=== PATIENT | female | born 1975 | race Caucasian/White ===

== ENCOUNTER → 2022-04-19 10:00 | Outpatient (BNVA) | payer OTHER, SELFPAY | PROVIDERS: PCP Internal Medicine Endocrinology, Diabetes & Metabolism; Visit Provider Counselor Mental Health | DX: F43.20 Adjustment disorder, unspecified (principal); E66.01 Morbid (severe) obesity due to excess calories | CPT/HCPCS: 90791 ==

== ENCOUNTER 2022-05-04 15:11 | Outpatient (REF) | payer OTHER, SELFPAY ==
[2022-05-05 15:43] LABS: H Pylori Breath Test Negative (Negative)
== END 2022-05-04 15:12 | disposition home or self-care (01) ==
LOC: HO.LNP 15:11
PROVIDERS: Visit Provider Physician Assistant
DX: E66.01 Morbid (severe) obesity due to excess calories (principal); E03.9 Hypothyroidism, unspecified; I10 Essential (primary) hypertension
CPT/HCPCS: 83013

== ENCOUNTER → 2022-05-06 10:20 | Outpatient (BNVA) | payer OTHER, SELFPAY | PROVIDERS: PCP Internal Medicine Endocrinology, Diabetes & Metabolism; Visit Provider Dietitian, Registered | DX: Z71.3 Dietary counseling and surveillance (principal); E66.01 Morbid (severe) obesity due to excess calories | CPT/HCPCS: 97802 ==

== ENCOUNTER 2022-05-18 09:04 | Outpatient (REF) | payer OTHER, SELFPAY ==
--- NOTE | 2022-05-18 09:17 | ECG_ITS ---
Test Reason : OBESITY Blood Pressure : / mmHG Vent. Rate : 084 BPM Atrial Rate : 084 BPM P-R Int : 152 ms QRS Dur : 094 ms QT Int : 380 ms P-R-T Axes : 059 042 -02 degrees QTc Int : 449 ms Normal sinus rhythm Nonspecific ST and T wave abnormality Borderline ECG No previous ECGs available Referred By: Shiloh Bower Electronically Signed By:MANDO BERMUDEZ
[2022-05-18 09:38] LABS: MANUAL DIFF FLAG NO
[2022-05-18 10:02] LABS: Basophils Percent Auto 0.4 % (0-2); Eosinophils Absolute Auto 0.4 X10*3/uL (0.0-0.4); Eosinophils Percent Auto 5.2 % (0-4); Hematocrit 38.3 % (37.0-47.0); Imm Gran Abs Auto 0.02 X10*3/uL (0.00-0.03); Imm Gran Pct Auto 0.3 % (0.0-0.4); Lymphocytes Absolute Auto 1.7 X10*3/uL (1.2-4.9); Lymphocytes Percent Auto 25.1 % (20-40); Mean Corpuscular HGB Conc 31.3 g/dl (31.0-35.0); Mean Corpuscular Hemoglobin 26.7 pg (27.0-33.0); Mean Corpuscular Volume 85.3 fL (80.0-98.0); Mean Platelet Volume 10.6 fL (9.4-12.3); Monocytes Absolute Auto 0.6 X10*3/uL (0.1-1.2); Monocytes Percent Auto 8.9 % (2-11); Neutrophils Percent Auto 60.1 % (45-73); Platelet Count 392 X10*3/uL (160-400); Red Blood Count 4.49 X10*6/uL (4.20-5.50); White Blood Count 6.7 X10*3/uL (4.8-10.8)
[2022-05-18 10:09] LABS: Estimated Average Glucose 137 mg/dL; Hemoglobin A1c % 6.4 %
[2022-05-18 10:34] LABS: Alanine Aminotransferase 40 U/L (0-31); Albumin Level 4.1 g/dL (3.5-5.0); Alkaline Phosphatase 70 U/L (39-117); Anion Gap 20 (12-20); Aspartate Amino Transferase 33 U/L (5-31); Bilirubin Total 0.5 mg/dL (0.0-1.0); Blood Urea Nitrogen 14 mg/dL (9-16); C Reactive Protein 1.97 mg/dL (< or = 0.50); Calcium 9.7 mg/dL (8.4-10.2); Carbon Dioxide 24 mmol/L (22-29); Chloride 103 mmol/L (96-108); Cholesterol 189 mg/dL; Estimated Glomerular Filt Rate > 60; Glucose Random 169 mg/dL (60-115); HDL Cholesterol 43 mg/dL; Iron 52 mcg/dL (30-160); LDL Cholesterol Calculated 124 mg/dl; Percent Iron Saturation 11 % (15-50); Potassium 4.5 mmol/L (3.3-5.1); Sodium 142 mmol/L (135-145); Total Iron Binding Capacity 469 mcg/dL (228-428); Total Protein 7.1 g/dL (6.5-8.0); Triglycerides 114 mg/dL; Unsaturated Iron Binding 417 ug/dL
[2022-05-18 10:56] LABS: Ferritin 29 ng/mL (10-250); Insulin 38 uU/mL (2-29); Vitamin D 25-OH Total 45.2 ng/mL (>30)
[2022-05-18 11:11] LABS: Folate 5.5 ng/mL (> or = 4.0); Vitamin B12 223 pg/mL (200-900)
[2022-05-19 10:42] LABS: Calcium (PTHI) 9.9 mg/dL (8.6-10.2); PTHI 47 pg/mL (16-77)
[2022-05-21 18:06] LABS: Zinc 91 mcg/dL (60-130)
[2022-05-22 11:03] LABS: Vitamin B1 6 nmol/L (8-30)
[2022-05-22 20:02] LABS: Vitamin A 38 mcg/dL (38-98)
== END 2022-05-18 09:05 | disposition home or self-care (01) ==
LOC: HO.LAB 09:04
PROVIDERS: PCP Internal Medicine Endocrinology, Diabetes & Metabolism; Visit Provider Physician Assistant
DX: E03.9 Hypothyroidism, unspecified (principal); E66.01 Morbid (severe) obesity due to excess calories; G47.30 Sleep apnea, unspecified; I10 Essential (primary) hypertension; I26.99 Other pulmonary embolism without acute cor pulmonale
CPT/HCPCS: 36415; 80053; 80061; 82306; 82607; 82728; 82746; 83036; 83525; 83540; 83970; 84425; 84443; 84590; 84630; 85025; 86140; 93005

== ENCOUNTER 2022-05-24 08:29 | Outpatient (REF) | payer OTHER, SELFPAY ==
--- NOTE | ~2022-05-24 | FL_ITS ---
EXAMINATION: XR GI SERIES CLINICAL INFORMATION: Obesity COMPARISON: None TECHNIQUE: Upper GI was performed using thick barium and effervescent granules. Exam is limited. Upright views of the esophagus were performed. Upright views of the stomach and duodenum were performed. Additional overhead images of the stomach and duodenum in the AP and bilateral oblique projections were performed. Patient refused additional images. Prone SRINIVASAN drinking esophagram images were not obtained. FINDINGS: Esophageal motility is normal. No hernia is appreciated with the patient upright or on limited supine images. Drinking esophagram was not performed. Gastroesophageal reflux was not observed. Evaluation of the stomach and duodenum is limited but unremarkable. FLUOROSCOPY TIME: 0.3 minutes DOSE AREA PRODUCT: 159 CG Y per centimeter squared 8 fluoroscopic images and 5 overhead images. FL/FL upper GI series IMPRESSION: Limited but unremarkable exam
--- NOTE | ~2022-05-24 | US_ITS ---
EXAMINATION: US COMPLETE ABDOMEN WITH LIVER ELASTOGRAPHY CLINICAL INFORMATION: Obesity COMPARISON: None. TECHNIQUE: Real-time imaging of the abdominal viscera. Noninvasive ultrasound liver fibrosis assessment is performed using Marc ElastPQ point quantification shear wave elastography (2D-SWE) with a C5-2 MHz transducer. Multiple elastography samples are obtained. Exam is limited due to body habitus. FINDINGS: PANCREAS: Not well visualized. ABDOMINAL AORTA: The proximal and middle aortic segments are normal in caliber. The distal abdominal aorta is not well visualized. INFERIOR VENA CAVA: Visualized portions are normal. LIVER: Liver is enlarged. Liver echotexture is increased. No focal liver lesion or biliary duct dilatation. The right lobe measures 22 cm in length. The left lobe measures 14 cm in length. Portal flow is normal/hepatopedal Shear wave liver elastography median stiffness is 1.8 m/s (reference: normal median stiffness is 1.3 m/s or less). IQR/median stiffness to assess sampling precision is 0.28 (reference: good quality data set is IQR/median stiffness of 0.15 or less). GALLBLADDER: Normal. The gallbladder is physiologically distended without evidence of stones, sludge, polyps, wall thickening or pericholecystic fluid. COMMON BILE DUCT: Normal in caliber measuring 0.4 cm in diameter. RIGHT KIDNEY: There is question of a stone in the midpole measuring 5 mm. No hydronephrosis. No focal parenchymal lesions. The kidney measures 10.7 cm in maximum dimension. LEFT KIDNEY: There is a 3 cm cyst in the lower pole. No hydronephrosis. No renal calculi . The kidney measures 12.4 cm in maximum dimension. SPLEEN: Normal. The spleen measures 11.5 cm in maximum dimension. FREE FLUID: None. US/US abdomen comp w elastography IMPRESSION: 1. Impression: Limited exam due to patient body habitus. Enlarged echogenic liver suggestive of fatty infiltration. Question small right renal stone. Small left renal cyst. Limited visualization of the pancreas and aorta. 2. Liver elastography: Limited due to sampling error. REFERENCE: Society of Radiologists in Ultrasound Liver Stiffness Thresholds (2020): LIVER STIFFNESS THRESHOLDS: *Liver Stiffness equal or less than 1.3 m/s: High probability of being normal. *Liver Stiffness less than 1.7 m/s: In the absence of other known clinical signs, rules out compensated advanced chronic liver disease. *Liver Stiffness 1.7-2.1 m/s: Suggestive of compensated advanced chronic liver disease but need further test for confirmation. *Liver Stiffness over 2.1 m/s: Rules in compensated advanced chronic liver disease. *Liver Stiffness over 2.4 m/s: Suggestive of clinically significant portal hypertension. QUALITY OF DATA SET: *IQR/Median value equal or less than 0.15 implies a quality data set. *IQR/Median value over 0.15 implies a poor quality data set. SIGNIFICANT CHANGE FROM PRIOR EXAM: Significant change if liver stiffness measurement is 10% or greater from prior exam. OTHER CONSIDERATIONS: The stage of liver fibrosis may be overestimated in the setting of acute hepatitis, liver inflammation, elevated liver function tests, hepatic vascular congestion, obstructive cholestasis, non-fasting state, and infiltrative diseases such as amyloidosis and lymphoma. In some patients with NAFLD, the liver stiffness thresholds for compensated advanced chronic liver disease may be lower. In causes other than viral hepatitis and NAFLD, liver stiffness thresholds are not well established.
--- NOTE | ~2022-05-24 | XR_ITS ---
EXAMINATION: XR CHEST CLINICAL INFORMATION: Bariatric service evaluation. E66.01. COMPARISON: None TECHNIQUE: 2 views of the chest were obtained. FINDINGS: Lungs are clear. There is no airspace consolidation or groundglass opacity or effusion. The costophrenic sulci are well-defined. The heart is normal in size. The hilar and mediastinal contours and visualized bony structures are unremarkable. XR/XR chest 2V IMPRESSION: Unremarkable examination.
== END 2022-05-24 08:30 | disposition home or self-care (01) ==
LOC: HO.US 08:29
PROVIDERS: Visit Provider Physician Assistant
DX: Z01.818 Encounter for other preprocedural examination (principal); E66.01 Morbid (severe) obesity due to excess calories; I10 Essential (primary) hypertension; G47.30 Sleep apnea, unspecified; I26.99 Other pulmonary embolism without acute cor pulmonale; E03.9 Hypothyroidism, unspecified; E66.9 Obesity, unspecified; K21.9 Gastro-esophageal reflux disease without esophagitis
CPT/HCPCS: 71046; 74240; 76705; 76981

== ENCOUNTER → 2022-06-03 10:41 | Outpatient (BNVA) | payer OTHER, SELFPAY | PROVIDERS: PCP Internal Medicine Endocrinology, Diabetes & Metabolism; Visit Provider Dietitian, Registered | DX: E66.01 Morbid (severe) obesity due to excess calories (principal) | CPT/HCPCS: 97803 ==

== ENCOUNTER → 2022-07-12 10:03 | Outpatient (BNVA) | payer OTHER, SELFPAY | PROVIDERS: PCP Internal Medicine Endocrinology, Diabetes & Metabolism; Visit Provider Dietitian, Registered | DX: E66.01 Morbid (severe) obesity due to excess calories (principal); Z68.45 Body mass index [BMI] 70 or greater, adult | CPT/HCPCS: 97803 ==

== ENCOUNTER → 2022-10-14 09:58 | Outpatient (BNVA) | payer OTHER, SELFPAY | PROVIDERS: Visit Provider Physician Assistant | DX: E66.01 Morbid (severe) obesity due to excess calories (principal) ==

== ENCOUNTER → 2022-10-28 13:43 | Outpatient (BNVA) | payer OTHER, SELFPAY | PROVIDERS: PCP Internal Medicine Endocrinology, Diabetes & Metabolism; Visit Provider Dietitian, Registered | DX: E66.01 Morbid (severe) obesity due to excess calories (principal) | CPT/HCPCS: 97803 ==

== ENCOUNTER → 2022-11-05 09:58 | Outpatient (BNVA) | payer OTHER, SELFPAY | PROVIDERS: PCP Internal Medicine Endocrinology, Diabetes & Metabolism; Visit Provider Physician Assistant | DX: Z98.890 Other specified postprocedural states (principal) ==

== ENCOUNTER → 2022-12-10 09:00 | Outpatient (BNVA) | payer OTHER, SELFPAY | PROVIDERS: PCP Internal Medicine Endocrinology, Diabetes & Metabolism; Visit Provider Physician Assistant | DX: Z13.89 Encounter for screening for other disorder (principal) ==

== ENCOUNTER → 2022-12-16 13:16 | Outpatient (BNVA) | payer OTHER, SELFPAY | PROVIDERS: PCP Internal Medicine Endocrinology, Diabetes & Metabolism; Visit Provider Dietitian, Registered | DX: E66.01 Morbid (severe) obesity due to excess calories (principal); Z68.45 Body mass index [BMI] 70 or greater, adult | CPT/HCPCS: 97803 ==

== ENCOUNTER → 2023-01-26 10:00 | Outpatient (BNVA) | payer OTHER, SELFPAY | PROVIDERS: PCP Internal Medicine Endocrinology, Diabetes & Metabolism; Visit Provider Physician Assistant | DX: Z13.89 Encounter for screening for other disorder (principal) ==

== ENCOUNTER → 2023-02-16 11:30 | Outpatient (BNVA) | payer OTHER, SELFPAY | PROVIDERS: PCP Internal Medicine Endocrinology, Diabetes & Metabolism; Visit Provider Physician Assistant ==

== ENCOUNTER → 2023-02-24 11:19 | Outpatient (BNVA) | payer OTHER, SELFPAY | PROVIDERS: PCP Internal Medicine Endocrinology, Diabetes & Metabolism; Visit Provider Dietitian, Registered | DX: E66.01 Morbid (severe) obesity due to excess calories (principal) | CPT/HCPCS: 97803 ==

== ENCOUNTER 2023-04-18 11:00 | Outpatient (AMB) | payer OTHER, SELFPAY ==
--- NOTE | 2023-04-18 11:17 | MHC.OFFVISWM ---
Intake VS Expanded 04/18/23 11:22 Height 5 ft 4 in Weight 463 lb 2 oz BMI 79.5 Intake Visit Reasons: VIDEO F/U SWL Allergies PENICILLIEN Allergy (Mild, Uncoded 03/25/22 10:10) Rash Medication List - Last Reconciled 04/18/23 by Shiloh Bower PA-C amlodipine 5 mg PO BID benazepril 10 mg PO DAILY cholecalciferol (vitamin D3) 50 mcg PO DAILY clotrimazole 1% 1 appl topical BID cyanocobalamin (vitamin B-12) 250 mcg PO DAILY dulaglutide (Trulicity) 1.5 mg subcut QWEEK inulin (Fiber Gummies) grams PO levothyroxine 100 mcg PO DAILY thiamine HCl (vitamin B1) 50 mg (1/2 x 100 mg) PO DAILY warfarin 7.5 mg PO 2XW warfarin 5 mg PO 4XW HPI HPI Comments History of Present Illness Details 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 Will be on vacation until April 24. Meal plan - 8am - [facility] shake 11 am - bar 1-2 pm- yogurt 4pm- shake or cc or 1 hb egg 6pm - 4 - 6 oz protein and vegetables most days some starchy vegetables Exercise - 30 minute HIT classes 3-4d/ week. (350 - 420) TSH was re cehecked by foreign policy officer- no does change. colonoscopy - March 2023, all normal per patient PFSH Surgical History Hx of section Family History Mother Diabetes Hypertension Graves disease Hypothyroid Father Heart problem Hypertension Brother No problems noted. Daughter No problems noted. Social History Alcohol intake: never Patient Tobacco Use Status: Never used Tobacco Assessment & Plan Assessment & Plan (1) Morbid obesity: Code(s): E66.01 - Morbid (severe) obesity due to excess calories Plan: SWL follow up, pt has lost 55 lbs or 10.6%. She is now struggling more with her meal plan but has been able to increase her exericse - now without personal training sessions. She is asking what her goal is to lose before bariatric surgery. She will text me recent BP's. Meal plan: Starting April 25, we discussed her changing her meal plan to a very low calories high protein option to try to achceive more weight loss for a 2-3 week period. She will come to office for her next appt for full Tanita readings 8am - shake 11am - bar 2pm - shake 5pm - cottage or yogurt 7pm- shake Continue HIT classes 4 d/week, Start TBP sittitng videos 3d/ week - 2,000 calories - burned per week. Options to be discussed: 1. Repeat ULS to check for shrinkage of liver 2. Candidate for phentermine? 3. Discuss with Dr Lawler, since the endogastric balloon is not an option for her (due to finances) what is the pre op goal for her. Next appt with me first week of May. Dr Cole was in attendance during this visit. Patient is still morbidly obese and is not considered stable at this time. I spent 45 minutes in total speaking with the patient via video conference counseling , reviewing records and charting in patients chart. . . (2) HTN (hypertension), benign: Code(s): I10 - Essential (primary) hypertension (3) Hypothyroid: Code(s): E03.9 - Hypothyroidism, unspecified (4) GISSELLE on CPAP: Code(s): G47.33 - Obstructive sleep apnea (adult) (pediatric); Z99.89 - Dependence on other enabling machines and devices (5) Pulmonary embolus: Comment: history, while on bedrest Code(s): I26.99 - Other pulmonary embolism without acute cor pulmonale Telehealth Telehealth Location of provider rendering services: practice address Location of patient: address on file Patient Identification confirmed using: Name, : No Telehealth method: video Patient verbally consented to treatment: Yes Patient verbally consented to billing insurance company: Yes Patient informed of any privacy concerns related to visit: Yes Coding Level of Care Code Tele Est Pt Level 4 (40043) Diagnoses Morbid obesity E66.01 HTN (hypertension), benign I10 Hypothyroid E03.9 GISSELLE on CPAP G47.33; Z99.89 Pulmonary embolus I26.99
[2023-04-18 11:22] VITALS: BMI 79.5
== END 2023-04-18 12:23 | disposition home or self-care (01) ==
LOC: HO.HBS 11:56
PROVIDERS: PCP Internal Medicine Endocrinology, Diabetes & Metabolism; Visit Provider Physician Assistant
DX: E66.01 Morbid (severe) obesity due to excess calories (principal); Z68.45 Body mass index [BMI] 70 or greater, adult; I10 Essential (primary) hypertension; E03.9 Hypothyroidism, unspecified; I26.99 Other pulmonary embolism without acute cor pulmonale; G47.33 Obstructive sleep apnea (adult) (pediatric); Z99.89 Dependence on other enabling machines and devices
CPT/HCPCS: 99214

== ENCOUNTER → 2023-04-18 11:00 | Outpatient (BNVA) | payer OTHER, SELFPAY | PROVIDERS: PCP Internal Medicine Endocrinology, Diabetes & Metabolism; Visit Provider Physician Assistant ==

== ENCOUNTER 2023-04-25 10:30 | Outpatient (AMB) | payer OTHER, SELFPAY ==
--- NOTE | 2023-04-25 10:43 | MHC.AMNUTRGE ---
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 Reviewed her very temporary low calorie high protein nutrition plan which is: 8am - shake 11am - bar 2pm - shake 5pm - cottage or yogurt 7pm- shake went on vacation in [place]. tried to stick to protein and vegetables.? HIT classes 4 d/week, Start TBP sittitng videos 3d/ week. I Recommended a walking trail in [place] which has benches for resting. Was on Trulicity 3.0 but started experiencing vomiting and rash around injection site. Went back down to the 1.5 . She isn't opposed to taking a different medication and she will discuss options with her pcp Dietary counseling reduction Diagnosis Nutrition problem #1 overweight/obesity As related to (etiology) #1 excess energy intake and physical inactivity As evidenced by (sign/symptom) #1 high BMI Monitoring/Goals Nutrition problem monitoring total energy intake, level of knowledge/skill, total PRO intake, total CHO intake and weight Outcome progress progressing Learning/Education Readiness to learn excellent Stages of change action Most Recent Diabetes Results: No Data to Display PFSH Surgical History Hx of section Family History Mother Diabetes Hypertension Graves disease Hypothyroid Father Heart problem Hypertension Brother No problems noted. Daughter No problems noted. Social History Alcohol intake: never Patient Tobacco Use Status: Never used Tobacco Assessment & Plan Assessment & Plan (1) Morbid obesity: Code(s): E66.01 - Morbid (severe) obesity due to excess calories Patient Instructions: pt is cleared, is doing great, or is very consistent and determined. Communicate as needed and continue follow ups with Shiloh [facility] Location of provider rendering services: practice address Location of patient: address on file Patient Identification confirmed using: Name, : Yes Telehealth method: video Patient verbally consented to treatment: Yes Patient verbally consented to billing insurance company: Yes Patient informed of any privacy concerns related to visit: Yes Minutes spent on Phone/Video with Pt.: 25 Coding Level of Care Code Nutr Indiv Subseq (24754) Diagnoses Morbid obesity E66.01 Time Spent (min) 25
== END 2023-04-25 11:44 | disposition home or self-care (01) ==
LOC: HO.HBS 11:42
PROVIDERS: PCP Internal Medicine Endocrinology, Diabetes & Metabolism; Visit Provider Dietitian, Registered
DX: E66.01 Morbid (severe) obesity due to excess calories (principal)

== ENCOUNTER → 2023-04-25 10:30 | Outpatient (BNVA) | payer OTHER, SELFPAY | PROVIDERS: PCP Internal Medicine Endocrinology, Diabetes & Metabolism; Visit Provider Dietitian, Registered | DX: E66.01 Morbid (severe) obesity due to excess calories (principal); Z71.3 Dietary counseling and surveillance | CPT/HCPCS: 97803 ==

== ENCOUNTER 2023-05-13 13:00 | Outpatient (AMB) | payer OTHER, SELFPAY ==
--- NOTE | 2023-05-13 13:05 | A.OFFVIS_ITS ---
Intake VS Expanded 05/13/23 13:18 Height 5 ft 4 in Weight 455 lb 6.4 oz BMI 78.2 BP 141/70 H Blood Pressure Location Rt radial Pulse 78 Pulse Source Pulse Oximeter Temp 98.6 F Temperature Source Temporal Artery Scan Pulse Oximetry 98 Oxygen Delivery Method Room Air Body Fat 266.0 Body Fat Percentage 58.5 Free Fat Mass 189.2 Muscle Mass 179.6 Water Mass 136.0 BMR 2,947 Intake Visit Reasons: (OV) F/U SWL Allergies PENICILLIEN Allergy (Mild, Uncoded 05/13/23 13:15) Rash Medication List - Last Reconciled 05/13/23 by Charlotte Paul LPN amlodipine 5 mg PO BID benazepril 10 mg PO DAILY cholecalciferol (vitamin D3) 50 mcg PO DAILY clotrimazole 1% 1 appl topical BID cyanocobalamin (vitamin B-12) 250 mcg PO DAILY dulaglutide (Trulicity) 1.5 mg subcut QWEEK inulin (Fiber Gummies) grams PO levothyroxine 100 mcg PO DAILY thiamine HCl (vitamin B1) 50 mg (1/2 x 100 mg) PO DAILY warfarin 7.5 mg PO 2XW warfarin 5 mg PO 4XW HPI HPI Comments History of Present Illness Details 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 Dr Lawler had recommended patient have endogastric balloon placed to aid with her weight loss, but for financial reasons patient is unable to do this. She has been on Trulcity for at least one year and cannot use Phentermine per Dr Lawler due to HTN diagnosis. Meal plan - 3 shakes, 1 bar, 2 yogurt or cc - for about 2 weeks and lost 8 lbs. When tried to have a reasonable dinner at a restaurant - gained 3 lbs over night. shredded lettuce, 6 shrimp, taco shell, guacamole, selzter. At home 6 oz lean protein, adn roasted vegetables. Exercise - for the last 2 weeks - 6d/week. 30 minute in person exercise class. Then walks in pool in weights. Pre op work up completed. SWL classes -? 05/17 appts -cleared? ? RD appts? - next appt 12/2, rescheduled to 10/18, cleared H pylori - negative Labs - done CXR and ECG - both normal ULS? fatty liver UGI - normal ? ? [facility] Medical History (Updated 05/13/23 @ 13:49 by Shiloh Bower PA-C) Sleep apnea Surgical History Hx of section Family History Mother Diabetes Hypertension Graves disease Hypothyroid Father Heart problem Hypertension Brother No problems noted. Daughter No problems noted. Social History Alcohol intake: never Patient Tobacco Use Status: Never used Tobacco Assessment & Plan Assessment & Plan (1) Morbid obesity: Code(s): E66.01 - Morbid (severe) obesity due to excess calories Plan: Pt has lost 8 lbs in 2 weeks with new exercise and meal plan - she will continue these. May have a meal of protein and veg a few days per week. I am repeating [employer] labs and ULS due to previous hepatomegaly/steatosis. She would like to meet with Dr Lawler - once she has lost some more weight. Next appt with me in 3 weeks Patient is morbidly obese and is not considered stable at this time. I spent 30 minutes in total with patient reviewing/updating records, examining the patient and counseling the patient on weight management as detailed above. (2) HTN (hypertension), benign: Code(s): I10 - Essential (primary) hypertension (3) GISSELLE on CPAP: Code(s): G47.33 - Obstructive sleep apnea (adult) (pediatric); Z99.89 - Dependence on other enabling machines and devices (4) Pulmonary embolus: Comment: history, while on bedrest Code(s): I26.99 - Other pulmonary embolism without acute cor pulmonale (5) Hypothyroid: Code(s): E03.9 - Hypothyroidism, unspecified Orders: Orders Vitamin B12 and Folate Today E03.9 - Hypothyroidism, unspecified, E66.01 - Morbid (severe) obesity due to excess calories, I10 - Essential (primary) hypertension Comprehensive Met. Panel Today E03.9 - Hypothyroidism, unspecified, E66.01 - Morbid (severe) obesity due to excess calories, I10 - Essential (primary) hypertension C Reactive Protein Today E03.9 - Hypothyroidism, unspecified, E66.01 - Morbid (severe) obesity due to excess calories, I10 - Essential (primary) hypertension Ferritin Today E03.9 - Hypothyroidism, unspecified, E66.01 - Morbid (severe) obesity due to excess calories, I10 - Essential (primary) hypertension Hemoglobin A1c Today E03.9 - Hypothyroidism, unspecified, E66.01 - Morbid (severe) obesity due to excess calories, I10 - Essential (primary) hypertension Insulin Today E03.9 - Hypothyroidism, unspecified, E66.01 - Morbid (severe) obesity due to excess calories, I10 - Essential (primary) hypertension IRON PROFILE Today E03.9 - Hypothyroidism, unspecified, E66.01 - Morbid (severe) obesity due to excess calories, I10 - Essential (primary) hypertension Lipid Panel Today E03.9 - Hypothyroidism, unspecified, E66.01 - Morbid (severe) obesity due to excess calories, I10 - Essential (primary) hypertension PTHI Today E03.9 - Hypothyroidism, unspecified, E66.01 - Morbid (severe) obesity due to excess calories, I10 - Essential (primary) hypertension TSH reflex Free T4 Today E03.9 - Hypothyroidism, unspecified, E66.01 - Morbid (severe) obesity due to excess calories, I10 - Essential (primary) hypertension Vitamin A Today E03.9 - Hypothyroidism, unspecified, E66.01 - Morbid (severe) obesity due to excess calories, I10 - Essential (primary) hypertension Vitamin B1 Today E03.9 - Hypothyroidism, unspecified, E66.01 - Morbid (severe) obesity due to excess calories, I10 - Essential (primary) hypertension Vitamin D 25-OH Total Today E03.9 - Hypothyroidism, unspecified, E66.01 - Morbid (severe) obesity due to excess calories, I10 - Essential (primary) hypertension Zinc Today E03.9 - Hypothyroidism, unspecified, E66.01 - Morbid (severe) obesity due to excess calories, I10 - Essential (primary) hypertension Complete Blood Count Auto Diff Today E03.9 - Hypothyroidism, unspecified, E66.01 - Morbid (severe) obesity due to excess calories, I10 - Essential (primary) hypertension US abdomen comp w elastography Today E66.01 - Morbid (severe) obesity due to excess calories, K76.0 - Fatty (change of) liver, not elsewhere classified Coding Level of Care Code Tele Est Pt Level 4 (43155) Diagnoses Morbid obesity E66.01 HTN (hypertension), benign I10 GISSELLE on CPAP G47.33; Z99.89 Pulmonary embolus I26.99 Hypothyroid E03.9
[2023-05-13 13:18] VITALS: BP 141/70; PULSE 78; TEMP 37; O2SAT 98; BMI 78.2
== END 2023-05-13 13:54 | disposition home or self-care (01) ==
PROVIDERS: PCP Internal Medicine Endocrinology, Diabetes & Metabolism; Visit Provider Physician Assistant
DX: E66.01 Morbid (severe) obesity due to excess calories (principal); Z68.42 Body mass index [BMI] 45.0-49.9, adult; I10 Essential (primary) hypertension; G47.33 Obstructive sleep apnea (adult) (pediatric); Z99.89 Dependence on other enabling machines and devices; I26.99 Other pulmonary embolism without acute cor pulmonale
CPT/HCPCS: 99214

== ENCOUNTER → 2023-05-13 13:00 | Outpatient (BNVA) | payer OTHER, SELFPAY | PROVIDERS: PCP Internal Medicine Endocrinology, Diabetes & Metabolism; Visit Provider Physician Assistant | DX: E66.01 Morbid (severe) obesity due to excess calories (principal); I10 Essential (primary) hypertension; E03.9 Hypothyroidism, unspecified; G47.33 Obstructive sleep apnea (adult) (pediatric); Z99.89 Dependence on other enabling machines and devices; I26.99 Other pulmonary embolism without acute cor pulmonale ==

== ENCOUNTER 2023-06-15 10:03 | Outpatient (REF) | payer OTHER, SELFPAY ==
[2023-06-15 10:14] LABS: MANUAL DIFF FLAG NO
[2023-06-15 10:31] LABS: Basophils Percent Auto 0.5 % (0-2); Eosinophils Absolute Auto 0.3 X10*3/uL (0.0-0.4); Hematocrit 41.9 % (37.0-47.0); Hemoglobin 13.3 g/dl (12.0-16.0); Imm Gran Abs Auto 0.02 X10*3/uL (0.00-0.03); Imm Gran Pct Auto 0.2 % (0.0-0.4); Lymphocytes Percent Auto 23.3 % (20-40); Mean Corpuscular HGB Conc 31.7 g/dl (31.0-35.0); Mean Corpuscular Hemoglobin 28.4 pg (27.0-33.0); Mean Corpuscular Volume 89.3 fL (80.0-98.0); Mean Platelet Volume 10.2 fL (9.4-12.3); Monocytes Absolute Auto 0.6 X10*3/uL (0.1-1.2); Monocytes Percent Auto 6.9 % (2-11); Neutrophils Absolute Auto 5.6 x10*3/uL (2.0-8.3); Neutrophils Percent Auto 66.1 % (45-73); Platelet Count 335 X10*3/uL (160-400); Red Blood Count 4.69 X10*6/uL (4.20-5.50); Red Cell Distribution Width 14.5 % (11.0-16.0); White Blood Count 8.5 X10*3/uL (4.8-10.8)
[2023-06-15 10:46] LABS: Estimated Average Glucose 100 mg/dL; Hemoglobin A1c % 5.1 % (<6.0)
[2023-06-15 11:15] LABS: Alanine Aminotransferase 15 U/L (0-31); Albumin Level 3.9 g/dL (3.5-5.0); Alkaline Phosphatase 73 U/L (39-117); Anion Gap 11 (12-20); Aspartate Amino Transferase 18 U/L (5-31); Bilirubin Total 0.4 mg/dL (0.0-1.0); Blood Urea Nitrogen 12 mg/dL (9-16); C Reactive Protein 1.55 mg/dL (< or = 0.50); Calcium 9.5 mg/dL (8.4-10.2); Carbon Dioxide 27 mmol/L (22-29); Chloride 106 mmol/L (96-108); Cholesterol 153 mg/dL (<200); Estimated Glomerular Filt Rate > 60; Glucose Random 94 mg/dL (60-115); HDL Cholesterol 41 mg/dL (>40); Iron 73 mcg/dL (30-160); LDL Cholesterol Calculated 88 mg/dL (<100); Percent Iron Saturation 24 % (15-50); Potassium 4.4 mmol/L (3.3-5.1); Sodium 140 mmol/L (135-145); Total Iron Binding Capacity 309 mcg/dL (228-428); Total Protein 7.4 g/dL (6.5-8.0); Triglycerides 121 mg/dL (<150); Unsaturated Iron Binding 236 ug/dL
[2023-06-15 11:34] LABS: Ferritin 48 ng/mL (10-250); Insulin 23 uU/mL (2-29); TSH reflex Free T4 2.89 uIU/mL (0.32-4.0); Vitamin D 25-OH Total 71.3 ng/mL (>30)
[2023-06-15 11:47] LABS: Folate 14.5 ng/mL (> or = 4.0); Vitamin B12 1462 pg/mL (200-900)
[2023-06-17 15:54] LABS: Calcium (PTHI) 9.2 mg/dL (8.6-10.2); PTHI 49 pg/mL (16-77)
[2023-06-18 01:44] LABS: Zinc 107 mcg/dL (60-130)
[2023-06-20 02:40] LABS: Vitamin A 53 mcg/dL (38-98)
[2023-06-21 00:28] LABS: Vitamin B1 16 nmol/L (8-30)
== END 2023-06-15 10:04 | disposition home or self-care (01) ==
LOC: HO.LAB 10:03
PROVIDERS: PCP Internal Medicine Endocrinology, Diabetes & Metabolism; Visit Provider Physician Assistant
DX: E03.9 Hypothyroidism, unspecified (principal); E66.01 Morbid (severe) obesity due to excess calories; I10 Essential (primary) hypertension
CPT/HCPCS: 36415; 80053; 80061; 82306; 82607; 82728; 82746; 83036; 83525; 83540; 83970; 84425; 84443; 84590; 84630; 85025; 86140

== ENCOUNTER 2023-06-15 10:17 | Outpatient (REF) | payer OTHER, SELFPAY ==
--- NOTE | ~2023-06-15 | US_ITS ---
EXAMINATION: US COMPLETE ABDOMEN WITH LIVER ELASTOGRAPHY CLINICAL INFORMATION: Fatty change of liver. COMPARISON: Ultrasound abdomen 05/24/2022 TECHNIQUE: Real-time imaging of the abdominal viscera. Noninvasive ultrasound liver fibrosis assessment is performed using Marc ElastPQ point quantification shear wave elastography (2D-SWE) with a C5-2 MHz transducer. Multiple elastography samples are obtained. FINDINGS: PANCREAS: Normal. The visualized pancreatic head and body are normal in appearance. The remainder of the pancreas is obscured from visualization by the overlying bowel gas. ABDOMINAL AORTA: The proximal and middle aortic segments are normal in caliber. The distal segments are not visualized. INFERIOR VENA CAVA: Visualized portions are normal. LIVER: The liver demonstrates normal size, contour and increased echogenicity. No focal lesion or intrahepatic biliary duct dilatation. The right lobe measures 21.2 cm in length. The left lobe measures 15.5 cm in length. Portal flow is hepatopedal. Shear wave liver elastography median stiffness is 1.83 m/s (reference: normal median stiffness is 1.3 m/s or less). Previously measured 1.8 m/s. IQR/median stiffness to assess sampling precision is 0.15 (reference: good quality data set is IQR/median stiffness of 0.15 or less). Previously measured 0.28. GALLBLADDER: The gallbladder is small and contracted with small echogenic areas within what is likely echogenic bile. No wall thickening seen. COMMON BILE DUCT: Normal in caliber measuring 0.4 cm in diameter. RIGHT KIDNEY: Normal. No hydronephrosis. No renal calculi or focal parenchymal lesions. The kidney measures 11.5 cm in maximum dimension. LEFT KIDNEY: Normal. No hydronephrosis. No renal calculi or focal parenchymal lesions. The kidney measures 11.0 cm in maximum dimension. There is an anechoic cyst lower pole measuring 2.5 x 2.8 x 2.6 cm. SPLEEN: Normal. The spleen measures 8.9 cm in maximum dimension. FREE FLUID: None. US/US abdomen comp w elastography IMPRESSION: 1. Mild hepatic steatosis. Stable left renal cyst measuring approximately 2.8 cm. Previously measured 3 cm. 2. Liver elastography: Median liver stiffness measures 1.8 m/s corresponding to cACLD. It appears to be unchanged to previous ultrasound exam 05/24/2022. 3. Contracted gallbladder with likely echogenic bile. REFERENCE: Society of Radiologists in Ultrasound Liver Stiffness Thresholds (2020): LIVER STIFFNESS THRESHOLDS: *Liver Stiffness equal or less than 1.3 m/s: High probability of being normal. *Liver Stiffness less than 1.7 m/s: In the absence of other known clinical signs, rules out compensated advanced chronic liver disease. *Liver Stiffness 1.7-2.1 m/s: Suggestive of compensated advanced chronic liver disease but need further test for confirmation. *Liver Stiffness over 2.1 m/s: Rules in compensated advanced chronic liver disease. *Liver Stiffness over 2.4 m/s: Suggestive of clinically significant portal hypertension. QUALITY OF DATA SET: *IQR/Median value equal or less than 0.15 implies a quality data set. *IQR/Median value over 0.15 implies a poor quality data set. SIGNIFICANT CHANGE FROM PRIOR EXAM: Significant change if liver stiffness measurement is 10% or greater from prior exam. OTHER CONSIDERATIONS: The stage of liver fibrosis may be overestimated in the setting of acute hepatitis, liver inflammation, elevated liver function tests, hepatic vascular congestion, obstructive cholestasis, non-fasting state, and infiltrative diseases such as amyloidosis and lymphoma. In some patients with NAFLD, the liver stiffness thresholds for compensated advanced chronic liver disease may be lower. In causes other than viral hepatitis and NAFLD, liver stiffness thresholds are not well established.
== END 2023-06-15 10:18 | disposition home or self-care (01) ==
LOC: HO.US 10:17
PROVIDERS: PCP Internal Medicine Endocrinology, Diabetes & Metabolism; Visit Provider Physician Assistant
DX: K76.0 Fatty (change of) liver, not elsewhere classified (principal); E66.01 Morbid (severe) obesity due to excess calories
CPT/HCPCS: 76705; 76981

== ENCOUNTER 2023-06-20 09:10 | Outpatient (AMB) | payer OTHER, SELFPAY ==
--- NOTE | 2023-06-20 09:25 | MHC.OFFVISWM ---
Intake VS Expanded 06/20/23 09:30 Height 5 ft 4 in Weight 447 lb 6.4 oz BMI 76.8 BP 152/72 H Blood Pressure Location Rt brachial Blood Pressure Position Sitting Pulse 78 Pulse Source Pulse Oximeter Temp 97.8 F Temperature Source Temporal Artery Scan Pulse Oximetry 97 Oxygen Delivery Method Room Air Body Fat 58.4 Body Fat Percentage 261.2 Free Fat Mass 186.0 Muscle Mass 176.8 Water Mass 133.0 BMR 2,854 Intake Visit Reasons: OV Consult/Transfer [facility] Allergies PENICILLIEN Allergy (Mild, Uncoded 05/13/23 13:15) Rash HPI HPI Comments History of Present Illness Details Overall weight loss: 72.5lbs, or 13.94% TBWL Is doing a Fairlife shake at 8.30am, a Celebrate, Built or a 20gr protein bar at 11.30am, 1 cup of cottage cheese or Maori yogurt at 1.30pm, a Farilfe shake or another bar at 4.30pm, dinner at 6.30pm (4-7oz meat and unmeasured portion of salad), and 1/2 Fairlife or cottage cheese after dinner Exercise: 1-hour class with a resident athletic trainer x6/week [facility] Medical History (Updated 05/13/23 @ 13:49 by Shiloh Bower PA-C) Sleep apnea Surgical History Hx of section Family History Mother Diabetes Hypertension Graves disease Hypothyroid Father Heart problem Hypertension Brother No problems noted. Daughter No problems noted. Social History Alcohol intake: never Patient Tobacco Use Status: Never used Tobacco Physical Exam Vital Signs: Last Vital Signs Temp 97.8 F 06/20/23 09:30 Pulse 78 06/20/23 09:30 BP 152/72 H 06/20/23 09:30 Pulse Ox 97 06/20/23 09:30 Oxygen Delivery Method Room Air 06/20/23 09:30 BMI result Body Mass Index 76.8 GI Inspection: Yes incision (well healed) and Yes obesity Palpation (GI): Firmness to palpation present (GI) Extrem Right lower extremity: normal to inspection (significant amount of adiposity) Left lower extremity: normal to inspection (significant amount of adiposity) Assessment & Plan Assessment & Plan (1) Morbid obesity: Code(s): E66.01 - Morbid (severe) obesity due to excess calories Plan: 1. We discussed extensively issues regarding the timing of the surgery. Although the risk could be feasible with present weight, it is more likely that it may not be possible due to intraoperative technical issues such as hepatomegaly and very large abdominal wall. The risk also for a recurrent pulmonary embolism would be higher, the higher her weight is. Also there is a higher possibility of long-term failure, the higher her preop weight is. We also discussed the choice of the operation and we agreed that despite the fact that gastric bypass has a better weight loss short-term, it carries a significantly higher risk of long-term complications such as anastomotic ulcer and bowel obstructions. She will consider all these and get back to me about the timing of surgery 2) change nutritional plan to one Fairlife shake at 8.30am-10.30am, a Celebrate or Built bar at 11.30pm-1.30pm, another Fairlife shake at 2.30pm-4.30pm, another Celebrate or Built bar at 4.30pm-6.30pm, dinner at 7pm (12 forks of protein and 12 forks of salad or vegetables) and another 20gr protein bar, if needed from 8pm-10pm 3. Each shake would be drunk slowly, like coffee in a period of 2 hours. 4. Cut each bar in 4 pieces and eat each piece in 30min ?to make each bar last 2 hours. 5. I emphasized the importance of measuring accurately the food portion and measure it when serving the food in plate 6. The meal portions include 12 full-size forks of meat and 12 full-size forks of salad. You always eat the meat portion but you can replace up to 6 forks for salad/vegetables with rice, potatoes or pasta, or a fruit ?if you like. The less you do it the better weight loss will be. 7. One full-size fork is what it can be scooped on the fork without falling aside and not what can be bit with the fork. Use regular forks like those you find in a typical restaurant. 8.? Please send me weight measurements as soon as possible and then once a week. Always include your diet and exercise plan. 9. Continue present exercise plan. 10. Walk and swim at your pool as often as possible 11. Alternatively purchase a rowing machine at home that can track calories. Let me know if you do so I can give you an exercise plan. 12. Goal is to lose at least 3-4lbs per week 13. Send me weight measurements weekly on Mondays (2) HTN (hypertension), benign: Code(s): I10 - Essential (primary) hypertension (3) Hypothyroid: Code(s): E03.9 - Hypothyroidism, unspecified (4) GISSELLE on CPAP: Code(s): G47.33 - Obstructive sleep apnea (adult) (pediatric); Z99.89 - Dependence on other enabling machines and devices (5) Pulmonary embolus: Comment: history, while on bedrest Code(s): I26.99 - Other pulmonary embolism without acute cor pulmonale (6) Steatosis, liver: Code(s): K76.0 - Fatty (change of) liver, not elsewhere classified Coding Level of Care Code Est Pt Level 5 (13719) Diagnoses Morbid obesity E66.01 HTN (hypertension), benign I10 Hypothyroid E03.9 GISSELLE on CPAP G47.33; Z99.89 Pulmonary embolus I26.99 Steatosis, liver K76.0 Time Spent (min) 90
[2023-06-20 09:30] VITALS: BP 152/72; PULSE 78; TEMP 36.6; O2SAT 97; BMI 76.8
== END 2023-06-20 11:20 | disposition home or self-care (01) ==
PROVIDERS: PCP Internal Medicine Endocrinology, Diabetes & Metabolism; Visit Provider Surgery
DX: E66.01 Morbid (severe) obesity due to excess calories (principal); Z68.45 Body mass index [BMI] 70 or greater, adult; I10 Essential (primary) hypertension; E03.9 Hypothyroidism, unspecified; G47.33 Obstructive sleep apnea (adult) (pediatric); Z99.89 Dependence on other enabling machines and devices; I26.99 Other pulmonary embolism without acute cor pulmonale; K76.0 Fatty (change of) liver, not elsewhere classified
CPT/HCPCS: 99215; 99417

== ENCOUNTER → 2023-06-20 09:10 | Outpatient (BNVA) | payer OTHER, SELFPAY | PROVIDERS: PCP Internal Medicine Endocrinology, Diabetes & Metabolism; Visit Provider Surgery ==

== ENCOUNTER 2023-07-15 08:07 | Outpatient (AMB) | payer OTHER, SELFPAY ==
--- NOTE | 2023-07-15 10:37 | MHC.OFFVISWM ---
Intake VS Expanded 07/15/23 10:56 Height 5 ft 4 in Weight 439 lb 2 oz BMI 75.4 Intake Visit Reasons: TV Follow Up SWL Allergies PENICILLIEN Allergy (Mild, Uncoded 05/13/23 13:15) Rash HPI TV Follow Up SWL HPI Details Start time: 10.31am, End time: 11.01am ?I spent 25 minutes speaking with the patient on the phone plus an additional 5 minutes reviewing and updating records for a total of 30 minutes HPI Comments History of Present Illness Details Overall weight loss: 80.8lbs, or 15.54% TBWL Is doing 2 Fairlife protein shakes (1hr), 3 Build protein bars and one meal at 6pm (12 forks of meat and 12 forks of vegetables) Exercise: Is doing High intensity and cardio exercise x6/wk for 280 calories Feels hungry in between the meals and at night [facility] Medical History (Updated 05/13/23 @ 13:49 by Shiloh Bower PA-C) Sleep apnea Surgical History Hx of section Family History Mother Diabetes Hypertension Graves disease Hypothyroid Father Heart problem Hypertension Brother No problems noted. Daughter No problems noted. Social History Alcohol intake: never Patient Tobacco Use Status: Never used Tobacco Assessment & Plan Assessment & Plan (1) Morbid obesity: Code(s): E66.01 - Morbid (severe) obesity due to excess calories Plan: 1. Please change the nutritional plan to 1 Fairlife protein shake 9am-10am, 3 Build protein bars 11am-12.15pm, 1.15pm-2.30pm and 3.30pm-4.45pm, one meal at 5.45pm- 6pm (12 forks of meat and 12 forks of vegetables) and two bars after dinner at 7pm-8.15pm and 8.15pm-9.30pm 2. Exercise: continue High intensity and cardio exercise x6/wk but increase to 330 calories per work-out 3. Continue to send me weight measurements weekly on Mondays (2) HTN (hypertension), benign: Code(s): I10 - Essential (primary) hypertension Telehealth Telehealth Location of provider rendering services: practice address Location of patient: address on file Patient Identification confirmed using: Name, : Yes Telehealth method: voice only Patient verbally consented to treatment: Yes Patient verbally consented to billing insurance company: Yes Patient informed of any privacy concerns related to visit: Yes Minutes spent on Phone/Video with Pt.: 30 Coding Level of Care Code Tele Est Pt Level 4 (70444) Diagnoses Morbid obesity E66.01 HTN (hypertension), benign I10 Time Spent (min) 30
[2023-07-15 10:56] VITALS: BMI 75.4
== END 2023-07-15 11:02 | disposition home or self-care (01) ==
LOC: HO.HBS 08:07
PROVIDERS: PCP Internal Medicine Endocrinology, Diabetes & Metabolism; Visit Provider Surgery
DX: E66.01 Morbid (severe) obesity due to excess calories (principal); Z68.45 Body mass index [BMI] 70 or greater, adult; I10 Essential (primary) hypertension
CPT/HCPCS: 99214

== ENCOUNTER → 2023-07-15 08:07 | Outpatient (BNVA) | payer OTHER, SELFPAY | PROVIDERS: PCP Internal Medicine Endocrinology, Diabetes & Metabolism; Visit Provider Surgery ==

== ENCOUNTER 2023-08-19 08:25 | Outpatient (AMB) | payer OTHER, SELFPAY ==
--- NOTE | 2023-08-19 10:37 | A.OFFVIS_ITS ---
Intake VS Expanded 08/19/23 10:39 Height 5 ft 4 in Weight 427 lb 3 oz BMI 73.3 Intake Visit Reasons: TV Follow Up SWL Allergies PENICILLIEN Allergy (Mild, Uncoded 05/13/23 13:15) Rash HPI TV Follow Up SWL HPI Details Start time: 10.34am, End time: 10.54am ?I spent 15 minutes speaking with the patient on the phone plus an additional 5 minutes reviewing and updating records for a total of 20 minutes HPI Comments History of Present Illness Details Overall weight loss: 105lbs, or 18% TBWL Is doing one Celebrate Rebuild protein shake (2 scoops in almond milk), 3-5 Celebrate, or Built or other protein bars and one meal (12 forks of meat and 12 forks of salad or vegetables, or 9 forks of vegetables 3 forks rice) Exercise: HIT 6 days per week for 265-365 calories per session and occasional home you tube work-out [facility] Medical History (Updated 05/13/23 @ 13:49 by Shlioh Bower PA-C) Sleep apnea Surgical History Hx of section Family History Mother Diabetes Hypertension Graves disease Hypothyroid Father Heart problem Hypertension Brother No problems noted. Daughter No problems noted. Social History Alcohol intake: never Patient Tobacco Use Status: Never used Tobacco Assessment & Plan Assessment & Plan (1) Morbid obesity: Code(s): E66.01 - Morbid (severe) obesity due to excess calories Plan: 1. Awesome progress! Continue same nutriitonal plan of one Celebrate Rebuild protein shake (2 scoops in almond milk), 3-5 Celebrate, or Built or other protein bars and one meal (12 forks of meat and 12 forks of salad or vegetables, or 9 forks of vegetables 3 forks rice) 2. Exercise: continue HIT 6 days per week for 265-365 calories per session and occasional home you tube work-out 3. Continue to send me weight measurements weekly on Mondays Telehealth Telehealth Location of provider rendering services: practice address Location of patient: address on file Patient Identification confirmed using: Name, : Yes Telehealth method: voice only Patient verbally consented to treatment: Yes Patient verbally consented to billing insurance company: Yes Patient informed of any privacy concerns related to visit: Yes Minutes spent on Phone/Video with Pt.: 20 Coding Level of Care Code Tele Est Pt Level 3 (61005) Diagnoses Morbid obesity E66.01 Time Spent (min) 20
[2023-08-19 10:39] VITALS: BMI 73.3
== END 2023-08-19 10:55 | disposition home or self-care (01) ==
LOC: HO.HBS 08:25
PROVIDERS: PCP Internal Medicine Endocrinology, Diabetes & Metabolism; Visit Provider Surgery
DX: E66.01 Morbid (severe) obesity due to excess calories (principal)
CPT/HCPCS: 99213

== ENCOUNTER → 2023-08-19 08:25 | Outpatient (BNVA) | payer OTHER, SELFPAY | PROVIDERS: PCP Internal Medicine Endocrinology, Diabetes & Metabolism; Visit Provider Surgery ==

== ENCOUNTER 2023-09-19 08:22 | Outpatient (AMB) | payer OTHER, SELFPAY ==
--- NOTE | 2023-09-19 10:39 | MHC.OFFVISWM ---
Intake VS Expanded 09/19/23 11:01 Height 5 ft 4 in Weight 415 lb 8 oz BMI 71.3 Intake Visit Reasons: TV Follow Up SWL Allergies PENICILLIEN Allergy (Mild, Uncoded 05/13/23 13:15) Rash HPI TV Follow Up SWL HPI Details Start time: 10.35am, End time: 11.05am ?I spent 25 minutes speaking with the patient on the phone plus an additional 5 minutes reviewing and updating records for a total of 30 minutes HPI Comments History of Present Illness Details Overall weight loss: 104.2lbs, or 20.04% TBWL Is doing either one ViewRaylife premade shake or a Celebrate Rebuild protein shake (2 scoops in 8oz almond milk), 4 protein bars (Build, Celebrate or Barebella) and one meal (12 forks of protein and 12 forks of salad or vegetables) Exercise: HIT with a sharepoint trainer burning 300-370 calories x6 days per week [facility] Medical History (Updated 05/13/23 @ 13:49 by Shiloh Bower PA-C) Sleep apnea Surgical History Hx of section Family History Mother Diabetes Hypertension Graves disease Hypothyroid Father Heart problem Hypertension Brother No problems noted. Daughter No problems noted. Social History Alcohol intake: never Patient Tobacco Use Status: Never used Tobacco Assessment & Plan Assessment & Plan (1) Morbid obesity: Code(s): E66.01 - Morbid (severe) obesity due to excess calories Plan: 1. Plan for lap sleeve gastrectomy including upper GI endoscopy. All tests has been completed and reviewed and the patient is cleared for the surgery. ?If diaphragmatic or ventral hernias are present at time of surgery, these will be repaired laparoscopically as well. Risks and complications were discussed in detail including possible conversion to an open procedure, anastomotic leak, bleeding requiring transfusion, small bowel obstruction, , DVT and pulmonary embolism, cardiac, or pulmonary complications, as terminal supervisor complications such as anastomotic ulcer, insufficient weight loss and vitamin deficiencies. I emphasized the importance of close follow-up, adherence to instructions and good communication. So far she has proven to be an excellent communicator and very compliant with all our directions accomplishing a great weight loss. I believe that she is an excellent candidate and she is ready. 2. Continue same diet plan of either one Fairlife premade shake or a Celebrate Rebuild protein shake (2 scoops in 8oz almond milk), 4 protein bars (Build, Celebrate or Barebella) and one meal (12 forks of protein and 12 forks of salad or vegetables) 3. Exercise: continue HIT with a sharepoint trainer burning 300-370 calories x6 days per week. 4. Consider adding an additional 100 calorie burn on the Elliptical the days you go to the gym and 300 calories the day you don't go to the gym 5. Continue to send me weight measurements weekly on Mondays Orders: Orders ECG 12 lead EKG Today E66.01 - Morbid (severe) obesity due to excess calories, I10 - Essential (primary) hypertension, R94.31 - Abnormal electrocardiogram [ECG] [EKG] Telehealth Telehealth Location of provider rendering services: practice address Location of patient: address on file Patient Identification confirmed using: Name, : Yes Telehealth method: voice only Patient verbally consented to treatment: Yes Patient verbally consented to billing insurance company: Yes Patient informed of any privacy concerns related to visit: Yes Minutes spent on Phone/Video with Pt.: 30 Coding Level of Care Code Tele Est Pt Level 4 (85412) Diagnoses Morbid obesity E66.01 Time Spent (min) 30
[2023-09-19 11:01] VITALS: BMI 71.3
== END 2023-09-19 11:06 | disposition home or self-care (01) ==
PROVIDERS: PCP Internal Medicine Endocrinology, Diabetes & Metabolism; Visit Provider Surgery
DX: E66.01 Morbid (severe) obesity due to excess calories (principal)
CPT/HCPCS: 99214

== ENCOUNTER → 2023-09-19 08:22 | Outpatient (BNVA) | payer OTHER, SELFPAY | PROVIDERS: PCP Internal Medicine Endocrinology, Diabetes & Metabolism; Visit Provider Surgery ==

== ENCOUNTER 2023-09-22 09:00 | Outpatient (AMB) | payer OTHER, SELFPAY ==
--- NOTE | 2023-09-22 09:16 | A.OFFWM_ITS ---
Intake Intake Visit Reasons: VIDEO F/U SWL Allergies PENICILLIEN Allergy (Mild, Uncoded 05/13/23 13:15) Rash [facility] Medical History (Updated 05/13/23 @ 13:49 by Shiloh Bower PA-C) Sleep apnea Surgical History Hx of section Family History Mother Diabetes Hypertension Graves disease Hypothyroid Father Heart problem Hypertension Brother No problems noted. Daughter No problems noted. Social History Alcohol intake: never Patient Tobacco Use Status: Never used Tobacco Behavioral Health Assessment Weight Management Therapy Therapy Notes Details Patient presents for a new health assessment as part of [facility], she was seen last year by Pilar Chua [facility] for BH assessment when she started the program in summer 2021. Her starting weight was 530Lbs, currently 415Lbs. Initially, the goal was to focus on weight loss and know due to the substantial weight-loss she's in track for bariatric surgery. Pt highlights that due to the progress she has made, she's able to stand and walk, has been attending gym consistently 6 days at week and has a show dog trainer. Her current goal is to be able to move her body everyday and be healthier. PT denied any history of mental health treatment and or past hospitalization/crisis for behavioral health. Denies any safety concerns around SI and/or self-other harm, also no history of substance use reported. There is also no evidence for stress/emotional-eating, and scores from BES suggest minimal risk for binge eating behavior. PHQ- scores also showed no active symptoms/concerns with depression. Mental status exam is withing normal limits, suggesting person's functioning is not impaired. At this time patient is cleared from the behavioral health standpoint. Presenting Concerns Referral Source WMP provider. Pt Sees Dr. Lawler Reason for referral Weight loss surgery evaluation Precipitating Event Obesity and other medical issues. Living Situation Current Living Situation Own At risk of losing current housing? No Satisfied with current living situation? Yes Comments Pt lives with her and her 17 y/o daughter. Food/Weight/Diet Expectations of change PT has lost 117Lbs since started the program last year in 03/2022. She has lost substantial weight and now is moving forward with bariatric surgery. Her goal is to be active and live a healthy-normal life. History/Relationship with food Pt enjoys food, savory salty food, pizza, Tajik food, fast food, take out (about 3-4x's a week). Bagel and coffee for breakfast or croissant, easy and convenient foods have been her downfall. Also used to [employer] often. She denied any binge eating. In the past year she has made several changes in her diet and meal plan. She has been following the meal plan provided by the program. Recently her meal plan is more strict with 1 shake, 3 bars and 1 meal (dinner). So far she's doing well. History/Relationship with weight Pt reported that she was thinner in highschool about a size 12, very active, and then started to gain weight in her late teens. Lowest weight as an adult was in the 300lbs's. History/Relationship with dieting Pt reported loosing 185lbs through hypnosis 4 years a go but then stalled and gained it all back sometime later. WMP since summer 2021, has lost 117Lbs. Binge Eating Do you frequently eat large amounts of food in short periods of time, not feeling physically hungry? No Do you feel out of control when you eat a large amount of food in a short period of time? No Do you eat large amounts of food rapidly and typically alone? No Night Eating Do you wake up at least once during the night to eat? No If you wake up in the night, do you find that it is necessary to eat something in order to fall back asleep? No Do you have little or no appetite in the morning and feel very hungry in the evening, often overeating between dinner and when you go to bed? No Social History Family history and relationship Pt is 23 years ago. They have a 17 y/o daughter. PT has 1 brother, Parents alive. Pt described good family dynamics. Father and his side of the family have significant problems, with obesity. Viola gibson lost sig. weight from hypnosis and then surgery for his heart. Pt stated that her grandmother and her aunt were sig. obese. Childhood was described as fun, parents when she was 7 years and she has one brother and three step sisters. Parents both re-. 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 Community support Currently in between churches Episcopalian/Spirituality Anabaptist Cultural/Ethnic information . Legal Involvement and History Current or historical involvement with the legal system? None reported. Education Highest grade completed Associate's in business. Preferred learning style Auditory, Verbal, Written, Learn by doing and Visual Currently enrolled in educational program? No Interested in further educational program? 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 ) Wants help to find employment? No Meaningful activities Board games, movies, car rides, spend time with family, swimming (they have their own pool), sew. Financial Situation Describe current financial situation Comfortable Financial assistance? None Service Service? No Mental Health and Addiction Treatment Current/Past substance abuse? No Current/Past addictive behavior concerns? No Psychiatric history Never in treatment. Never in Crisis and/or inpatient for behavioral health. Denies any concern around self-harming and/or other-harm. Medical and Physical Health Summary Additional Medical History not covered in history None. Sexual History concerns None Physical exam in the last year? Yes Pain Screening Current pain? Yes Pain in the last few months? Yes Comments Back and knees. Medications Is the patient compliant with medications? Yes Does the patient have Pan Guardian in place? Not applicable Does the patient use complimentary health approaches? No Trauma/Abuse History History of trauma? No Questionnaires PHQ-9 Over the last 2 weeks, how often have you been bothered by any of the following problems? 1. Little interest or pleasure in doing things: not at all 2. Feeling down, depressed, or hopeless: not at all 3. Trouble falling or staying asleep, or sleeping too much: not at all 4. Feeling tired or having little energy: several days (Only after exercising.) 5. Poor appetite or overeating: not at all 6. Feeling bad about yourself - or that you are a failure or have let yourself or your family down: not at all 7. Trouble concentrating on things, such as reading the newspaper or watching television: not at all 8. Moving or speaking so slowly that other people could have noticed. Or the opposite - being so fidgety or restless that you have been moving around a lot more than usual: not at all 9. Thoughts that you would be better off or of hurting yourself in some way: not at all Total score: 1 Depression Screening Interpretation: Negative Depression Screening Done: Yes 85658 - PHQ-9 Billing: Yes Source: Developed by Drs. Hudson Morales, Marni Gruber, Matt Ann and colleagues, with an educational ann from [employer]. Binge Eating Scale Group 1 A. I don't feel self-conscious about my wt. or body size when I'm with others. B. I feel concerned about how I look to others, but it normally does not make me fell disappointed with myself C. I do get self-conscious about my appearance and wt. which makes me feel disappointed in myself. D. I feel very self-conscious about my wt. and frequently I feel intense shame and disgust for myself. I try to avoid social contacts because of my self- consciousness. Response Group 1: B Group 2 A. I don't have any difficulty eating slowly in the proper manner. B. Although I seem to gobble down foods, I don't end up feeling stuffed because of eating to much. C. At times, I tend to eat quickly and then, I feel uncomfortably full afterwards. D. I have the habit of bolting down my food, without really chewing it. When this happens I usually feel uncomfortably stuffed because I've eaten to much. Response Group 2: A Group 3 A. I feel capable to control my eating urges when I want to. B. I feel like I have failed to control my eating more than the average person. C. I feel utterly helpless when it comes to feeling in control of my eating urges. D. Because I feel so helpless about controlling my eating I have become very desperate about trying to get control. Response Group 3: A Group 4 A. I don't have the habit of eating when I'm bored. B. I sometimes eat when I'm bored, but often I'm able to get busy and get my mind off food. C. I have a regular habit of eating when I'm bored, but occasionally, I can use some other activity to get my mind off eating. D. I have a strong habit of eating when I'm bored. Nothing seems to help me breath the habit. Response Group 4: B Group 5 A. I'm usually physically hungry when I eat something. B. Occasionally, I eat something on impulse even though I really am not hungry. C. I have the regular habit of eating foods, that I might not really enjoy, to satisfy a hungry feeling even though physically, I don't need the food. D. Although I'm not physically hungry, I get a hungry feeling in my mouth that only seems to be satisfied when I eat a food, like sandwich, that fills my mouth. Sometimes, when I eat the food to satisfy my mouth hunger, I then spit the food out so I won't gain weight. Response Group 5: B Group 6 A. I don't feel any guilt or self-hate after I overeat. B. After I overeat, occasionally I feel guilt or self-hate. C. Almost all the time I experience strong guilt or self-hate after I overeat. Response Group 6: A Group 7 A. I don't lose total control of my eating when dieting even after periods when I overeat. B. Sometimes when I eat a forbidden food on a diet, I feel like I blew it and eat even more. C. Frequently, I have the habit of saying to myself, I've blown it now, why not go all the way, when I overeat on a diet. When that happens I eat more. D. I have a regular habit of starting a strict diets for myself but I break the diets by going on an eating binge. My life seems to be either a feast or famine. Response Group 7: A Group 8 A. I rarely eat so much food that I feel uncomfortably stuffed afterwards. B. Usually about once a month, I each such a quantity of food, I end up feeling very stuffed. C. I have regular periods during the month when I eat large amounts of food, either at mealtime or at snacks. D. I eat so much food that I regularly feel quite uncomfortable after eating and sometimes a bit nauseous. Response Group 8: A Group 9 A. My level of calorie intake does not go up very high or go down very low on a regular basis. B. Sometimes after I overeat, I will try to reduce my caloric intake to almost nothing to compensate for the excess calories I've eaten. C. I have a regular habit of overeating during the night. It seems that my routine is not to be hungry in the morning but overeat in the evening. D. In my adult years, I have had week-long periods where I practically starve myself. This follows periods when I overeat. It seems I live a life of either feast or famine. Response Group 9: A Group 10 A. I usually am able to stop eating when I want to. I know when enough is enough. B. Every so often, I experience a compulsion to eat which I can't seem to control. C. Frequently, I experience strong urges to eat which I seem unable to control, but at other times I can control my eating urges. D. I feel incapable of controlling urges to eat. I have a fear of not being able to stop eating voluntarily. Response Group 10: A Group 11 A. I don't have any problem stopping eating when I feel full. B. I usually can stop eating when I feel full but occasionally overeat leaving me feeling uncomfortably stuffed. C. I have a problem stopping eating once I start and usually I feel uncomfortably stuffed after I eat a meal. D. Because I have a problem not being able to stop eating when I want, I sometimes have to induce vomiting to relieve my stuffed feeling. Response Group 11: A Group 12 A. I seem to eat just as much when I'm with others, Family social gatherings as when I'm by myself. B. Sometimes, when I'm with other persons, I don't eat as much as I want to eat because I'm self-conscious about my eating. C. Frequently, I eat only a small amount of food when others are present, because I'm very embarrassed about my eating. D. I feel so ashamed about overeating that I pick times to overeat when I know no one will see me. I feel like a closet eater. Response Group 12: A Group 13 A. I eat three meals a day with only an occasional between meal snack. B. I eat 3 meals a day, but I also normally snack between meals. C. When I am snacking heavily, I get in the habit of skipping regular meals. D. There are regular periods when I seem to be continually eating, with no planned meals. Response Group 13: A Group 14 A. I don't think much about trying to control unwanted eating urges. B. At least some of the time, I feel my thoughts are pre-occupied with trying to control my eating urges. C. I feel that frequently I spend much time thinking about how much I ate or about trying not to eat anymore. D. It seems to me that most of my waking hours are pre-occupied by thoughts about eating or not eating. I feel like I'm constantly struggling not to eat. Response Group 14: A Group 15 A. I don't think about food a great deal. B. I have strong craving for food but they last only for brief periods of time. C. I have days when I can't seem to think about anything else but food. D. Most of my days seem to be pre-occupied with thoughts about food. I feel like I live to eat. Response Group 15: A Group 16 A. I usually know whether or not I'm physically hungry. I take the right portion of food to satisfy me. B. Occasionally, I feel uncertain about knowing whether or not I'm physically hungry. A these times it's hard to know how much food I should take to satisfy me. C. Even though I might know how many calories I should eat, I don't have any idea what is a normal amount of food for me. Response Group 16: A Binge Eating Score: 3 Score less than 17 Minimal Risk Score between 18-26 Moderate Risk Score between 27-46 High Risk Assessment & Plan Assessment & Plan (1) Adjustment disorder: Code(s): F43.20 - Adjustment disorder, unspecified (2) Morbid obesity: Code(s): E66.01 - Morbid (severe) obesity due to excess calories Plan Pt is cleared from standpoint. Advised of available resources post-op and encourage to see any provider if in need. Telehealth Telehealth Location of provider rendering services: practice address Location of patient: address on file Patient Identification confirmed using: Name, : Yes Telehealth method: voice only Patient verbally consented to treatment: Yes Patient verbally consented to billing insurance company: Yes Patient informed of any privacy concerns related to visit: No Minutes spent on Phone/Video with Pt.: 60 Coding Level of Care Code New Pt Tele Psy Diag Eval (40705) Patient Type New Diagnoses Adjustment disorder F43.20 Morbid obesity E66.01 Time Spent (min) 60
== END 2023-09-22 10:00 | disposition home or self-care (01) ==
LOC: HO.HBST 09:17
PROVIDERS: PCP Internal Medicine Endocrinology, Diabetes & Metabolism; Visit Provider Counselor Mental Health
DX: F43.20 Adjustment disorder, unspecified (principal); E66.01 Morbid (severe) obesity due to excess calories
CPT/HCPCS: 90791

== ENCOUNTER → 2023-09-22 09:00 | Outpatient (BNVA) | payer OTHER, SELFPAY | PROVIDERS: PCP Internal Medicine Endocrinology, Diabetes & Metabolism; Visit Provider Counselor Mental Health ==

== ENCOUNTER 2023-10-05 09:47 | Outpatient (AMB) | payer OTHER, SELFPAY ==
--- NOTE | 2023-10-04 22:01 | MHC.OFFVISWM ---
Intake VS Expanded 10/04/23 22:02 Height 5 ft 4 in Weight 413 lb BMI 70.9 Intake Visit Reasons: TV Pre Op LSG 10/20/23 Allergies PENICILLIEN Allergy (Mild, Uncoded 10/04/23 22:03) Rash Medication List - Last Reconciled 10/04/23 by Tai Mitchell MD amlodipine 5 mg PO BID benazepril 10 mg PO DAILY cholecalciferol (vitamin D3) 50 mcg PO DAILY clotrimazole 1% 1 appl topical BID cyanocobalamin (vitamin B-12) 250 mcg PO DAILY dulaglutide (Trulicity) 1.5 mg subcut QWEEK fondaparinux 2.5 mg (0.5 mL) subcut Q24H inulin (Fiber Gummies) grams PO levothyroxine 100 mcg PO DAILY ondansetron 4 mg PO Q6H PRN pantoprazole 40 mg PO DAILY polyethylene glycol 3350 (Miralax) 17 grams PO DAILY sucralfate 10 mL PO BID thiamine HCl (vitamin B1) 50 mg (1/2 x 100 mg) PO DAILY warfarin 7.5 mg PO 2XW warfarin 5 mg PO 4XW HPI TV Pre Op LSG 10/20/23 HPI Details Start time: 12.10pm, End time: 12.30pm ?I spent 15 minutes speaking with the patient on the phone plus an additional 5 minutes reviewing and updating records for a total of 20 minutes HPI Comments History of Present Illness Details Overall weight loss: 107lbs, or 20.58% TBWL Is doing either one Fairlife premade shake or a Celebrate Rebuild protein shake (2 scoops in 8oz almond milk), 4 protein bars (Build, Celebrate or [place]) and one meal (12 forks of protein and 12 forks of salad or vegetables) Exercise: HIT with a adjunct trainer burning 300-370 calories x6 days per week PFSH Medical History (Updated 05/13/23 @ 13:49 by Shiloh Bower PA-C) Sleep apnea Surgical History Hx of section Family History Mother Diabetes Hypertension Graves disease Hypothyroid Father Heart problem Hypertension Brother No problems noted. Daughter No problems noted. Social History Alcohol intake: never Patient Tobacco Use Status: Never used Tobacco Physical Exam Vital Signs: BMI result Body Mass Index 70.9 Assessment & Plan Assessment & Plan (1) Morbid obesity: Code(s): E66.01 - Morbid (severe) obesity due to excess calories Plan: 1. Plan for lap sleeve gastrectomy including upper GI endoscopy. All tests has been completed and reviewed and the patient is cleared for the surgery. ?If diaphragmatic or ventral hernias are present at time of surgery, these will be repaired laparoscopically as well. Risks and complications were discussed in detail including possible conversion to an open procedure, anastomotic leak, bleeding requiring transfusion, small bowel obstruction, , DVT and pulmonary embolism, cardiac, or pulmonary complications, as senior living complications such as anastomotic ulcer, insufficient weight loss and vitamin deficiencies. I emphasized the importance of close follow-up, adherence to instructions and good communication. So far she has proven to be an excellent communicator and very compliant with all our directions accomplishing a great weight loss. I believe that she is an excellent candidate and she is ready. 2. Preop prescriptions were provided and explained the purpose of each one. Need to be purchased preop. Start Pantoprazole now as you get it from the pharmacy, 1 pill per day. Sucralfate and Zofran are for after surgery as needed. 3. Bowel prep: please do 7 packets ?of Miralax mixing each one with a an 8oz glass of water, crystal light, gatorade zero, or propel ?on 10/18/23 and the same amount on 07/19/24. Continue the protein shakes during? the bowel prep. 4. Needs to purchase 1oz medicine cups . 5. Needs to purchase Children's liquid Tylenol for postop pain control. 6. She needs to stop the Trulicity on or before 10/13/23. Avoid aspirin, motrin, Advil, Aleve, Ibuprofen, Naproxyn. Tylenol is OK. 7. She needs to purchase the Celebrate 4:1 protein shakes from the hospital's gift shop. 8. Will do basic preop blood work-up any day between Tuesday10/11/23 and Tuesday10/14/23 fasting for 12 hours and is scheduled to see the Anesthesiologist prior to the day of surgery. 9. Importance of adherence to postop follow-up and recommendations was underscored and she understands that. 10. Stop the Coumadin on 10/13/23. As of 10/14/23 start the Fondaparinux injection (prescription sent to the pharmacy), one per day, daily. Take last injection on 10/18/23. No injections on 10/19/23 or 10/20/23 11. Stop food and bars as of Tuesday10/10/2023 and continue with 2 Fairlife protein shakes at 8am-10am and 11am-1pm, and three more Celebrate Rebuild protein shakes with TWO scoops EACH in 8oz of almond milk at 2pm-4pm, 5pm-7pm and 8pm-10pm 12. No soups, broths or V8 13. The patient's?medical?history has been reviewed and they are considered low risk for post op DVT and therefore DVT prophylaxis is not considered necessary. Travel after surgery was reviewed. The patient has not disclosed any travel plans during the first 30 days after surgery and they have been advised that within the first 30 days after surgery any bus, plane, train or car travel over 2 hours in duration is contraindicated due to the possibility of developing blood clots from immobility. Any travel, needs to include periods of ambulation of 10 minutes in duration every 2 hours.? Patient was instructed to discuss any plans for travel during this period with their bariatric surgeon.? 14. Use your CPAP daily and bring it to the hospital with your mask 15. Please take at the day of surgery the following medications: BENAZEPRIL AND AMLODIPINE. Check your blood pressure daily in the morning. If blood pressure is less than 120/70 do not take benazepril or amlodipine. If blood pressure is 121/71 to 130/80 take only the amlodipine If blood pressure is over 140/90 take both the amlodipine and benazepril 16. Stop any control pills and don't use them for one month after surgery 17. Absolutely no smoking or vaping, or marijuana until the surgery and for at least the first 4 weeks. Only nicotine patches are allowed. 18. Send me weight measurements on 10/13/23 and then on 10/20/23 the day of surgery before you go to the hospital. 19. Avoid any steroids by mouth for any reason. Let me know if someone prescribes them to you Orders: Orders Comprehensive Met. Panel 10/04/23 E03.9 - Hypothyroidism, unspecified, E66.01 - Morbid (severe) obesity due to excess calories, I10 - Essential (primary) hypertension TSH reflex Free T4 10/04/23 E03.9 - Hypothyroidism, unspecified, E66.01 - Morbid (severe) obesity due to excess calories, I10 - Essential (primary) hypertension Type and Screen 10/04/23 E03.9 - Hypothyroidism, unspecified, E66.01 - Morbid (severe) obesity due to excess calories, I10 - Essential (primary) hypertension C Reactive Protein 10/04/23 E0.9 - Hypothyroidism, unspecified, E66.01 - Morbid (severe) obesity due to excess calories, I10 - Essential (primary) hypertension Lipid Panel 10/04/23 E03.9 - Hypothyroidism, unspecified, E66.01 - Morbid (severe) obesity due to excess calories, I10 - Essential (primary) hypertension Prothrombin Time INR 10/04/23 E03.9 - Hypothyroidism, unspecified, E66.01 - Morbid (severe) obesity due to excess calories, I10 - Essential (primary) hypertension Partial Thromboplastin Time 10/04/23 E03.9 - Hypothyroidism, unspecified, E66.01 - Morbid (severe) obesity due to excess calories, I10 - Essential (primary) hypertension Hemoglobin A1c 10/04/23 E03.9 - Hypothyroidism, unspecified, E66.01 - Morbid (severe) obesity due to excess calories, I10 - Essential (primary) hypertension Complete Blood Count Auto Diff 10/04/23 E03.9 - Hypothyroidism, unspecified, E66.01 - Morbid (severe) obesity due to excess calories, I10 - Essential (primary) hypertension Insulin 10/04/23 E03.9 - Hypothyroidism, unspecified, E66.01 - Morbid (severe) obesity due to excess calories, I10 - Essential (primary) hypertension Medications: New pantoprazole 90-day supply 40 mg PO DAILY 90 tabs 0RF K21.9 - Gastro-esophageal reflux disease without esophagitis polyethylene glycol 3350 (Miralax) Mix each packet with 8oz of water, Crystal light, or Gatorade zero, or Propel and do 7 packets on 10/18/23 and another 7 packets on 10/19/23 17 grams PO DAILY 14 ea 0RF Z01.818 - Encounter for other preprocedural examination sucralfate 90-day supply 10 mL PO BID 1,200 mL 0RF K21.9 - Gastro-esophageal reflux disease without esophagitis ondansetron 4 mg PO Q6H PRN 20 tabs 0RF nausea and vomiting R11.0 - Nausea fondaparinux Start on 10/13/23 and take one per day. Last dose before surgery should be on 10/18/23 2.5 mg (0.5 mL) subcut Q24H 5 mL 4RF I26.99 - Other pulmonary embolism without acute cor pulmonale Telehealth Telehealth Location of provider rendering services: practice address Location of patient: address on file Patient Identification confirmed using: Name, : Yes Telehealth method: voice only Patient verbally consented to treatment: Yes Patient verbally consented to billing insurance company: Yes Patient informed of any privacy concerns related to visit: Yes Minutes spent on Phone/Video with Pt.: 20 Coding Level of Care Code Tele Est Pt Level 3 (74157) Diagnoses Morbid obesity E66.01 Time Spent (min) 20
[2023-10-04 22:02] VITALS: BMI 70.9
== END 2023-10-05 12:30 | disposition home or self-care (01) ==
LOC: HO.HBS 09:47
PROVIDERS: PCP Internal Medicine Endocrinology, Diabetes & Metabolism; Visit Provider Surgery
DX: E66.01 Morbid (severe) obesity due to excess calories (principal)
CPT/HCPCS: 99213

== ENCOUNTER → 2023-10-05 09:47 | Outpatient (BNVA) | payer OTHER, SELFPAY | PROVIDERS: PCP Internal Medicine Endocrinology, Diabetes & Metabolism; Visit Provider Surgery | DX: E66.01 Morbid (severe) obesity due to excess calories (principal); I10 Essential (primary) hypertension; E03.9 Hypothyroidism, unspecified; K21.9 Gastro-esophageal reflux disease without esophagitis; R11.0 Nausea; I26.99 Other pulmonary embolism without acute cor pulmonale; Z01.818 Encounter for other preprocedural examination ==

== ENCOUNTER → 2023-10-11 11:07 | Outpatient (BNV) | payer OTHER, SELFPAY | PROVIDERS: PCP Internal Medicine Endocrinology, Diabetes & Metabolism; Visit Provider Internal Medicine Cardiovascular Disease | DX: R00.1 Bradycardia, unspecified (principal) | CPT/HCPCS: 93010 ==

== ENCOUNTER 2023-10-20 06:02 | Day surgery (SDC) | payer OTHER, SELFPAY ==
--- NOTE | 2023-10-11 11:07 | ECG_ITS ---
Test Reason : E66.01 Blood Pressure : / mmHG Vent. Rate : 059 BPM Atrial Rate : 059 BPM P-R Int : 152 ms QRS Dur : 094 ms QT Int : 424 ms P-R-T Axes : 045 048 005 degrees QTc Int : 419 ms Sinus bradycardia Otherwise normal ECG When compared with ECG of 18-MAY-2022 09:16, No significant change was found Referred By: Tai Mitchell Electronically Signed By:Lencho Blanca
[2023-10-11 11:33] LABS: MANUAL DIFF FLAG NO
[2023-10-11 11:46] LABS: Basophils Percent Auto 0.6 % (0-2); Eosinophils Absolute Auto 0.3 X10*3/uL (0.0-0.4); Eosinophils Percent Auto 3.8 % (0-4); Hematocrit 42.7 % (37.0-47.0); Hemoglobin 13.8 g/dl (12.0-16.0); Imm Gran Abs Auto 0.02 X10*3/uL (0.00-0.03); Imm Gran Pct Auto 0.3 % (0.0-0.4); Lymphocytes Absolute Auto 1.7 X10*3/uL (1.2-4.9); Lymphocytes Percent Auto 25.6 % (20-40); Mean Corpuscular HGB Conc 32.3 g/dl (31.0-35.0); Mean Corpuscular Hemoglobin 28.8 pg (27.0-33.0); Mean Corpuscular Volume 89.1 fL (80.0-98.0); Mean Platelet Volume 10.2 fL (9.4-12.3); Monocytes Absolute Auto 0.4 X10*3/uL (0.1-1.2); Monocytes Percent Auto 6.3 % (2-11); Neutrophils Absolute Auto 4.2 x10*3/uL (2.0-8.3); Neutrophils Percent Auto 63.4 % (45-73); Platelet Count 343 X10*3/uL (160-400); Red Blood Count 4.79 X10*6/uL (4.20-5.50); Red Cell Distribution Width 14.5 % (11.0-16.0); White Blood Count 6.6 X10*3/uL (4.8-10.8)
[2023-10-11 11:54] LABS: INTERNATIONAL NORM RATIO 3.2 (0.9-1.1); Prothrombin Time 38.8 SEC (11.1-13.3)
[2023-10-11 11:57] LABS: Partial Thromboplastin Time 52.8 SEC (26.0-36.4)
[2023-10-11 12:13] LABS: Estimated Average Glucose 97 mg/dL
[2023-10-11 12:43] LABS: Alanine Aminotransferase 20 U/L (0-31); Albumin Level 4.1 g/dL (3.5-5.0); Alkaline Phosphatase 69 U/L (39-117); Anion Gap 11 (12-20); Aspartate Amino Transferase 21 U/L (5-31); Bilirubin Total 0.5 mg/dL (0.0-1.0); Blood Urea Nitrogen 11 mg/dL (9-16); C Reactive Protein 1.41 mg/dL (< or = 0.50); Carbon Dioxide 30 mmol/L (22-29); Chloride 106 mmol/L (96-108); Cholesterol 167 mg/dL (<200); Estimated Glomerular Filt Rate > 60; Glucose Random 103 mg/dL (60-115); HDL Cholesterol 39 mg/dL (>40); LDL Cholesterol Calculated 101 mg/dL (<100); Potassium 4.4 mmol/L (3.3-5.1); Sodium 143 mmol/L (135-145); Total Protein 7.8 g/dL (6.5-8.0); Triglycerides 138 mg/dL (<150)
[2023-10-11 13:01] LABS: Insulin 43 uU/mL (2-29); TSH reflex Free T4 1.84 uIU/mL (0.32-4.0)
[2023-10-13 11:15] VITALS: BMI 69.9
[2023-10-13 11:33] VITALS: BMI 69.9
--- NOTE | 2023-10-19 08:27 | P.CONAN_ITS ---
Documented by User: Chantlel Kelly NP 10/19/23 08:29 HPI - Anesthesia Eval Consult details Narrative: 48yo F for Gastrectomy Sleeve-EGD, possible diaphragmatic hernia, possible ventral hernia, possible open Warfarin for hx PE - bridge with arixtra PONV - aponvie ordered by surgeon Anesthesia Pre-Procedure Meds Is the patient on any of the following meds?: Dulaglutide (Trulicity) PMFSH Active Problems Active Problems: All Active Problems (Updated 10/18/23 @ 08:47 by Tai Mitchell MD) Chronic anticoagulation (Acute) Steatosis, liver (Acute) GISSELLE on CPAP (Acute) Adjustment disorder (Acute) Pulmonary embolus (Acute) Hypothyroid (Acute) HTN (hypertension), benign (Acute) Morbid obesity (Acute) Past Medical History Medical History Fatty liver Bilateral knee pain HTN (hypertension) History of asthma GISSELLE on CPAP Hx pulmonary embolism Hypothyroidism Diabetes PONV (postoperative nausea and vomiting) Sleep apnea Family History Family History Mother Diabetes Hypertension Graves disease Hypothyroid Father Heart problem Hypertension Brother No problems noted. Daughter No problems noted. Surgical History Surgical History History of removal of skin mole Hx of colonoscopy Hx of dilation and curettage History of facial surgery Hx of section Social History Social History Household Members: Family Housing: House Are you a primary career resource technician to a significant other at home: No Do you presently have visiting nurse or other home services: No Alcohol intake: never Patient Tobacco Use Status: Never used Tobacco Use of substances other than those prescribed or required for medical reasons: No Have you been hit, kicked, punched, or otherwise hurt by someone within the past year? If so, by whom?: No Are you DNR?: No Advance Directives: No Advance Directives Information Provided: Yes Advance Directives on File: No Recently lost weight without trying: No Nutrition Risks: No Nutritional Risk Patient : No FDLMP: 09/16/2023 : No Poor oral hygiene: No Meds Allergies Allergy/AdvReac Type Severity Reaction Status Date / Time Penicillins Allergy Intermediate rash, all Verified 10/20/23 06:25 over body Home Medications Medication Instructions Recorded Confirmed Last Taken Type benazepril 10 mg tablet 10 mg PO DAILY 03/25/22 10/20/23 10/10/23 History cholecalciferol (vitamin D3) 50 50 mcg PO DAILY 03/25/22 10/20/23 10/19/23 History mcg (2,000 unit) tablet levothyroxine 100 mcg capsule 100 mcg PO DAILY 03/25/22 10/20/23 10/19/23 History inulin 2 gram chewable tablet 2 g PO DAILY 06/29/22 10/20/23 09/19/23 History (Fiber Gummies) amlodipine 5 mg tablet 5 mg PO BID 12/10/22 10/20/23 10/20/23 History warfarin 7.5 mg tablet 7.5 mg PO 4XW 12/10/22 10/20/23 10/13/23 History dulaglutide 0.75 mg/0.5 mL 1.5 mg subcut QWEEK 01/26/23 10/13/23 10/10/23 History subcutaneous pen injector (Trulicity) warfarin 5 mg tablet 5 mg PO 3XW 04/18/23 10/20/23 10/12/23 History albuterol sulfate 90 mcg/actuation 2 puff inhalation QID PRN 10/13/23 10/20/23 Unknown History aerosol inhaler Shortness Of Breath Or Wheezing cyanocobalamin (vitamin B-12) 1,000 mcg PO DAILY 10/13/23 10/20/23 10/19/23 History 1,000 mcg tablet multivitamin-ferrous 1 tab PO DAILY 10/13/23 10/20/23 10/19/23 History fumarate-folic acid 18 mg-400 mcg tablet (Centrum Women) Exam Height,Weight and Vital Signs: Height 5 ft 4 in Weight 184.612 kg Pertinent Lab Results Pertinent Lab Results: Laboratory Tests 10/11/23 10/11/23 11:24 11:32 WBC 6.6 RBC 4.79 Hgb 13.8 Hct 42.7 MCV 89.1 MCH 28.8 MCHC 32.3 RDW 14.5 Plt Count 343 MPV 10.2 Immature Gran % (Auto) 0.3 Neut % (Auto) 63.4 Lymph % (Auto) 25.6 [place] % (Auto) 6.3 Eos % (Auto) 3.8 Baso % (Auto) 0.6 Lymph # (Auto) 1.7 [place] # (Auto) 0.4 Eos # (Auto) 0.3 Baso # (Auto) 0.0 Abs Immat Gran (auto) 0.02 Absolute Neuts (auto) 4.2 Absolute Nucleated RBC 0.000 Nucleated RBC % (auto) 0.0 PT 38.8 H INR 3.2 H APTT 52.8 H Sodium 143 Potassium 4.4 Chloride 106 Carbon Dioxide 30 H Anion Gap 11 L BUN 11 Creatinine 0.73 Estim Creat Clear Calc TNP Estimated GFR > 60 Random Glucose 103 Estimat Average Glucose 97 Hemoglobin A1c % 5.0 Insulin Level 43 H Calcium 10.0 Total Bilirubin 0.5 AST 21 ALT 20 Alkaline Phosphatase 69 C-Reactive Protein 1.41 H Total Protein 7.8 Albumin 4.1 Triglycerides 138 Cholesterol 167 LDL Cholesterol, Calc 101 H HDL Cholesterol 39 L TSH 1.84 Blood Type A Positive Antibody Screen NEGATIVE Narrative Narrative: EKG 10/2023 Vent. Rate : 059 BPM Atrial Rate : 059 BPM P-R Int : 152 ms QRS Dur : 094 ms QT Int : 424 ms P-R-T Axes : 045 048 005 degrees QTc Int : 419 ms Sinus bradycardia Otherwise normal ECG When compared with ECG of 18-MAY-2022 09:16, No significant change was found Assessment and Plan Assessment Anesthesia Assessment: Chart Reviewed Documented by User: Lazaro Jones MD 10/20/23 08:55 HPI - Anesthesia Eval Anesthesia Pre-Procedure Meds If Yes to any meds - educate patient: Pt education - increased risk of aspiration and Pt education - possibility of cancelled proc at provider's discretion PMFSH Past Medical History Medical History Fatty liver Bilateral knee pain HTN (hypertension) History of asthma GISSELLE on CPAP Hx pulmonary embolism Hypothyroidism Diabetes PONV (postoperative nausea and vomiting) Sleep apnea Family History Family History Mother Diabetes Hypertension Graves disease Hypothyroid Father Heart problem Hypertension Brother No problems noted. Daughter No problems noted. Family history of problems with anesthesia: No Surgical History Surgical History History of removal of skin mole Hx of colonoscopy Hx of dilation and curettage History of facial surgery Hx of section History of Problems with Anesthesia: No Social History Social History Household Members: Family Housing: House Are you a primary career resource technician to a significant other at home: No Do you presently have visiting nurse or other home services: No Alcohol intake: never Patient Tobacco Use Status: Never used Tobacco Use of substances other than those prescribed or required for medical reasons: No Have you been hit, kicked, punched, or otherwise hurt by someone within the past year? If so, by whom?: No Are you DNR?: No Advance Directives: No Advance Directives Information Provided: Yes Advance Directives on File: No Recently lost weight without trying: No Nutrition Risks: No Nutritional Risk Patient : No FDLMP: 09/16/2023 : No Poor oral hygiene: No Meds Allergies Allergy/AdvReac Type Severity Reaction Status Date / Time Penicillins Allergy Intermediate rash, all Verified 10/20/23 06:25 over body Home Medications Medication Instructions Recorded Confirmed Last Taken Type benazepril 10 mg tablet 10 mg PO DAILY 03/25/22 10/20/23 10/10/23 History cholecalciferol (vitamin D3) 50 50 mcg PO DAILY 03/25/22 10/20/23 10/19/23 History mcg (2,000 unit) tablet levothyroxine 100 mcg capsule 100 mcg PO DAILY 03/25/22 10/20/23 10/19/23 History inulin 2 gram chewable tablet 2 g PO DAILY 06/29/22 10/20/23 09/19/23 History (Fiber Gummies) amlodipine 5 mg tablet 5 mg PO BID 12/10/22 10/20/23 10/20/23 History warfarin 7.5 mg tablet 7.5 mg PO 4XW 12/10/22 10/20/23 10/13/23 History dulaglutide 0.75 mg/0.5 mL 1.5 mg subcut QWEEK 01/26/23 10/13/23 10/10/23 History subcutaneous pen injector (Trulicity) warfarin 5 mg tablet 5 mg PO 3XW 04/18/23 10/20/23 10/12/23 History albuterol sulfate 90 mcg/actuation 2 puff inhalation QID PRN 10/13/23 10/20/23 Unknown History aerosol inhaler Shortness Of Breath Or Wheezing cyanocobalamin (vitamin B-12) 1,000 mcg PO DAILY 10/13/23 10/20/23 10/19/23 History 1,000 mcg tablet multivitamin-ferrous 1 tab PO DAILY 10/13/23 10/20/23 10/19/23 History fumarate-folic acid 18 mg-400 mcg tablet (Centrum Women) Exam Airway Mallampati Class: III TM Dist: >3cm Neck ROM: Full Loose/Missing/Broken Teeth: No Heart: [id number] Lungs: cta b/l Assessment and Plan Assessment Anesthesia Assessment: Anesthesia Plan Discussed Final Anesthetic Review Family History of Problems with Anesthesia: No History of Problems with Anesthesia: No NPO: Yes ASA Class: III Final Preanesthetic Review: No Changes in Pt Med Stat, Meds/Allgs Chart Reviewed, Consent Obtained/Reviewed and Anes Risks/Benef Reviewed Patient Risk: Intermediate Procedure Risk: Intermediate Assessment/Block/Sedation in SS: Assess/Block/Sedation-SS Anesthetic Plan Anesthetic Plan: GA and Agree w/ Assess. and Plan Disposition: Standard PACU
[2023-10-19 12:21] LABS: INTERNATIONAL NORM RATIO 1.3 (0.9-1.1); Prothrombin Time 16.2 SEC (11.1-13.3)
[2023-10-19 12:24] LABS: Partial Thromboplastin Time 40.4 SEC (26.0-36.4)
[2023-10-20] VITALS (13 sets, daily range): BP systolic 131–166; BP diastolic 59–88; PULSE 66–81; RESP 16–18; TEMP 36–37.2; O2SAT 89–99; BMI 68.7
[2023-10-20 06:30] LABS: UPreg QC Valid YES; Urine Pregnancy NEGATIVE (NEGATIVE)
[2023-10-20 06:39] LABS: Glucose, Whole Blood 100 mg/dL (60-115)
[2023-10-20] MEDS: Lactated Ringers 1,000 ML 100 ML IVCONT ×3 (07:06→22:12)
[2023-10-20] MEDS: Aprepitant 32 MG/4.4 ML VIAL IVPUSH (07:06)
[2023-10-20] MEDS: Lactated Ringers 1,000 ML 999 ML IV (07:06)
--- NOTE | 2023-10-20 07:38 | PC.NURSE ---
Patient in preop. Red, irritated dry skin present on left side abdomen under skin fold. Patient states she has chronic eczema/psoriasis there which she uses creams on. Area not currently open, no drainage. OR nurse Bernadette made aware of site.
--- NOTE | 2023-10-20 09:56 | PM.OP ---
Brief Operative Note Date of Service: 10/20/23 Pre-op diagnosis: Morbid obesity with comorbidities (see below) Post-op diagnosis: same Procedure: INITIAL PATIENT BMI ON PRESENTATION AT OUR OFFICE:89.3 kg/m2 LAST BMI BEFORE SURGERY: 69.8 kg/m2 COMORBIDITIES: sleep apnea on CPAP, hypertension, non-insulin dependent diabetes, liver fibrosis, hepatomegaly ?The patient presented to the Weight Management Program with significant obesity that was negatively impacting the patient's comorbidities as listed above.? The program is a phased program with a special focus on preoperative medical weight management to promote substantial weight loss and prepare the patients for the second phase of the program: bariatric surgery. The patient participated in an intensive weekly lifestyle ?intervention and exercise program during which the patient ?has lost between the initial office visit and the last preoperative visit 112.6lbs, or 21.65% of initial actual body weight. It was deemed appropriate for the patient to now have bariatric surgery. In light of the current Covid-19 pandemic and the well documented strong association of obesity and increased risk of worse outcomes if infected with Covid-19 (REFERENCES:https://pubmed.ncbi.nlm.nih.gov/64104216/,?https://pubmed.ncbi.nlm.nih.gov/54963098/), any delay in undergoing bariatric surgery may lead to the patient's worsening health condition and increased?risk of more severe Covid-19 disease if infected. In addition a recent?study from [facility] published in [facility] on 10/05/2021 ([email or web address]) found that, among patients with obesity, substantial weight loss achieved with surgery was associated with improved outcomes of COVID-19 infection. The findings suggest that obesity can be a modifiable risk factor for the severity of COVID-19 infection. In addition, the patient met the BMI-criteria for bariatric surgery based on the BMI on initial presentation. The patient should not be penalized for achieving such weight loss because ?it is not sustainable long-term without surgical intervention and it was achieved in preparation for bariatric surgery ?under my direction and based on my published research ([email or web address]).[email or web address] and?[email or web address].soard.org/article/[email or web address]-[email or web address]/pdf) ?that a 10% preoperative weight loss improves long-term weight loss after surgery and reduces perioperative complications.? Insurance carriers such as [facility] have endorsed my recommendations ?and have included in their policies criteria to include a 10% preoperative weight loss requirement. PROCEDURE: Esophago-gastroscopy, laparoscopic sleeve gastrectomy and laparoscopic gastropexy INDICATIONS: This is a 48 year-old female who was electively scheduled for laparoscopic, possibly open sleeve gastrectomy. The risks and complications of the procedure were discussed with the patient in advance, particularly the possibility of ; pulmonary embolism; staple line leak; bleeding; GERD; cardiac, pulmonary, or renal complications; as well as long-term problems such as insufficient weight loss, vitamin deficiency, strictures, or ulcers. The patient understood all the risks, and was in agreement to proceed with surgery. DESCRIPTION OF PROCEDURE: After informed consent was obtained from the patient, the patient was given preoperative antibiotics, and was transferred to the operating room. After successful induction of general anesthesia, pneumatic compression devices were placed on both lower extremities. An upper endoscopy was performed next. The oropharynx and esophagus appeared to be within normal limits. There was no diaphragmatic hernia present consistent with the findings of the preoperative upper GI. The stomach was entered. Then after all fluid and air were suctioned and the stomach was fully decompressed, the scope was withdrawn and secured in the mid esophagus. The patient was then prepped and draped in the usual sterile manner, and abdominal access was established at the right upper quadrant with the Stas technique. A 12 mm blunt port was inserted, and the abdomen was insufflated with CO2 to a pressure of 15 mmHg. Under direct visualization, additional ports were placed, specifically two 5 mm Versi-step ports to the left upper quadrant, and a 5 mm Versi-Step port to the right upper quadrant. 1% lidocaine plain was used to infiltrate all port sites as well as all fascia defects. Using the EndoClose suture passer device, I placed a #1 Polysorb tie across the falciform ligament in order to retract it up against the abdominal wall and prevent injury of the ligament with our instruments during the procedure. Following that, the patient was placed in a steep reverse Trendelenburg position. An additional 5 mm port was placed to the right flank for the Mediflex retractor that was used to retract the left lobe of the liver. The gastro-esophageal fat pad was opened with the ultrasonic device (Thunderbeat, Olympus) and the anterior esophagus and hiatus were exposed. The angle of His was opened with the ultrasonic device the fundus of the stomach from any diaphragmatic and splenic attachments. I then opened the gastrocolic ligament between the transverse colon and the greater curvature of the stomach with the ultrasonic device to enter the lesser sac and facilitate the ligation of the short gastric vessels. I started at a mid-point along the greater curvature and using the Thunderbeat, all short gastric vessels were divided all the way to the angle of His until the left ara was completely dissected at its entirety. I then divided the gastro-colic ligament distally to a distance of about 3-4 cm proximal to the pylorus. The stomach was then divided transversely with one Endo VIVEK-45 purple and four VIVEK-60 articulating orange loads using the 24 Quan stapler and loads. Every effort was made that the gastric sleeve had a tubular shape and an even caliber throughout. Once the sleeve resection was completed, the staple line of the gastric sleeve was reinforced with Hemoclips. The resected stomach was retrieved without difficulty from the Stas port. A gastropexy was then performed in order to prevent postoperative GERD and partial gastric volvulus. Several interrupted 2.0 Surgidac sutures were placed between the sleeve's staple line and the previously divided greater omentum and gastro-colic ligament using the Endo-Stitch device. ?An upper endoscopy was performed. There was no narrowing at the GE junction. The scope was easily advanced all the way to the pylorus which was clearly visualized. There was no narrowing anywhere and the sleeve's caliber was even throughout. The sleeve's staple line was inspected and there was no evidence of ischemia, bleeding or dehiscence. At that point the gastroscope was withdrawn from the patient?s mouth while we were decompressing the bowel and the stomach from any remaining air. I looked into the lesser sac to see how the sleeve was situating and it was situating well. There was no bleeding from the staple line, spleen, or short gastric vessels. The Mediflex retractor was removed, and the undersurface of the liver was inspected and there was no bleeding. The patient was placed in supine position. I closed the fascial defect of the 12 mm port site with a figure of eight #1 Polysorb suture. Then 30cc Ropivacaine plain with 10 mg of Dexamethasone were used to infiltrate the fascial closure as well as all skin incisions. At this point, the abdomen was deflated, all ports were removed under direct vision, and no bleeding was noted from any of the port sites. The skin incisions were irrigated with saline and were closed with 4-0 absorbable monofilament sutures. Steri-Strips and OpSites were used to cover all incisions. The patient was extubated and was transferred in stable condition to the recovery room for further care. I was present and performed all landeros parts of the procedure. Ms. Bower was the first assistant manager. There were no residents to assist with this case. Bacilio Mitchell MD, PhD, FACS Surgeon: Tai Mitchell MD Anesthesia: GETA, local and other (TAP block) Was an Remote Inpatient Coder used for this Procedure?: Yes Remote Inpatient Coder: Shiloh Bower Estimated blood loss (mL): 10 IV fluids (mL): 3,500 Urine output (mL): 0 Pathology: other (Stomach) Condition: stable Disposition: PACU
--- NOTE | 2023-10-20 10:01 | P.PNGS_ITS ---
Subjective Subjective Date of Service: 10/21/23 Interval history: Feels well. Mild incisional pain. She is tolerating phase 1 bariatric diet Physical Exam 2 Vital Signs: Vital Signs: Last Vital Signs Temp 99.0 F 10/20/23 06:39 Pulse 81 10/20/23 06:39 Resp 16 10/20/23 06:39 BP 162/77 H 10/20/23 06:39 Pulse Ox 96 10/20/23 06:39 O2 Del Method Room Air 10/20/23 06:39 BMI result Body Mass Index 68.7 GI: Inspection: Yes normal to inspection, Yes incision (clean, dry and intact) and Yes obesity Palpation (GI): Soft to palpation Extrem: Right lower extremity: normal to inspection (no calf tenderness) L eft lower extremity: normal to inspection (no calf tenderness) Objective Data Active Medications Albuterol Sulfate (Albuterol Sulfate (0.083%) 2.5 Mg/3 Ml Vial.Neb) 2.5 mg INHALE ONCE PRN PRN Reason: Wheezing Fentanyl (Fentanyl Citrate/Pf 100 Mcg/2 Ml Vial) 50 mcg IVPUSH Q5M PRN; Protocol PRN Reason: Pain, Severe (Pain Scale 7-10) Hydromorphone HCl (Hydromorphone Hcl 0.5 Mg/0.5 Ml Syringe) 0.5 mg IVPUSH Q5M PRN; Protocol PRN Reason: Pain, Severe (Pain Scale 7-10) Lactated Ringer's (Lr) 1,000 mls @ 100 mls/hr IVCONT .Q10H GIOVANNI Last Admin: 10/20/23 07:06 Dose: 100 mls/hr Documented By: SKY Promethazine HCl 6.25 mg/ (Sodium Chloride) 50.25 mls @ 201 mls/hr IV ONCE PRN PRN Reason: Nausea and Vomiting Ondansetron HCl (Ondansetron Hcl 4 Mg/2 Ml Vial) 4 mg IVPUSH ONCE PRN PRN Reason: Nausea and Vomiting Labs 10/21/23 06:04 10/21/23 06:04 Labs: Laboratory Results - last 24 hr 10/19/23 10/20/23 10/20/23 11:12 06:20 06:36 PT 16.2 H D INR 1.3 H APTT 40.4 H D POC Glucose 100 Urine Test NEGATIVE Procedures Date of Service Date of Service: 10/21/23 Progress Note: A&P Assessment and plan (1) Morbid obesity: Status: Acute Assessment and Plan: s/p laparoscopic sleeve gastrectomy and gastropexy Doing well Will check am labs and if OK the patient will be discharged home (2) HTN (hypertension), benign: Status: Acute (3) Hypothyroid: Status: Acute (4) Pulmonary embolus: Status: Acute (5) GISSELLE on CPAP: Status: Acute (6) Steatosis, liver: Status: Acute (7) Chronic anticoagulation: Status: Acute (8) S/P laparoscopic sleeve gastrectomy: Status: Acute (9) Liver fibrosis: Status: Acute (10) Hepatomegaly: Status: Acute Time Spent With Patient Time: Total time managing care of this patient today ____ minutes. Quality Stroke Does the patient have a stroke diagnosis?: No VTE Prior VTE?: Yes VTE Risk Level:: Surgical - high VTE Device Contraindication: N/A - Device Ordered VTE Drug Contraindication: Treatment Not Indicated
--- NOTE | 2023-10-20 10:04 | PM.DS ---
DS: Providers Provider Date of Service: 10/21/23 Primary care physician: Evy Manrique MD DS: Diagnosis Discharge Diagnosis (1) Morbid obesity: Status: Acute (2) HTN (hypertension), benign: Status: Acute (3) Hypothyroid: Status: Acute (4) Pulmonary embolus: Status: Acute (5) GISSELLE on CPAP: Status: Acute (6) Steatosis, liver: Status: Acute (7) Chronic anticoagulation: Status: Acute (8) S/P laparoscopic sleeve gastrectomy: Status: Acute (9) Liver fibrosis: Status: Acute (10) Hepatomegaly: Status: Acute DS: Summary Hospital Course Hospital Course: ADMITTING DIAGNOSIS: morbid obesity, GISSELLE, HTN, Hypoth, liver steatosis, hx of PE DISCHARGE DIAGNOSIS: same, s/p laparoscopic sleeve gastrectomy PAST SURGICAL HISTORY: none PROCEDURE: upper endoscopy, laparoscopic sleeve gastrectomy DISCHARGE SUMMARY: History of Present Illness: The patient is a 48 year-old woman with a BMI of 88.9 kg/m2 and associated co-morbidities as described above. The patient had extensive work-up, lost 130 lbs preoperatively and was electively scheduled for laparoscopic, possible open sleeve gastrectomy and gastropexy. Risks and complications of the surgery were discussed with the patient in advance, particularly the possibility of , pulmonary embolism, anastomotic leak, bleeding, bowel injury, GERD, cardiac, renal or pulmonary complications. The patient understood all the risks and was in agreement with the surgical plan. Hospital Course: The patient underwent an uneventful laparoscopic sleeve gastrectomy with gastropexy on the day of admission. Postoperatively, the patient was transferred to the surgical floor. The patient received IV Acetaminophen and IV dilaudid for pain control. Patient was started on bariatric phase 1 diet POD #0. On postoperative day one, the patient was feeling well without nausea, vomiting, fevers, or tachycardia. The patient had some mild incisional pain and the abdomen was soft. On the morning of postoperative day one, the patient was continued on 1 ounce of water or ice every half hour. During the day, the patient did fairly well, having some incisional pain, but able to ambulate adequately and to tolerate liquids well. Since the patient is doing well, we decided that the patient was ready to be discharged. The patient was given instructions to follow-up with me next week and to call my office for any fever over 101, persistent abdominal pain, nausea, vomiting, GERD, symptoms of DVT such as calf tenderness, or leg swelling, or pulmonary embolism such as chest pain or shortness of breath. The patient was also instructed to drink 40-60 ounces of liquids per day using the 1-ounce cups. The patient had been given prescriptions for Tylenol for pain, Zofran prn for nausea, and pantoprazole and carafate previously. The patient was encouraged to ambulate and use the incentive spirometer. The patient was allowed to shower, but no baths, and encouraged to stay active at home. All of these instructions were given to the patient personally. All questions were answered and the patient understood all instructions, the instructions were also given to the patient in print. Time Attestation Discharge coordination time: Less than 30 minutes Quality: Safe Use of Opioids Does Pt have an Active Cancer Diagnosis on the Problem List?: No Quality: Stroke Does the patient have a stroke diagnosis?: No Physical Exam Vital Signs: Vital Signs: Last Vital Signs Temp 99.0 F 10/20/23 06:39 Pulse 81 10/20/23 06:39 Resp 16 10/20/23 06:39 BP 162/77 H 10/20/23 06:39 Pulse Ox 96 10/20/23 06:39 O2 Del Method Room Air 10/20/23 06:39 BMI result Body Mass Index 68.7 DS: Data Data Completed and Pending Pending studies at discharge: Pending at discharge 10/20/23 09:26 Surgical [PTH] Routine Labs on day of discharge: Laboratory Results - last 24 hr 10/19/23 10/20/23 10/20/23 11:12 06:20 06:36 PT 16.2 H D INR 1.3 H APTT 40.4 H D POC Glucose 100 Urine Test NEGATIVE Discharge Plan Discharge Patient Disposition: Home, Self-Care Referrals: Evy Manrique MD [Primary Care Provider] - 1 Week Other Ambulatory Orders: Prothrombin Time INR (Routine) Timeframe: 20231018 Location: Determined by Patient Ordered By: Tai Mitchell Partial Thromboplastin Time (Routine) Timeframe: 20231018 Location: Determined by Patient Ordered By: Tai Mitchell Discharge Medications: Continued albuterol sulfate 90 mcg/actuation Hfa Aerosol Inhaler 2 puff INHALATION QID PRN (Reason: Shortness Of Breath Or Wheezing) pantoprazole 40 mg tablet,delayed release (DR/EC) 40 mg PO DAILY Qty: 90 0RF Rx Instructions: 90-day supply ondansetron 4 mg tablet,disintegrating 4 mg PO Q6H PRN (Reason: nausea and vomiting) Qty: 20 0RF sucralfate 100 mg/mL suspension 10 ml PO BID Qty: 600 2RF Rx Instructions: 30-day supply 2 refills Held Fiber Gummies 2 gram tablet,chewable 2 g PO DAILY Hold Instructions: Resume on 10/26/23. warfarin 7.5 mg tablet 7.5 mg PO SUWETHSA@1800 Hold Instructions: Discuss with Dr Mitchell Rx Instructions: on odd numbered days benazepril 10 mg tablet 10 mg PO DAILY Hold Instructions: Resume on 10/22/23. Check your blood pressure every evening and send it to Dr. Mitchell. Do not take the medication before you hear from Dr. Mitchell. Do not take the medication if your blood pressure is below 120/70 mmHg. amlodipine 5 mg tablet 5 mg PO BID Hold Instructions: Resume on 10/22/23. Check your blood pressure every evening and send it to Dr. Mitchell. Do not take the medication before you hear from Dr. Mitchell. Do not take the medication if your blood pressure is below 120/70 mmHg. warfarin 5 mg tablet 5 mg PO MOTUFR@1800 Hold Instructions: Discuss with Dr Mitchell Rx Instructions: on odd numbered days No Action thiamine HCl (vitamin B1) 100 mg tablet 50 mg PO DAILY Qty: 30 5RF clotrimazole 1 % cream 1 appl topical BID Qty: 90 3RF cyanocobalamin (vitamin B-12) 1,000 mcg Tablet 1,000 mcg PO DAILY Centrum Women 18-400 mg-mcg Tablet 1 tab PO DAILY cholecalciferol (vitamin D3) 50 mcg (2,000 unit) tablet 50 mcg PO DAILY levothyroxine 100 mcg capsule 100 mcg PO DAILY@0600 Trulicity 0.75 mg/0.5 mL pen injector 1.5 mg subcut QWEEK Discharge Orders: Discharge Order (Routine); Ordered 10/21/23 Ordered By: Tai Mitchell Activity on Discharge: No heavy lifting Activity Restrictions/Additional Instructions: No tub baths, sex or returning to work until discussed at first post op appointment. No exercise, alcohol, tobacco or illegal drug use. Continue to use incentive spirometer hourly while awake. Walk in home for 5- 10 minutes every 2 hours during the first week. Continue phase 1 diet today and start phase 2 diet tomorrow morning. Follow all instructions in the bariatric handbook and call with any questions. 1. Please call your doctor or come back to the emergency room should any new symptoms arise. 2. You will receive a courtesy call from [facility] 24-48 hours after discharge. 3. Activity: abstain from alcohol, practice limited stair climbing, no bending, no driving, no exercise, no illicit substances, no lifting, no sex, no tub bath, no work. 4. Diet: continue as discussed with bariatric team.. 5. Dressing Change/Wound Care: Do not change or remove surgical dressings unless they are wet or soiled. 6. Call your doctor if: - Your temperature exceeds 101.5 F - You experience excessive pain or swelling - You have an unexpected reaction to medication - You have excessive bleeding - You experience continued vomiting/nausea - Your incision begins to separate - Your incision shows signs of infection such as increased redness, swelling, excessive pain, heat, or drainage (light blood or clear fluid is normal) 7. General instructions: No lifting greater than 5 lbs for 1 week and not more than 20lbs the next 3?weeks. No driving until seen at the office in 5-7 days after surgery. If you do not move your bowels in the next 2 days, please tell?Dr. Mitchell. Please walk around your home every hour or two to prevent blood clots from forming in your legs. You do not need to wake from sleeping to walk. Please sleep in a bed or couch to prevent kinking at the hips and knees. Please take your incentive spirometer (your lung picking machine operator helper) home with you and use it for the next few days to prevent pneumonia. You may shower, no hot tubs, baths or swimming pools.?Please follow the post op diet instructions you are?given by Dr Bucky ott? and text me daily at 5-6pm for an update.?If you have any issues or concerns or questions please communicate this to him via text.? The Celebrate shakes have all of the bariatric vitamins you need if you consume these shakes. If you are drinking other protein shakes, you will need to purchase the Celebrate multivitamins and calcium that are available in the hospital gift shop on the first floor of the main hospital.??Do not take anything without first discussing with Dr Mitchell. Please make sure you are consuming at least 40 ounces of fluids per day starting the?day AFTER your discharge from the hospital. Always drink 1-2 ml per minute using the 5ml?syringe. If you drink faster you may experience?bloating,?gas pain, burping, nausea or heartburn. In that case please slow down your pace and use the syringe to?understand better the?proper?pace and volume of drinking. Do not hesitate to contact the office with any questions at . The patient's medical history has been reviewed and they are considered low risk for post op DVT and therefore DVT prophylaxis is not considered necessary. Travel after surgery was reviewed. The patient has not disclosed any travel plans during the first 30 days after surgery and they have been advised that within the first 30 days after surgery any bus, plane, train or car travel over 2 hours in duration is contraindicated due to the possibility of developing blood clots from immobility. Any travel, needs to include periods of ambulation of 10 minutes in duration every 2 hours. The patient was instructed to discuss any plans for travel during this period with their bariatric surgeon.
[2023-10-20 10:55] LABS: Glucose, Whole Blood 146 mg/dL (60-115)
--- NOTE | 2023-10-20 11:13 | PHA.MEDREC ---
Pharmacy Consult ? Medication Reconciliation Pharmacy has completed the medication reconciliation. Reviewed med rec by nursing (Deanna).
[2023-10-20 12:54] LABS: Hematocrit 41.7 % (37.0-47.0); Hemoglobin 13.6 g/dl (12.0-16.0)
[2023-10-20] MEDS: Famotidine/PF 20 MG/2 ML VIAL IVPUSH ×2 (12:56→20:54)
[2023-10-20] MEDS: Metoclopramide HCl 10 MG/2 ML VIAL IVPUSH (12:56)
[2023-10-20 13:10] LABS: Anion Gap 16 (12-20); Blood Urea Nitrogen 11 mg/dL (9-16); Calcium 9.2 mg/dL (8.4-10.2); Carbon Dioxide 22 mmol/L (22-29); Chloride 104 mmol/L (96-108); Creatinine Clr Calc Pharmacy 159.5; Estimated Glomerular Filt Rate > 60; Glucose Random 169 mg/dL (60-115); Potassium 4.5 mmol/L (3.3-5.1); Sodium 137 mmol/L (135-145)
[2023-10-20] MEDS: Acetaminophen 1,000 MG/100 ML PIGGYBACK 16.7 MG IV ×3 (13:56→22:23)
[2023-10-20] MEDS: amLODIPine Besylate 5 MG TABLET PO (20:55)
[2023-10-20] MEDS: 0.9 % Sodium Chloride Flush 3 ML SYRINGE IVFLUSH (20:55)
[2023-10-21 03:48] VITALS: BP 144/68; PULSE 67; RESP 16; TEMP 36.4; O2SAT 96
[2023-10-21] MEDS: Acetaminophen 1,000 MG/100 ML PIGGYBACK 16.7 MG IV (04:06)
[2023-10-21 06:27] LABS: MANUAL DIFF FLAG NO
[2023-10-21 06:45] LABS: Basophils Percent Auto 0.1 % (0-2); Hematocrit 39.4 % (37.0-47.0); Imm Gran Abs Auto 0.05 X10*3/uL (0.00-0.03); Imm Gran Pct Auto 0.7 % (0.0-0.4); Lymphocytes Absolute Auto 0.8 X10*3/uL (1.2-4.9); Lymphocytes Percent Auto 11.7 % (20-40); Mean Corpuscular Hemoglobin 28.9 pg (27.0-33.0); Mean Corpuscular Volume 87.6 fL (80.0-98.0); Mean Platelet Volume 10.6 fL (9.4-12.3); Monocytes Absolute Auto 0.4 X10*3/uL (0.1-1.2); Monocytes Percent Auto 5.6 % (2-11); Neutrophils Absolute Auto 5.5 x10*3/uL (2.0-8.3); Neutrophils Percent Auto 81.9 % (45-73); Platelet Count 303 X10*3/uL (160-400); Red Cell Distribution Width 13.8 % (11.0-16.0); White Blood Count 6.7 X10*3/uL (4.8-10.8)
[2023-10-21 06:56] LABS: Anion Gap 15 (12-20); Blood Urea Nitrogen 9 mg/dL (9-16); Carbon Dioxide 23 mmol/L (22-29); Chloride 104 mmol/L (96-108); Creatinine Clr Calc Pharmacy 185.6; Estimated Glomerular Filt Rate > 60; Glucose Random 108 mg/dL (60-115); Potassium 4.2 mmol/L (3.3-5.1); Sodium 138 mmol/L (135-145)
[2023-10-21 07:29] VITALS: BP 144/75; PULSE 68; RESP 18; TEMP 36.2; O2SAT 93
[2023-10-21 08:55] VITALS: O2SAT 96
--- NOTE | 2023-10-21 09:01 | MHC.CM.PN ---
Patient is from home with and teenage daughter. Functionally independent. Has CPAP through [facility]. PCP Evy Manrique MD No HCP. CM provided education and offered assistance. Patient declined. DP: Patient is medically cleared for dc home self care. to transport at 10:30am. RN aware.
[2023-10-21 09:59] LABS: INTERNATIONAL NORM RATIO 1.3 (0.9-1.1)
--- NOTE | 2023-10-21 14:43 | HO.POSTANES ---
Post Anesthesia Evaluation Post Anesthesia Evaluation Date of Service: 10/21/23 Vital Signs: Vital Signs Temp Pulse Resp BP Pulse Ox O2 Del Method 10/21/23 08:55 96 Room Air 10/21/23 07:29 97.2 F 68 18 144/75 H 93 Room Air 10/21/23 03:48 97.5 F 67 16 144/68 H 96 Room Air Anesthesia: General Endotracheal-GETA Mental Status: Awake Pain Control: Satisfactory Nausea/Vomiting: None Hydration: Adequate Anesthesia-Related Issues: No Anes. Related Issues
== END 2023-10-21 10:48 | disposition home or self-care (01) ==
LOC: HO.SSS 10:01 → HO.S3 10:53
PROVIDERS: Nurse Practitioner; Physician Assistant; PCP Internal Medicine Endocrinology, Diabetes & Metabolism; Visit Provider Surgery
PROC: (CPT 43845; principal; 2023-10-20 07:30)
DX: E66.01 Morbid (severe) obesity due to excess calories (principal); Z68.44 Body mass index [BMI] 60.0-69.9, adult; E11.9 Type 2 diabetes mellitus without complications; I10 Essential (primary) hypertension; E03.9 Hypothyroidism, unspecified; I26.99 Other pulmonary embolism without acute cor pulmonale; Z79.01 Long term (current) use of anticoagulants; G47.33 Obstructive sleep apnea (adult) (pediatric); Z99.89 Dependence on other enabling machines and devices; K76.0 Fatty (change of) liver, not elsewhere classified; K74.00 Hepatic fibrosis, unspecified; R16.0 Hepatomegaly, not elsewhere classified; Z79.85 Long-term (current) use of injectable non-insulin antidiabetic drugs; Z79.899 Other long term (current) drug therapy; Z88.0 Allergy status to penicillin
CPT/HCPCS: 43775; 43659; 36415; 80048; 80053; 80061; 81025; 82947; 83036; 83525; 84443; 85014; 85018; 85025; 85610; 85730; 86140; 86850; 86900; 86901; 88304; 88307; 88342; 93005; 99024; A4649; C9088; C9145; J0131; J1100; J1170; J1956; J2250; J2405; J2550; J2704; J2765; J2795; J3010; J7120

== ENCOUNTER → 2023-10-20 06:02 | Outpatient (BNV) | payer OTHER, SELFPAY | PROVIDERS: PCP Internal Medicine Endocrinology, Diabetes & Metabolism; Visit Provider Surgery | DX: E66.01 Morbid (severe) obesity due to excess calories (principal); Z68.44 Body mass index [BMI] 60.0-69.9, adult | CPT/HCPCS: 43659; 43775; 99024 ==

== ENCOUNTER 2023-10-26 12:47 | Outpatient (AMB) | payer OTHER, SELFPAY ==
--- NOTE | 2023-10-26 13:20 | MHC.OFFVISWM ---
Intake VS Expanded 10/26/23 13:21 BP 164/78 H Blood Pressure Location Rt brachial Blood Pressure Position Sitting Pulse 72 Pulse Source Pulse Oximeter Temp 97.2 F Temperature Source Temporal Artery Scan Pulse Oximetry 97 Oxygen Delivery Method Room Air Height 5 ft 4 in Weight 391 lb 6.4 oz BMI 67.2 Body Fat % 58.3 Body Fat Mass 228.0 Fat Free Mass 163.4 Visceral Fat Rating 28.0 Body Water % 29.8 Body Water Mass 116.6 Muscle Mass/Score 155.2 Basal Metabolic Rate/Score 2,474 Intake Visit Reasons: (OV) PO LSG 10/20/23 Allergies Penicillins Allergy (Intermediate, Verified 10/20/23 06:25) rash, all over body HPI HPI Comments History of Present Illness Details Patient is a pleasant 48-year-old female who returns to the office today in follow-up. She is 6 days status post sleeve gastrectomy performed on 10/20/2023. She is tolerating 3 celebrate 4 in 1 shakes with 1 screw each in 8 oz of water in approximately 36-40 oz of water per day. She is moved her bowels and denies any significant pain. She has been checking her blood pressure with readings 120s to 130s over 70s and is taking her amlodipine 5 mg twice a day. She has not been taking her benazepril. Additionally, she is taking Arixtra daily, previously taking Coumadin for a history of pulmonary embolism. Her Coumadin and INR monitoring is followed by her section forest fire warden. [facility] Medical History (Updated 10/20/23 @ 10:02 by Tai Mitchell MD) Fatty liver Bilateral knee pain HTN (hypertension) History of asthma GISSELLE on CPAP Hx pulmonary embolism Hypothyroidism Diabetes PONV (postoperative nausea and vomiting) Sleep apnea Surgical History (Updated 10/26/23 @ 13:28 by Sakina Reyes CMA) S/P laparoscopic sleeve gastrectomy History of removal of skin mole Hx of colonoscopy Hx of dilation and curettage History of facial surgery Hx of section Family History Mother Diabetes Hypertension Graves disease Hypothyroid Father Heart problem Hypertension Brother No problems noted. Daughter No problems noted. Social History Household Members: Family Housing: House Are you a primary memory care director to a significant other at home: No Do you presently have visiting nurse or other home services: No 75 years or older and lives alone: No Alcohol intake: never Patient Tobacco Use Status: Never used Tobacco service: No Physical Exam Vital Signs: Last Vital Signs Temp 97.2 F 10/26/23 13:21 Pulse 72 10/26/23 13:21 BP 164/78 H 10/26/23 13:21 Pulse Ox 97 10/26/23 13:21 Oxygen Delivery Method Room Air 10/26/23 13:21 BMI result Body Mass Index 67.2 GI Inspection: Yes incision (Mild incisional bruising otherwise clean, dry, intact.) Assessment & Plan Assessment & Plan (1) S/P laparoscopic sleeve gastrectomy: Comment: 10/20/22 Code(s): Z98.84 - Bariatric surgery status Plan: POD 6 s/p LSG on 10/20/[address] Mitchell Weight loss prior to surgery was 113.4 pounds or 21.8 % TBWL. Original weight on 03/31/2022 was 518.2 pounds and op weight was 404.8 pounds. Be sure to text Dr Mitchell exactly 1 week after surgery your weight from your home scale so he can adjust your meal plan. Continue meal plan until f/u w Shiloh in 2 weeks May shower, no submersion in bath for another week Continue abdominal binder with activity and exercise for the next 2 weeks. Exercise prior to surgery was burn 30 classes, may resume the cardio part and will discuss the weight lifting aspect of the class with Dr Mitchell No abdominal exercises for 6 weeks post operatively Will be emailed link to post op video for review Reminded of the pace of drinking, 2 mL per minute, 1 oz/15 min. She will discuss with her section forest fire warden the necessity for long-term use of Coumadin. She was not clear as to the cause of her history of pulmonary embolism and was told that she needs to be on Coumadin lifelong. She states that she has not had a hyper coagulopathy workup. She will discuss all of this with her section forest fire warden. She is maintaining thorough records of her blood pressure and has been texting these numbers to Dr. Mitchell. She is currently controlled on amlodipine 5 mg b.i.d. and is not taking her benazepril 10 mg daily. Blood pressure readings have been 120s to 130s over 70s. Coding Level of Care Code Global (28830) Diagnoses S/P laparoscopic sleeve gastrectomy Z98.84
[2023-10-26 13:21] VITALS: BP 164/78; PULSE 72; TEMP 36.2; O2SAT 97; BMI 67.2
== END 2023-10-26 14:22 | disposition home or self-care (01) ==
PROVIDERS: PCP Internal Medicine Endocrinology, Diabetes & Metabolism; Visit Provider Physician Assistant Surgical
DX: E66.01 Morbid (severe) obesity due to excess calories (principal); Z98.84 Bariatric surgery status; Z90.3 Acquired absence of stomach [part of]; Z68.44 Body mass index [BMI] 60.0-69.9, adult
CPT/HCPCS: 99024

== ENCOUNTER → 2023-10-26 12:47 | Outpatient (BNVA) | payer OTHER, SELFPAY | PROVIDERS: PCP Internal Medicine Endocrinology, Diabetes & Metabolism; Visit Provider Physician Assistant Surgical ==

== ENCOUNTER 2023-11-11 11:30 | Outpatient (AMB) | payer OTHER, SELFPAY ==
--- NOTE | 2023-11-11 11:29 | A.OFFVIS_ITS ---
Intake VS Expanded 11/11/23 11:45 Height 5 ft 4 in Weight 384 lb BMI 65.9 Intake Visit Reasons: VIDEO PO LSG 10/20/23 Allergies Penicillins Allergy (Intermediate, Verified 10/20/23 06:25) rash, all over body Medication List - Last Reconciled 11/11/23 by Shiloh Bower PA-C albuterol sulfate 90 mcg/actuation 2 puffs inhalation QID PRN amlodipine 5 mg PO BID clotrimazole 1% 1 appl topical BID docusate sodium (Colace) 100 mg PO DAILY fondaparinux (Arixtra) 2.5 mg subcut DAILY inulin (Fiber Gummies) 2 grams PO DAILY levothyroxine 100 mcg PO DAILY@0600 pantoprazole 40 mg PO DAILY sucralfate 10 mL PO BID warfarin 7.5 mg PO SUWETHSA@1800 warfarin 5 mg PO MOTUFR@1800 HPI HPI Comments History of Present Illness Details 48 yo woman is now 3 weeks s/p LSG. 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 No nausea, vomiting, abd pain or reflux. Her fbi profiler is following her coumadin and Arixtra and checking her INR. Will be on Arixtra for 5 more days. Patient tripped while working out 5 days ago. Did not exercise for 2 days. Now has changed her routine to cross fit 6 d/week for 300 calories per day. Has not restarted elliptical yet due to knee injury. Meal plan per Dr Lawler: Wakes at 9am, or 6am. Bed at 10 pm - 12 pm. (3 shakes and 1 bar per day) 8 - 10 am - starts her 4:1 2 scoops and 8oz UAM - over 2 hours waits 1 hour Second 4:1 shake waits 1 hour Rebuild 2 shakes uAM wait 1 hour Protein bar - over 3 ours [facility] Medical History (Updated 11/01/23 @ 18:11 by Tai Mitchell MD) Adjustment disorder Fatty liver Bilateral knee pain HTN (hypertension) History of asthma GISSELLE on CPAP Hx pulmonary embolism Hypothyroidism Diabetes PONV (postoperative nausea and vomiting) Sleep apnea Surgical History (Updated 10/29/23 @ 00:03 by Danielle Kraft) S/P laparoscopic sleeve gastrectomy History of removal of skin mole Hx of colonoscopy Hx of dilation and curettage History of facial surgery Hx of section Family History Mother Diabetes Hypertension Graves disease Hypothyroid Father Heart problem Hypertension Brother No problems noted. Daughter No problems noted. Social History Household Members: Family Housing: House Are you a primary neonatal intensive care unit nurse to a significant other at home: No Do you presently have visiting nurse or other home services: No 75 years or older and lives alone: No Alcohol intake: never Patient Tobacco Use Status: Never used Tobacco service: No Assessment & Plan Assessment & Plan (1) Morbid obesity: Code(s): E66.01 - Morbid (severe) obesity due to excess calories Plan: 3 weeks post op doing very well, except for knee injury. No changes made to meal plan, follow exactly per Dr Lawler instructions. Exercise - may take a 30 minute 1.5 mile walk in evenings along with her Cross Fit training 6d/week. Will talk to PCP eventually about a hematology consultation regarding lifetime anticoagulation. Next appt with me in 3 weeks. Telehealth Telehealth Location of provider rendering services: practice address Location of patient: address on file Patient Identification confirmed using: Name, : Yes Telehealth method: video Patient verbally consented to treatment: Yes Patient verbally consented to billing insurance company: Yes Patient informed of any privacy concerns related to visit: Yes Coding Level of Care Code Global (74851) Diagnoses Morbid obesity E66.01
[2023-11-11 11:45] VITALS: BMI 65.9
== END 2023-11-11 12:07 | disposition home or self-care (01) ==
LOC: HO.HBS 11:58
PROVIDERS: PCP Internal Medicine Endocrinology, Diabetes & Metabolism; Visit Provider Physician Assistant
DX: E66.01 Morbid (severe) obesity due to excess calories (principal)
CPT/HCPCS: 99024

== ENCOUNTER → 2023-11-11 11:30 | Outpatient (BNVA) | payer OTHER, SELFPAY | PROVIDERS: PCP Internal Medicine Endocrinology, Diabetes & Metabolism; Visit Provider Physician Assistant ==

== ENCOUNTER 2023-12-01 15:00 | Outpatient (AMB) | payer OTHER, SELFPAY ==
--- NOTE | 2023-12-01 15:01 | A.OFFVIS_ITS ---
Intake VS Expanded 12/01/23 15:05 Height 5 ft 4 in Weight 373 lb BMI 64.0 Intake Visit Reasons: VIDEO PO LSG 10/20/23 Allergies Penicillins Allergy (Intermediate, Verified 10/20/23 06:25) rash, all over body Medication List - Last Reconciled 12/01/23 by Shiloh Bower PA-C albuterol sulfate 90 mcg/actuation 2 puffs inhalation QID PRN amlodipine 5 mg PO BID clotrimazole 1% 1 appl topical BID docusate sodium (Colace) 100 mg PO DAILY inulin (Fiber Gummies) 2 grams PO DAILY levothyroxine 100 mcg PO DAILY@0600 pantoprazole 40 mg PO DAILY sucralfate 10 mL PO BID warfarin 7.5 mg PO SUWETHSA@1800 warfarin 5 mg PO MOTUFR@1800 HPI HPI Comments History of Present Illness Details Pt is now 5 weeks s/p LSG, 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 Started psyllium powder and gets from very full it. INR has been hard to regulate and last week was 5.4 and is getting recommendations from clinic. Getting blood levels every other day, Her knee is better and she is able to exercise daily. Meal plan: can not eat bar each day due to timing - eats it 3 d/ week only. Wakes up often due to dry mouth from CPAP machine. Wakes at 8:30 am - 5d/week, 2 d week is 6:30 am When get ups has first shake 4:1 shake 2 scoops 8 oz UAm -2 hours Waits 1 hours and has second same shake Waits 1 hours and has Rebuild shake 8 oz Starts bar around 7 pm - but hen doesn't finish it. Exercises at 9:30am or 4:30 pm. 6 d per week at burn 30 and walks at home on Sundays. [facility] Medical History (Updated 11/01/23 @ 18:11 by Tai Mitchell MD) Adjustment disorder Fatty liver Bilateral knee pain HTN (hypertension) History of asthma GISSELLE on CPAP Hx pulmonary embolism Hypothyroidism Diabetes PONV (postoperative nausea and vomiting) Sleep apnea Surgical History (Updated 10/29/23 @ 00:03 by Danielle Kraft) S/P laparoscopic sleeve gastrectomy History of removal of skin mole Hx of colonoscopy Hx of dilation and curettage History of facial surgery Hx of section Family History Mother Diabetes Hypertension Graves disease Hypothyroid Father Heart problem Hypertension Brother No problems noted. Daughter No problems noted. Social History Household Members: Family Housing: House Are you a primary hospice care transitions coordinator to a significant other at home: No Do you presently have visiting nurse or other home services: No 75 years or older and lives alone: No Alcohol intake: never Patient Tobacco Use Status: Never used Tobacco service: No Assessment & Plan Assessment & Plan (1) S/P laparoscopic sleeve gastrectomy: Comment: 10/20/22 Code(s): Z98.84 - Bariatric surgery status Plan: No changes to meal or exercise plans today, still getting plans form Dr Lawler. Will start to try elliptical now, I encouraged her to tell Dr Lawler about her warfarin dosing has appt with PCP in December for hematology referral. Next appt with me in 4 weeks. Telehealth Telehealth Location of provider rendering services: practice address Location of patient: address on file Patient Identification confirmed using: Name, : Yes Telehealth method: video Patient verbally consented to treatment: Yes Patient verbally consented to billing insurance company: Yes Patient informed of any privacy concerns related to visit: Yes Coding Level of Care Code Global (34300) Diagnoses S/P laparoscopic sleeve gastrectomy Z98.84
[2023-12-01 15:05] VITALS: BMI 64.0
== END 2023-12-01 15:33 | disposition home or self-care (01) ==
LOC: HO.HBS 15:32
PROVIDERS: PCP Internal Medicine Endocrinology, Diabetes & Metabolism; Visit Provider Physician Assistant
DX: Z98.84 Bariatric surgery status (principal)
CPT/HCPCS: 99024

== ENCOUNTER → 2023-12-01 15:00 | Outpatient (BNVA) | payer OTHER, SELFPAY | PROVIDERS: PCP Internal Medicine Endocrinology, Diabetes & Metabolism; Visit Provider Physician Assistant ==

== ENCOUNTER 2023-12-28 11:30 | Outpatient (AMB) | payer OTHER, SELFPAY ==
--- NOTE | 2023-12-28 11:31 | MHC.OFFVISWM ---
Intake VS Expanded 12/28/23 11:42 Height 5 ft 4 in Weight 358 lb 8 oz BMI 61.5 Intake Visit Reasons: VIDEO PO LSG 10/20/23 Allergies Penicillins Allergy (Intermediate, Verified 10/20/23 06:25) rash, all over body HPI HPI Comments History of Present Illness Details 48 yo woman now 9 weeks s/p LSG. 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 Textign with DR Lawler weekly for meal and exercise plans. Wants to eat some food for daughters birthday in January. Exercise - burn 30 6 d/week, allen 329 calories most day and then does Elliptical 15 minutes daily -> now up to 20 minutes daily 170 calories. Meal plan: 3 shakes (two 4:1 2 scoops each and then Rebuild shake all with UAM) and 1 bar per day INR still fluctuating wildy - will follow up with PCP next month for hematology appt. [facility] Medical History (Updated 11/01/23 @ 18:11 by Tai Mitchell MD) Adjustment disorder Fatty liver Bilateral knee pain HTN (hypertension) History of asthma GISSELLE on CPAP Hx pulmonary embolism Hypothyroidism Diabetes PONV (postoperative nausea and vomiting) Sleep apnea Surgical History (Updated 10/29/23 @ 00:03 by Danielle Kraft) S/P laparoscopic sleeve gastrectomy History of removal of skin mole Hx of colonoscopy Hx of dilation and curettage History of facial surgery Hx of section Family History Mother Diabetes Hypertension Graves disease Hypothyroid Father Heart problem Hypertension Brother No problems noted. Daughter No problems noted. Social History Household Members: Family Housing: House Are you a primary direct support professional caregiver to a significant other at home: No Do you presently have visiting nurse or other home services: No 75 years or older and lives alone: No Alcohol intake: never Patient Tobacco Use Status: Never used Tobacco service: No Assessment & Plan Assessment & Plan (1) Morbid obesity: Code(s): E66.01 - Morbid (severe) obesity due to excess calories Plan: 9 weeks post op and getting her meal and exercise plans from Dr Lawler. She is concerned that she is not loosing enough weight - average 3 lbs per week. Will make sure to loose at least 10 joshua/minute (increasing duration) on elliptical and change programs (hill, cardio, fat mass loss) each time on machine. She weighs 358 lbs and is receiving 90 grams protien per day - I believe she would benefit from more protein per day. Next appt with PA in 4 weeks, she will continue with weekly texts to Dr Lu (2) S/P laparoscopic sleeve gastrectomy: Comment: 10/20/22 Code(s): Z98.84 - Bariatric surgery status Plan see above Telehealth Telehealth Location of provider rendering services: practice address Location of patient: address on file Patient Identification confirmed using: Name, : Yes Telehealth method: video Patient verbally consented to treatment: Yes Patient verbally consented to billing insurance company: Yes Patient informed of any privacy concerns related to visit: Yes Coding Level of Care Code Global (57955) Diagnoses Morbid obesity E66.01 S/P laparoscopic sleeve gastrectomy Z98.84
[2023-12-28 11:42] VITALS: BMI 61.5
== END 2023-12-28 12:09 | disposition home or self-care (01) ==
LOC: HO.HBS 11:30
PROVIDERS: PCP Internal Medicine Endocrinology, Diabetes & Metabolism; Visit Provider Physician Assistant
DX: E66.01 Morbid (severe) obesity due to excess calories (principal); Z98.84 Bariatric surgery status
CPT/HCPCS: 99024

== ENCOUNTER → 2023-12-28 11:30 | Outpatient (BNVA) | payer OTHER, SELFPAY | PROVIDERS: PCP Internal Medicine Endocrinology, Diabetes & Metabolism; Visit Provider Physician Assistant ==

== ENCOUNTER 2024-01-30 10:27 | Outpatient (AMB) | payer OTHER, SELFPAY ==
--- NOTE | 2024-01-30 10:00 | MHC.OFFVISWM ---
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 Presents for 3 month post op visit. Weight today is 337.4 pounds, with a BMI of 57.9. There has been a 180.8 pound weight loss,(initial weight 518.2 pounds) since starting the program on 03/31/2022 reflecting a 34.8 % total body weight loss and a weight loss of 67.4 pounds since surgery (operative weight 404.8 pounds) reflecting a 16.6 % TBWL since surgery. No complaints of nausea, emesis, abdominal pain or reflux. Reports infrequent but normal bowel movements every 2-3 days and uses stool softeners regularly. Note she states that she had a febrile illness a couple of weeks ago. She was unable to exercise or do very much at that time. She did recover without significant incident however when she started exercising again she noticed that she did not have significant weight loss as she had done before. She has been checking her blood pressure with readings 120s/70s and continues norvasc 5 mg BID Present meal plan includes: 2 Celebrate 4 in 1, 2 scoops in 8 oz almond milk, 9-11, 12-1 Celebrate rebuild 2 scoops in 8 oz almond milk 2-4 Celebrate protein bar or built bar 7-9 pm Drinking 16 oz water ? Exercise routine includes: Mon-Sat burn 30 fitness class, 30 min, Elliptical (none in 2 weeks due to respiratory illness) PFSH Medical History Adjustment disorder Fatty liver Bilateral knee pain HTN (hypertension) History of asthma GISSELLE on CPAP Hx pulmonary embolism Hypothyroidism Diabetes PONV (postoperative nausea and vomiting) Sleep apnea Surgical History S/P laparoscopic sleeve gastrectomy History of removal of skin mole Hx of colonoscopy Hx of dilation and curettage History of facial surgery Hx of section Family History Mother Diabetes Hypertension Graves disease Hypothyroid Father Heart problem Hypertension Brother No problems noted. Daughter No problems noted. Social History Household Members: Family Housing: House Are you a primary acute care occupational therapist to a significant other at home: No Do you presently have visiting nurse or other home services: No 75 years or older and lives alone: No Alcohol intake: never Patient Tobacco Use Status: Never used Tobacco service: No Telehealth Telehealth Telehealth Platform: Telephone Location of provider rendering services: practice address Location of patient: address on file Patient Identification confirmed using: Name, : Yes Telehealth method: voice only Patient verbally consented to treatment: Yes Patient verbally consented to billing insurance company: Yes Patient informed of any privacy concerns related to visit: Yes Minutes spent on Phone/Video with Pt.: 18 Assessment & Plan Assessment & Plan (1) Morbid obesity: Code(s): E66.01 - Morbid (severe) obesity due to excess calories Category: Medical Plan: Patient is recovering from a Pulmonary viral illness. She is trying to exercise as she is able. She tolerated a meal of 4 forks of scallop and 2 forks of cooked vegetables on her daughter's birthday dinner however she continues with the 3 shakes and 1 protein bar and would like to continue that current meal plan until March. She will continue to text me with any questions or concerns. We will arrange for follow-up appointment in approximately 1 month.
[2024-01-30 10:02] VITALS: BMI 57.9
== END 2024-01-30 10:30 | disposition home or self-care (01) ==
LOC: HO.HBS 10:27
PROVIDERS: PCP Internal Medicine Endocrinology, Diabetes & Metabolism; Visit Provider Physician Assistant Surgical
DX: E66.01 Morbid (severe) obesity due to excess calories (principal)
CPT/HCPCS: 99213

== ENCOUNTER → 2024-01-30 10:27 | Outpatient (BNVA) | payer OTHER, SELFPAY | PROVIDERS: PCP Internal Medicine Endocrinology, Diabetes & Metabolism; Visit Provider Physician Assistant Surgical ==

== ENCOUNTER 2024-02-27 11:24 | Outpatient (AMB) | payer OTHER, SELFPAY ==
--- NOTE | 2024-02-27 09:57 | A.OFFVIS_ITS ---
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 Presents for 4 month post op visit. Weight today is 329.2 pounds, with a BMI of 56.5. There has been a 189 pound weight loss,(initial weight 518.2 pounds) since starting the program on 03/31/2022 reflecting a 36.4 % total body weight loss and a weight loss of 75.6 pounds since surgery (operative weight 404.8 pounds) reflecting a 18.6 % TBWL since surgery. No complaints of nausea, emesis, abdominal pain or reflux. Reports infrequent but normal bowel movements every 2-3 days and uses stool softeners regularly. She states she has recovered from her viral illness. She has been having her 3 shakes and a bar although she is thinking of possibly adding in some flexibility by having the option for a meal at night. Wants to continue her current meal plan She has been taking her norvasc 5 mg BID, she is also taking coumadin Present meal plan includes: 2 Celebrate 4 in 1, 2 scoops in 8 oz almond milk, 9-11, 12-1 Celebrate rebuild 2 scoops in 8 oz almond milk 2-4 Celebrate protein bar or built bar 7-9 pm Drinking 32 oz water ? Exercise routine includes: Mon-Tue burn 30 fitness class, 30 min, Elliptical, 2-3 x last week walking outside 190 joshua in 1/2 mile, 3 x last week. [facility] Medical History Adjustment disorder Fatty liver Bilateral knee pain HTN (hypertension) History of asthma GISSELLE on CPAP Hx pulmonary embolism Hypothyroidism Diabetes PONV (postoperative nausea and vomiting) Sleep apnea Surgical History S/P laparoscopic sleeve gastrectomy History of removal of skin mole Hx of colonoscopy Hx of dilation and curettage History of facial surgery Hx of section Family History Mother Diabetes Hypertension Graves disease Hypothyroid Father Heart problem Hypertension Brother No problems noted. Daughter No problems noted. Social History Household Members: Family Housing: House Are you a primary resident care aide to a significant other at home: No Do you presently have visiting nurse or other home services: No 75 years or older and lives alone: No Alcohol intake: never Patient Tobacco Use Status: Never used Tobacco service: No Telehealth Telehealth Telehealth Platform: Telephone Location of provider rendering services: practice address Location of patient: address on file Patient Identification confirmed using: Name, : Yes Telehealth method: voice only Patient verbally consented to treatment: Yes Patient verbally consented to billing insurance company: Yes Patient informed of any privacy concerns related to visit: Yes Minutes spent on Phone/Video with Pt.: 15 Assessment & Plan Assessment & Plan (1) Morbid obesity: Code(s): E66.01 - Morbid (severe) obesity due to excess calories Category: Medical Plan: Making very good progress. She lost approximately 9 lb in the last month. She was recovering from her viral illness and now is able to exercise more vigorously as she was doing before when she was losing more like 12-15 lb per month. She will continue her current meal plan. Increase use of the elliptical machine. She denies any significant complaints although is having difficulty with rash underneath her pannus which responds to application of clotrimazole cream. We will arrange for a follow-up appointment in 1 month and six-month follow-up for her postop appointment in the office in mid April.
[2024-02-27 09:58] VITALS: BMI 56.5
== END 2024-02-27 11:25 | disposition home or self-care (01) ==
LOC: HO.HBS 11:24
PROVIDERS: PCP Internal Medicine Endocrinology, Diabetes & Metabolism; Visit Provider Physician Assistant Surgical
DX: E66.01 Morbid (severe) obesity due to excess calories (principal)
CPT/HCPCS: 99213

== ENCOUNTER → 2024-02-27 11:24 | Outpatient (BNVA) | payer OTHER, SELFPAY | PROVIDERS: PCP Internal Medicine Endocrinology, Diabetes & Metabolism; Visit Provider Physician Assistant Surgical | DX: E66.01 Morbid (severe) obesity due to excess calories (principal) ==

== ENCOUNTER 2024-04-02 14:01 | Outpatient (AMB) | payer OTHER, SELFPAY ==
--- NOTE | 2024-04-02 07:58 | MHC.OFFVISWM ---
VS Expanded 04/02/24 08:00 Height 5 ft 4 in Weight 314 lb 12.8 oz BMI 54.0 Body Fat % 70 Body Fat Mass 220.4 Fat Free Mass 94.4 Visceral Fat Rating 30 Body Water % 20.5 Body Water Mass 64.6 Muscle Mass/Score 88.8 Basal Metabolic Rate/Score 1,295 Intake Visit Reasons: (TV) PO LSG 10/20/23 Allergies Penicillins Allergy (Intermediate, Verified 10/20/23 06:25) rash, all over body Medication List - Last Reconciled 04/02/24 by JENNIFER Balderas albuterol sulfate 90 mcg/actuation 2 puffs inhalation QID PRN amlodipine 5 mg PO BID clotrimazole 1% 1 appl topical BID docusate sodium (Colace) 100 mg PO DAILY inulin (Fiber Gummies) 2 grams PO DAILY levothyroxine 100 mcg PO DAILY@0600 warfarin 7.5 mg PO SUWETHSA@1800 warfarin 5 mg PO MOTUFR@1800 HPI Comments Details: This?a?48?yo female who is s/p LSG without hiatal hernia repair on?10/20/2023. Presents for 5 month post op visit. Weight today is 314.8 pounds, with a BMI of 54. There has been a 203.4 pound weight loss,(initial weight 518.2 pounds) since starting the program on 03/31/2022 reflecting a 39.2 % total body weight loss and a weight loss of 90 pounds since surgery (operative weight 404.8 pounds) reflecting a 22.2 % TBWL since surgery. No complaints of nausea, emesis, abdominal pain or reflux. Reports infrequent but normal bowel movements every 2-3 days and uses stool softeners regularly. She states she has a rash under her pannus and sent a picture, using antifungal with improvement in the rash but worsens after treatment. She has been taking 0-1/2 tab of her norvasc 5 mg qd, she is also taking coumadin Present meal plan includes: 2 Celebrate 4 in 1, 2 scoops in 8 oz almond milk, 9-11, 12-1 Celebrate rebuild 2 scoops in 8 oz almond milk 2-4 Celebrate protein bar or built bar 7-9 pm Drinking 48-64 oz water ? Exercise routine includes: Mon-Sat burn 30 fitness class, 30 min, Elliptical, rowing, intelistride cardio machine, 7 days per week [facility] Medical History Adjustment disorder Fatty liver Bilateral knee pain HTN (hypertension) History of asthma GISSELLE on CPAP Hx pulmonary embolism Hypothyroidism Diabetes PONV (postoperative nausea and vomiting) Sleep apnea Surgical History S/P laparoscopic sleeve gastrectomy History of removal of skin mole Hx of colonoscopy Hx of dilation and curettage History of facial surgery Hx of section Family History Mother Diabetes Hypertension Graves disease Hypothyroid Father Heart problem Hypertension Brother No problems noted. Daughter No problems noted. Social History Household Members: Family Housing: House Are you a primary assistant child care teacher to a significant other at home: No Do you presently have visiting nurse or other home services: No 75 years or older and lives alone: No Alcohol intake: never Patient Tobacco Use Status: Never used Tobacco service: No Physical Exam Skin Other: Telehealth Telehealth Telehealth Platform: Telephone Location of provider rendering services: practice address Location of patient: address on file Patient Identification confirmed using: Name, : Yes Telehealth method: voice only Patient verbally consented to treatment: Yes Patient verbally consented to billing insurance company: Yes Patient informed of any privacy concerns related to visit: Yes Minutes spent on Phone/Video with Pt.: 20 Assessment & Plan Assessment & Plan (1) S/P laparoscopic sleeve gastrectomy: Comment: 10/20/22 Code(s): Z98.84 - Bariatric surgery status Category: Surgical Plan: Patient has been making excellent progress. She is acutely aware of what her meal plan as. She has been increasing her exercise to twice daily. She will continue current meal plan and return to the office for six-month postop in April. She has been encouraged to text weekly and with any questions or concerns. (2) Panniculitis: Code(s): M79.3 - Panniculitis, unspecified Category: Medical Plan: Recurrent panniculitis, improves with clotrimazole. We discussed additional barrier treatments including having her underwear as a barrier between her skin folds. She certainly is going to need a medically necessary skin removal surgery in the future.
[2024-04-02 08:00] VITALS: BMI 54.0
== END 2024-04-02 14:39 | disposition home or self-care (01) ==
LOC: HO.HBS 14:01
PROVIDERS: PCP Internal Medicine Endocrinology, Diabetes & Metabolism; Visit Provider Physician Assistant Surgical
DX: M79.3 Panniculitis, unspecified (principal); E66.01 Morbid (severe) obesity due to excess calories; Z68.43 Body mass index [BMI] 50.0-59.9, adult; Z98.84 Bariatric surgery status
CPT/HCPCS: 99213

== ENCOUNTER → 2024-04-02 14:01 | Outpatient (BNVA) | payer OTHER, SELFPAY | PROVIDERS: PCP Internal Medicine Endocrinology, Diabetes & Metabolism; Visit Provider Physician Assistant Surgical ==

== ENCOUNTER 2024-04-30 08:13 | Outpatient (AMB) | payer OTHER, SELFPAY ==
--- NOTE | 2024-04-30 08:16 | MHC.OFFVISWM ---
VS Expanded 04/30/24 08:26 BP 136/72 Blood Pressure Location Rt brachial Blood Pressure Position Sitting Pulse 53 Pulse Source Pulse Oximeter Temperature Source Temporal Artery Scan Pulse Oximetry 97 Oxygen Delivery Method Room Air Height 5 ft 4 in Weight 299 lb 9.6 oz BMI 51.4 Body Fat % 51.6 Body Fat Mass 154.6 Fat Free Mass 144.8 Visceral Fat Rating 19.0 Body Water % 34.5 Body Water Mass 103.4 Muscle Mass/Score 137.6 Basal Metabolic Rate/Score 2,097 Intake Visit Reasons: (oV) PO LSG 10/20/23 [employer] Required: No Allergies Penicillins Allergy (Intermediate, Verified 04/30/24 08:21) rash, all over body Medication List - Last Reconciled 04/30/24 by JENNIFER Balderas albuterol sulfate 90 mcg/actuation 2 puffs inhalation QID PRN clotrimazole 1% 1 appl topical BID docusate sodium (Colace) 100 mg PO DAILY inulin (Fiber Gummies) 2 grams PO DAILY levothyroxine 100 mcg PO DAILY@0600 warfarin 7.5 mg PO SUWETHSA@1800 warfarin 5 mg PO MOTUFR@1800 HPI Comments Details: This?a?48?yo female who is s/p LSG without hiatal hernia repair on?10/20/2023. Presents for 6 month post op visit. Weight today is 299.6 pounds, with a BMI of 51.4. There has been a 218.6 pound weight loss,(initial weight 518.2 pounds) since starting the program on 03/31/2022 reflecting a 42.1 % total body weight loss and a weight loss of 105.2 pounds since surgery (operative weight 404.8 pounds) reflecting a 25.9 % TBWL since surgery. No complaints of nausea, emesis, abdominal pain or reflux. Reports infrequent but normal bowel movements every 2-3 days and uses stool softeners regularly. She states she has a rash under her pannus and sent a picture, using antifungal with improvement in the rash but worsens after treatment. Wants to have the option of celebrate protein water instead of the rebuild. She is no longer taking her norvasc 5 mg qd, she is also taking coumadin for hx PE. Present meal plan includes: 2 Celebrate 4 in 1, 2 scoops in 8 oz almond milk, 9-11, 12-1 Celebrate rebuild 2 scoops in 8 oz almond milk 2-4 Celebrate protein bar or built bar 7-9 pm Drinking 48-64 oz water ? Exercise routine includes: Mon-Sat burn 30 fitness class, 30 min, Elliptical, rowing, intelistride cardio machine, 7 days per week Any post op complications: none GISSELLE: improved - not using DM: resolved HTN: resolved Hyperlipidemia: never GERD:?0-5 scale ??0 = no symptoms ??1 = symptoms noticeable but not bothersome 2 =symptoms bothersome but not daily ? 3 = symptoms bothersome and daily 4 = symptoms affect daily activities 5 = symptoms are incapacitating, unable to do daily activities ? How bad is the heartburn: 0 ? Heartburn while lying down: 0 ? Heartburn when standing up: 0 ? Heartburn after meals: 0 ? Does heartburn change your diet: 0 ? Does heartburn wake you up from sleep: 0 ? Do you have difficulty swallowin ? Do you have pain with swallowin ? If you take medicine for your reflux, does this affect your daily life: 0 Satisfaction with present condition - satisfied or not satisfied: jm [facility] Medical History Adjustment disorder Fatty liver Bilateral knee pain HTN (hypertension) History of asthma GISSELLE on CPAP Hx pulmonary embolism Hypothyroidism Diabetes PONV (postoperative nausea and vomiting) Sleep apnea Surgical History S/P laparoscopic sleeve gastrectomy History of removal of skin mole Hx of colonoscopy Hx of dilation and curettage History of facial surgery Hx of section Family History Mother Diabetes Hypertension Graves disease Hypothyroid Father Heart problem Hypertension Brother No problems noted. Daughter No problems noted. Social History Household Members: Family Housing: House Are you a primary critical care nurse practitioner to a significant other at home: No Do you presently have visiting nurse or other home services: No 75 years or older and lives alone: No Alcohol intake: never Patient Tobacco Use Status: Never used Tobacco service: No Physical Exam Const General: cooperative and no acute distress Orientation/consciousness: patient oriented x3 Resp Effort & Inspection: normal respiratory effort Auscultation: clear to auscultation bilaterally Cardio Rate: regular rate Rhythm: regular rhythm GI Inspection: Yes normal to inspection and Yes incision (well healed) Palpation (GI): Soft to palpation and no masses Neuro General: patient oriented x3 Assessment & Plan Assessment & Plan (1) S/P laparoscopic sleeve gastrectomy: Comment: 10/20/22 Code(s): Z98.84 - Bariatric surgery status Category: Surgical Plan: She may incorporate 4 forks protein and 4 forks vegetables instead of her protein bar at night if she wishes. She may additionally substitute celebrate protein water for her celebrate rebuild shake. She may additionally substitute or gain 2 scoops in 8 oz of unsweetened almond milk for the celebrate rebuild if she wishes so she may have variety. She will continue exercising as she is been doing. She will continue to send weight measurements and return to the office in 6 weeks. We will check six-month postop labs. She will discuss with her primary care physician possible referral to hematology for hypercoagulable workup in the setting of history of bilateral pulmonary emboli and continued use of anticoagulation. She will additionally inquire about possibly switching to an alternative oral agent. Orders: Orders Insulin Today E03.9 - Hypothyroidism, unspecified, I10 - Essential (primary) hypertension, K74.00 - Hepatic fibrosis, unspecified, K76.0 - Fatty (change of) liver, not elsewhere classified, R16.0 - Hepatomegaly, not elsewhere classified, Z98.84 - Bariatric surgery status Hemoglobin A1c Today E03.9 - Hypothyroidism, unspecified, I10 - Essential (primary) hypertension, K74.00 - Hepatic fibrosis, unspecified, K76.0 - Fatty (change of) liver, not elsewhere classified, R16.0 - Hepatomegaly, not elsewhere classified, Z98.84 - Bariatric surgery status Complete Blood Count Auto Diff Today E03.9 - Hypothyroidism, unspecified, I10 - Essential (primary) hypertension, K74.00 - Hepatic fibrosis, unspecified, K76.0 - Fatty (change of) liver, not elsewhere classified, R16.0 - Hepatomegaly, not elsewhere classified, Z98.84 - Bariatric surgery status IRON PROFILE Today E03.9 - Hypothyroidism, unspecified, I10 - Essential (primary) hypertension, K74.00 - Hepatic fibrosis, unspecified, K76.0 - Fatty (change of) liver, not elsewhere classified, R16.0 - Hepatomegaly, not elsewhere classified, Z98.84 - Bariatric surgery status Vitamin B12 and Folate Today E03.9 - Hypothyroidism, unspecified, I10 - Essential (primary) hypertension, K74.00 - Hepatic fibrosis, unspecified, K76.0 - Fatty (change of) liver, not elsewhere classified, R16.0 - Hepatomegaly, not elsewhere classified, Z98.84 - Bariatric surgery status Zinc Today E03.9 - Hypothyroidism, unspecified, I10 - Essential (primary) hypertension, K74.00 - Hepatic fibrosis, unspecified, K76.0 - Fatty (change of) liver, not elsewhere classified, R16.0 - Hepatomegaly, not elsewhere classified, Z98.84 - Bariatric surgery status C Reactive Protein Today E03.9 - Hypothyroidism, unspecified, I10 - Essential (primary) hypertension, K74.00 - Hepatic fibrosis, unspecified, K76.0 - Fatty (change of) liver, not elsewhere classified, R16.0 - Hepatomegaly, not elsewhere classified, Z98.84 - Bariatric surgery status Ferritin Today E03.9 - Hypothyroidism, unspecified, I10 - Essential (primary) hypertension, K74.00 - Hepatic fibrosis, unspecified, K76.0 - Fatty (change of) liver, not elsewhere classified, R16.0 - Hepatomegaly, not elsewhere classified, Z98.84 - Bariatric surgery status Basic Metabolic Panel Today E03.9 - Hypothyroidism, unspecified, I10 - Essential (primary) hypertension, K74.00 - Hepatic fibrosis, unspecified, K76.0 - Fatty (change of) liver, not elsewhere classified, R16.0 - Hepatomegaly, not elsewhere classified, Z98.84 - Bariatric surgery status Lipid Panel Today E03.9 - Hypothyroidism, unspecified, I10 - Essential (primary) hypertension, K74.00 - Hepatic fibrosis, unspecified, K76.0 - Fatty (change of) liver, not elsewhere classified, R16.0 - Hepatomegaly, not elsewhere classified, Z98.84 - Bariatric surgery status Vitamin B1 Today E03.9 - Hypothyroidism, unspecified, I10 - Essential (primary) hypertension, K74.00 - Hepatic fibrosis, unspecified, K76.0 - Fatty (change of) liver, not elsewhere classified, R16.0 - Hepatomegaly, not elsewhere classified, Z98.84 - Bariatric surgery status Vitamin A Today E03.9 - Hypothyroidism, unspecified, I10 - Essential (primary) hypertension, K74.00 - Hepatic fibrosis, unspecified, K76.0 - Fatty (change of) liver, not elsewhere classified, R16.0 - Hepatomegaly, not elsewhere classified, Z98.84 - Bariatric surgery status TSH reflex Free T4 Today E03.9 - Hypothyroidism, unspecified, I10 - Essential (primary) hypertension, K74.00 - Hepatic fibrosis, unspecified, K76.0 - Fatty (change of) liver, not elsewhere classified, R16.0 - Hepatomegaly, not elsewhere classified, Z98.84 - Bariatric surgery status Vitamin D 25-OH Total Today E03.9 - Hypothyroidism, unspecified, I10 - Essential (primary) hypertension, K74.00 - Hepatic fibrosis, unspecified, K76.0 - Fatty (change of) liver, not elsewhere classified, R16.0 - Hepatomegaly, not elsewhere classified, Z98.84 - Bariatric surgery status
[2024-04-30 08:26] VITALS: BP 136/72; PULSE 53; O2SAT 97; BMI 51.4
== END 2024-04-30 09:08 | disposition home or self-care (01) ==
PROVIDERS: PCP Internal Medicine Endocrinology, Diabetes & Metabolism; Visit Provider Physician Assistant Surgical
DX: E66.01 Morbid (severe) obesity due to excess calories (principal); Z68.43 Body mass index [BMI] 50.0-59.9, adult; Z90.3 Acquired absence of stomach [part of]; Z98.84 Bariatric surgery status
CPT/HCPCS: 99214

== ENCOUNTER → 2024-04-30 08:13 | Outpatient (BNVA) | payer OTHER, SELFPAY | PROVIDERS: PCP Internal Medicine Endocrinology, Diabetes & Metabolism; Visit Provider Physician Assistant Surgical ==

== ENCOUNTER 2024-06-13 13:26 | Outpatient (AMB) | payer OTHER, SELFPAY ==
--- NOTE | 2024-06-13 12:51 | MHC.OFFVISWM ---
VS Expanded 06/13/24 12:52 Height 5 ft 4 in Weight 294 lb 4 oz BMI 50.5 Body Fat % 69.8 Body Fat Mass 205.4 Fat Free Mass 88.8 Visceral Fat Rating 29 Body Water % 20.7 Body Water Mass 61 Muscle Mass/Score 83.6 Basal Metabolic Rate/Score 1,237 Intake Visit Reasons: (tV) PO LSG 10/20/23 Kitchen Work Supervisor Required: No Allergies Penicillins Allergy (Intermediate, Verified 04/30/24 08:21) rash, all over body Medication List - Last Reconciled 06/13/24 by JENNIFER Balderas albuterol sulfate 90 mcg/actuation 2 puffs inhalation QID PRN clotrimazole 1% 1 appl topical BID docusate sodium (Colace) 100 mg PO DAILY inulin (Fiber Gummies) 2 grams PO DAILY levothyroxine 100 mcg PO DAILY@0600 warfarin 7.5 mg PO SUWETHSA@1800 warfarin 5 mg PO MOTUFR@1800 HPI Comments Details: This?a?49?yo female who is s/p LSG without hiatal hernia repair on?10/20/2023. Presents for 8 month post op visit. Weight today is 294.4 pounds, with a BMI of 50.5. There has been a 223.8 pound weight loss,(initial weight 518.2 pounds) since starting the program on 03/31/2022 reflecting a 43.1 % total body weight loss and a weight loss of 110.4 pounds since surgery (operative weight 404.8 pounds) reflecting a 27.2 % TBWL since surgery. No complaints of nausea, emesis, abdominal pain or reflux. Reports infrequent but normal bowel movements every 2-3 days and uses stool softeners regularly. She states she has a rash under her pannus and sent a picture, using antifungal with improvement in the rash but worsens after treatment. Wants to have the option of celebrate protein water instead of the rebuild. She is no longer taking her norvasc 5 mg qd, she is also taking coumadin for hx PE. may incorporate 4 forks protein and 4 forks vegetables instead of her protein bar at night if she wishes. She may additionally substitute celebrate protein water for her celebrate rebuild shake. She may additionally substitute or gain 2 scoops in 8 oz of unsweetened almond milk for the celebrate rebuild if she wishes so she may have variety. Present meal plan includes: 2 Celebrate 4 in 1, 2 scoops in 8 oz almond milk, 8-10, 1-3 Celebrate protein water 4-6 meal 4 forks protein and 4 forks veg or Celebrate protein bar or built bar 7-9 pm Drinking 48-64 oz water ? Exercise routine includes: Ongoing right knee pain, needs TKR but not until bmi 44 Mon-Sat burn 30 fitness class, 30 min, hand bike, 7 days per week [facility] Medical History Adjustment disorder Fatty liver Bilateral knee pain HTN (hypertension) History of asthma GISSELLE on CPAP Hx pulmonary embolism Hypothyroidism Diabetes PONV (postoperative nausea and vomiting) Sleep apnea Surgical History S/P laparoscopic sleeve gastrectomy History of removal of skin mole Hx of colonoscopy Hx of dilation and curettage History of facial surgery Hx of section Family History Mother Diabetes Hypertension Graves disease Hypothyroid Father Heart problem Hypertension Brother No problems noted. Daughter No problems noted. Social History Household Members: Family Housing: House Are you a primary rehab care assistant to a significant other at home: No Do you presently have visiting nurse or other home services: No 75 years or older and lives alone: No Alcohol intake: never Patient Tobacco Use Status: Never used Tobacco service: No Telehealth Telehealth Telehealth Platform: Telephone Location of provider rendering services: practice address Location of patient: address on file Patient Identification confirmed using: Name, : Yes Telehealth method: voice only Patient verbally consented to treatment: Yes Patient verbally consented to billing insurance company: Yes Patient informed of any privacy concerns related to visit: Yes Minutes spent on Phone/Video with Pt.: 20 Assessment & Plan Assessment & Plan (1) S/P laparoscopic sleeve gastrectomy: Comment: 10/20/23 Code(s): Z98.84 - Bariatric surgery status Category: Surgical Plan: Patient is doing fairly well. She is limited by her right knee. She does need a right total knee replacement but was told she needs to have a BMI of 45 or less. She has follow-up with orthopedics in July. I certainly feel as though she is a surgical candidate for total knee replacement despite having BMI over 45, given her greater than 200 lb weight loss thus far in addition to the knee being a limiting factor for continued exercise. She is doing the best that she can. We will recommend continuing her current meal plan. Exercising as she is able and return to the office in approximately 1 month.
[2024-06-13 12:52] VITALS: BMI 50.5
== END 2024-06-13 13:39 | disposition home or self-care (01) ==
LOC: HO.HBS 13:26
PROVIDERS: PCP Internal Medicine Endocrinology, Diabetes & Metabolism; Visit Provider Physician Assistant Surgical
DX: E66.01 Morbid (severe) obesity due to excess calories (principal); Z68.43 Body mass index [BMI] 50.0-59.9, adult; Z90.3 Acquired absence of stomach [part of]; Z98.84 Bariatric surgery status
CPT/HCPCS: 99213

== ENCOUNTER → 2024-06-13 13:26 | Outpatient (BNVA) | payer OTHER, SELFPAY | PROVIDERS: PCP Internal Medicine Endocrinology, Diabetes & Metabolism; Visit Provider Physician Assistant Surgical | DX: Z98.84 Bariatric surgery status (principal); K74.00 Hepatic fibrosis, unspecified; R16.0 Hepatomegaly, not elsewhere classified; K76.0 Fatty (change of) liver, not elsewhere classified; I10 Essential (primary) hypertension; E03.9 Hypothyroidism, unspecified ==

== ENCOUNTER 2024-07-31 10:00 | Outpatient (AMB) | payer OTHER, SELFPAY ==
--- NOTE | 2024-07-31 09:30 | MHC.OFFVISWM ---
VS Expanded 07/31/24 09:31 Height 5 ft 4 in Weight 286 lb 8 oz BMI 49.2 Body Fat % 67.2 Body Fat Mass 192.8 Fat Free Mass 94 Visceral Fat Rating 29 Body Water % 22.5 Body Water Mass 64.6 Muscle Mass/Score 88.4 Basal Metabolic Rate/Score 1,306 Intake Visit Reasons: (tV) PO LSG 10/20/23 Allergies Penicillins Allergy (Intermediate, Verified 04/30/24 08:21) rash, all over body HPI Comments Details: This?a?49?yo female who is s/p LSG without hiatal hernia repair on?10/20/2023. Presents for 9 month post op visit. Weight today is 286.8 pounds, with a BMI of 49.2. There has been a 231.4 pound weight loss,(initial weight 518.2 pounds) since starting the program on 03/31/2022 reflecting a 44.6 % total body weight loss and a weight loss of 118 pounds since surgery (operative weight 404.8 pounds) reflecting a 29.1 % TBWL since surgery. No complaints of nausea, emesis, abdominal pain or reflux. Reports infrequent but normal bowel movements every 2-3 days and uses stool softeners regularly. started celebrate mvi She states she has a rash under her pannus and sent a picture, using antifungal with improvement in the rash but worsens after treatment. Wants to have the option of celebrate protein water instead of the rebuild. She is no longer taking her norvasc 5 mg qd, she is also taking coumadin for hx PE. She has been seen by Ortho and has an appt nov 6th with JENNIFER Greene Present meal plan includes: 1 Celebrate 4 in 1, 2 scoops in 12 oz almond milk, 8-10 Celebrate protein water 11-1 Celebrate protein bar or built bar 2-4 pm meal 6 forks protein and 6 forks veg or celebrate bar 7-10 Drinking 48-64 oz water ? Exercise routine includes: Ongoing right knee pain, needs TKR but not until bmi 44 Mon-Sat burn 30 fitness class, 30 min, 2 x per day avg burn 210-300 joshua hand bike, 7 days per week PFSH Medical History Adjustment disorder Fatty liver Bilateral knee pain HTN (hypertension) History of asthma GISSELLE on CPAP Hx pulmonary embolism Hypothyroidism Diabetes PONV (postoperative nausea and vomiting) Sleep apnea Surgical History S/P laparoscopic sleeve gastrectomy History of removal of skin mole Hx of colonoscopy Hx of dilation and curettage History of facial surgery Hx of section Family History Mother Diabetes Hypertension Graves disease Hypothyroid Father Heart problem Hypertension Brother No problems noted. Daughter No problems noted. Social History Household Members: Family Housing: House Are you a primary childcare center director to a significant other at home: No Do you presently have visiting nurse or other home services: No 75 years or older and lives alone: No Alcohol intake: never Patient Tobacco Use Status: Never used Tobacco service: No Telehealth Telehealth Telehealth Platform: Telephone Location of provider rendering services: practice address Location of patient: address on file Patient Identification confirmed using: Name, : Yes Telehealth method: voice only Patient verbally consented to treatment: Yes Patient verbally consented to billing insurance company: Yes Patient informed of any privacy concerns related to visit: Yes Minutes spent on Phone/Video with Pt.: 20 Assessment & Plan Assessment & Plan (1) S/P laparoscopic sleeve gastrectomy: Comment: 10/20/23 Code(s): Z98.84 - Bariatric surgery status Category: Surgical Plan: Patient is making good progress. She is following the plans as directed. She is somewhat limited in her exercise capacitance due to her right knee pain. She is scheduled to follow up with Orthopedics in early August. I encouraged her to contact her orthopedic physician ophthalmic medical assistant to then call me so I may advocate for her to get her surgery sooner than having her BMI under 45 given her clear commitment to her own health and weight loss.
[2024-07-31 09:31] VITALS: BMI 49.2
== END 2024-07-31 10:26 | disposition home or self-care (01) ==
LOC: HO.HBS 10:22
PROVIDERS: PCP Internal Medicine Endocrinology, Diabetes & Metabolism; Visit Provider Physician Assistant Surgical
DX: E66.813 Obesity, class 3 (principal); Z68.42 Body mass index [BMI] 45.0-49.9, adult; Z90.3 Acquired absence of stomach [part of]; Z98.84 Bariatric surgery status
CPT/HCPCS: 99213

== ENCOUNTER → 2024-07-31 10:00 | Outpatient (BNVA) | payer OTHER, SELFPAY | PROVIDERS: PCP Internal Medicine Endocrinology, Diabetes & Metabolism; Visit Provider Physician Assistant Surgical | DX: Z98.84 Bariatric surgery status (principal); K74.00 Hepatic fibrosis, unspecified; R16.0 Hepatomegaly, not elsewhere classified; K76.0 Fatty (change of) liver, not elsewhere classified; I10 Essential (primary) hypertension; E03.9 Hypothyroidism, unspecified ==

== ENCOUNTER 2024-09-10 11:30 | Outpatient (AMB) | payer OTHER, SELFPAY ==
--- NOTE | 2024-09-10 09:36 | A.OFFVIS_ITS ---
VS Expanded 09/10/24 09:37 Height 5 ft 4 in Weight 276 lb 4 oz BMI 47.4 Body Fat % 64.5 Body Fat Mass 178.4 Fat Free Mass 98.2 Visceral Fat Rating 28 Body Water % 24.3 Body Water Mass 67.2 Muscle Mass/Score 92.4 Basal Metabolic Rate/Score 1,320 Intake Visit Reasons: (tV) PO LSG 10/20/23 Allergies Penicillins Allergy (Intermediate, Verified 04/30/24 08:21) rash, all over body HPI Comments Details: This?a?49?yo female who is s/p LSG without hiatal hernia repair on?10/20/2023. Presents for 11 month post op visit. Weight today is 276.4 pounds, with a BMI of 47.4. There has been a 241.8 pound weight loss,(initial weight 518.2 pounds) since starting the program on 03/31/2022 reflecting a 46.6 % total body weight loss and a weight loss of 128.4 pounds since surgery (operative weight 404.8 pounds) reflecting a 31.7 % TBWL since surgery. No complaints of nausea, emesis, abdominal pain or reflux. Reports infrequent but normal bowel movements every 2-3 days and uses stool softeners regularly. started celebrate mvi She states she has a rash under her pannus and sent a picture, using antifungal with improvement in the rash but worsens after treatment. Wants to have the option of celebrate protein water instead of the rebuild. She is no longer taking her norvasc 5 mg qd, she is also taking coumadin for hx PE. 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 She had another cortisone shot and this make her eligible for right TKR in November. Their goal is a BMI of 45 Present meal plan includes: 1 Celebrate 4 in 1, 2 scoops in 12 oz almond milk, 8-10 Celebrate protein water 11-1 Celebrate protein bar or built bar 2-4 pm meal 6 forks protein and 6 forks veg or cook islander yogurt7-10 Drinking 48-64 oz water ? Exercise routine includes: Ongoing right knee pain, needs TKR but not until bmi 45 Mon-Sat burn 30 fitness class, 30 min, 2 x per day avg burn 210-300 joshua 250-350 calories burned 7 days per week on [employer] [facility] Medical History Adjustment disorder Fatty liver Bilateral knee pain HTN (hypertension) History of asthma GISSELLE on CPAP Hx pulmonary embolism Hypothyroidism Diabetes PONV (postoperative nausea and vomiting) Sleep apnea Surgical History S/P laparoscopic sleeve gastrectomy History of removal of skin mole Hx of colonoscopy Hx of dilation and curettage History of facial surgery Hx of section Family History Mother Diabetes Hypertension Graves disease Hypothyroid Father Heart problem Hypertension Brother No problems noted. Daughter No problems noted. Social History Household Members: Family Housing: House Are you a primary critical care nurse practitioner to a significant other at home: No Do you presently have visiting nurse or other home services: No 75 years or older and lives alone: No Alcohol intake: never Patient Tobacco Use Status: Never used Tobacco service: No Telehealth Telehealth Telehealth Platform: Telephone Location of provider rendering services: practice address Location of patient: address on file Patient Identification confirmed using: Name, : Yes Telehealth method: voice only Patient verbally consented to treatment: Yes Patient verbally consented to billing insurance company: Yes Patient informed of any privacy concerns related to visit: Yes Minutes spent on Phone/Video with Pt.: 20 Assessment & Plan Assessment & Plan (1) S/P laparoscopic sleeve gastrectomy: Comment: 10/20/23 Code(s): Z98.84 - Bariatric surgery status Category: Surgical Plan: Overall doing very well, making steady progress. Exercising despite ongoing knee pain. Tentatively we will be eligible for right knee replacement in November. Encouraged to continue meal plan as she is doing and text with any questions or concerns. She has scheduled follow-up in 1 month
[2024-09-10 09:37] VITALS: BMI 47.4
== END 2024-09-10 11:59 | disposition home or self-care (01) ==
LOC: HO.HBS 11:55
PROVIDERS: PCP Internal Medicine Endocrinology, Diabetes & Metabolism; Visit Provider Physician Assistant Surgical
DX: E66.01 Morbid (severe) obesity due to excess calories (principal); E66.813 Obesity, class 3; Z68.42 Body mass index [BMI] 45.0-49.9, adult; Z98.84 Bariatric surgery status
CPT/HCPCS: 99213

== ENCOUNTER → 2024-09-10 11:30 | Outpatient (BNVA) | payer OTHER, SELFPAY | PROVIDERS: PCP Internal Medicine Endocrinology, Diabetes & Metabolism; Visit Provider Physician Assistant Surgical | DX: Z98.84 Bariatric surgery status (principal); K74.00 Hepatic fibrosis, unspecified; R16.0 Hepatomegaly, not elsewhere classified; K76.0 Fatty (change of) liver, not elsewhere classified; I10 Essential (primary) hypertension; E03.9 Hypothyroidism, unspecified ==

== ENCOUNTER 2024-10-22 09:13 | Outpatient (AMB) | payer OTHER, SELFPAY ==
--- NOTE | 2024-10-22 09:17 | MHC.OFFVISWM ---
VS Expanded 10/22/24 09:23 BP 141/70 H Blood Pressure Location Rt brachial Blood Pressure Position Sitting Pulse 52 Pulse Source Pulse Oximeter Temp 98.2 F Temperature Source Temporal Artery Scan Pulse Oximetry 98 Oxygen Delivery Method Room Air Height 5 ft 4 in Weight 269 lb 3.2 oz BMI 46.2 Body Fat % 49.9 Body Fat Mass 134.2 Fat Free Mass 135.0 Visceral Fat Rating 17.0 Body Water % 35.7 Body Water Mass 96.2 Muscle Mass/Score 128.0 Basal Metabolic Rate/Score 1,932 Intake Visit Reasons: (OV) PO LSG 10/20/23 Allergies Penicillins Allergy (Intermediate, Verified 10/22/24 09:20) rash, all over body HPI Comments Details: This?a?49?yo female who is s/p LSG without hiatal hernia repair on?10/20/2023. Presents for 1 year post op visit. Weight today is 269.2 pounds, with a BMI of 46.2. There has been a 249 pound weight loss,(initial weight 518.2 pounds) since starting the program on 03/31/2022 reflecting a 48 % total body weight loss and a weight loss of 135.6 pounds since surgery (operative weight 404.8 pounds) reflecting a 33.4 % TBWL since surgery. No complaints of nausea, emesis, abdominal pain or reflux. Reports infrequent but normal bowel movements every 2-3 days and uses stool softeners regularly. started celebrate mvi She states she has a rash under her pannus and sent a picture, using antifungal with improvement in the rash but worsens after treatment. She also reports pain in her arms with activity due to the excess skin. Has used steroid cream in the past with efficacy. Additionally, she states that having the celebrate bar and yogurt in the evening, after dinner, has been too much. She is no longer taking her norvasc 5 mg qd, she is also not taking coumadin for hx PE as she has been approved for a NOAC. 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 Present meal plan includes: 1 Celebrate 4 in 1, 2 scoops in 12 oz almond milk, 8-10 Celebrate protein water 11-1 Celebrate protein bar or built bar 2-4 pm meal 6 forks protein and 6 forks veg celebrate bar swiss yogurt 7-10 Drinking 48-64 oz water ? Exercise routine includes: Ongoing right knee pain, needs TKR but not until bmi 45 Mon-Sat burn 30 fitness class, 30 min, 6 x per day avg burn 210-300 joshua 310 calories burned 7 days per week on [employer] Any post op complications: none GISSELLE: improved - not using DM: resolved HTN: resolved Hyperlipidemia: never GERD:?0-5 scale ??0 = no symptoms ??1 = symptoms noticeable but not bothersome 2 =symptoms bothersome but not daily ? 3 = symptoms bothersome and daily 4 = symptoms affect daily activities 5 = symptoms are incapacitating, unable to do daily activities ? How bad is the heartburn: 0 ? Heartburn while lying down: 0 ? Heartburn when standing up: 0 ? Heartburn after meals: 0 ? Does heartburn change your diet: 0 ? Does heartburn wake you up from sleep: 0 ? Do you have difficulty swallowin ? Do you have pain with swallowin ? If you take medicine for your reflux, does this affect your daily life: 0 Satisfaction with present condition - satisfied or not satisfied: jm [facility] Medical History Adjustment disorder Fatty liver Bilateral knee pain HTN (hypertension) History of asthma GISSELLE on CPAP Hx pulmonary embolism Hypothyroidism Diabetes PONV (postoperative nausea and vomiting) Sleep apnea Surgical History S/P laparoscopic sleeve gastrectomy History of removal of skin mole Hx of colonoscopy Hx of dilation and curettage History of facial surgery Hx of section Family History Mother Diabetes Hypertension Graves disease Hypothyroid Father Heart problem Hypertension Brother No problems noted. Daughter No problems noted. Social History Household Members: Family Housing: House Are you a primary lawn care technician to a significant other at home: No Do you presently have visiting nurse or other home services: No 75 years or older and lives alone: No Alcohol intake: never Patient Tobacco Use Status: Never used Tobacco service: No Physical Exam Vital Signs: Last Vital Signs Temp 98.2 F 10/22/24 09:23 Pulse 52 10/22/24 09:23 BP 141/70 H 10/22/24 09:23 Pulse Ox 98 10/22/24 09:23 Oxygen Delivery Method Room Air 10/22/24 09:23 BMI result Body Mass Index 46.2 Const General: cooperative and no acute distress Orientation/consciousness: patient oriented x3 Resp Effort & Inspection: normal respiratory effort Auscultation: clear to auscultation bilaterally Cardio Rate: regular rate Rhythm: regular rhythm GI Inspection: Yes normal to inspection and Yes incision (well healed) Palpation (GI): Soft to palpation and no masses Skin Other: Grade 3 pannus of the abdomen with evidence of resolved rash currently Additionally noted is an additional pannus of skin in the suprapubic region. Neuro General: patient oriented x3 Assessment & Plan Assessment & Plan (1) S/P laparoscopic sleeve gastrectomy: Comment: 10/20/23 Code(s): Z98.84 - Bariatric surgery status Category: Surgical Plan: 1 Celebrate 4 in 1, 2 scoops in 12 oz almond milk, 8-10 Welsh yogurt 11-1 Celebrate protein bar or built bar 2-4 pm meal 6 forks protein and 6 forks veg celebrate bar Continue with her exercise regimen. Check 1 year postop labs Return to clinic in 3 months (2) Panniculitis: Code(s): M79.3 - Panniculitis, unspecified Category: Medical Plan: Add topical steroid cream to topical antifungal to improve efficacy. She has lost significant weight and has significant excess skin of both her arms and abdomen. We will require medically necessary skin removal surgery given the 48% total body weight loss to date. Will have her discuss with Dr Mitchell the plan for skin removal surgery. May require a staged procedure Orders: Orders Insulin Today E03.9 - Hypothyroidism, unspecified, I10 - Essential (primary) hypertension, K74.00 - Hepatic fibrosis, unspecified, K76.0 - Fatty (change of) liver, not elsewhere classified, Z98.84 - Bariatric surgery status Hemoglobin A1c Today E03.9 - Hypothyroidism, unspecified, I10 - Essential (primary) hypertension, K74.00 - Hepatic fibrosis, unspecified, K76.0 - Fatty (change of) liver, not elsewhere classified, Z98.84 - Bariatric surgery status Lipid Panel Today E03.9 - Hypothyroidism, unspecified, I10 - Essential (primary) hypertension, K74.00 - Hepatic fibrosis, unspecified, K76.0 - Fatty (change of) liver, not elsewhere classified, Z98.84 - Bariatric surgery status Vitamin B12 and Folate Today E03.9 - Hypothyroidism, unspecified, I10 - Essential (primary) hypertension, K74.00 - Hepatic fibrosis, unspecified, K76.0 - Fatty (change of) liver, not elsewhere classified, Z98.84 - Bariatric surgery status Ferritin Today E03.9 - Hypothyroidism, unspecified, I10 - Essential (primary) hypertension, K74.00 - Hepatic fibrosis, unspecified, K76.0 - Fatty (change of) liver, not elsewhere classified, Z98.84 - Bariatric surgery status Complete Blood Count Auto Diff Today E03.9 - Hypothyroidism, unspecified, I10 - Essential (primary) hypertension, K74.00 - Hepatic fibrosis, unspecified, K76.0 - Fatty (change of) liver, not elsewhere classified, Z98.84 - Bariatric surgery status IRON PROFILE Today E03.9 - Hypothyroidism, unspecified, I10 - Essential (primary) hypertension, K74.00 - Hepatic fibrosis, unspecified, K76.0 - Fatty (change of) liver, not elsewhere classified, Z98.84 - Bariatric surgery status Comprehensive Met. Panel Today E03.9 - Hypothyroidism, unspecified, I10 - Essential (primary) hypertension, K74.00 - Hepatic fibrosis, unspecified, K76.0 - Fatty (change of) liver, not elsewhere classified, Z98.84 - Bariatric surgery status Zinc Today E03.9 - Hypothyroidism, unspecified, I10 - Essential (primary) hypertension, K74.00 - Hepatic fibrosis, unspecified, K76.0 - Fatty (change of) liver, not elsewhere classified, Z98.84 - Bariatric surgery status C Reactive Protein Today E03.9 - Hypothyroidism, unspecified, I10 - Essential (primary) hypertension, K74.00 - Hepatic fibrosis, unspecified, K76.0 - Fatty (change of) liver, not elsewhere classified, Z98.84 - Bariatric surgery status Vitamin B1 Today E03.9 - Hypothyroidism, unspecified, I10 - Essential (primary) hypertension, K74.00 - Hepatic fibrosis, unspecified, K76.0 - Fatty (change of) liver, not elsewhere classified, Z98.84 - Bariatric surgery status Vitamin A Today E03.9 - Hypothyroidism, unspecified, I10 - Essential (primary) hypertension, K74.00 - Hepatic fibrosis, unspecified, K76.0 - Fatty (change of) liver, not elsewhere classified, Z98.84 - Bariatric surgery status TSH reflex Free T4 Today E03.9 - Hypothyroidism, unspecified, I10 - Essential (primary) hypertension, K74.00 - Hepatic fibrosis, unspecified, K76.0 - Fatty (change of) liver, not elsewhere classified, Z98.84 - Bariatric surgery status Vitamin D 25-OH Total Today E03.9 - Hypothyroidism, unspecified, I10 - Essential (primary) hypertension, K74.00 - Hepatic fibrosis, unspecified, K76.0 - Fatty (change of) liver, not elsewhere classified, Z98.84 - Bariatric surgery status Medications: New triamcinolone acetonide 0.1% 1 appl topical BID 30 grams 3RF
[2024-10-22 09:23] VITALS: BP 141/70; PULSE 52; TEMP 36.8; O2SAT 98; BMI 46.2
--- OUTSIDE RECORDS SUMMARY | 2024-10-22 09:54 | XMS_ITS | Continuity of Care Document ---
Author Organization [facility] [address] [place] [address] Phone [phone] Care Team Providers Care Game Designer/Creative Director Name Role Phone Evy Manrique M.D. Care Team Informati on Tar Distributor Operator [phone] Problems Active Problems Provider Date Morbid obesity Evy Manrique M.D. Ons et: 07/30/2022 Primary hypothyroidism Travis Brown Onset: 07/30/2022 Steatohepatitis Evy Manrique M.D. Ons et: 07/30/2022 Type 2 diabetes mellitus Evy Manrique M.D. Onset: 07/30/2022 Inactive tuberculosis Raquel Brown Onset: 07/30/2022 Asthma Evy Manrique M.D. Ons et: 07/30/2022 Obstructive sleep apnea syndrome Evy Chan M.D. Onset: 07/30/2022 Pulmonary embolism Evy Manrique M.D. Onset: 07/30/2022 Essential hypertension Travis Brown Onset: 07/30/2022 Closed fracture of left tibial plateau Evy Manrique M.D. Onset: 07/30/2022 Polyp of corpus uteri Raquel Brown Onset: 07/30/2022 Vertigo Evy Manrique M.D. Ons et: 07/30/2022 Obesity Evy Manrique M.D. Ons et: 11/25/2022 History of thromboembolism of vein Evy Vyas M.D. 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 09/28/2024 Meclizine [id number] Tablets 1 q 8 hours as needed 45tabs Evy Manrique M.D. 04/05/2024 Freestyle Lite TestStrips Use as directed for testing blood sugar once daily (DX:E11.9) 100units E11.9 Evy Manrique M.D. 10/31/2023 Warfarin [id number] Tablets Take 1 To 2 Tablets By Mouth Daily 180tabs Evy Manrique M.D. 05/03/2022 Levothyroxine [id number] Tablets take 1 tablet by mouth every day 90tabs Evy Manrique M.D. Flovent DHF065oal/Act Aerosol 2 puff daily as needed 1gm Evy Manrique M.D. Proair [id number](90Base) mcg/Act Aerosol 2 puffs every 4 hours as needed 1gm Evy Manrique M.D. Metamucil0.36gm Capsules 4 by mouth every day Evy Manrique M.D. Multivitamin Adult (Minerals)Tablets 1 by mouth every day Unknown Vital Signs Date Vital Result Comment 09/28/2024 8:24am BP Systolic 120 mmHg BP Diastolic 62 mmHg Heart Rate 61 /min Height 64 inches 5'4 Weight 275.12 lb BMI (Body Mass Index) 47.2 kg/m2 Results Test Acquired Date Facility Test Result H/L Range Note Prothrombin Time (PT) 10/05/2024 [facility] Inr 2.1 High 0.9-1.1 Prothrombin Time 21.4 SEC High 9.2-11. 4 Prothrombin Time (PT) 09/28/2024 [facility] Inr 2.0 High 0.9-1.1 Prothrombin Time 19.9 SEC High 9.2-11. 4 Laboratory test finding 09/28/2024 Inhouse Glucose Fingerstick 91 Hemoglobin A1c 4.9% Laboratory test finding 09/28/2024 [facility] TSH Rfx on Abnormal to Free T4 1.770 uIU/mL 0.450-4 .500 Comp. Metabolic Panel (14) 09/28/2024 [facility] Glucose 70 mg/dL 70-99 BUN 14 mg/dL 6-24 Creatinine 0.62 mg/dL 0.57-1. 00 eGFR 108 mL/min/1.73 >59 BUN/Creatinine Ratio 23 9-23 Sodium 140 mmol/L 134-144 Potassium 4.2 mmol/L 3.5-5.2 Chloride 105 mmol/L 96-106 Carbon Dioxide, Total 23 mmol/L 20-29 Calcium 9.2 mg/dL 8.7-10. 2 Protein, Total 6.3 g/dL 6.0-8.5 Albumin 3.6 g/dL Low 3.9-4.9 Globulin, Total 2.7 g/dL 1.5-4.5 Bilirubin, Total 0.5 mg/dL 0.0-1.2 Alkaline Phosphatase 65 IU/L 44-121 Ast (Sgot) 23 IU/L 0-40 Alt (SGPT) 16 IU/L 0-32 CBC With Differential/Fernando telet 09/28/2024 [facility] WBC 6.2 x10E3/uL 3.4-10. 8 RBC 4.67 x10E6/uL 3.77-5. 28 Hemoglobin 14.2 g/dL 11.1-15 .9 Hematocrit 43.5 % 34.0-46 .6 MCV 93 fL 79-97 MCH 30.4 pg 26.6-33 .0 MCHC 32.6 g/dL 31.5-35 .7 RDW 13.0 % 11.7-15 .4 Platelets 285 x10E3/uL 150-450 Neutrophils 61 % Not Estab. Lymphs 28 % Not Estab. Monocytes 8 % Not Estab. Eos 2 % Not Estab. Basos 1 % Not Estab. Immature Cells TNP Neutrophils (Absolute) 3.8 x10E3/uL 1.4-7.0 Lymphs (Absolute) 1.8 x10E3/uL 0.7-3.1 Monocytes(Abso lute) 0.5 x10E3/uL 0.1-0.9 Eos (Absolute) 0.1 x10E3/uL 0.0-0.4 Baso (Absolute) 0.0 x10E3/uL 0.0-0.2 Immature Granulocytes 0 % Not Estab. Immature Grans (Abs) 0.0 x10E3/uL 0.0-0.1 NRBC TNP Hematology Comments: TNP Prothrombin Time (PT) 09/19/2024 [facility] Inr 1.7 High 0.9-1.1 1 Prothrombin Time 17.5 SEC High 9.2-11. 4 Prothrombin Time (PT) 09/12/2024 [facility] Inr 2.0 High 0.9-1.1 Prothrombin Time 20.4 SEC High 9.2-11. 4 Prothrombin Time (PT) 09/03/2024 [facility] Inr 1.7 High 0.9-1.2 2 Prothrombin Time 18.2 sec High 9.1-12. 0 Prothrombin Time (PT) 08/27/2024 [facility] Inr 1.9 High 0.9-1.2 3 Prothrombin Time 19.6 sec High 9.1-12. 0 Prothrombin Time (PT) 08/20/2024 [facility] Inr 1.6 High 0.9-1.1 Prothrombin Time 16.6 SEC High 9.2-11. 4 Prothrombin Time (PT) 08/16/2024 [facility] Inr 4.0 High 0.9-1.1 Prothrombin Time 38.2 SEC High 9.2-11. 4 Prothrombin Time (PT) 08/02/2024 [facility] Inr 2.3 High 0.9-1.2 4 Prothrombin Time 23.6 sec High 9.1-12. 0 Prothrombin Time (PT) 07/26/2024 [facility] Inr 1.6 High 0.9-1.1 Prothrombin Time 16.8 SEC High 9.2-11. 4 Prothrombin Time (PT) 07/13/2024 [facility] Inr 2.7 High 0.9-1.2 5 Prothrombin Time 27.4 sec High 9.1-12. 0 Prothrombin Time (PT) 07/06/2024 [facility] Inr 2.4 High 0.9-1.1 Prothrombin Time 23.7 SEC High 9.2-11. 4 Prothrombin Time (PT) 06/27/2024 [facility] Inr 2.1 High 0.9-1.2 6 Prothrombin Time 21.9 sec High 9.1-12. 0 Prothrombin Time (PT) 06/20/2024 [facility] Inr 2.1 High 0.9-1.1 Prothrombin Time 21.3 SEC High 9.2-11. 4 Prothrombin Time (PT) 06/14/2024 [facility] Inr 1.8 High 0.9-1.1 Prothrombin Time 18.3 SEC High 9.2-11. 4 Prothrombin Time (PT) 06/06/2024 [facility] Inr 1.7 High 0.9-1.2 7 Prothrombin Time 18.1 sec High 9.1-12. 0 Prothrombin Time (PT) 05/16/2024 [facility] Inr 2.0 High 0.9-1.1 Prothrombin Time 20.2 SEC High 9.2-11. 4 Laboratory test finding 05/09/2024 Inhouse Glucose Fingerstick 85 Hemoglobin A1c 4.9% Prothrombin Time (PT) 05/08/2024 [facility] Inr 2.1 High 0.9-1.1 Prothrombin Time 21.0 SEC High 9.2-11. 4 Prothrombin Time (PT) 04/25/2024 [facility] Inr 1.8 High 0.9-1.2 8 Prothrombin Time 18.7 sec High 9.1-12. 0 Prothrombin Time (PT) 04/19/2024 [facility] Inr 2.1 High 0.9-1.1 Prothrombin Time 20.9 SEC High 9.2-11. 4 Prothrombin Time (PT) 04/11/2024 [facility] Inr 1.7 High 0.9-1.2 9 Prothrombin Time 17.2 sec High 9.1-12. 0 Prothrombin Time (PT) 03/30/2024 [facility] Inr 2.1 High 0.9-1.1 Prothrombin Time 20.7 SEC High 9.2-11. 4 Prothrombin Time (PT) 03/12/2024 [facility] Inr 1.8 High 0.9-1.1 Prothrombin Time 18.4 SEC High 9.2-11. 4 Prothrombin Time (PT) 02/09/2024 [facility] Inr 2.0 High 0.9-1.2 10 Prothrombin Time 20.1 sec High 9.1-12. 0 Prothrombin Time (PT) 01/13/2024 [facility] Inr 2.3 High 0.9-1.2 11 Prothrombin Time 23.1 sec High 9.1-12. 0 Comp. Metabolic Panel (14) 01/06/2024 [facility] Glucose 95 mg/dL 70-99 BUN 14 mg/dL 6-24 Creatinine 0.68 mg/dL 0.57-1. 00 eGFR 107 mL/min/1.73 >59 BUN/Creatinine Ratio 21 9-23 Sodium 142 mmol/L 134-144 Potassium 4.3 mmol/L 3.5-5.2 Chloride 101 mmol/L 96-106 Carbon Dioxide, Total 22 mmol/L 20-29 Calcium 10.0 mg/dL 8.7-10. 2 Protein, Total 7.3 g/dL 6.0-8.5 Albumin 4.4 g/dL 3.9-4.9 Globulin, Total 2.9 g/dL 1.5-4.5 A/G Ratio 1.5 1.2-2.2 Bilirubin, Total 0.7 mg/dL 0.0-1.2 Alkaline Phosphatase 108 IU/L 44-121 Ast (Sgot) 55 IU/L High 0-40 Alt (SGPT) 80 IU/L High 0-32 CBC With Differential/Fernando telet 01/06/2024 [facility] WBC 7.2 x10E3/uL 3.4-10. 8 RBC 5.12 x10E6/uL 3.77-5. 28 Hemoglobin 15.2 g/dL 11.1-15 .9 Hematocrit 45.7 % 34.0-46 .6 MCV 89 fL 79-97 MCH 29.7 pg 26.6-33 .0 MCHC 33.3 g/dL 31.5-35 .7 RDW 14.9 % 11.7-15 .4 Platelets 284 x10E3/uL 150-450 Neutrophils 61 % Not Estab. Lymphs 26 % Not Estab. Monocytes 9 % Not Estab. Eos 3 % Not Estab. Basos 1 % Not Estab. Immature Cells TNP Neutrophils (Absolute) 4.4 x10E3/uL 1.4-7.0 Lymphs (Absolute) 1.9 x10E3/uL 0.7-3.1 Monocytes(Abso lute) 0.6 x10E3/uL 0.1-0.9 Eos (Absolute) 0.2 x10E3/uL 0.0-0.4 Baso (Absolute) 0.1 x10E3/uL 0.0-0.2 Immature Granulocytes 0 % Not Estab. Immature Grans (Abs) 0.0 x10E3/uL 0.0-0.1 NRBC TNP Hematology Comments: TNP Laboratory test finding 01/06/2024 [facility] TSH Rfx on Abnormal to Free T4 1.320 uIU/mL 0.450-4 .500 Laboratory test finding 01/06/2024 Inhouse Glucose Fingerstick 88 Hemoglobin A1c 4.7% Prothrombin Time (PT) 01/05/2024 [facility] Inr 2.3 High 0.9-1.1 Prothrombin Time 23.3 SEC High 9.2-11. 4 Prothrombin Time (PT) 12/29/2023 [facility] Inr 2.1 High 0.9-1.2 12 Prothrombin Time 21.2 sec High 9.1-12. 0 Prothrombin Time (PT) 12/22/2023 [facility] Inr 1.9 High 0.9-1.2 13 Prothrombin Time 19.8 sec High 9.1-12. 0 Protime Profile 12/15/2023 [facility] Protime 21.1 SEC High (9.2-11 .4) Internatnl Normalized Ratio 2.1 High (0.9-1. 1) 14 Protime Profile 12/09/2023 [facility] Protime 23.5 SEC High (9.2-11 .4) Internatnl Normalized Ratio 2.4 High (0.9-1. 1) 15 Protime Profile 12/05/2023 [facility] Protime 26.2 SEC High (9.2-11 .4) Internatnl Normalized Ratio 2.7 High (0.9-1. 1) 16 Protime Profile 12/01/2023 [facility] Protime 17.2 SEC High (9.2-11 .4) Internatnl Normalized Ratio 1.7 High (0.9-1. 1) 17 Protime Profile 11/29/2023 [facility] Protime 18.2 SEC High (9.2-11 .4) Internatnl Normalized Ratio 1.8 High (0.9-1. 1) 18 Protime Profile 11/27/2023 [facility] [id number] Duplicate Order Protime 35.0 SEC High (9.2-11 .4) Internatnl Normalized Ratio 3.7 High (0.9-1. 1) 19 Protime Profile 11/25/2023 [facility] Protime 47.1 SEC High (9.2-11 .4) Internatnl Normalized Ratio 5.1 Critical high (0.9-1. 1) 20 Protime Profile 11/15/2023 [facility] Protime 19.8 SEC High (9.2-11 .4) Internatnl Normalized Ratio 2.0 High (0.9-1. 1) 21 Laboratory test finding 11/07/2023 Inhouse Glucose Fingerstick 87 Protime Profile 09/21/2023 [facility] Protime 27.6 SEC High (9.2-11 .4) Internatnl Normalized Ratio 2.8 High (0.9-1. 1) 22 Laboratory test finding 08/24/2023 Inhouse Glucose Fingerstick 96 Hemoglobin A1c 5.2% Protime Profile 08/17/2023 [facility] Protime 29.3 SEC High (9.2-11 .4) Internatnl Normalized Ratio 3.0 High (0.9-1. 1) 23 Protime Profile 07/25/2023 [facility] Protime 27.2 SEC High (9.2-11 .4) Internatnl Normalized Ratio 2.8 High (0.9-1. 1) 24 Protime Profile 06/16/2023 [facility] Protime 24.0 SEC High (9.2-11 .4) Internatnl Normalized Ratio 2.4 High (0.9-1. 1) 25 Protime Profile 05/30/2023 [facility] Protime 25.3 SEC High (9.2-11 .4) Internatnl Normalized Ratio 2.6 High (0.9-1. 1) 26 Protime Profile 05/11/2023 [facility] Protime 25.9 SEC High (9.2-11 .4) Internatnl Normalized Ratio 2.6 High (0.9-1. 1) 27 Protime Profile 04/27/2023 [facility] Protime 21.6 SEC High (9.2-11 .4) Internatnl Normalized Ratio 2.2 High (0.9-1. 1) 28 Protime Profile 04/19/2023 [facility] Protime 19.4 SEC High (9.2-11 .4) Internatnl Normalized Ratio 1.9 High (0.9-1. 1) 29 Protime Profile 04/11/2023 [facility] Protime 20.0 SEC High (9.2-11 .4) Internatnl Normalized Ratio 2.0 High (0.9-1. 1) 30 Protime Profile 04/07/2023 [facility] Protime 17.6 SEC High (9.2-11 .4) Internatnl Normalized Ratio 1.7 High (0.9-1. 1) 31 Protime Profile 04/01/2023 [facility] Protime 14.7 SEC High (9.2-11 .4) Internatnl Normalized Ratio 1.4 High (0.9-1. 1) 32 Laboratory test finding 03/25/2023 Inhouse Glucose Fingerstick 101 Hemoglobin A1c 5.5% Protime Profile 03/03/2023 [facility] Protime 20.6 SEC High (9.2-11 .4) Internatnl Normalized Ratio 2.1 High (0.9-1. 1) 33 Laboratory test finding 02/02/2023 [facility] TSH With Reflex To FT4 2.44 uIU/mL (0.4-4. 2) Protime Profile 02/02/2023 [facility] Protime 21.0 SEC High (9.2-11 .4) Internatnl Normalized Ratio 2.1 High (0.9-1. 1) 34 Complete Abc With Diff 02/02/2023 [facility] WBC 8.0 K/MM3 (4.0-11 .0) RBC 4.83 M/MM3 (4.20-5 .40) HGB 13.3 GM/DL (11.7-1 5.5) HCT 44.3 % (35.7-4 5.8) MCV 91.7 FL (80.0-1 00.0) MCH 27.5 pg (27.0-3 4.0) MCHC 30.0 g/dL Low (33.0-3 7.0) PLT 368 K/MM3 (150-46 0) RDW-SD 51.3 FL High (<47.0) MPV 10.9 FL (9.4-12 .4) Automated NRBC 0.0 #/100WBC'S Abs. NRBC 0.0 K/MM3 Neut # 4.9 K/MM3 (1.3-7. 0) Lymph # 2.2 K/MM3 (0.8-3. 1) [place]# 0.6 K/MM3 (0.4-0. 9) Eo # 0.3 K/MM3 (0.0-0. 4) Baso # 0.0 K/MM3 (0.0-0. 1) Abs. Imm Gran 0.0 K/MM3 Neut 61.3 % (44-76) Lymph 27.5 % (15-43) Monocyte 6.9 % (4.5-10 .5) Eo 3.5 % (0-6) Baso 0.5 % (0-2) Imm Gran 0.3 % Lipid Panel 02/02/2023 [facility] Cholesterol, Total 172 mg/dL (<200) Triglyceride 122 mg/dL (<150) HDL Chol 48 mg/dL (>39) LDL Cholesterol, Calculated 100 mg/dL (0-130) Non HDL Cholesterol (Calc) 124 mg/dL (<160) Comprehensive Metabolic Panl 02/02/2023 [facility] Glucose 115 mg/dL High (70-99) BUN 11 mg/dL (6-20) Creatinine 0.7 mg/dL (0.5-1. 0) Sodium 143 mmol/L (133-14 5) Potassium 4.8 mmol/L (3.6-5. 2) Chloride 104 mmol/L (98-107 ) Bicarbonate 29 mmol/L (22-29) Anion Gap 10 (4-17) Albumin 4.2 GM/DL (3.4-4. 8) Calcium 9.8 mg/dL (8.6-10 .5) Bilirubin,Tota l 0.2 mg/dL (0-1.2) Total Protein 6.8 GM/DL (6.2-8. 2) Ag Ratio 1.6 Ast 17 U/L (0-32) Alk Phos 84 U/L (35-104 ) Alt 16 U/L (0-33) Estimated GFR Creatinine 101 ML/MIN/1.73 M2 35 Protime Profile 01/25/2023 [facility] Protime 19.1 SEC High (9.2-11 .4) Internatnl Normalized Ratio 1.9 High (0.9-1. 1) 36 Protime Profile 12/23/2022 [facility] Protime 25.3 SEC High (9.2-11 .4) Internatnl Normalized Ratio 2.6 High (0.9-1. 1) 37 Protime Profile 12/09/2022 [facility] Protime 21.4 SEC High (9.2-11 .4) Internatnl Normalized Ratio 2.1 High (0.9-1. 1) 38 Laboratory test finding 11/25/2022 Inhouse Glucose Fingerstick 111 Hemoglobin A1c 5.6% Protime Profile 11/18/2022 [facility] Protime 22.9 SEC High (9.2-11 .4) Internatnl Normalized Ratio 2.3 High (0.9-1. 1) 39 Protime Profile 11/11/2022 [facility] Protime 21.8 SEC High (9.2-11 .4) Internatnl Normalized Ratio 2.2 High (0.9-1. 1) 40 Protime Profile 11/05/2022 [facility] Protime 18.0 SEC High (9.2-11 .4) Internatnl Normalized Ratio 1.8 High (0.9-1. 1) 41 Protime Profile 10/22/2022 [facility] Protime 25.1 SEC High (9.2-11 .4) Internatnl Normalized Ratio 2.5 High (0.9-1. 1) 42 Protime Profile 10/14/2022 [facility] Protime 22.1 SEC High (9.2-11 .4) Internatnl Normalized Ratio 2.2 High (0.9-1. 1) 43 Protime Profile 10/07/2022 [facility] Protime 19.2 SEC High (9.2-11 .4) Internatnl Normalized Ratio 1.9 High (0.9-1. 1) 44 Protime Profile 09/30/2022 [facility] Protime 19.7 SEC High (9.2-11 .4) Internatnl Normalized Ratio 2.0 High (0.9-1. 1) 45 Protime Profile 09/23/2022 [facility] Protime 21.5 SEC High (9.2-11 .4) Internatnl Normalized Ratio 2.2 High (0.9-1. 1) 46 Protime Profile 09/18/2022 [facility] Protime 37.1 SEC High (9.2-11 .4) Internatnl Normalized Ratio 3.9 High (0.9-1. 1) 47 Protime Profile 09/09/2022 [facility] Protime 30.8 SEC High (9.2-11 .4) Internatnl Normalized Ratio 3.1 High (0.9-1. 1) 48 Protime Profile 08/31/2022 [facility] Protime 26.1 SEC High (9.2-11 .4) Internatnl Normalized Ratio 2.6 High (0.9-1. 1) 49 Protime Profile 08/26/2022 [facility] Protime 25.9 SEC High (9.2-11 .4) Internatnl Normalized Ratio 2.6 High (0.9-1. 1) 50 Protime Profile 08/18/2022 [facility] Protime 18.1 SEC High (9.2-11 .4) Internatnl Normalized Ratio 1.8 High (0.9-1. 1) 51 Protime Profile 08/12/2022 [facility] Protime 15.0 SEC High (9.2-11 .4) Internatnl Normalized Ratio 1.5 High (0.9-1. 1) 52 Protime Profile 08/06/2022 [facility] Protime 20.0 SEC High (9.2-11 .4) Internatnl Normalized Ratio 2.0 High (0.9-1. 1) 53 Laboratory test finding 07/30/2022 Inhouse Glucose Fingerstick 147 Hemoglobin A1c 6.1 Protime Profile 07/26/2022 [facility] Protime 26.3 SEC High (9.2-11 .4) Internatnl Normalized Ratio 2.7 High (0.9-1. 1) 54 Protime Profile 07/05/2022 [facility] Protime 18.0 SEC High (9.2-11 .4) Internatnl Normalized Ratio 1.8 High (0.9-1. 1) 55 Protime Profile 06/24/2022 [facility] Protime 20.9 SEC High (9.2-11 .4) Internatnl Normalized Ratio 2.1 High (0.9-1. 1) 56 Protime Profile 06/18/2022 [facility] Protime 19.1 SEC High (9.2-11 .4) Internatnl Normalized Ratio 1.9 High (0.9-1. 1) 57 Protime Profile 06/03/2022 [facility] Protime 28.7 SEC High (9.2-11 .4) Internatnl Normalized Ratio 2.9 High (0.9-1. 1) 58 Protime Profile 05/18/2022 [facility] Protime 24.2 SEC High (9.2-11 .4) Internatnl Normalized Ratio 2.5 High (0.9-1. 1) 59 Protime Profile 05/11/2022 [facility] [id number] Duplicate order <SEE NOTE> 60 Protime Profile 05/11/2022 [facility] Protime 19.0 SEC High (9.2-11 .4) Internatnl Normalized Ratio 1.9 High (0.9-1. 1) 61 Protime Profile 05/04/2022 [facility] Protime 19.4 SEC High (9.2-11 .4) Internatnl Normalized Ratio 1.9 High (0.9-1. 1) 62 Protime Profile 04/30/2022 [facility] Protime 15.2 SEC High (9.2-11 .4) Internatnl Normalized Ratio 1.5 High (0.9-1. 1) 63 Protime Profile 04/26/2022 [facility] Protime 12.2 SEC High (9.2-11 .4) Internatnl Normalized Ratio 1.2 High (0.9-1. 1) 64 1 STANDING ORDER WEEKL Y OR DIRECTED 2 Reference interval i s for non-anticoagulated patients. Suggested INR therapeutic range for Vitamin K antagonist therapy: Standard Dose (moderate intensity therapeutic range): 2.0 - 3.0 Higher intensity therapeutic range 2.5 - 3.5 3 Reference interval i s for non-anticoagulated patients. Suggested INR therapeutic range for Vitamin K antagonist therapy: Standard Dose (moderate intensity therapeutic range): 2.0 - 3.0 Higher intensity therapeutic range 2.5 - 3.5 4 Reference interval i s for non-anticoagulated patients. Suggested INR therapeutic range for Vitamin K antagonist therapy: Standard Dose (moderate intensity therapeutic range): 2.0 - 3.0 Higher intensity therapeutic range 2.5 - 3.5 5 Reference interval i s for non-anticoagulated patients. Suggested INR therapeutic range for Vitamin K antagonist therapy: Standard Dose (moderate intensity therapeutic range): 2.0 - 3.0 Higher intensity therapeutic range 2.5 - 3.5 6 Reference interval i s for non-anticoagulated patients. Suggested INR therapeutic range for Vitamin K antagonist therapy: Standard Dose (moderate intensity therapeutic range): 2.0 - 3.0 Higher intensity therapeutic range 2.5 - 3.5 7 Reference interval i s for non-anticoagulated patients. Suggested INR therapeutic range for Vitamin K antagonist therapy: Standard Dose (moderate intensity therapeutic range): 2.0 - 3.0 Higher intensity therapeutic range 2.5 - 3.5 8 Reference interval i s for non-anticoagulated patients. Suggested INR therapeutic range for Vitamin K antagonist therapy: Standard Dose (moderate intensity therapeutic range): 2.0 - 3.0 Higher intensity therapeutic range 2.5 - 3.5 9 Reference interval i s for non-anticoagulated patients. Suggested INR therapeutic range for Vitamin K antagonist therapy: Standard Dose (moderate intensity therapeutic range): 2.0 - 3.0 Higher intensity therapeutic range 2.5 - 3.5 10 Reference interval i s for non-anticoagulated patients. Suggested INR therapeutic range for Vitamin K antagonist therapy: Standard Dose (moderate intensity therapeutic range): 2.0 - 3.0 Higher intensity therapeutic range 2.5 - 3.5 11 Reference interval i s for non-anticoagulated patients. Suggested INR therapeutic range for Vitamin K antagonist therapy: Standard Dose (moderate intensity therapeutic range): 2.0 - 3.0 Higher intensity therapeutic range 2.5 - 3.5 12 Reference interval i s for non-anticoagulated patients. Suggested INR therapeutic range for Vitamin K antagonist therapy: Standard Dose (moderate intensity therapeutic range): 2.0 - 3.0 Higher intensity therapeutic range 2.5 - 3.5 13 Reference interval i s for non-anticoagulated patients. Suggested INR therapeutic range for Vitamin K antagonist therapy: Standard Dose (moderate intensity therapeutic range): 2.0 - 3.0 Higher intensity therapeutic range 2.5 - 3.5 14 SUGGESTED VALUE OF 2 .0-3.0 FOR PROPHYLAXIS OF VENOUS THROMBOSIS IN HIGH RISK OR SURGICAL PATIENTS, TREATMENT OF VENOUS THROMBOSIS, AND PREVENTION OF EMBOLISM. SUGGESTED VALUES OF 2.5-3.5 FOR PREVENTION OF RECURRENT EMBOLISM OR PATIENTS WITH MECHANICAL PROSTHETIC HEART VALVES. 15 SUGGESTED VALUE OF 2 .0-3.0 FOR PROPHYLAXIS OF VENOUS THROMBOSIS IN HIGH RISK OR SURGICAL PATIENTS, TREATMENT OF VENOUS THROMBOSIS, AND PREVENTION OF EMBOLISM. SUGGESTED VALUES OF 2.5-3.5 FOR PREVENTION OF RECURRENT EMBOLISM OR PATIENTS WITH MECHANICAL PROSTHETIC HEART VALVES. 16 SUGGESTED VALUE OF 2 .0-3.0 FOR PROPHYLAXIS OF VENOUS THROMBOSIS IN HIGH RISK OR SURGICAL PATIENTS, TREATMENT OF VENOUS THROMBOSIS, AND PREVENTION OF EMBOLISM. SUGGESTED VALUES OF 2.5-3.5 FOR PREVENTION OF RECURRENT EMBOLISM OR PATIENTS WITH MECHANICAL PROSTHETIC HEART VALVES. 17 SUGGESTED VALUE OF 2 .0-3.0 FOR PROPHYLAXIS OF VENOUS THROMBOSIS IN HIGH RISK OR SURGICAL PATIENTS, TREATMENT OF VENOUS THROMBOSIS, AND PREVENTION OF EMBOLISM. SUGGESTED VALUES OF 2.5-3.5 FOR PREVENTION OF RECURRENT EMBOLISM OR PATIENTS WITH MECHANICAL PROSTHETIC HEART VALVES. 18 SUGGESTED VALUE OF 2 .0-3.0 FOR PROPHYLAXIS OF VENOUS THROMBOSIS IN HIGH RISK OR SURGICAL PATIENTS, TREATMENT OF VENOUS THROMBOSIS, AND PREVENTION OF EMBOLISM. SUGGESTED VALUES OF 2.5-3.5 FOR PREVENTION OF RECURRENT EMBOLISM OR PATIENTS WITH MECHANICAL PROSTHETIC HEART VALVES. 19 SUGGESTED VALUE OF 2 .0-3.0 FOR PROPHYLAXIS OF VENOUS THROMBOSIS IN HIGH RISK OR SURGICAL PATIENTS, TREATMENT OF VENOUS THROMBOSIS, AND PREVENTION OF EMBOLISM. SUGGESTED VALUES OF 2.5-3.5 FOR PREVENTION OF RECURRENT EMBOLISM OR PATIENTS WITH MECHANICAL PROSTHETIC HEART VALVES. 20 SUGGESTED VALUE OF 2 .0-3.0 FOR PROPHYLAXIS OF VENOUS THROMBOSIS IN HIGH RISK OR SURGICAL PATIENTS, TREATMENT OF VENOUS THROMBOSIS, AND PREVENTION OF EMBOLISM. SUGGESTED VALUES OF 2.5-3.5 FOR PREVENTION OF RECURRENT EMBOLISM OR PATIENTS WITH MECHANICAL PROSTHETIC HEART VALVES. RESULTS CHECKED 21 SUGGESTED VALUE OF 2 .0-3.0 FOR PROPHYLAXIS OF VENOUS THROMBOSIS IN HIGH RISK OR SURGICAL PATIENTS, TREATMENT OF VENOUS THROMBOSIS, AND PREVENTION OF EMBOLISM. SUGGESTED VALUES OF 2.5-3.5 FOR PREVENTION OF RECURRENT EMBOLISM OR PATIENTS WITH MECHANICAL PROSTHETIC HEART VALVES. 22 SUGGESTED VALUE OF 2 .0-3.0 FOR PROPHYLAXIS OF VENOUS THROMBOSIS IN HIGH RISK OR SURGICAL PATIENTS, TREATMENT OF VENOUS THROMBOSIS, AND PREVENTION OF EMBOLISM. SUGGESTED VALUES OF 2.5-3.5 FOR PREVENTION OF RECURRENT EMBOLISM OR PATIENTS WITH MECHANICAL PROSTHETIC HEART VALVES. 23 SUGGESTED VALUE OF 2 .0-3.0 FOR PROPHYLAXIS OF VENOUS THROMBOSIS IN HIGH RISK OR SURGICAL PATIENTS, TREATMENT OF VENOUS THROMBOSIS, AND PREVENTION OF EMBOLISM. SUGGESTED VALUES OF 2.5-3.5 FOR PREVENTION OF RECURRENT EMBOLISM OR PATIENTS WITH MECHANICAL PROSTHETIC HEART VALVES. 24 SUGGESTED VALUE OF 2 .0-3.0 FOR PROPHYLAXIS OF VENOUS THROMBOSIS IN HIGH RISK OR SURGICAL PATIENTS, TREATMENT OF VENOUS THROMBOSIS, AND PREVENTION OF EMBOLISM. SUGGESTED VALUES OF 2.5-3.5 FOR PREVENTION OF RECURRENT EMBOLISM OR PATIENTS WITH MECHANICAL PROSTHETIC HEART VALVES. 25 SUGGESTED VALUE OF 2 .0-3.0 FOR PROPHYLAXIS OF VENOUS THROMBOSIS IN HIGH RISK OR SURGICAL PATIENTS, TREATMENT OF VENOUS THROMBOSIS, AND PREVENTION OF EMBOLISM. SUGGESTED VALUES OF 2.5-3.5 FOR PREVENTION OF RECURRENT EMBOLISM OR PATIENTS WITH MECHANICAL PROSTHETIC HEART VALVES. 26 SUGGESTED VALUE OF 2 .0-3.0 FOR PROPHYLAXIS OF VENOUS THROMBOSIS IN HIGH RISK OR SURGICAL PATIENTS, TREATMENT OF VENOUS THROMBOSIS, AND PREVENTION OF EMBOLISM. SUGGESTED VALUES OF 2.5-3.5 FOR PREVENTION OF RECURRENT EMBOLISM OR PATIENTS WITH MECHANICAL PROSTHETIC HEART VALVES. 27 SUGGESTED VALUE OF 2 .0-3.0 FOR PROPHYLAXIS OF VENOUS THROMBOSIS IN HIGH RISK OR SURGICAL PATIENTS, TREATMENT OF VENOUS THROMBOSIS, AND PREVENTION OF EMBOLISM. SUGGESTED VALUES OF 2.5-3.5 FOR PREVENTION OF RECURRENT EMBOLISM OR PATIENTS WITH MECHANICAL PROSTHETIC HEART VALVES. 28 SUGGESTED VALUE OF 2 .0-3.0 FOR PROPHYLAXIS OF VENOUS THROMBOSIS IN HIGH RISK OR SURGICAL PATIENTS, TREATMENT OF VENOUS THROMBOSIS, AND PREVENTION OF EMBOLISM. SUGGESTED VALUES OF 2.5-3.5 FOR PREVENTION OF RECURRENT EMBOLISM OR PATIENTS WITH MECHANICAL PROSTHETIC HEART VALVES. 29 SUGGESTED VALUE OF 2 .0-3.0 FOR PROPHYLAXIS OF VENOUS THROMBOSIS IN HIGH RISK OR SURGICAL PATIENTS, TREATMENT OF VENOUS THROMBOSIS, AND PREVENTION OF EMBOLISM. SUGGESTED VALUES OF 2.5-3.5 FOR PREVENTION OF RECURRENT EMBOLISM OR PATIENTS WITH MECHANICAL PROSTHETIC HEART VALVES. 30 SUGGESTED VALUE OF 2 .0-3.0 FOR PROPHYLAXIS OF VENOUS THROMBOSIS IN HIGH RISK OR SURGICAL PATIENTS, TREATMENT OF VENOUS THROMBOSIS, AND PREVENTION OF EMBOLISM. SUGGESTED VALUES OF 2.5-3.5 FOR PREVENTION OF RECURRENT EMBOLISM OR PATIENTS WITH MECHANICAL PROSTHETIC HEART VALVES. 31 SUGGESTED VALUE OF 2 .0-3.0 FOR PROPHYLAXIS OF VENOUS THROMBOSIS IN HIGH RISK OR SURGICAL PATIENTS, TREATMENT OF VENOUS THROMBOSIS, AND PREVENTION OF EMBOLISM. SUGGESTED VALUES OF 2.5-3.5 FOR PREVENTION OF RECURRENT EMBOLISM OR PATIENTS WITH MECHANICAL PROSTHETIC HEART VALVES. 32 SUGGESTED VALUE OF 2 .0-3.0 FOR PROPHYLAXIS OF VENOUS THROMBOSIS IN HIGH RISK OR SURGICAL PATIENTS, TREATMENT OF VENOUS THROMBOSIS, AND PREVENTION OF EMBOLISM. SUGGESTED VALUES OF 2.5-3.5 FOR PREVENTION OF RECURRENT EMBOLISM OR PATIENTS WITH MECHANICAL PROSTHETIC HEART VALVES. 33 SUGGESTED VALUE OF 2 .0-3.0 FOR PROPHYLAXIS OF VENOUS THROMBOSIS IN HIGH RISK OR SURGICAL PATIENTS, TREATMENT OF VENOUS THROMBOSIS, AND PREVENTION OF EMBOLISM. SUGGESTED VALUES OF 2.5-3.5 FOR PREVENTION OF RECURRENT EMBOLISM OR PATIENTS WITH MECHANICAL PROSTHETIC HEART VALVES. 34 SUGGESTED VALUE OF 2 .0-3.0 FOR PROPHYLAXIS OF VENOUS THROMBOSIS IN HIGH RISK OR SURGICAL PATIENTS, TREATMENT OF VENOUS THROMBOSIS, AND PREVENTION OF EMBOLISM. SUGGESTED VALUES OF 2.5-3.5 FOR PREVENTION OF RECURRENT EMBOLISM OR PATIENTS WITH MECHANICAL PROSTHETIC HEART VALVES. 35 Creatinine based est imated glomerular filtration (eGFR) in adults is calculated using the [employer] recommended 2020 CKD-EPI equation. Estimates GFR from serum creatinine, age and sex. 36 SUGGESTED VALUE OF 2 .0-3.0 FOR PROPHYLAXIS OF VENOUS THROMBOSIS IN HIGH RISK OR SURGICAL PATIENTS, TREATMENT OF VENOUS THROMBOSIS, AND PREVENTION OF EMBOLISM. SUGGESTED VALUES OF 2.5-3.5 FOR PREVENTION OF RECURRENT EMBOLISM OR PATIENTS WITH MECHANICAL PROSTHETIC HEART VALVES. 37 SUGGESTED VALUE OF 2 .0-3.0 FOR PROPHYLAXIS OF VENOUS THROMBOSIS IN HIGH RISK OR SURGICAL PATIENTS, TREATMENT OF VENOUS THROMBOSIS, AND PREVENTION OF EMBOLISM. SUGGESTED VALUES OF 2.5-3.5 FOR PREVENTION OF RECURRENT EMBOLISM OR PATIENTS WITH MECHANICAL PROSTHETIC HEART VALVES. 38 SUGGESTED VALUE OF 2 .0-3.0 FOR PROPHYLAXIS OF VENOUS THROMBOSIS IN HIGH RISK OR SURGICAL PATIENTS, TREATMENT OF VENOUS THROMBOSIS, AND PREVENTION OF EMBOLISM. SUGGESTED VALUES OF 2.5-3.5 FOR PREVENTION OF RECURRENT EMBOLISM OR PATIENTS WITH MECHANICAL PROSTHETIC HEART VALVES. 39 SUGGESTED VALUE OF 2 .0-3.0 FOR PROPHYLAXIS OF VENOUS THROMBOSIS IN HIGH RISK OR SURGICAL PATIENTS, TREATMENT OF VENOUS THROMBOSIS, AND PREVENTION OF EMBOLISM. SUGGESTED VALUES OF 2.5-3.5 FOR PREVENTION OF RECURRENT EMBOLISM OR PATIENTS WITH MECHANICAL PROSTHETIC HEART VALVES. 40 SUGGESTED VALUE OF 2 .0-3.0 FOR PROPHYLAXIS OF VENOUS THROMBOSIS IN HIGH RISK OR SURGICAL PATIENTS, TREATMENT OF VENOUS THROMBOSIS, AND PREVENTION OF EMBOLISM. SUGGESTED VALUES OF 2.5-3.5 FOR PREVENTION OF RECURRENT EMBOLISM OR PATIENTS WITH MECHANICAL PROSTHETIC HEART VALVES. 41 SUGGESTED VALUE OF 2 .0-3.0 FOR PROPHYLAXIS OF VENOUS THROMBOSIS IN HIGH RISK OR SURGICAL PATIENTS, TREATMENT OF VENOUS THROMBOSIS, AND PREVENTION OF EMBOLISM. SUGGESTED VALUES OF 2.5-3.5 FOR PREVENTION OF RECURRENT EMBOLISM OR PATIENTS WITH MECHANICAL PROSTHETIC HEART VALVES. 42 SUGGESTED VALUE OF 2 .0-3.0 FOR PROPHYLAXIS OF VENOUS THROMBOSIS IN HIGH RISK OR SURGICAL PATIENTS, TREATMENT OF VENOUS THROMBOSIS, AND PREVENTION OF EMBOLISM. SUGGESTED VALUES OF 2.5-3.5 FOR PREVENTION OF RECURRENT EMBOLISM OR PATIENTS WITH MECHANICAL PROSTHETIC HEART VALVES. 43 SUGGESTED VALUE OF 2 .0-3.0 FOR PROPHYLAXIS OF VENOUS THROMBOSIS IN HIGH RISK OR SURGICAL PATIENTS, TREATMENT OF VENOUS THROMBOSIS, AND PREVENTION OF EMBOLISM. SUGGESTED VALUES OF 2.5-3.5 FOR PREVENTION OF RECURRENT EMBOLISM OR PATIENTS WITH MECHANICAL PROSTHETIC HEART VALVES. 44 SUGGESTED VALUE OF 2 .0-3.0 FOR PROPHYLAXIS OF VENOUS THROMBOSIS IN HIGH RISK OR SURGICAL PATIENTS, TREATMENT OF VENOUS THROMBOSIS, AND PREVENTION OF EMBOLISM. SUGGESTED VALUES OF 2.5-3.5 FOR PREVENTION OF RECURRENT EMBOLISM OR PATIENTS WITH MECHANICAL PROSTHETIC HEART VALVES. 45 SUGGESTED VALUE OF 2 .0-3.0 FOR PROPHYLAXIS OF VENOUS THROMBOSIS IN HIGH RISK OR SURGICAL PATIENTS, TREATMENT OF VENOUS THROMBOSIS, AND PREVENTION OF EMBOLISM. SUGGESTED VALUES OF 2.5-3.5 FOR PREVENTION OF RECURRENT EMBOLISM OR PATIENTS WITH MECHANICAL PROSTHETIC HEART VALVES. 46 SUGGESTED VALUE OF 2 .0-3.0 FOR PROPHYLAXIS OF VENOUS THROMBOSIS IN HIGH RISK OR SURGICAL PATIENTS, TREATMENT OF VENOUS THROMBOSIS, AND PREVENTION OF EMBOLISM. SUGGESTED VALUES OF 2.5-3.5 FOR PREVENTION OF RECURRENT EMBOLISM OR PATIENTS WITH MECHANICAL PROSTHETIC HEART VALVES. 47 SUGGESTED VALUE OF 2 .0-3.0 FOR PROPHYLAXIS OF VENOUS THROMBOSIS IN HIGH RISK OR SURGICAL PATIENTS, TREATMENT OF VENOUS THROMBOSIS, AND PREVENTION OF EMBOLISM. SUGGESTED VALUES OF 2.5-3.5 FOR PREVENTION OF RECURRENT EMBOLISM OR PATIENTS WITH MECHANICAL PROSTHETIC HEART VALVES. 48 SUGGESTED VALUE OF 2 .0-3.0 FOR PROPHYLAXIS OF VENOUS THROMBOSIS IN HIGH RISK OR SURGICAL PATIENTS, TREATMENT OF VENOUS THROMBOSIS, AND PREVENTION OF EMBOLISM. SUGGESTED VALUES OF 2.5-3.5 FOR PREVENTION OF RECURRENT EMBOLISM OR PATIENTS WITH MECHANICAL PROSTHETIC HEART VALVES. 49 SUGGESTED VALUE OF 2 .0-3.0 FOR PROPHYLAXIS OF VENOUS THROMBOSIS IN HIGH RISK OR SURGICAL PATIENTS, TREATMENT OF VENOUS THROMBOSIS, AND PREVENTION OF EMBOLISM. SUGGESTED VALUES OF 2.5-3.5 FOR PREVENTION OF RECURRENT EMBOLISM OR PATIENTS WITH MECHANICAL PROSTHETIC HEART VALVES. 50 SUGGESTED VALUE OF 2 .0-3.0 FOR PROPHYLAXIS OF VENOUS THROMBOSIS IN HIGH RISK OR SURGICAL PATIENTS, TREATMENT OF VENOUS THROMBOSIS, AND PREVENTION OF EMBOLISM. SUGGESTED VALUES OF 2.5-3.5 FOR PREVENTION OF RECURRENT EMBOLISM OR PATIENTS WITH MECHANICAL PROSTHETIC HEART VALVES. 51 SUGGESTED VALUE OF 2 .0-3.0 FOR PROPHYLAXIS OF VENOUS THROMBOSIS IN HIGH RISK OR SURGICAL PATIENTS, TREATMENT OF VENOUS THROMBOSIS, AND PREVENTION OF EMBOLISM. SUGGESTED VALUES OF 2.5-3.5 FOR PREVENTION OF RECURRENT EMBOLISM OR PATIENTS WITH MECHANICAL PROSTHETIC HEART VALVES. 52 SUGGESTED VALUE OF 2 .0-3.0 FOR PROPHYLAXIS OF VENOUS THROMBOSIS IN HIGH RISK OR SURGICAL PATIENTS, TREATMENT OF VENOUS THROMBOSIS, AND PREVENTION OF EMBOLISM. SUGGESTED VALUES OF 2.5-3.5 FOR PREVENTION OF RECURRENT EMBOLISM OR PATIENTS WITH MECHANICAL PROSTHETIC HEART VALVES. 53 SUGGESTED VALUE OF 2 .0-3.0 FOR PROPHYLAXIS OF VENOUS THROMBOSIS IN HIGH RISK OR SURGICAL PATIENTS, TREATMENT OF VENOUS THROMBOSIS, AND PREVENTION OF EMBOLISM. SUGGESTED VALUES OF 2.5-3.5 FOR PREVENTION OF RECURRENT EMBOLISM OR PATIENTS WITH MECHANICAL PROSTHETIC HEART VALVES. 54 SUGGESTED VALUE OF 2 .0-3.0 FOR PROPHYLAXIS OF VENOUS THROMBOSIS IN HIGH RISK OR SURGICAL PATIENTS, TREATMENT OF VENOUS THROMBOSIS, AND PREVENTION OF EMBOLISM. SUGGESTED VALUES OF 2.5-3.5 FOR PREVENTION OF RECURRENT EMBOLISM OR PATIENTS WITH MECHANICAL PROSTHETIC HEART VALVES. 55 SUGGESTED VALUE OF 2 .0-3.0 FOR PROPHYLAXIS OF VENOUS THROMBOSIS IN HIGH RISK OR SURGICAL PATIENTS, TREATMENT OF VENOUS THROMBOSIS, AND PREVENTION OF EMBOLISM. SUGGESTED VALUES OF 2.5-3.5 FOR PREVENTION OF RECURRENT EMBOLISM OR PATIENTS WITH MECHANICAL PROSTHETIC HEART VALVES. 56 SUGGESTED VALUE OF 2 .0-3.0 FOR PROPHYLAXIS OF VENOUS THROMBOSIS IN HIGH RISK OR SURGICAL PATIENTS, TREATMENT OF VENOUS THROMBOSIS, AND PREVENTION OF EMBOLISM. SUGGESTED VALUES OF 2.5-3.5 FOR PREVENTION OF RECURRENT EMBOLISM OR PATIENTS WITH MECHANICAL PROSTHETIC HEART VALVES. 57 SUGGESTED VALUE OF 2 .0-3.0 FOR PROPHYLAXIS OF VENOUS THROMBOSIS IN HIGH RISK OR SURGICAL PATIENTS, TREATMENT OF VENOUS THROMBOSIS, AND PREVENTION OF EMBOLISM. SUGGESTED VALUES OF 2.5-3.5 FOR PREVENTION OF RECURRENT EMBOLISM OR PATIENTS WITH MECHANICAL PROSTHETIC HEART VALVES. 58 SUGGESTED VALUE OF 2 .0-3.0 FOR PROPHYLAXIS OF VENOUS THROMBOSIS IN HIGH RISK OR SURGICAL PATIENTS, TREATMENT OF VENOUS THROMBOSIS, AND PREVENTION OF EMBOLISM. SUGGESTED VALUES OF 2.5-3.5 FOR PREVENTION OF RECURRENT EMBOLISM OR PATIENTS WITH MECHANICAL PROSTHETIC HEART VALVES. 59 SUGGESTED VALUE OF 2 .0-3.0 FOR PROPHYLAXIS OF VENOUS THROMBOSIS IN HIGH RISK OR SURGICAL PATIENTS, TREATMENT OF VENOUS THROMBOSIS, AND PREVENTION OF EMBOLISM. SUGGESTED VALUES OF 2.5-3.5 FOR PREVENTION OF RECURRENT EMBOLISM OR PATIENTS WITH MECHANICAL PROSTHETIC HEART VALVES. 60 Duplicate order canc elled via interface 61 SUGGESTED VALUE OF 2 .0-3.0 FOR PROPHYLAXIS OF VENOUS THROMBOSIS IN HIGH RISK OR SURGICAL PATIENTS, TREATMENT OF VENOUS THROMBOSIS, AND PREVENTION OF EMBOLISM. SUGGESTED VALUES OF 2.5-3.5 FOR PREVENTION OF RECURRENT EMBOLISM OR PATIENTS WITH MECHANICAL PROSTHETIC HEART VALVES. 62 SUGGESTED VALUE OF 2 .0-3.0 FOR PROPHYLAXIS OF VENOUS THROMBOSIS IN HIGH RISK OR SURGICAL PATIENTS, TREATMENT OF VENOUS THROMBOSIS, AND PREVENTION OF EMBOLISM. SUGGESTED VALUES OF 2.5-3.5 FOR PREVENTION OF RECURRENT EMBOLISM OR PATIENTS WITH MECHANICAL PROSTHETIC HEART VALVES. 63 SUGGESTED VALUE OF 2 .0-3.0 FOR PROPHYLAXIS OF VENOUS THROMBOSIS IN HIGH RISK OR SURGICAL PATIENTS, TREATMENT OF VENOUS THROMBOSIS, AND PREVENTION OF EMBOLISM. SUGGESTED VALUES OF 2.5-3.5 FOR PREVENTION OF RECURRENT EMBOLISM OR PATIENTS WITH MECHANICAL PROSTHETIC HEART VALVES. 64 SUGGESTED VALUE OF 2 .0-3.0 FOR PROPHYLAXIS OF VENOUS THROMBOSIS IN HIGH RISK OR SURGICAL PATIENTS, TREATMENT OF VENOUS THROMBOSIS, AND PREVENTION OF EMBOLISM. SUGGESTED VALUES OF 2.5-3.5 FOR PREVENTION OF RECURRENT EMBOLISM OR PATIENTS WITH MECHANICAL PROSTHETIC HEART VALVES. Procedures Date Code Description Status 01/06/2024 33854 Remove Impacted Cerumen Comp leted 01/06/2024 78612 Collection Of Venous Blood B y Venipuncture Completed Medical Devices Description No Information Available Encounters Type Date Location Provider Dx Diagnosis Office Visit 09/28/2024 8:15a Main Office Evy Manrique M.D. Z86.564 Personal history of other venous thrombosis and embolism E66.01 Morbid (severe) obes ity due to excess calories K75.81 Nonalcoholic steatoh epatitis (Dietz) E03.9 Hypothyroidism, unsp ecified E11.9 Type 2 diabetes igor itus without complications Z68.42 Body mass index [BMI ] 45.0-49.9, adult Assessments Date Code Description Provider 09/28/2024 Z86.718 Personal history of other venous thrombosis and embolism Evy Manrique M.D. 09/28/2024 E66.01 Morbid (severe) obesity due to excess calories Evy Manrique M.D. 09/28/2024 K75.81 Nonalcoholic steatohepatitis (Dietz) Evy Manrique M.D. 09/28/2024 E03.9 Hypothyroidism, unspecified Evy Manrique M.D. 09/28/2024 E11.9 Type 2 diabetes mellitus without complications Evy Manrique M.D. 09/28/2024 Z68.42 Body mass index [BMI] 45.0-49.9, adult Evy Manrique M.D. Plan of Treatment Future Appointment(s):* 01/23/2025 1:30 pm - Evy Manrique M.D. at Main Office 09/28/2024 - Evy Manrique M.D.* Z86.718 Personal history of other venous thrombosis and embolism * E66.01 Morbid (severe) obesity due to excess calories * K75.81 Nonalcoholic steatohepatitis (Dietz) * E03.9 Hypothyroidism, unspecified * E11.9 Type 2 diabetes mellitus without complications * Z68.42 Body mass index [BMI] 45.0-49.9, adult * Functional Status Description No Information Available Mental Status Description No Information Available Referrals Refer to Dr Reason for Referral Status Appt Aniket e [facility] unprovo ked pulmonary emboli 2020, on warfarin b/o morbid obesity question medication management Closed 08/09/2024 [address] [place] [address] [phone] [facility] LEFT SHOULDER PAIN X 2 MONTHS Closed 05/10/2023 [address] [place] [address] [phone] [facility] Life Ass[employer] Representative re: scre ening colonoscopy family history of polyps father before age 60 Closed 02/03/2023 [address] [facility] [address] [place] [address] [phone]
== END 2024-10-22 10:23 | disposition home or self-care (01) ==
PROVIDERS: PCP Internal Medicine Endocrinology, Diabetes & Metabolism; Visit Provider Physician Assistant Surgical
DX: M79.3 Panniculitis, unspecified (principal); Z90.3 Acquired absence of stomach [part of]; Z98.84 Bariatric surgery status
CPT/HCPCS: 99214

== ENCOUNTER 2025-01-11 09:06 | Outpatient (REF) | payer OTHER, SELFPAY ==
[2025-01-11 09:22] LABS: MANUAL DIFF FLAG NO
[2025-01-11 09:37] LABS: Basophils Percent Auto 0.6 % (0-2); Eosinophils Absolute Auto 0.1 X10*3/uL (0.0-0.4); Eosinophils Percent Auto 2.4 % (0-4); Hemoglobin 14.5 g/dl (12.0-16.0); Imm Gran Abs Auto 0.01 X10*3/uL (0.00-0.03); Imm Gran Pct Auto 0.2 % (0.0-0.4); Lymphocytes Absolute Auto 1.8 X10*3/uL (1.2-4.9); Lymphocytes Percent Auto 36.2 % (20-40); Mean Corpuscular Volume 94.2 fL (80.0-98.0); Mean Platelet Volume 10.1 fL (9.4-12.3); Monocytes Absolute Auto 0.4 X10*3/uL (0.1-1.2); Monocytes Percent Auto 8.3 % (2-11); Neutrophils Absolute Auto 2.6 x10*3/uL (2.0-8.3); Neutrophils Percent Auto 52.3 % (45-73); Platelet Count 272 X10*3/uL (160-400); Red Blood Count 4.67 X10*6/uL (4.20-5.50); Red Cell Distribution Width 13.3 % (11.0-16.0); White Blood Count 5.1 X10*3/uL (4.8-10.8)
--- OUTSIDE RECORDS SUMMARY | 2025-01-11 09:47 | XMS_ITS | Clinical Summary ---
Author Organization [facility] Address [address] [place] [address] Phone Care Team Providers Care Apricot Washer Name Role Phone Evy Manrique MD Primary Care Provid er Encounters Date Type Department Care Team Description 12/04/2024 2:00 PM EST - 12/04/2024 11:59 PM EST Hospital Encounter [facility] Ultrasound [address] [place] [phone] STANTON (nonalcoholic steatohepatitis) Discharge Disposition: Home or Self Care 11/27/2024 Telephone Gastroenterology - [address] [phone] Peter Nelson MD from Last 3 Months Social History Tobacco Use Types Packs/Day Years Used Date Smoking Tobacco: Never Assessed Comments Unknown Sex and Gender Information Value Date Recorded Sex Assigned at Not on file Legal Sex Female 3:39 PM EST Gender Identity Not on file Sexual Orientation Not on file Plan of Treatment Health Maintenance Due Date Last Done Comments Breast Cancer Screening 1974 Diabetes: Annual GFR (Glomerular Filtration Rate) 1974 Diabetes: Annual Foot Exam 1984 Diabetes: Annual Retina Eye Exam 1984 DTaP,Tdap,and Td Vaccines (1 - Tdap) 1993 Hepatitis A Vaccines (1 of 2 - Risk 2-dose series) 1993 Hepatitis B Vaccines (1 of 3 - 19+ 3-dose series) 1993 Pneumococcal Vaccine: 50+ Years (1 of 2 - PCV) 1993 Pneumococcal Vaccine: Pediatrics (0 to 5 Years) and At-Risk Patients (6 to 64 Years) (1 of 2 - PCV) 1993 Cervical Cancer Screening: Pap Smear 1995 Cholesterol Screening (Lipid Panel) 11/08/2023 Colorectal Cancer Screening: Colonoscopy 11/08/2023 Depression Screening 11/08/2023 HIV Screening 11/08/2023 Hepatitis C Screening 11/08/2023 Social Influencers of Health Screening 11/08/2023 Zoster Vaccines (1 of 2) 2024 COVID-19 Vaccine ( season) 2024 08/09/2023, 08/29/2021, 01/04/2021, Additional history exists Influenza Vaccine (#1) 2024 , 06/24/2020, 08/21/2018, Additional history exists Diabetes: Annual Urine Albumin-Creatinine Ratio (uACR) 12/04/2024 Diabetes: Blood Sugar Control Test (HGBA1C) 12/04/2024 Hypertension/CHF/CAD Annual BMP Blood Test 12/04/2024 HIB Vaccines Aged Out No longer eligi ble based on patient's age to complete this topic HPV Vaccines Aged Out No longer eligi ble based on patient's age to complete this topic IPV Vaccines Aged Out No longer eligi ble based on patient's age to complete this topic MMR Vaccines Aged Out No longer eligi ble based on patient's age to complete this topic Meningococcal ACWY Vaccine Aged Out N o longer eligible based on patient's age to complete this topic Meningococcal B Vacine Aged Out No lo nger eligible based on patient's age to complete this topic RSV Immunization Patients Under 20 months Aged Out No longer eligible based on patient's age to complete this topic Varicella Vaccines Aged Out No longer eligible based on patient's age to complete this topic Procedures Procedure Name Priority Date/Time Associated Diagnosis Comments US ELASTOGRAPHY LIVER Routine 12/04/2024 2:30 PM EST STANTON (nonalcoholic steatohepatitis) from Last 3 Months Results * US Elastography Liver (12/04/2024 2:30 PM EST) Anatomical Region Laterality Modality Body Ultrasound 12/10/2024 4:01 PM EST Impressions 12/10/2024 4:02 PM EST Impression: Metavir score F1 (normal to mild). Telerad EJNNIFER ([id number]) -------- FINAL REPORT -------- Dictated By: Milagros Wade Dictated Date: 12/10/2024 16:01 ET Assigned Physician: Milagros Wade Reviewed and Electronically Signed By: Milagros Wade Signed Date: 12/10/2024 16:02 ET Workstation ID: [id number] Transcribed By: Self Edit Transcribed Date: 12/10/2024 16:01 ET Narrative 12/10/2024 4:02 PM EST History: STANTON. Findings: Hepatic shear wave elastography (mean value) is 1.36 m/s, corresponding to a Metavir score of F1 (normal - mild) 1.35-1.66. Procedure Note Milagros Wade MD - 12/10/2024 History: STANTON. Findings: Hepatic shear wave elastography (mean value) is 1.36 m/s, corresponding toa Metavir score of F1 (normal - mild) 1.35-1.66. IMPRESSION: Impression: Metavir score F1 (normal to mild). Telerad JENNIFER ([id number]) -------- FINAL REPORT -------- Dictated By: Milagros Wade Dictated Date: 12/10/2024 16:01 ET Assigned Physician: Milagros Wade Reviewed and Electronically Signed By: Milagros Wade Signed Date: 12/10/2024 16:02 ET Workstation ID: [id number] Transcribed By: Self Edit Transcribed Date: 12/10/2024 16:01 ET Peter Nelson MD [facility] PROCEDURES Final Result from Last 3 Months Insurance [address] [place] [phone] Care Teams Apricot Washer Relationship Specialty Start Date End Date Evy Manrique MD [address] [place] [address] [address] [place] [phone] PCP - General Endocrinology 12/04/24
--- OUTSIDE RECORDS SUMMARY | 2025-01-11 09:47 | XMS_ITS | Continuity of Care Document ---
Author Organization [facility] [address] [place] [address] Phone [phone] Care Team Providers Care Chemist Helper Name Role Phone Evy Manrique M.D. Care Team Informati on Supervisor [employer] [phone] Problems Active Problems Provider Date Morbid obesity [...] SIG Qnty Indications Order ing Provider Date Hcthnrq6rm Tablets 1 by mouth twice a day 180tabs Evy Manrique M.D. 09/28/2024 Meclizine [id number] Tablets 1 q 8 hours as needed 45tabs Evy Manrique M.D. 04/05/2024 Freestyle Lite TestStrips Use as directed for testing blood sugar once daily (DX:E11.9) 100units E11.9 Evy Manrique M.D. 10/31/2023 Warfarin Huhgcg5bs Tablets Take 1 To 2 Tablets By Mouth Daily 180tabs Evy Manrique M.D. 05/03/2022 Levothyroxine [id number] Tablets take 1 tablet by mouth every day 90tabs Evy Manrique M.D. Flovent VLA445rcr/Act Aerosol 2 puff daily as needed 1gm Evy Manrique M.D. Proair SMW117(90Base) mcg/Act Aerosol 2 puffs every 4 hours [...] Result H/L Range Note Prothrombin Time (PT) 12/08/2024 [facility] Inr 2.0 High 0.9-1.2 1 Prothrombin Time 21.0 sec High 9.1-12. 0 Prothrombin Time (PT) 10/26/2024 [facility] Inr 1.9 High 0.9-1.2 2 Prothrombin Time 20.0 sec High 9.1-12. 0 Prothrombin Time (PT) 10/05/2024 [facility] Inr 2.1 High 0.9-1.1 Prothrombin Time 21.4 SEC High 9.2-11. 4 Prothrombin Time (PT) 09/28/2024 [facility] Inr 2.0 High 0.9-1.1 Prothrombin Time 19.9 SEC High 9.2-11. 4 Hemoglobin A1c 09/28/2024 Inhouse Hemoglobin A1c 4.9% Glucose Fingerstick 09/28/2024 Inhouse Glucose Fingerstick 91 CBC With Differential/Fernando telet 09/28/2024 [facility] WBC [...] x10E3/uL 0.0-0.1 NRBC TNP Hematology Comments: TNP Comp. Metabolic Panel (14) 09/28/2024 [facility] Glucose [...] IU/L 0-40 Alt (SGPT) 16 IU/L 0-32 TSH Rfx on Abnormal to Free T4 09/28/2024 [facility] TSH Rfx on Abnormal to Free T4 1.770 uIU/mL 0.450-4 .500 Prothrombin Time (PT) 09/19/2024 [facility] Inr 1.7 High 0.9-1.1 3 Prothrombin Time 17.5 SEC High 9.2-11. 4 Prothrombin Time (PT) 09/12/2024 [facility] Inr 2.0 High 0.9-1.1 Prothrombin Time 20.4 SEC High 9.2-11. 4 Prothrombin Time (PT) 09/03/2024 [facility] Inr 1.7 High 0.9-1.2 4 Prothrombin Time 18.2 sec High 9.1-12. 0 Prothrombin Time (PT) 08/27/2024 [facility] Inr 1.9 High 0.9-1.2 5 Prothrombin Time 19.6 sec High 9.1-12. 0 Prothrombin Time (PT) 08/20/2024 [facility] Inr 1.6 High 0.9-1.1 Prothrombin Time 16.6 SEC High 9.2-11. 4 Prothrombin Time (PT) 08/16/2024 [facility] In[facility] 4.0 High 0.9-1.1 Prothrombin Time 38.2 SEC High 9.2-11. 4 Prothrombin Time (PT) 08/02/2024 [facility] Inr 2.3 High 0.9-1.2 6 Prothrombin Time 23.6 sec High 9.1-12. 0 Prothrombin Time (PT) 07/26/2024 [facility] Inr 1.6 High 0.9-1.1 Prothrombin Time 16.8 SEC High 9.2-11. 4 Prothrombin Time (PT) 07/13/2024 [facility] Inr 2.7 High 0.9-1.2 7 Prothrombin Time 27.4 sec High 9.1-12. 0 Prothrombin Time (PT) 07/06/2024 [facility] Inr 2.4 High 0.9-1.1 Prothrombin Time 23.7 SEC High 9.2-11. 4 Prothrombin Time (PT) 06/27/2024 [facility] Inr 2.1 High 0.9-1.2 8 Prothrombin Time 21.9 sec High 9.1-12. 0 Prothrombin Time (PT) 06/20/2024 [facility] Inr 2.1 High 0.9-1.1 Prothrombin Time 21.3 SEC High 9.2-11. 4 Prothrombin Time (PT) 06/14/2024 [facility] Inr 1.8 High 0.9-1.1 Prothrombin Time 18.3 SEC High 9.2-11. 4 Prothrombin Time (PT) 06/06/2024 [facility] Inr 1.7 High 0.9-1.2 9 Prothrombin Time 18.1 sec High 9.1-12. 0 Prothrombin Time (PT) 05/16/2024 [facility] Inr 2.0 High 0.9-1.1 Prothrombin Time 20.2 SEC High 9.2-11. 4 Glucose Fingerstick 05/09/2024 Inhouse Glucose Fingerstick 85 Hemoglobin A1c 05/09/2024 Inhouse Hemoglobin A1c 4.9% Prothrombin Time (PT) 05/08/2024 [facility] Inr 2.1 High 0.9-1.1 Prothrombin Time 21.0 SEC High 9.2-11. 4 Prothrombin Time (PT) 04/25/2024 [facility] Inr 1.8 High 0.9-1.2 10 Prothrombin Time 18.7 sec High 9.1-12. 0 Prothrombin Time (PT) 04/19/2024 [facility] Inr 2.1 High 0.9-1.1 Prothrombin Time 20.9 SEC High 9.2-11. 4 Prothrombin Time (PT) 04/11/2024 [facility] Inr 1.7 High 0.9-1.2 11 Prothrombin Time 17.2 sec High 9.1-12. 0 Prothrombin Time (PT) 03/30/2024 [facility] Inr 2.1 High 0.9-1.1 Prothrombin Time 20.7 SEC High 9.2-11. 4 Prothrombin Time (PT) 03/12/2024 [facility] Inr 1.8 High 0.9-1.1 Prothrombin Time 18.4 SEC High 9.2-11. 4 Prothrombin Time (PT) 02/09/2024 [facility] Inr 2.0 High 0.9-1.2 12 Prothrombin Time 20.1 sec High 9.1-12. 0 Prothrombin Time (PT) 01/13/2024 [facility] Inr 2.3 High 0.9-1.2 13 Prothrombin Time 23.1 sec High 9.1-12. 0 [...] x10E3/uL 0.0-0.1 NRBC TNP Hematology Comments: TNP TSH Rfx on Abnormal to Free T4 01/06/2024 [facility] TSH Rfx on Abnormal to Free T4 1.320 uIU/mL 0.450-4 .500 Glucose Fingerstick 01/06/2024 Inhouse Glucose Fingerstick 88 Hemoglobin A1c 01/06/2024 Inhouse Hemoglobin A1c 4.7% Prothrombin Time (PT) 01/05/2024 [facility] Inr 2.3 High 0.9-1.1 Prothrombin Time 23.3 SEC High 9.2-11. 4 Prothrombin Time (PT) 12/29/2023 [facility] Inr 2.1 High 0.9-1.2 14 Prothrombin Time 21.2 sec High 9.1-12. 0 Prothrombin Time (PT) 12/22/2023 [facility] Inr 1.9 High 0.9-1.2 15 Prothrombin Time 19.8 sec High 9.1-12. 0 Protime Profile 12/15/2023 [facility] Protime 21.1 SEC High (9.2-11 .4) Internatnl Normalized Ratio 2.1 High (0.9-1. 1) 16 Protime Profile 12/09/2023 [facility] Protime 23.5 SEC High (9.2-11 .4) Internatnl Normalized Ratio 2.4 High (0.9-1. 1) 17 Protime Profile 12/05/2023 [facility] Protime 26.2 SEC High (9.2-11 .4) Internatnl Normalized Ratio 2.7 High (0.9-1. 1) 18 Protime Profile 12/01/2023 [facility] Protime 17.2 SEC High (9.2-11 .4) Internatnl Normalized Ratio 1.7 High (0.9-1. 1) 19 Protime Profile 11/29/2023 [facility] Protime 18.2 SEC High (9.2-11 .4) Internatnl Normalized Ratio 1.8 High (0.9-1. 1) 20 Protime Profile 11/27/2023 [facility] [id number] Duplicate Order Protime 35.0 SEC High (9.2-11 .4) Internatnl Normalized Ratio 3.7 High (0.9-1. 1) 21 Protime Profile 11/25/2023 [facility] Protime 47.1 SEC High (9.2-11 .4) Internatnl Normalized Ratio 5.1 Critical high (0.9-1. 1) 22 Protime Profile 11/15/2023 [facility] Protime 19.8 SEC High (9.2-11 .4) Internatnl Normalized Ratio 2.0 High (0.9-1. 1) 23 Glucose Fingerstick 11/07/2023 Inhouse Glucose Fingerstick 87 Protime Profile 09/21/2023 [facility] Protime 27.6 SEC High (9.2-11 .4) Internatnl Normalized Ratio 2.8 High (0.9-1. 1) 24 Hemoglobin A1c 08/24/2023 Inhouse Hemoglobin A1c 5.2% Glucose Fingerstick 08/24/2023 Inhouse Glucose Fingerstick 96 Protime Profile 08/17/2023 [facility] Protime 29.3 SEC High (9.2-11 .4) Internatnl Normalized Ratio 3.0 High (0.9-1. 1) 25 Protime Profile 07/25/2023 [facility] Protime 27.2 SEC High (9.2-11 .4) Internatnl Normalized Ratio 2.8 High (0.9-1. 1) 26 Protime Profile 06/16/2023 [facility] Protime 24.0 SEC High (9.2-11 .4) Internatnl Normalized Ratio 2.4 High (0.9-1. 1) 27 Protime Profile 05/30/2023 [facility] Protime 25.3 SEC High (9.2-11 .4) Internatnl Normalized Ratio 2.6 High (0.9-1. 1) 28 Protime Profile 05/11/2023 [facility] Protime 25.9 SEC High (9.2-11 .4) Internatnl Normalized Ratio 2.6 High (0.9-1. 1) 29 Protime Profile 04/27/2023 [facility] Protime 21.6 SEC High (9.2-11 .4) Internatnl Normalized Ratio 2.2 High (0.9-1. 1) 30 Protime Profile 04/19/2023 [facility] Protime 19.4 SEC High (9.2-11 .4) Internatnl Normalized Ratio 1.9 High (0.9-1. 1) 31 Protime Profile 04/11/2023 [facility] Protime 20.0 SEC High (9.2-11 .4) Internatnl Normalized Ratio 2.0 High (0.9-1. 1) 32 Protime Profile 04/07/2023 [facility] Protime 17.6 SEC High (9.2-11 .4) Internatnl Normalized Ratio 1.7 High (0.9-1. 1) 33 Protime Profile 04/01/2023 [facility] Protime 14.7 SEC High (9.2-11 .4) Internatnl Normalized Ratio 1.4 High (0.9-1. 1) 34 Glucose Fingerstick 03/25/2023 Inhouse Glucose Fingerstick 101 Hemoglobin A1c 03/25/2023 Inhouse Hemoglobin A1c 5.5% Protime Profile 03/03/2023 [facility] Protime 20.6 SEC High (9.2-11 .4) Internatnl Normalized Ratio 2.1 High (0.9-1. 1) 35 Lipid Panel 02/02/2023 [facility] Cholesterol, Total 172 mg/dL (<200) Triglyceride 122 mg/dL (<150) HDL Chol 48 mg/dL (>39) LDL Cholesterol, Calculated 100 mg/dL (0-130) Non HDL Cholesterol (Calc) 124 mg/dL (<160) Protime Profile 02/02/2023 [facility] Protime 21.0 SEC High (9.2-11 .4) Internatnl Normalized Ratio 2.1 High (0.9-1. 1) 36 TSH With Reflex To FT4 02/02/2023 [facility] TSH With Reflex To FT4 2.44 uIU/mL (0.4-4. 2) Complete Abc With Diff 02/02/2023 [facility] WBC 8.0 K/MM3 (4.0-11 [...] 0) Lymph # 2.2 K/MM3 (0.8-3. 1) [place]# 0.6 K/MM3 (0.4-0. 9) Eo # 0.3 K/MM3 (0.0-0. 4) Baso # 0.0 K/MM3 (0.0-0. 1) Abs. Imm Gran 0.0 K/MM3 Neut 61.3 % (44-76) Lymph 27.5 % (15-43) Monocyte 6.9 % (4.5-10 .5) Eo 3.5 % (0-6) Baso 0.5 % (0-2) Imm Gran 0.3 % Comprehensive Metabolic Panl 02/02/2023 [facility] Glucose 115 mg/dL High [...] (0-33) Estimated GFR Creatinine 101 ML/MIN/1.73 M2 37 Protime Profile 01/25/2023 [facility] Protime 19.1 SEC High (9.2-11 .4) Internatnl Normalized Ratio 1.9 High (0.9-1. 1) 38 Protime Profile 12/23/2022 [facility] Protime 25.3 SEC High (9.2-11 .4) Internatnl Normalized Ratio 2.6 High (0.9-1. 1) 39 Protime Profile 12/09/2022 [facility] Protime 21.4 SEC High (9.2-11 .4) Internatnl Normalized Ratio 2.1 High (0.9-1. 1) 40 Glucose Fingerstick 11/25/2022 Inhouse Glucose Fingerstick 111 Hemoglobin A1c 11/25/2022 Inhouse Hemoglobin A1c 5.6% Protime Profile 11/18/2022 [facility] Protime 22.9 SEC High (9.2-11 .4) Internatnl Normalized Ratio 2.3 High (0.9-1. 1) 41 Protime Profile 11/11/2022 [facility] Protime 21.8 SEC High (9.2-11 .4) Internatnl Normalized Ratio 2.2 High (0.9-1. 1) 42 Protime Profile 11/05/2022 [facility] Protime 18.0 SEC High (9.2-11 .4) Internatnl Normalized Ratio 1.8 High (0.9-1. 1) 43 Protime Profile 10/22/2022 [facility] Protime 25.1 SEC High (9.2-11 .4) Internatnl Normalized Ratio 2.5 High (0.9-1. 1) 44 Protime Profile 10/14/2022 [facility] Protime 22.1 SEC High (9.2-11 .4) Internatnl Normalized Ratio 2.2 High (0.9-1. 1) 45 Protime Profile 10/07/2022 [facility] Protime 19.2 SEC High (9.2-11 .4) Internatnl Normalized Ratio 1.9 High (0.9-1. 1) 46 Protime Profile 09/30/2022 [facility] Protime 19.7 SEC High (9.2-11 .4) Internatnl Normalized Ratio 2.0 High (0.9-1. 1) 47 Protime Profile 09/23/2022 [facility] Protime 21.5 SEC High (9.2-11 .4) Internatnl Normalized Ratio 2.2 High (0.9-1. 1) 48 Protime Profile 09/18/2022 [facility] Protime 37.1 SEC High (9.2-11 .4) Internatnl Normalized Ratio 3.9 High (0.9-1. 1) 49 Protime Profile 09/09/2022 [facility] Protime 30.8 SEC High (9.2-11 .4) Internatnl Normalized Ratio 3.1 High (0.9-1. 1) 50 Protime Profile 08/31/2022 [facility] Protime 26.1 SEC High (9.2-11 .4) Internatnl Normalized Ratio 2.6 High (0.9-1. 1) 51 Protime Profile 08/26/2022 [facility] Protime 25.9 SEC High (9.2-11 .4) Internatnl Normalized Ratio 2.6 High (0.9-1. 1) 52 Protime Profile 08/18/2022 [facility] Protime 18.1 SEC High (9.2-11 .4) Internatnl Normalized Ratio 1.8 High (0.9-1. 1) 53 Protime Profile 08/12/2022 [facility] Protime 15.0 SEC High (9.2-11 .4) Internatnl Normalized Ratio 1.5 High (0.9-1. 1) 54 Protime Profile 08/06/2022 [facility] Protime 20.0 SEC High (9.2-11 .4) Internatnl Normalized Ratio 2.0 High (0.9-1. 1) 55 Glucose Fingerstick 07/30/2022 Inhouse Glucose Fingerstick 147 Hemoglobin A1c 07/30/2022 Inhouse Hemoglobin A1c 6.1 Protime Profile 07/26/2022 [facility] Protime 26.3 SEC High (9.2-11 .4) Internatnl Normalized Ratio 2.7 High (0.9-1. 1) 56 Protime Profile 07/05/2022 [facility] Protime 18.0 SEC High (9.2-11 .4) Internatnl Normalized Ratio 1.8 High (0.9-1. 1) 57 Protime Profile 06/24/2022 [facility] Protime 20.9 SEC High (9.2-11 .4) Internatnl Normalized Ratio 2.1 High (0.9-1. 1) 58 Protime Profile 06/18/2022 [facility] Protime 19.1 SEC High (9.2-11 .4) Internatnl Normalized Ratio 1.9 High (0.9-1. 1) 59 Protime Profile 06/03/2022 [facility] Protime 28.7 SEC High (9.2-11 .4) Internatnl Normalized Ratio 2.9 High (0.9-1. 1) 60 Protime Profile 05/18/2022 [facility] Protime 24.2 SEC High (9.2-11 .4) Internatnl Normalized Ratio 2.5 High (0.9-1. 1) 61 Protime Profile 05/11/2022 [facility] [id number] Duplicate order <SEE NOTE> 62 Protime Profile 05/11/2022 [facility] Protime 19.0 SEC High (9.2-11 .4) Internatnl Normalized Ratio 1.9 High (0.9-1. 1) 63 Protime Profile 05/04/2022 [facility] Protime 19.4 SEC High (9.2-11 .4) Internatnl Normalized Ratio 1.9 High (0.9-1. 1) 64 Protime Profile 04/30/2022 [facility] Protime 15.2 SEC High (9.2-11 .4) Internatnl Normalized Ratio 1.5 High (0.9-1. 1) 65 Protime Profile 04/26/2022 [facility] Protime 12.2 SEC High (9.2-11 .4) Internatnl Normalized Ratio 1.2 High (0.9-1. 1) 66 1 Reference interval i s for non-anticoagulated patients. Suggested INR therapeutic range for Vitamin K antagonist therapy: Standard Dose (moderate intensity therapeutic range): 2.0 - 3.0 Higher intensity therapeutic range 2.5 - 3.5 2 Reference interval i s for non-anticoagulated patients. Suggested INR therapeutic range for Vitamin K antagonist therapy: Standard Dose (moderate intensity therapeutic range): 2.0 - 3.0 Higher intensity therapeutic range 2.5 - 3.5 3 STANDING ORDER WEEKL Y OR DIRECTED 4 Reference interval i s for non-anticoagulated [...] intensity therapeutic range 2.5 - 3.5 14 Reference interval i s for non-anticoagulated patients. Suggested INR therapeutic range for Vitamin K antagonist therapy: Standard Dose (moderate intensity therapeutic range): 2.0 - 3.0 Higher intensity therapeutic range 2.5 - 3.5 15 Reference interval i s for non-anticoagulated patients. Suggested INR therapeutic range for Vitamin K antagonist therapy: Standard Dose (moderate intensity therapeutic range): 2.0 - 3.0 Higher intensity therapeutic range 2.5 - 3.5 16 SUGGESTED VALUE OF 2 .0-3.0 FOR [...] OR PATIENTS WITH MECHANICAL PROSTHETIC HEART VALVES. 21 SUGGESTED VALUE OF 2 .0-3.0 FOR [...] WITH MECHANICAL PROSTHETIC HEART VALVES. RESULTS CHECKED 23 SUGGESTED VALUE OF 2 .0-3.0 FOR [...] PATIENTS WITH MECHANICAL PROSTHETIC HEART VALVES. 35 SUGGESTED VALUE OF 2 .0-3.0 FOR PROPHYLAXIS OF VENOUS THROMBOSIS IN HIGH RISK OR SURGICAL PATIENTS, TREATMENT OF VENOUS THROMBOSIS, AND PREVENTION OF EMBOLISM. SUGGESTED VALUES OF 2.5-3.5 FOR PREVENTION OF RECURRENT EMBOLISM OR PATIENTS WITH MECHANICAL PROSTHETIC HEART VALVES. 36 SUGGESTED VALUE OF 2 .0-3.0 FOR PROPHYLAXIS OF VENOUS THROMBOSIS IN HIGH RISK OR SURGICAL PATIENTS, TREATMENT OF VENOUS THROMBOSIS, AND PREVENTION OF EMBOLISM. SUGGESTED VALUES OF 2.5-3.5 FOR PREVENTION OF RECURRENT EMBOLISM OR PATIENTS WITH MECHANICAL PROSTHETIC HEART VALVES. 37 Creatinine based est imated glomerular filtration (eGFR) in adults is calculated using the [employer] recommended 2020 CKD-EPI equation. Estimates GFR from serum creatinine, age and sex. 38 SUGGESTED VALUE OF 2 .0-3.0 FOR [...] PATIENTS WITH MECHANICAL PROSTHETIC HEART VALVES. 60 SUGGESTED VALUE OF 2 .0-3.0 FOR PROPHYLAXIS OF VENOUS THROMBOSIS IN HIGH RISK OR SURGICAL PATIENTS, TREATMENT OF VENOUS THROMBOSIS, AND PREVENTION OF EMBOLISM. SUGGESTED VALUES OF 2.5-3.5 FOR PREVENTION OF RECURRENT EMBOLISM OR PATIENTS WITH MECHANICAL PROSTHETIC HEART VALVES. 61 SUGGESTED VALUE OF 2 .0-3.0 FOR PROPHYLAXIS OF VENOUS THROMBOSIS IN HIGH RISK OR SURGICAL PATIENTS, TREATMENT OF VENOUS THROMBOSIS, AND PREVENTION OF EMBOLISM. SUGGESTED VALUES OF 2.5-3.5 FOR PREVENTION OF RECURRENT EMBOLISM OR PATIENTS WITH MECHANICAL PROSTHETIC HEART VALVES. 62 Duplicate order canc elled via interface 63 SUGGESTED VALUE OF 2 .0-3.0 FOR [...] OR PATIENTS WITH MECHANICAL PROSTHETIC HEART VALVES. 65 SUGGESTED VALUE OF 2 .0-3.0 FOR PROPHYLAXIS OF VENOUS THROMBOSIS IN HIGH RISK OR SURGICAL PATIENTS, TREATMENT OF VENOUS THROMBOSIS, AND PREVENTION OF EMBOLISM. SUGGESTED VALUES OF 2.5-3.5 FOR PREVENTION OF RECURRENT EMBOLISM OR PATIENTS WITH MECHANICAL PROSTHETIC HEART VALVES. 66 SUGGESTED VALUE OF 2 .0-3.0 FOR PROPHYLAXIS OF VENOUS THROMBOSIS IN HIGH RISK OR SURGICAL PATIENTS, TREATMENT OF VENOUS THROMBOSIS, AND PREVENTION OF EMBOLISM. SUGGESTED VALUES OF 2.5-3.5 FOR PREVENTION OF RECURRENT EMBOLISM OR PATIENTS WITH MECHANICAL PROSTHETIC HEART VALVES. Procedures Date Code Description Status 01/06/2024 66002 Remove Impacted Cerumen Comp leted 01/06/2024 45032 Collection Of Venous Blood B y Venipuncture Completed Medical Devices Description No Information Available Encounters Type Date Location Provider Dx Diagnosis Office Visit 09/28/2024 8:15a Main Office Evy Manrique M.D. Z86.718 Personal history of other venous thrombosis [...] Reason for Referral Status Appt [facility] unprovo ked pulmonary emboli 2020, on warfarin b/o morbid obesity question medication management Closed 08/09/2024 [address] [place] [address] [phone] [facility] LEFT SHOULDER PAIN X 2 MONTHS Closed 05/10/2023 [address] [place] [address] [phone] [facility] Plastic Technician re: scre ening colonoscopy family history of polyps father before age 60 Closed 02/03/2023 [address] [facility] [address] [place] [address] [phone]
[2025-01-11 11:08] LABS: Folate 16.6 ng/mL (> or = 4.0); Vitamin B12 811 pg/mL (200-900)
[2025-01-11 11:18] LABS: Alanine Aminotransferase 19 U/L (0-31); Albumin Level 3.9 g/dL (3.5-5.0); Alkaline Phosphatase 63 U/L (39-117); Anion Gap 11 (12-20); Aspartate Amino Transferase 25 U/L (5-31); Bilirubin Total 0.6 mg/dL (0.0-1.0); Blood Urea Nitrogen 16 mg/dL (9-16); C Reactive Protein 0.23 mg/dL (< or = 0.50); Calcium 9.8 mg/dL (8.4-10.2); Carbon Dioxide 27 mmol/L (22-29); Chloride 110 mmol/L (96-108); Cholesterol 168 mg/dL (<200); Estimated Glomerular Filt Rate > 60; Glucose Random 83 mg/dL (60-115); HDL Cholesterol 47 mg/dL (>40); Iron 97 mcg/dL (30-160); LDL Cholesterol Calculated 110 mg/dL (<100); Percent Iron Saturation 32 % (15-50); Potassium 4.3 mmol/L (3.3-5.1); Sodium 144 mmol/L (135-145); Total Iron Binding Capacity 299 mcg/dL (228-428); Total Protein 6.9 g/dL (6.5-8.0); Triglycerides 59 mg/dL (<150); Unsaturated Iron Binding 202 ug/dL
[2025-01-11 11:26] LABS: Estimated Average Glucose 91 mg/dL; Hemoglobin A1C 108.5316 umol/L; Hemoglobin A1c % 4.8 % (<6.0); Total Hemoglobin (HGBA1C) 3708.5835 umol/L
[2025-01-11 11:31] LABS: Ferritin 96 ng/mL (10-250); TSH reflex Free T4 2.51 uIU/mL (0.32-4.0); Vitamin D 25-OH Total 83.7 ng/mL (>30)
[2025-01-11 14:38] LABS: Insulin 8 uU/mL (2-29)
[2025-01-15 01:28] LABS: Zinc 127 mcg/dL (60-130)
[2025-01-16 15:05] LABS: Vitamin A 50 mcg/dL (38-98)
[2025-01-19 10:58] LABS: Vitamin B1 35 nmol/L (8-30)
== END 2025-01-11 09:07 | disposition home or self-care (01) ==
LOC: HO.LAB 09:06
PROVIDERS: PCP Internal Medicine Endocrinology, Diabetes & Metabolism; Visit Provider Physician Assistant Surgical
DX: I10 Essential (primary) hypertension (principal); K74.00 Hepatic fibrosis, unspecified; K76.0 Fatty (change of) liver, not elsewhere classified; E03.9 Hypothyroidism, unspecified; Z98.84 Bariatric surgery status; Z13.1 Encounter for screening for diabetes mellitus
CPT/HCPCS: 36415; 80053; 80061; 82306; 82607; 82728; 82746; 83036; 83525; 83540; 84425; 84443; 84590; 84630; 85025; 86140

== ENCOUNTER 2025-01-14 09:24 | Outpatient (AMB) | payer OTHER, SELFPAY ==
--- NOTE | 2025-01-14 09:27 | A.OFFVIS_ITS ---
VS Expanded 01/14/25 09:31 BP 137/62 Blood Pressure Location Rt brachial Blood Pressure Position Sitting Pulse 54 Pulse Source Pulse Oximeter Temp 98.3 F Temperature Source Temporal Artery Scan Pulse Oximetry 100 Oxygen Delivery Method Room Air Height 5 ft 4 in Weight 249 lb BMI 42.7 Body Fat % 47.0 Body Fat Mass 117.0 Fat Free Mass 131.8 Visceral Fat Rating 15.0 Body Water % 37.7 Body Water Mass 94.0 Muscle Mass/Score 125.2 Basal Metabolic Rate/Score 1,863 Intake Visit Reasons: (OV) PO LSG 10/20/23 Fur Stretcher Required: No Allergies Penicillins Allergy (Intermediate, Verified 01/14/25 09:28) rash, all over body Medication List - Last Reconciled 01/14/25 by JENNIFER Balderas albuterol sulfate 90 mcg/actuation 2 puffs inhalation QID PRN apixaban (Eliquis) 5 mg PO BID clotrimazole 1% 1 appl topical BID inulin (Fiber Gummies) 2 grams PO DAILY levothyroxine 100 mcg PO DAILY@0600 triamcinolone acetonide 0.1% 1 appl topical BID HPI Comments Details: This?a?49?yo female who is s/p LSG without hiatal hernia repair on?10/20/2023. Presents for 1 year 3 month post op visit. Weight today is 249 pounds, with a BMI of 42.8. There has been a 269.2 pound weight loss,(initial weight 518.2 pounds) since starting the program on 03/31/2022 reflecting a 51.9 % total body weight loss and a weight loss of 155.8 pounds since surgery (operative weight 404.8 pounds) reflecting a 38.4 % TBWL since surgery. No complaints of nausea, emesis, abdominal pain or reflux. Reports infrequent but normal bowel movements every 2-3 days and uses stool softeners regularly. started celebrate mvi She states she has a rash under her pannus and sent a picture, using antifungal with improvement in the rash but worsens after treatment. She also reports pain in her arms with activity due to the excess skin. Has used steroid cream in the past with efficacy. She is no longer taking her norvasc 5 mg qd, she is also not taking coumadin for hx PE as she has been approved for a NOAC. She has been seen by [facility] and is now qualified for the R TKR. She has been walking treadmill daily for the last 6 weeks. Present meal plan includes: 1 Celebrate 4 in 1, 2 scoops in 12 oz almond milk, 8-10, or rebuild 2 scoops or Orgain rtd 30 gm Celebrate protein water 11-1 Celebrate protein bar or built bar 2-4 pm meal 6 forks protein and 6 forks veg celebrate bar [place] yogurt 7-10 Drinking 48-64 oz water ? Exercise routine includes: treadmill speed 2-2.5 incline 1-12, 7 days per week 410-500 joshua per session Mon-Sat burn 30 fitness class, 30 min, 6 x per day avg burn 210-300 joshua PFSH Medical History Adjustment disorder Fatty liver Bilateral knee pain HTN (hypertension) History of asthma GISSELLE on CPAP Hx pulmonary embolism Hypothyroidism Diabetes PONV (postoperative nausea and vomiting) Sleep apnea Surgical History S/P laparoscopic sleeve gastrectomy History of removal of skin mole Hx of colonoscopy Hx of dilation and curettage History of facial surgery Hx of section Family History Mother Diabetes Hypertension Graves disease Hypothyroid Father Heart problem Hypertension Brother No problems noted. Daughter No problems noted. Social History Household Members: Family Housing: House Are you a primary home care nurse to a significant other at home: No Do you presently have visiting nurse or other home services: No 75 years or older and lives alone: No Alcohol intake: never Patient Tobacco Use Status: Never used Tobacco service: No Assessment & Plan Assessment & Plan (1) S/P laparoscopic sleeve gastrectomy: Comment: 10/20/23 Code(s): Z98.84 - Bariatric surgery status Category: Surgical Plan: Change meal plans slightly 1 Celebrate 4 in 1, 2 scoops in 12 oz almond milk, 8-10, or rebuild 2 scoops or Orgain rtd 30 gm 1/2 mixed with 4 oz unsweetened almond milk Celebrate protein water 11-1 Celebrate protein bar or built bar 2-4 pm meal 6 forks protein and 6 forks veg celebrate bar or [place] yogurt 7-10 Continue exercises she is doing. She is doing very well losing weight consistently. (2) Excess skin: Code(s): L98.7 - Excessive and redundant skin and subcutaneous tissue Category: Medical Plan: Continue with antifungal and steroid cream. She is going to need skin removal surgery of her arms, abdomen, legs. We will have her follow-up in the office in approximately 2 months
[2025-01-14 09:31] VITALS: BP 137/62; PULSE 54; TEMP 36.8; O2SAT 100; BMI 42.7
--- OUTSIDE RECORDS SUMMARY | 2025-01-14 10:33 | XMS_ITS | Clinical Summary ---
Author Organization [facility] Address [address] [place] [address] Phone Care Team Providers Care Administrative Project Coordinator Name Role Phone Evy Manrique MD Primary Care Provid er Encounters Date Type Department Care Team Description 12/04/2024 2:00 PM EST - 12/04/2024 11:59 PM EST Hospital Encounter [facility] [address] [place] [phone] [place] (nonalcoholic steatohepatitis) Discharge Disposition: Home or Self Care 11/27/2024 Telephone Gastroenterology - [address] [phone] Peter Nelson MD from Last 3 Months [...] score F1 (normal to mild). Telerad JENNIFER ([id number]) -------- FINAL REPORT -------- Dictated By: Milagros Wade Dictated Date: 12/10/2024 16:01 ET Assigned Physician: Milagros Wade Reviewed and Electronically Signed By: Milagros Wade Signed Date: 12/10/2024 16:02 ET Workstation ID: [id number] Transcribed By: Self Edit Transcribed Date: 12/10/2024 [...] score F1 (normal to mild). Telerad JENNIFER ([id number]) -------- FINAL REPORT -------- Dictated By: Milagros Wade Dictated Date: 12/10/2024 16:01 ET Assigned Physician: Milagros Wade Reviewed and Electronically Signed By: Milagros Wade Signed Date: 12/10/2024 16:02 ET Workstation ID: [id number] Transcribed By: Self Edit Transcribed Date: 12/10/2024 16:01 ET Peter Nelson MD [facility] PROCEDURES Final Result from Last 3 Months Insurance [address] [place] [phone] Care Teams Administrative Project Coordinator Relationship Specialty Start Date End Date Evy Manrique MD [address] [place] [address] [address] [place] [phone] PCP - General Endocrinology 12/04/24
--- OUTSIDE RECORDS SUMMARY | 2025-01-14 10:33 | XMS_ITS | Continuity of Care Document ---
Author Organization [facility] [address] [place] [address] Phone [phone] Care Team Providers Care Hotbed Transfer Operator Name Role Phone Evy Manrique M.D. Care Team Informati on Manager Of Data [phone] Problems Active Problems Provider Date Morbid obesity [...] SIG Qnty Indications Order ing Provider Date Vqoyanm5be Tablets 1 by mouth twice a day 180tabs Evy Manrique M.D. 09/28/2024 Meclizine FSP81bt Tablets 1 q 8 hours as needed 45tabs Evy Manrique M.D. 04/05/2024 Freestyle Lite TestStrips Use as directed for testing blood sugar once daily (DX:E11.9) 100units E11.9 Evy Manrique M.D. 10/31/2023 Warfarin Mahwpi8cj Tablets Take 1 To 2 Tablets By Mouth Daily 180tabs Evy Manrique M.D. 05/03/2022 Levothyroxine Iujvap417hrd Tablets take 1 tablet by mouth every day 90tabs Evy Manrique M.D. Flovent DRW149sef/Act Aerosol 2 puff daily as needed 1gm Evy Manrique M.D. Proair KMB817(90Base) mcg/Act Aerosol 2 puffs every 4 hours [...] sec High 9.1-12. 0 Protime Profile 12/15/2023 [facility] Protime 21.1 SEC High (9.2-11 .4) Internatnl Normalized Ratio 2.1 High (0.9-1. 1) 16 Protime Profile 12/09/2023 [facility] Protime 23.5 SEC High (9.2-11 .4) Internatnl Normalized Ratio 2.4 High (0.9-1. 1) 17 Protime Profile 12/05/2023 [facility] Protime 26.2 SEC High (9.2-11 .4) Internatnl Normalized Ratio 2.7 High (0.9-1. 1) 18 Protime Profile 12/01/2023 [facility] Protime 17.2 SEC High (9.2-11 .4) Internatnl Normalized Ratio 1.7 High (0.9-1. 1) 19 Protime Profile 11/29/2023 [facility] Protime 18.2 SEC High (9.2-11 .4) Internatnl Normalized Ratio 1.8 High (0.9-1. 1) 20 Protime Profile 11/27/2023 [facility] [id number] Duplicate Order Protime 35.0 SEC High (9.2-11 .4) Internatnl Normalized Ratio 3.7 High (0.9-1. 1) 21 Protime Profile 11/25/2023 [facility] Protime 47.1 SEC High (9.2-11 .4) Internatnl Normalized Ratio 5.1 Critical high (0.9-1. 1) 22 Protime Profile 11/15/2023 [facility] Protime 19.8 SEC High (9.2-11 .4) Internatnl Normalized Ratio 2.0 High (0.9-1. 1) 23 Glucose Fingerstick 11/07/2023 Inhouse Glucose Fingerstick 87 Protime Profile 09/21/2023 [facility] Protime 27.6 SEC High (9.2-11 .4) Internatnl Normalized Ratio 2.8 High (0.9-1. 1) 24 Hemoglobin A1c 08/24/2023 Inhouse Hemoglobin A1c 5.2% Glucose Fingerstick 08/24/2023 Inhouse Glucose Fingerstick 96 Protime Profile 08/17/2023 [facility] Protime 29.3 SEC High (9.2-11 .4) Internatnl Normalized Ratio 3.0 High (0.9-1. 1) 25 Protime Profile 07/25/2023 [facility] Protime 27.2 SEC High (9.2-11 .4) Internatnl Normalized Ratio 2.8 High (0.9-1. 1) 26 Protime Profile 06/16/2023 [facility] Protime 24.0 SEC High (9.2-11 .4) Internatnl Normalized Ratio 2.4 High (0.9-1. 1) 27 Protime Profile 05/30/2023 [facility] Protime 25.3 SEC High (9.2-11 .4) Internatnl Normalized Ratio 2.6 High (0.9-1. 1) 28 Protime Profile 05/11/2023 [facility] Protime 25.9 SEC High (9.2-11 .4) Internatnl Normalized Ratio 2.6 High (0.9-1. 1) 29 Protime Profile 04/27/2023 [facility] Protime 21.6 SEC High (9.2-11 .4) Internatnl Normalized Ratio 2.2 High (0.9-1. 1) 30 Protime Profile 04/19/2023 [facility] Protime 19.4 SEC High (9.2-11 .4) Internatnl Normalized Ratio 1.9 High (0.9-1. 1) 31 Protime Profile 04/11/2023 [facility] Protime 20.0 SEC High (9.2-11 .4) Internatnl Normalized Ratio 2.0 High (0.9-1. 1) 32 Protime Profile 04/07/2023 [facility] Protime 17.6 SEC High (9.2-11 .4) Internatnl Normalized Ratio 1.7 High (0.9-1. 1) 33 Protime Profile 04/01/2023 [facility] Protime 14.7 SEC High (9.2-11 .4) Internatnl Normalized Ratio 1.4 High (0.9-1. 1) 34 Glucose Fingerstick 03/25/2023 Inhouse Glucose Fingerstick 101 Hemoglobin A1c 03/25/2023 Inhouse Hemoglobin A1c 5.5% Protime Profile 03/03/2023 [facility] Protime 20.6 SEC High (9.2-11 .4) Internatnl Normalized Ratio 2.1 High (0.9-1. 1) 35 Lipid Panel 02/02/2023 [facility] Cholesterol, Total 172 mg/dL (<200) Triglyceride 122 mg/dL (<150) HDL Chol 48 mg/dL (>39) LDL Cholesterol, Calculated 100 mg/dL (0-130) Non HDL Cholesterol (Calc) 124 mg/dL (<160) Protime Profile 02/02/2023 [facility] Protime 21.0 SEC High (9.2-11 .4) Internatnl Normalized Ratio 2.1 High (0.9-1. 1) 36 TSH With Reflex To FT4 02/02/2023 [facility] TSH With Reflex To FT4 2.44 uIU/mL (0.4-4. 2) Complete Abc With Diff 02/02/2023 [facility] WBC 8.0 K/MM3 (4.0-11 .0) [...] 0) Lymph # 2.2 K/MM3 (0.8-3. 1) Terry# 0.6 K/MM3 (0.4-0. 9) Eo # 0.3 K/MM3 (0.0-0. 4) Baso # 0.0 K/MM3 (0.0-0. 1) Abs. Imm Gran 0.0 K/MM3 Neut 61.3 % (44-76) Lymph 27.5 % (15-43) Monocyte 6.9 % (4.5-10 .5) Eo 3.5 % (0-6) Baso 0.5 % (0-2) Imm Gran 0.3 % Comprehensive Metabolic Panl 02/02/2023 [facility] Glucose 115 mg/dL High (70-99) [...] 101 ML/MIN/1.73 M2 37 Protime Profile 01/25/2023 [facility] Protime 19.1 SEC High (9.2-11 .4) Internatnl Normalized Ratio 1.9 High (0.9-1. 1) 38 Protime Profile 12/23/2022 [facility] Protime 25.3 SEC High (9.2-11 .4) Internatnl Normalized Ratio 2.6 High (0.9-1. 1) 39 Protime Profile 12/09/2022 [facility] Protime 21.4 SEC High (9.2-11 .4) Internatnl Normalized Ratio 2.1 High (0.9-1. 1) 40 Glucose Fingerstick 11/25/2022 Inhouse Glucose Fingerstick 111 Hemoglobin A1c 11/25/2022 Inhouse Hemoglobin A1c 5.6% Protime Profile 11/18/2022 [facility] Protime 22.9 SEC High (9.2-11 .4) Internatnl Normalized Ratio 2.3 High (0.9-1. 1) 41 Protime Profile 11/11/2022 [facility] Protime 21.8 SEC High (9.2-11 .4) Internatnl Normalized Ratio 2.2 High (0.9-1. 1) 42 Protime Profile 11/05/2022 [facility] Protime 18.0 SEC High (9.2-11 .4) Internatnl Normalized Ratio 1.8 High (0.9-1. 1) 43 Protime Profile 10/22/2022 [facility] Protime 25.1 SEC High (9.2-11 .4) Internatnl Normalized Ratio 2.5 High (0.9-1. 1) 44 Protime Profile 10/14/2022 [facility] Protime 22.1 SEC High (9.2-11 .4) Internatnl Normalized Ratio 2.2 High (0.9-1. 1) 45 Protime Profile 10/07/2022 [facility] Protime 19.2 SEC High (9.2-11 .4) Internatnl Normalized Ratio 1.9 High (0.9-1. 1) 46 Protime Profile 09/30/2022 [facility] Protime 19.7 SEC High (9.2-11 .4) Internatnl Normalized Ratio 2.0 High (0.9-1. 1) 47 Protime Profile 09/23/2022 [facility] Protime 21.5 SEC High (9.2-11 .4) Internatnl Normalized Ratio 2.2 High (0.9-1. 1) 48 Protime Profile 09/18/2022 [facility] Protime 37.1 SEC High (9.2-11 .4) Internatnl Normalized Ratio 3.9 High (0.9-1. 1) 49 Protime Profile 09/09/2022 [facility] Protime 30.8 SEC High (9.2-11 .4) Internatnl Normalized Ratio 3.1 High (0.9-1. 1) 50 Protime Profile 08/31/2022 [facility] Protime 26.1 SEC High (9.2-11 .4) Internatnl Normalized Ratio 2.6 High (0.9-1. 1) 51 Protime Profile 08/26/2022 [facility] Protime 25.9 SEC High (9.2-11 .4) Internatnl Normalized Ratio 2.6 High (0.9-1. 1) 52 Protime Profile 08/18/2022 [facility] Protime 18.1 SEC High (9.2-11 .4) Internatnl Normalized Ratio 1.8 High (0.9-1. 1) 53 Protime Profile 08/12/2022 [facility] Protime 15.0 SEC High (9.2-11 .4) Internatnl Normalized Ratio 1.5 High (0.9-1. 1) 54 Protime Profile 08/06/2022 [facility] Protime 20.0 SEC High (9.2-11 .4) Internatnl Normalized Ratio 2.0 High (0.9-1. 1) 55 Glucose Fingerstick 07/30/2022 Inhouse Glucose Fingerstick 147 Hemoglobin A1c 07/30/2022 Inhouse Hemoglobin A1c 6.1 Protime Profile 07/26/2022 [facility] Protime 26.3 SEC High (9.2-11 .4) Internatnl Normalized Ratio 2.7 High (0.9-1. 1) 56 Protime Profile 07/05/2022 [facility] Protime 18.0 SEC High (9.2-11 .4) Internatnl Normalized Ratio 1.8 High (0.9-1. 1) 57 Protime Profile 06/24/2022 [facility] Protime 20.9 SEC High (9.2-11 .4) Internatnl Normalized Ratio 2.1 High (0.9-1. 1) 58 Protime Profile 06/18/2022 [facility] Protime 19.1 SEC High (9.2-11 .4) Internatnl Normalized Ratio 1.9 High (0.9-1. 1) 59 Protime Profile 06/03/2022 [facility] Protime 28.7 SEC High (9.2-11 .4) Internatnl Normalized Ratio 2.9 High (0.9-1. 1) 60 Protime Profile 05/18/2022 [facility] Protime 24.2 SEC High (9.2-11 .4) Internatnl Normalized Ratio 2.5 High (0.9-1. 1) 61 Protime Profile 05/11/2022 [facility] [id number] Duplicate order <SEE NOTE> 62 Protime Profile 05/11/2022 [facility] Protime 19.0 SEC High (9.2-11 .4) Internatnl Normalized Ratio 1.9 High (0.9-1. 1) 63 Protime Profile 05/04/2022 [facility] Protime 19.4 SEC High (9.2-11 [...] VALVES. Procedures Date Code Description Status 01/06/2024 64743 Remove Impacted Cerumen Comp leted 01/06/2024 93158 Collection Of Venous Blood B y Venipuncture [...] Reason for Referral Status Appt Aniket e [facility] unprovo ked pulmonary emboli 2020, on warfarin b/o morbid obesity question medication management Closed 08/09/2024 [address] [place] [address] [phone] [facility] LEFT SHOULDER PAIN X 2 MONTHS Closed 05/10/2023 [address] [place] [address] [phone] [facility] Fashion Design Professor re: scre ening colonoscopy family history of polyps father before age 60 Closed 02/03/2023 [address] [facility] [address] [place] [address] [phone]
== END 2025-01-14 10:01 | disposition home or self-care (01) ==
LOC: HO.HBS 09:25
PROVIDERS: PCP Internal Medicine Endocrinology, Diabetes & Metabolism; Visit Provider Physician Assistant Surgical
DX: L98.7 Excessive and redundant skin and subcutaneous tissue (principal); Z98.84 Bariatric surgery status
CPT/HCPCS: 99213

== ENCOUNTER 2025-01-16 10:59 | Outpatient (REF) | payer OTHER, SELFPAY ==
--- NOTE | ~2025-01-16 | US_ITS ---
EXAMINATION: US ABDOMEN COMPLETE WITH LIVER ELASTOGRAPHY HISTORY: R10.11 - Right upper quadrant pain TECHNIQUE: Real-time grayscale ultrasound imaging of the abdomen was performed and images were reviewed. COMPARISON: Comparison is made with the prior examination dated 06/15/2023. FINDINGS: Liver: The right lobe of the liver measures 15.3 cm in size. The left lobe of the liver measures 9.3 cm in size. The liver demonstrates normal homogeneous echotexture. No focal mass or intrahepatic biliary ductal dilatation is identified. There is normal hepatopedal flow in the portal vein. Ultrasound elastography of the liver was performed with 10 separate measurements of the liver parenchyma with the patient in the supine position. Measurements were obtained approximately 2 cm below Roberto Carlos's capsule and perpendicular to the capsule. Images are of satisfactory quality. The median shear wave velocity is 1.30 m/s (previously 1.83 m/s). The interquartile range/median (IQR/median) is 0.15. Gallbladder and biliary tree: Multiple calculi are again noted in the gallbladder. There is no wall thickening or pericholecystic fluid. There is no sonographic Swain sign. The common bile duct is normal in caliber measuring 2 mm. Kidneys: The right kidney measures 10.9 cm in length and demonstrates a 1.1 x 0.7 x 1.0 cm cyst at the upper pole. There are adjacent calcifications. Is uncertain whether these represent calculi or cyst wall calcifications. The left kidney measures 9.8 cm in length and demonstrates a lower pole cyst measuring 3.1 x 2.9 x 4.0 cm. There is no hydronephrosis or calculi. Pancreas: The pancreatic head, neck, and body are unremarkable. The pancreatic tail is obscured by bowel gas. Spleen: The spleen is normal in size and contour, measuring 9.2 cm in length. Abdominal aorta and inferior vena cava: The visualized portions of the abdominal aorta and inferior vena cava are normal in caliber. There is no free fluid in the abdomen. US/US abdomen comp w elastography IMPRESSION: Mild hepatomegaly. Cholelithiasis without evidence of acute cholecystitis. The median shear wave velocity in the liver is 1.30 m/s, corresponding to a median liver stiffness of 5.14 kPa. The IQR/median value is 0.15. This is indicative of a poor quality data set, and the estimated liver stiffness may be unreliable. Findings are indicative of a low elastography value which rules out advanced chronic liver disease in asymptomatic patients. REFERENCE: Society of Radiologists in Ultrasound Liver Stiffness Thresholds (2020): LIVER STIFFNESS THRESHOLDS: *Shear wave velocity less than 1.3 m/s (Liver Stiffness equal or less than 5 kPa): High probability of being normal. *Shear wave velocity less than 1.7 m/s (Liver Stiffness less than 9 kPa): In the absence of other known clinical signs, rules out compensated advanced chronic liver disease. *Shear wave velocity between 1.7-2.1 m/s (Liver Stiffness 9-13 kPa): Suggestive of compensated advanced chronic liver disease but need further test for confirmation. *Shear wave velocity between 2.1-2.4 m/s (Liver Stiffness 13-17 kPa): Rules in compensated advanced chronic liver disease. *Shear wave velocity greater than 2.4 m/s (Liver Stiffness over 17 kPa): Suggestive of clinically significant portal hypertension. QUALITY OF DATA SET: *IQR/Median value equal or less than 0.15 implies a quality data set. *IQR/Median value over 0.15 implies a poor quality data set. SIGNIFICANT CHANGE FROM PRIOR EXAM: Significant change if liver stiffness measurement is 10% or greater from prior exam. OTHER CONSIDERATIONS: The stage of liver fibrosis may be overestimated in the setting of acute hepatitis, liver inflammation, elevated liver function tests, hepatic vascular congestion, obstructive cholestasis, non-fasting state, and infiltrative diseases such as amyloidosis and lymphoma. In some patients with NAFLD, the liver stiffness thresholds for compensated advanced chronic liver disease may be lower. In causes other than viral hepatitis and NAFLD, liver stiffness thresholds are not well established. Electronically signed by: Hudson Rich MD 01/16/2025 01:06 PM EDT
[2025-01-16 11:32] LABS: MANUAL DIFF FLAG NO
[2025-01-16 12:24] LABS: Basophils Percent Auto 0.8 % (0-2); Eosinophils Absolute Auto 0.1 X10*3/uL (0.0-0.4); Eosinophils Percent Auto 2.2 % (0-4); Hematocrit 43.4 % (37.0-47.0); Hemoglobin 14.6 g/dl (12.0-16.0); Lymphocytes Absolute Auto 1.3 X10*3/uL (1.2-4.9); Lymphocytes Percent Auto 36.4 % (20-40); Mean Corpuscular HGB Conc 33.6 g/dl (31.0-35.0); Mean Corpuscular Hemoglobin 31.3 pg (27.0-33.0); Mean Corpuscular Volume 92.9 fL (80.0-98.0); Mean Platelet Volume 10.7 fL (9.4-12.3); Monocytes Absolute Auto 0.4 X10*3/uL (0.1-1.2); Monocytes Percent Auto 10.6 % (2-11); Neutrophils Absolute Auto 1.8 x10*3/uL (2.0-8.3); Platelet Count 282 X10*3/uL (160-400); Red Blood Count 4.67 X10*6/uL (4.20-5.50); Red Cell Distribution Width 13.7 % (11.0-16.0); White Blood Count 3.6 X10*3/uL (4.8-10.8)
[2025-01-16 12:33] LABS: INTERNATIONAL NORM RATIO 1.2 (0.9-1.1); Prothrombin Time 13.5 SEC (10.9-12.4)
[2025-01-16 12:36] LABS: Partial Thromboplastin Time 32.9 SEC (26.0-36.8)
[2025-01-16 12:38] LABS: Estimated Average Glucose 91 mg/dL; Hemoglobin A1C 109.2928 umol/L; Hemoglobin A1c % 4.8 % (<6.0); Total Hemoglobin (HGBA1C) 3767.9167 umol/L
[2025-01-16 12:52] LABS: Alanine Aminotransferase 604 U/L (0-31); Albumin Level 3.8 g/dL (3.5-5.0); Alkaline Phosphatase 121 U/L (39-117); Anion Gap 8 (12-20); Aspartate Amino Transferase 745 U/L (5-31); Bilirubin Total 0.9 mg/dL (0.0-1.0); Blood Urea Nitrogen 14 mg/dL (9-16); C Reactive Protein 0.69 mg/dL (< or = 0.50); Calcium 9.6 mg/dL (8.4-10.2); Carbon Dioxide 27 mmol/L (22-29); Chloride 111 mmol/L (96-108); Cholesterol 148 mg/dL (<200); Estimated Glomerular Filt Rate > 60; Glucose Random 75 mg/dL (60-115); HDL Cholesterol 51 mg/dL (>40); Iron 124 mcg/dL (30-160); LDL Cholesterol Calculated 88 mg/dL (<100); Percent Iron Saturation 44 % (15-50); Potassium 4.4 mmol/L (3.3-5.1); Sodium 142 mmol/L (135-145); Total Iron Binding Capacity 285 mcg/dL (228-428); Total Protein 6.7 g/dL (6.5-8.0); Triglycerides 46 mg/dL (<150); Unsaturated Iron Binding 161 ug/dL
--- OUTSIDE RECORDS SUMMARY | 2025-01-16 12:59 | XMS_ITS | Clinical Summary ---
Author Organization [facility] Address [address] [place] [address] Phone Care Team Providers Care Terrestrial Ecologist Name Role Phone Evy Manrique MD Primary Care Provid er Encounters Date Type Department Care Team Description 12/04/2024 2:00 PM EST - 12/04/2024 11:59 PM EST Hospital Encounter [facility] Ultrasound [address] [place] [phone] STANTON (nonalcoholic steatohepatitis) Discharge Disposition: Home or Self Care 11/27/2024 Telephone Gastroenterology - [address] [phone] Peter Nelson MD from Last 3 Months [...] age to complete this topic Meningococcal B Vaccine Aged Out No l onger eligible based on patient's age to complete this topic RSV Immunization Patients Under 20 months Aged Out No longer eligible based on patient's age to complete this topic Varicella Vaccines Aged Out No longer eligible based on patient's age to complete this topic Procedures Procedure Name Priority Date/Time Associated Diagnosis Comments US ELASTOGRAPHY LIVER Routine 12/04/2024 2:30 PM EST TSANTON (nonalcoholic steatohepatitis) from Last 3 Months Results * US Elastography Liver (12/04/2024 2:30 PM EST) Anatomical Region Laterality Modality Body Ultrasound 12/10/2024 4:01 PM EST Impressions 12/10/2024 4:02 PM EST Impression: Metavir score F1 (normal to mild). Telerad JENNIFER ([id number]) -------- FINAL REPORT -------- Dictated By: Milagros Wade Dictated Date: 12/10/2024 16:01 ET Assigned Physician: Milagros Wade Reviewed and Electronically Signed By: Milagros Wade Signed Date: 12/10/2024 16:02 ET Workstation ID: [id number] Transcribed By: Self Edit Transcribed Date: 12/10/2024 [...] score F1 (normal to mild). Telerad JENNIFER ([id number]) -------- FINAL REPORT -------- Dictated By: Milagros Wade Dictated Date: 12/10/2024 16:01 ET Assigned Physician: Milagros Wade Reviewed and Electronically Signed By: Milagros Wade Signed Date: 12/10/2024 16:02 ET Workstation ID: [id number] Transcribed By: Self Edit Transcribed Date: 12/10/2024 16:01 ET Peter Nelson MD [facility] PROCEDURES Final Result from Last 3 Months Insurance [address] [place] [address] Care Teams Terrestrial Ecologist Relationship Specialty Start Date End Date Evy Manrique MD [address] [place] [address] [address] [place] [address] PCP - General Endocrinology 12/04/24
--- OUTSIDE RECORDS SUMMARY | 2025-01-16 12:59 | XMS_ITS | Continuity of Care Document ---
Author Organization [facility] [address] [place] [address] Phone [phone] Care Team Providers Care Locomotive Switch Operator Name Role Phone Evy Manrique M.D. Care Team Informati on Family And Consumer Science Professor [phone] Problems Active Problems Provider Date Morbid obesity Evy Manrique M.D. Ons et: 07/30/2022 Primary hypothyroidism Travis Brown Onset: 07/30/2022 Steatohepatitis Evy Manrique M.D. Ons et: 07/30/2022 Type 2 diabetes mellitus Evy Manrique M.D. Onset: 07/30/2022 Inactive tuberculosis Raquel Brown Onset: 07/30/2022 Asthma Evy Manrique M.D. Ons et: 07/30/2022 Obstructive sleep apnea syndrome Evy Chna M.D. Onset: 07/30/2022 Pulmonary embolism Evy Manrique [...] SIG Qnty Indications Order ing Provider Date Jotftnz3oe Tablets 1 by mouth twice a day 180tabs Evy Manrique M.D. 09/28/2024 Meclizine XLK57rd Tablets 1 q 8 hours as needed 45tabs Evy Manrique M.D. 04/05/2024 Freestyle Lite TestStrips Use as directed for testing blood sugar once daily (DX:E11.9) 100units E11.9 Evy Manrique M.D. 10/31/2023 Warfarin Xxzidm7ml Tablets Take 1 To 2 Tablets By Mouth Daily 180tabs Evy Manrique M.D. 05/03/2022 Levothyroxine Viezmi079oto Tablets take 1 tablet by mouth every day 90tabs Evy Manrique M.D. Flovent ORF965bhk/Act Aerosol 2 puff daily as needed 1gm Evy Manrique M.D. Proair THN923(90Base) mcg/Act Aerosol 2 puffs every 4 hours [...] sec High 9.1-12. 0 Protime Profile 12/15/2023 [facility] Protime 21.1 SEC High (9.2-11 .4) Internatnl Normalized Ratio 2.1 High (0.9-1. 1) 16 Protime Profile 12/09/2023 [facility] Protime 23.5 SEC High (9.2-11 .4) Internatnl Normalized Ratio 2.4 High (0.9-1. 1) 17 Protime Profile 12/05/2023 [facility] Protime 26.2 SEC High (9.2-11 .4) Internatnl Normalized Ratio 2.7 High (0.9-1. 1) 18 Protime Profile 12/01/2023 [facility] Protime 17.2 SEC High (9.2-11 .4) Internatnl Normalized Ratio 1.7 High (0.9-1. 1) 19 Protime Profile 11/29/2023 [facility] Protime 18.2 SEC High (9.2-11 .4) Internatnl Normalized Ratio 1.8 High (0.9-1. 1) 20 Protime Profile 11/27/2023 [facility] [id number] Duplicate Order Protime 35.0 SEC High (9.2-11 .4) Internatnl Normalized Ratio 3.7 High (0.9-1. 1) 21 Protime Profile 11/25/2023 [facility] Protime 47.1 SEC High (9.2-11 .4) Internatnl Normalized Ratio 5.1 Critical high (0.9-1. 1) 22 Protime Profile 11/15/2023 [facility] Protime 19.8 SEC High (9.2-11 .4) Internatnl Normalized Ratio 2.0 High (0.9-1. 1) 23 Glucose Fingerstick 11/07/2023 Inhouse Glucose Fingerstick 87 Protime Profile 09/21/2023 [facility] Protime 27.6 SEC High (9.2-11 .4) Internatnl Normalized Ratio 2.8 High (0.9-1. 1) 24 Hemoglobin A1c 08/24/2023 Inhouse Hemoglobin A1c 5.2% Glucose Fingerstick 08/24/2023 Inhouse Glucose Fingerstick 96 Protime Profile 08/17/2023 [facility] Protime 29.3 SEC High (9.2-11 .4) Internatnl Normalized Ratio 3.0 High (0.9-1. 1) 25 Protime Profile 07/25/2023 [facility] Protime 27.2 SEC High (9.2-11 .4) Internatnl Normalized Ratio 2.8 High (0.9-1. 1) 26 Protime Profile 06/16/2023 [facility] Protime 24.0 SEC High (9.2-11 .4) Internatnl Normalized Ratio 2.4 High (0.9-1. 1) 27 Protime Profile 05/30/2023 [facility] Protime 25.3 SEC High (9.2-11 .4) Internatnl Normalized Ratio 2.6 High (0.9-1. 1) 28 Protime Profile 05/11/2023 [facility] Protime 25.9 SEC High (9.2-11 .4) Internatnl Normalized Ratio 2.6 High (0.9-1. 1) 29 Protime Profile 04/27/2023 [facility] Protime 21.6 SEC High (9.2-11 .4) Internatnl Normalized Ratio 2.2 High (0.9-1. 1) 30 Protime Profile 04/19/2023 [facility] Protime 19.4 SEC High (9.2-11 .4) Internatnl Normalized Ratio 1.9 High (0.9-1. 1) 31 Protime Profile 04/11/2023 [facility] Protime 20.0 SEC High (9.2-11 .4) Internatnl Normalized Ratio 2.0 High (0.9-1. 1) 32 Protime Profile 04/07/2023 [facility] Protime 17.6 SEC High (9.2-11 .4) Internatnl Normalized Ratio 1.7 High (0.9-1. 1) 33 Protime Profile 04/01/2023 [facility] Protime 14.7 SEC High (9.2-11 .4) Internatnl Normalized Ratio 1.4 High (0.9-1. 1) 34 Glucose Fingerstick 03/25/2023 Inhouse Glucose Fingerstick 101 Hemoglobin A1c 03/25/2023 Inhouse Hemoglobin A1c 5.5% Protime Profile 03/03/2023 [facility] Protime 20.6 SEC High (9.2-11 .4) Internatnl Normalized Ratio 2.1 High (0.9-1. 1) 35 Lipid Panel 02/02/2023 [facility] Cholesterol, Total 172 mg/dL (<200) Triglyceride 122 mg/dL (<150) HDL Chol 48 mg/dL (>39) LDL Cholesterol, Calculated 100 mg/dL (0-130) Non HDL Cholesterol (Calc) 124 mg/dL (<160) Protime Profile 02/02/2023 [facility] Protime 21.0 SEC High (9.2-11 .4) Internatnl Normalized Ratio 2.1 High (0.9-1. 1) 36 TSH With Reflex To FT4 02/02/2023 [facility] TSH With Reflex To FT4 2.44 uIU/mL (0.4-4. 2) Complete Abc With Diff 02/02/2023 [facility] WBC 8.0 K/MM3 (4.0-11 .0) [...] 0) Lymph # 2.2 K/MM3 (0.8-3. 1) Winston# 0.6 K/MM3 (0.4-0. 9) Eo # 0.3 K/MM3 (0.0-0. 4) Baso # 0.0 K/MM3 (0.0-0. 1) Abs. Imm Gran 0.0 K/MM3 Neut 61.3 % (44-76) Lymph 27.5 % (15-43) Monocyte 6.9 % (4.5-10 .5) Eo 3.5 % (0-6) Baso 0.5 % (0-2) Imm Gran 0.3 % Comprehensive Metabolic Panl 02/02/2023 [facility] Glucose 115 mg/dL High (70-99) [...] 101 ML/MIN/1.73 M2 37 Protime Profile 01/25/2023 [facility] Protime 19.1 SEC High (9.2-11 .4) Internatnl Normalized Ratio 1.9 High (0.9-1. 1) 38 Protime Profile 12/23/2022 [facility] Protime 25.3 SEC High (9.2-11 .4) Internatnl Normalized Ratio 2.6 High (0.9-1. 1) 39 Protime Profile 12/09/2022 [facility] Protime 21.4 SEC High (9.2-11 .4) Internatnl Normalized Ratio 2.1 High (0.9-1. 1) 40 Glucose Fingerstick 11/25/2022 Inhouse Glucose Fingerstick 111 Hemoglobin A1c 11/25/2022 Inhouse Hemoglobin A1c 5.6% Protime Profile 11/18/2022 [facility] Protime 22.9 SEC High (9.2-11 .4) Internatnl Normalized Ratio 2.3 High (0.9-1. 1) 41 Protime Profile 11/11/2022 [facility] Protime 21.8 SEC High (9.2-11 .4) Internatnl Normalized Ratio 2.2 High (0.9-1. 1) 42 Protime Profile 11/05/2022 [facility] Protime 18.0 SEC High (9.2-11 .4) Internatnl Normalized Ratio 1.8 High (0.9-1. 1) 43 Protime Profile 10/22/2022 [facility] Protime 25.1 SEC High (9.2-11 .4) Internatnl Normalized Ratio 2.5 High (0.9-1. 1) 44 Protime Profile 10/14/2022 [facility] Protime 22.1 SEC High (9.2-11 .4) Internatnl Normalized Ratio 2.2 High (0.9-1. 1) 45 Protime Profile 10/07/2022 [facility] Protime 19.2 SEC High (9.2-11 .4) Internatnl Normalized Ratio 1.9 High (0.9-1. 1) 46 Protime Profile 09/30/2022 [facility] Protime 19.7 SEC High (9.2-11 .4) Internatnl Normalized Ratio 2.0 High (0.9-1. 1) 47 Protime Profile 09/23/2022 [facility] Protime 21.5 SEC High (9.2-11 .4) Internatnl Normalized Ratio 2.2 High (0.9-1. 1) 48 Protime Profile 09/18/2022 [facility] Protime 37.1 SEC High (9.2-11 .4) Internatnl Normalized Ratio 3.9 High (0.9-1. 1) 49 Protime Profile 09/09/2022 [facility] Protime 30.8 SEC High (9.2-11 .4) Internatnl Normalized Ratio 3.1 High (0.9-1. 1) 50 Protime Profile 08/31/2022 [facility] Protime 26.1 SEC High (9.2-11 .4) Internatnl Normalized Ratio 2.6 High (0.9-1. 1) 51 Protime Profile 08/26/2022 [facility] Protime 25.9 SEC High (9.2-11 .4) Internatnl Normalized Ratio 2.6 High (0.9-1. 1) 52 Protime Profile 08/18/2022 [facility] Protime 18.1 SEC High (9.2-11 .4) Internatnl Normalized Ratio 1.8 High (0.9-1. 1) 53 Protime Profile 08/12/2022 [facility] Protime 15.0 SEC High (9.2-11 .4) Internatnl Normalized Ratio 1.5 High (0.9-1. 1) 54 Protime Profile 08/06/2022 [facility] Protime 20.0 SEC High (9.2-11 .4) Internatnl Normalized Ratio 2.0 High (0.9-1. 1) 55 Glucose Fingerstick 07/30/2022 Inhouse Glucose Fingerstick 147 Hemoglobin A1c 07/30/2022 Inhouse Hemoglobin A1c 6.1 Protime Profile 07/26/2022 [facility] Protime 26.3 SEC High (9.2-11 .4) Internatnl Normalized Ratio 2.7 High (0.9-1. 1) 56 Protime Profile 07/05/2022 [facility] Protime 18.0 SEC High (9.2-11 .4) Internatnl Normalized Ratio 1.8 High (0.9-1. 1) 57 Protime Profile 06/24/2022 [facility] Protime 20.9 SEC High (9.2-11 .4) Internatnl Normalized Ratio 2.1 High (0.9-1. 1) 58 Protime Profile 06/18/2022 [facility] Protime 19.1 SEC High (9.2-11 .4) Internatnl Normalized Ratio 1.9 High (0.9-1. 1) 59 Protime Profile 06/03/2022 [facility] Protime 28.7 SEC High (9.2-11 .4) Internatnl Normalized Ratio 2.9 High (0.9-1. 1) 60 Protime Profile 05/18/2022 [facility] Protime 24.2 SEC High (9.2-11 .4) Internatnl Normalized Ratio 2.5 High (0.9-1. 1) 61 Protime Profile 05/11/2022 [facility] [id number] Duplicate order <SEE NOTE> 62 Protime Profile 05/11/2022 [facility] Protime 19.0 SEC High (9.2-11 .4) Internatnl Normalized Ratio 1.9 High (0.9-1. 1) 63 Protime Profile 05/04/2022 [facility] Protime 19.4 SEC High [...] VALVES. Procedures Date Code Description Status 01/06/2024 33479 Remove Impacted Cerumen Comp leted 01/06/2024 88368 Collection Of Venous Blood B y Venipuncture [...] Reason for Referral Status Appt Aniket e [facility] unprovo ked pulmonary emboli 2020, on warfarin b/o morbid obesity question medication management Closed 08/09/2024 [address] [place] [address] [phone] [facility] LEFT SHOULDER PAIN X 2 MONTHS Closed 05/10/2023 [address] [place] [address] [phone] [facility] Dental Hygienist re: scre ening colonoscopy family history of polyps father before age 60 Closed 02/03/2023 [address] [facility] [address] [place] [address] [phone]
[2025-01-16 13:16] LABS: Vitamin B12 1638 pg/mL (200-900)
[2025-01-16 13:23] LABS: Ferritin 171 ng/mL (10-250); Insulin 8 uU/mL (2-29); TSH reflex Free T4 1.47 uIU/mL (0.32-4.0); Vitamin D 25-OH Total 75.5 ng/mL (>30)
[2025-01-19 02:08] LABS: Zinc 131 mcg/dL (60-130)
[2025-01-19 20:14] LABS: Vitamin A 44 mcg/dL (38-98)
[2025-01-28 01:13] LABS: Vitamin B1 17 nmol/L (8-30)
== END 2025-01-16 11:00 | disposition home or self-care (01) ==
LOC: HO.US 10:59
PROVIDERS: PCP Internal Medicine Endocrinology, Diabetes & Metabolism; Visit Provider Surgery
DX: R10.11 Right upper quadrant pain (principal); Z13.1 Encounter for screening for diabetes mellitus; Z13.6 Encounter for screening for cardiovascular disorders
CPT/HCPCS: 36415; 76700; 76981; 80053; 80061; 82306; 82607; 82728; 83036; 83525; 83540; 84425; 84443; 84590; 84630; 85025; 85610; 85730; 86140; 86850; 86900; 86901

== ENCOUNTER → 2025-01-16 11:27 | Outpatient (BNV) | payer OTHER, SELFPAY | PROVIDERS: PCP Internal Medicine Endocrinology, Diabetes & Metabolism; Visit Provider Radiology Diagnostic Radiology | DX: R10.11 Right upper quadrant pain (principal); R74.01 Elevation of levels of liver transaminase levels | CPT/HCPCS: 76700; 76981 ==

== ENCOUNTER 2025-01-23 08:55 | Outpatient (REF) | payer OTHER, SELFPAY ==
--- NOTE | ~2025-01-23 | MR_ITS ---
EXAMINATION: MRCP HISTORY: K80.20 - Calculus of gallbladder without cholecystitis without obstruction COMPARISON: Correlation is made with an abdominal ultrasound dated 01/16/2025. TECHNIQUE: Axial gradient echo and coronal haste T2 with fat saturation images were obtained through the abdomen. 3D MRCP Reconstructed images and thick slab imaging of the biliary tree were obtained. FINDINGS: There is no significant loss of signal intensity within the liver on opposed phase images to suggest steatosis. The liver has an unremarkable unenhanced appearance. There is cholelithiasis. The common bile duct is not dilated. No intraluminal filling defects are identified to suggest choledocholithiasis. There is a focal narrowing of the proximal common bile duct which appears to be secondary to a crossing vessel. The spleen, pancreas, and adrenal glands are unremarkable. There is a 9 mm cyst at the upper pole of the right kidney. There is a 3.0 cm septated cyst at the upper pole of the left kidney and a 4.0 cm cyst at the lower pole. There is no hydronephrosis. No retroperitoneal lymphadenopathy or ascites is identified in the upper abdomen. There is a small hiatal hernia. There are vertebral hemangiomas at the T7, T9, and T10, and L2 levels. MR/MR MRCP IMPRESSION: 1. Cholelithiasis. No evidence of choledocholithiasis. 2. Focal narrowing of the proximal common bile duct which appears to be secondary to a crossing vessel. 3. Bilateral renal cysts as described. Electronically signed by: Hudson Rich MD 01/23/2025 10:20 AM EDT
--- OUTSIDE RECORDS SUMMARY | 2025-01-23 09:26 | XMS_ITS | Clinical Summary ---
Author Organization [facility] Address [address] [place] [address] Phone Care Team Providers Care Manager Cosmetic Name Role Phone Evy Manrique MD Primary Care Provid er Encounters Date Type Department Care Team Description 12/04/2024 2:00 PM EST - 12/04/2024 11:59 PM EST Hospital Encounter [facility] Ultrasound [address] [place] [phone] STANTON (nonalcoholic steatohepatitis) Discharge Disposition: Home or Self Care 11/27/2024 Telephone Gastroenterology - [address] [phone] Peter Nelson MD from Last 3 Months [...] 2024 08/09/2023, 08/29/2021, 01/04/2021, Additional history exists Diabetes: Annual Urine Albumin-Creatinine Ratio (uACR) 12/04/2024 Diabetes: Blood Sugar Control Test (HGBA1C) 12/04/2024 Hypertension/CHF/CAD Annual BMP Blood Test 12/04/2024 Influenza Vaccine (Season Ended) 2025 08/29/2021, 06/24/2020, 08/21/2018, Additional history exists HIB Vaccines Aged Out No longer eligi [...] score F1 (normal to mild). Telerad JENNIFER ([id number]) -------- FINAL REPORT -------- Dictated By: Milagros Wade Dictated Date: 12/10/2024 16:01 ET Assigned Physician: Milagros Wade Reviewed and Electronically Signed By: Milagros Wade Signed Date: 12/10/2024 16:02 ET Workstation ID: [id number] Transcribed By: Self Edit Transcribed Date: 12/10/2024 [...] score F1 (normal to mild). Telerad JENNIFER ([id number]) -------- FINAL REPORT -------- Dictated By: Milagros Wade Dictated Date: 12/10/2024 16:01 ET Assigned Physician: Milagros Wade Reviewed and Electronically Signed By: Milagros Wade Signed Date: 12/10/2024 16:02 ET Workstation ID: [id number] Transcribed By: Self Edit Transcribed Date: 12/10/2024 16:01 ET Peter Nelson MD [facility] PROCEDURES Final Result from Last 3 Months Insurance [address] [place] [address] Care Teams Manager Cosmetic Relationship Specialty Start Date End Date Evy Manriqeu MD [address] [place] [address] [address] [place] [address] PCP - General Endocrinology 12/04/24
--- OUTSIDE RECORDS SUMMARY | 2025-01-23 09:26 | XMS_ITS | Continuity of Care Document ---
Author Organization [facility] [address] [place] [address] Phone [phone] Care Team Providers Care Compositor Apprentice Name Role Phone Evy Manrique M.D. Care Team Informati on Multiple Cut Off Saw Operator [phone] Problems Active Problems Provider Date Morbid obesity [...] SIG Qnty Indications Order ing Provider Date Syoeaul2ze Tablets 1 by mouth twice a day 180tabs Evy Manrique M.D. 09/28/2024 Meclizine [id number] Tablets 1 q 8 hours as needed 45tabs Evy Manrique M.D. 04/05/2024 Freestyle Lite TestStrips Use as directed for testing blood sugar once daily (DX:E11.9) 100units E11.9 Evy Manrique M.D. 10/31/2023 Warfarin Eflbsu2sh Tablets Take 1 To 2 Tablets By Mouth Daily 180tabs Evy Manrique M.D. 05/03/2022 Levothyroxine [id number] Tablets take 1 tablet by mouth every day 90tabs Evy Manrique M.D. Flovent [id number]/Act Aerosol 2 puff daily as needed 1gm Evy Manrique M.D. Proair WXS157(90Base) mcg/Act Aerosol 2 puffs every 4 hours [...] sec High 9.1-12. 0 Protime Profile 12/15/2023 [facility] Protime 21.1 SEC High (9.2-11 .4) Internatnl Normalized Ratio 2.1 High (0.9-1. 1) 16 Protime Profile 12/09/2023 [facility] Protime 23.5 SEC High (9.2-11 .4) Internatnl Normalized Ratio 2.4 High (0.9-1. 1) 17 Protime Profile 12/05/2023 [facility] Protime 26.2 SEC High (9.2-11 .4) Internatnl Normalized Ratio 2.7 High (0.9-1. 1) 18 Protime Profile 12/01/2023 [facility] Protime 17.2 SEC High (9.2-11 .4) Internatnl Normalized Ratio 1.7 High (0.9-1. 1) 19 Protime Profile 11/29/2023 [facility] Protime 18.2 SEC High (9.2-11 .4) Internatnl Normalized Ratio 1.8 High (0.9-1. 1) 20 Protime Profile 11/27/2023 [facility] [id number] Duplicate Order Protime 35.0 SEC High (9.2-11 .4) Internatnl Normalized Ratio 3.7 High (0.9-1. 1) 21 Protime Profile 11/25/2023 [facility] Protime 47.1 SEC High (9.2-11 .4) Internatnl Normalized Ratio 5.1 Critical high (0.9-1. 1) 22 Protime Profile 11/15/2023 [facility] Protime 19.8 SEC High (9.2-11 .4) Internatnl Normalized Ratio 2.0 High (0.9-1. 1) 23 Glucose Fingerstick 11/07/2023 Inhouse Glucose Fingerstick 87 Protime Profile 09/21/2023 [facility] Protime 27.6 SEC High (9.2-11 .4) Internatnl Normalized Ratio 2.8 High (0.9-1. 1) 24 Hemoglobin A1c 08/24/2023 Inhouse Hemoglobin A1c 5.2% Glucose Fingerstick 08/24/2023 Inhouse Glucose Fingerstick 96 Protime Profile 08/17/2023 [facility] Protime 29.3 SEC High (9.2-11 .4) Internatnl Normalized Ratio 3.0 High (0.9-1. 1) 25 Protime Profile 07/25/2023 [facility] Protime 27.2 SEC High (9.2-11 .4) Internatnl Normalized Ratio 2.8 High (0.9-1. 1) 26 Protime Profile 06/16/2023 [facility] Protime 24.0 SEC High (9.2-11 .4) Internatnl Normalized Ratio 2.4 High (0.9-1. 1) 27 Protime Profile 05/30/2023 [facility] Protime 25.3 SEC High (9.2-11 .4) Internatnl Normalized Ratio 2.6 High (0.9-1. 1) 28 Protime Profile 05/11/2023 [facility] Protime 25.9 SEC High (9.2-11 .4) Internatnl Normalized Ratio 2.6 High (0.9-1. 1) 29 Protime Profile 04/27/2023 [facility] Protime 21.6 SEC High (9.2-11 .4) Internatnl Normalized Ratio 2.2 High (0.9-1. 1) 30 Protime Profile 04/19/2023 [facility] Protime 19.4 SEC High (9.2-11 .4) Internatnl Normalized Ratio 1.9 High (0.9-1. 1) 31 Protime Profile 04/11/2023 [facility] Protime 20.0 SEC High (9.2-11 .4) Internatnl Normalized Ratio 2.0 High (0.9-1. 1) 32 Protime Profile 04/07/2023 [facility] Protime 17.6 SEC High (9.2-11 .4) Internatnl Normalized Ratio 1.7 High (0.9-1. 1) 33 Protime Profile 04/01/2023 [facility] Protime 14.7 SEC High (9.2-11 .4) Internatnl Normalized Ratio 1.4 High (0.9-1. 1) 34 Glucose Fingerstick 03/25/2023 Inhouse Glucose Fingerstick 101 Hemoglobin A1c 03/25/2023 Inhouse Hemoglobin A1c 5.5% Protime Profile 03/03/2023 [facility] Protime 20.6 SEC High (9.2-11 .4) Internatnl Normalized Ratio 2.1 High (0.9-1. 1) 35 Lipid Panel 02/02/2023 [facility] Cholesterol, Total 172 mg/dL (<200) Triglyceride 122 mg/dL (<150) HDL Chol 48 mg/dL (>39) LDL Cholesterol, Calculated 100 mg/dL (0-130) Non HDL Cholesterol (Calc) 124 mg/dL (<160) Protime Profile 02/02/2023 [facility] Protime 21.0 SEC High (9.2-11 .4) Internatnl Normalized Ratio 2.1 High (0.9-1. 1) 36 TSH With Reflex To FT4 02/02/2023 [facility] TSH With Reflex To FT4 2.44 uIU/mL (0.4-4. 2) Complete Abc With Diff 02/02/2023 [facility] WBC 8.0 K/MM3 (4.0-11 [...] 0) Lymph # 2.2 K/MM3 (0.8-3. 1) Charlton# 0.6 K/MM3 (0.4-0. 9) Eo # 0.3 K/MM3 (0.0-0. 4) Baso # 0.0 K/MM3 (0.0-0. 1) Abs. Imm Gran 0.0 K/MM3 Neut 61.3 % (44-76) Lymph 27.5 % (15-43) Monocyte 6.9 % (4.5-10 .5) Eo 3.5 % (0-6) Baso 0.5 % (0-2) Imm Gran 0.3 % Comprehensive Metabolic Panl 02/02/2023 [facility] Glucose 115 mg/dL High [...] 101 ML/MIN/1.73 M2 37 Protime Profile 01/25/2023 [facility] Protime 19.1 SEC High (9.2-11 .4) Internatnl Normalized Ratio 1.9 High (0.9-1. 1) 38 Protime Profile 12/23/2022 [facility] Protime 25.3 SEC High (9.2-11 .4) Internatnl Normalized Ratio 2.6 High (0.9-1. 1) 39 Protime Profile 12/09/2022 [facility] Protime 21.4 SEC High (9.2-11 .4) Internatnl Normalized Ratio 2.1 High (0.9-1. 1) 40 Glucose Fingerstick 11/25/2022 Inhouse Glucose Fingerstick 111 Hemoglobin A1c 11/25/2022 Inhouse Hemoglobin A1c 5.6% Protime Profile 11/18/2022 [facility] Protime 22.9 SEC High (9.2-11 .4) Internatnl Normalized Ratio 2.3 High (0.9-1. 1) 41 Protime Profile 11/11/2022 [facility] Protime 21.8 SEC High (9.2-11 .4) Internatnl Normalized Ratio 2.2 High (0.9-1. 1) 42 Protime Profile 11/05/2022 [facility] Protime 18.0 SEC High (9.2-11 .4) Internatnl Normalized Ratio 1.8 High (0.9-1. 1) 43 Protime Profile 10/22/2022 [facility] Protime 25.1 SEC High (9.2-11 .4) Internatnl Normalized Ratio 2.5 High (0.9-1. 1) 44 Protime Profile 10/14/2022 [facility] Protime 22.1 SEC High (9.2-11 .4) Internatnl Normalized Ratio 2.2 High (0.9-1. 1) 45 Protime Profile 10/07/2022 [facility] Protime 19.2 SEC High (9.2-11 .4) Internatnl Normalized Ratio 1.9 High (0.9-1. 1) 46 Protime Profile 09/30/2022 [facility] Protime 19.7 SEC High (9.2-11 .4) Internatnl Normalized Ratio 2.0 High (0.9-1. 1) 47 Protime Profile 09/23/2022 [facility] Protime 21.5 SEC High (9.2-11 .4) Internatnl Normalized Ratio 2.2 High (0.9-1. 1) 48 Protime Profile 09/18/2022 [facility] Protime 37.1 SEC High (9.2-11 .4) Internatnl Normalized Ratio 3.9 High (0.9-1. 1) 49 Protime Profile 09/09/2022 [facility] Protime 30.8 SEC High (9.2-11 .4) Internatnl Normalized Ratio 3.1 High (0.9-1. 1) 50 Protime Profile 08/31/2022 [facility] Protime 26.1 SEC High (9.2-11 .4) Internatnl Normalized Ratio 2.6 High (0.9-1. 1) 51 Protime Profile 08/26/2022 [facility] Protime 25.9 SEC High (9.2-11 .4) Internatnl Normalized Ratio 2.6 High (0.9-1. 1) 52 Protime Profile 08/18/2022 [facility] Protime 18.1 SEC High (9.2-11 .4) Internatnl Normalized Ratio 1.8 High (0.9-1. 1) 53 Protime Profile 08/12/2022 [facility] Protime 15.0 SEC High (9.2-11 .4) Internatnl Normalized Ratio 1.5 High (0.9-1. 1) 54 Protime Profile 08/06/2022 [facility] Protime 20.0 SEC High (9.2-11 .4) Internatnl Normalized Ratio 2.0 High (0.9-1. 1) 55 Glucose Fingerstick 07/30/2022 Inhouse Glucose Fingerstick 147 Hemoglobin A1c 07/30/2022 Inhouse Hemoglobin A1c 6.1 Protime Profile 07/26/2022 [facility] Protime 26.3 SEC High (9.2-11 .4) Internatnl Normalized Ratio 2.7 High (0.9-1. 1) 56 Protime Profile 07/05/2022 [facility] Lab Protime 18.0 SEC High (9.2-11 .4) Internatnl Normalized Ratio 1.8 High (0.9-1. 1) 57 Protime Profile 06/24/2022 [facility] Protime 20.9 SEC High (9.2-11 .4) Internatnl Normalized Ratio 2.1 High (0.9-1. 1) 58 Protime Profile 06/18/2022 [facility] Protime 19.1 SEC High (9.2-11 .4) Internatnl Normalized Ratio 1.9 High (0.9-1. 1) 59 Protime Profile 06/03/2022 [facility] Protime 28.7 SEC High (9.2-11 .4) Internatnl Normalized Ratio 2.9 High (0.9-1. 1) 60 Protime Profile 05/18/2022 [facility] Protime 24.2 SEC High (9.2-11 .4) Internatnl Normalized Ratio 2.5 High (0.9-1. 1) 61 Protime Profile 05/11/2022 [facility] [id number] Duplicate order <SEE NOTE> 62 Protime Profile 05/11/2022 [facility] Protime 19.0 SEC High (9.2-11 .4) Internatnl Normalized Ratio 1.9 High (0.9-1. 1) 63 Protime Profile 05/04/2022 [facility] Protime 19.4 SEC High (9.2-11 .4) [...] VALVES. Procedures Date Code Description Status 01/06/2024 57552 Remove Impacted Cerumen Comp leted 01/06/2024 65209 Collection Of Venous Blood B y Venipuncture [...] adult Evy Manrique M.D. 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
== END 2025-01-23 08:56 | disposition home or self-care (01) ==
LOC: HO.MRI 08:55
PROVIDERS: Visit Provider Surgery
DX: K80.20 Calculus of gallbladder without cholecystitis without obstruction (principal); R74.8 Abnormal levels of other serum enzymes
CPT/HCPCS: 74181

== ENCOUNTER → 2025-01-23 08:59 | Outpatient (BNV) | payer OTHER, SELFPAY | PROVIDERS: Visit Provider Radiology Diagnostic Radiology | DX: K80.20 Calculus of gallbladder without cholecystitis without obstruction (principal); N28.1 Cyst of kidney, acquired | CPT/HCPCS: 74181 ==

== ENCOUNTER 2025-01-25 08:56 | Outpatient (REF) | payer OTHER, SELFPAY ==
--- OUTSIDE RECORDS SUMMARY | 2025-01-25 10:54 | XMS_ITS | Continuity of Care Document ---
Author Organization [facility] [address] [place] [address] Phone [phone] Care Team Providers Care Iron Worker Foreman Name Role Phone Evy Manrique M.D. Care Team Informati on Engineered Wood Designer [phone] Problems Active Problems Provider Date Morbid obesity [...] SIG Qnty Indications Order ing Provider Date Ytdmvni5tm Tablets 1 by mouth twice a day 180tabs Evy Manrique M.D. 09/28/2024 Meclizine VQW34eo Tablets 1 q 8 hours as needed 45tabs Evy Manrique M.D. 04/05/2024 Freestyle Lite TestStrips Use as directed for testing blood sugar once daily (DX:E11.9) 100units E11.9 Evy Manrique M.D. 10/31/2023 Levothyroxine [id number] Tablets take 1 tablet by mouth every day 90tabs Evy Manrique M.D. Flovent IOK375odm/Act Aerosol 2 puff daily as needed 1gm Evy Manrique M.D. Proair AEP001(90Base) mcg/Act Aerosol 2 puffs every 4 hours [...] sec High 9.1-12. 0 Protime Profile 12/15/2023 [facility] Protime 21.1 SEC High (9.2-11 .4) Internatnl Normalized Ratio 2.1 High (0.9-1. 1) 16 Protime Profile 12/09/2023 [facility] Protime 23.5 SEC High (9.2-11 .4) Internatnl Normalized Ratio 2.4 High (0.9-1. 1) 17 Protime Profile 12/05/2023 [facility] Protime 26.2 SEC High (9.2-11 .4) Internatnl Normalized Ratio 2.7 High (0.9-1. 1) 18 Protime Profile 12/01/2023 [facility] Protime 17.2 SEC High (9.2-11 .4) Internatnl Normalized Ratio 1.7 High (0.9-1. 1) 19 Protime Profile 11/29/2023 [facility] Protime 18.2 SEC High (9.2-11 .4) Internatnl Normalized Ratio 1.8 High (0.9-1. 1) 20 Protime Profile 11/27/2023 [facility] [id number] Duplicate Order Protime 35.0 SEC High (9.2-11 .4) Internatnl Normalized Ratio 3.7 High (0.9-1. 1) 21 Protime Profile 11/25/2023 [facility] Protime 47.1 SEC High [...] Inhouse Glucose Fingerstick 96 Protime Profile 08/17/2023 [facility] Protime 29.3 SEC High (9.2-11 .4) Internatnl Normalized Ratio 3.0 High (0.9-1. 1) 25 Protime Profile 07/25/2023 [facility] Protime 27.2 SEC High (9.2-11 .4) Internatnl Normalized Ratio 2.8 High (0.9-1. 1) 26 Protime Profile 06/16/2023 [facility] Protime 24.0 SEC High (9.2-11 .4) Internatnl Normalized Ratio 2.4 High (0.9-1. 1) 27 Protime Profile 05/30/2023 [facility] Protime 25.3 SEC High (9.2-11 .4) Internatnl Normalized Ratio 2.6 High (0.9-1. 1) 28 Protime Profile 05/11/2023 [facility] Protime 25.9 SEC High (9.2-11 .4) Internatnl Normalized Ratio 2.6 High (0.9-1. 1) 29 Protime Profile 04/27/2023 [facility] Protime 21.6 SEC High (9.2-11 .4) Internatnl Normalized Ratio 2.2 High (0.9-1. 1) 30 Protime Profile 04/19/2023 [facility] Protime 19.4 SEC High (9.2-11 .4) Internatnl Normalized Ratio 1.9 High (0.9-1. 1) 31 Protime Profile 04/11/2023 [facility] Protime 20.0 SEC High (9.2-11 .4) Internatnl Normalized Ratio 2.0 High (0.9-1. 1) 32 Protime Profile 04/07/2023 [facility] Protime 17.6 SEC High (9.2-11 .4) Internatnl Normalized Ratio 1.7 High (0.9-1. 1) 33 Protime Profile 04/01/2023 [facility] Protime 14.7 SEC High (9.2-11 .4) Internatnl Normalized Ratio 1.4 High (0.9-1. 1) 34 Hemoglobin A1c 03/25/2023 Inhouse Hemoglobin A1c 5.5% Glucose Fingerstick 03/25/2023 Inhouse Glucose Fingerstick 101 Protime Profile 03/03/2023 [facility] Protime 20.6 SEC High (9.2-11 .4) Internatnl Normalized Ratio 2.1 High (0.9-1. 1) 35 Comprehensive Metabolic Panl 02/02/2023 [facility] Glucose 115 mg/dL High [...] 101 ML/MIN/1.73 M2 36 Lipid Panel 02/02/2023 [facility] Cholesterol, Total 172 mg/dL (<200) Triglyceride 122 mg/dL (<150) HDL Chol 48 mg/dL (>39) LDL Cholesterol, Calculated 100 mg/dL (0-130) Non HDL Cholesterol (Calc) 124 mg/dL (<160) Complete Abc With Diff 02/02/2023 [facility] WBC 8.0 K/MM3 (4.0-11 [...] 0) Lymph # 2.2 K/MM3 (0.8-3. 1) [place]# 0.6 K/MM3 (0.4-0. 9) Eo # 0.3 K/MM3 (0.0-0. 4) Baso # 0.0 K/MM3 (0.0-0. 1) Abs. Imm Gran 0.0 K/MM3 Neut 61.3 % (44-76) Lymph 27.5 % (15-43) Monocyte 6.9 % (4.5-10 .5) Eo 3.5 % (0-6) Baso 0.5 % (0-2) Imm Gran 0.3 % TSH With Reflex To FT4 02/02/2023 [facility] TSH With Reflex To FT4 2.44 uIU/mL (0.4-4. 2) Protime Profile 02/02/2023 [facility] Protime 21.0 SEC High (9.2-11 .4) Internatnl Normalized Ratio 2.1 High (0.9-1. 1) 37 Protime Profile 01/25/2023 [facility] Protime 19.1 SEC High (9.2-11 .4) Internatnl Normalized Ratio 1.9 High (0.9-1. 1) 38 Protime Profile 12/23/2022 [facility] Protime 25.3 SEC High (9.2-11 .4) Internatnl Normalized Ratio 2.6 High (0.9-1. 1) 39 Protime Profile 12/09/2022 [facility] Protime 21.4 SEC High (9.2-11 .4) Internatnl Normalized Ratio 2.1 High (0.9-1. 1) 40 Glucose Fingerstick 11/25/2022 Inhouse Glucose Fingerstick 111 Hemoglobin A1c 11/25/2022 Inhouse Hemoglobin A1c 5.6% Protime Profile 11/18/2022 [facility] Protime 22.9 SEC High (9.2-11 .4) Internatnl Normalized Ratio 2.3 High (0.9-1. 1) 41 Protime Profile 11/11/2022 [facility] Protime 21.8 SEC High (9.2-11 .4) Internatnl Normalized Ratio 2.2 High (0.9-1. 1) 42 Protime Profile 11/05/2022 [facility] Protime 18.0 SEC High (9.2-11 .4) Internatnl Normalized Ratio 1.8 High (0.9-1. 1) 43 Protime Profile 10/22/2022 [facility] Protime 25.1 SEC High (9.2-11 .4) Internatnl Normalized Ratio 2.5 High (0.9-1. 1) 44 Protime Profile 10/14/2022 [facility] Protime 22.1 SEC High (9.2-11 .4) Internatnl Normalized Ratio 2.2 High (0.9-1. 1) 45 Protime Profile 10/07/2022 [facility] Protime 19.2 SEC High (9.2-11 .4) Internatnl Normalized Ratio 1.9 High (0.9-1. 1) 46 Protime Profile 09/30/2022 [facility] Protime 19.7 SEC High (9.2-11 .4) Internatnl Normalized Ratio 2.0 High (0.9-1. 1) 47 Protime Profile 09/23/2022 [facility] Protime 21.5 SEC High (9.2-11 .4) Internatnl Normalized Ratio 2.2 High (0.9-1. 1) 48 Protime Profile 09/18/2022 [facility] Protime 37.1 SEC High (9.2-11 .4) Internatnl Normalized Ratio 3.9 High (0.9-1. 1) 49 Protime Profile 09/09/2022 [facility] Protime 30.8 SEC High (9.2-11 .4) Internatnl Normalized Ratio 3.1 High (0.9-1. 1) 50 Protime Profile 08/31/2022 [facility] Protime 26.1 SEC High (9.2-11 .4) Internatnl Normalized Ratio 2.6 High (0.9-1. 1) 51 Protime Profile 08/26/2022 [facility] Protime 25.9 SEC High (9.2-11 .4) Internatnl Normalized Ratio 2.6 High (0.9-1. 1) 52 Protime Profile 08/18/2022 [facility] Lab Protime 18.1 SEC High (9.2-11 .4) Internatnl Normalized Ratio 1.8 High (0.9-1. 1) 53 Protime Profile 08/12/2022 [facility] Protime 15.0 SEC High (9.2-11 .4) Internatnl Normalized Ratio 1.5 High (0.9-1. 1) 54 Protime Profile 08/06/2022 [facility] Protime 20.0 SEC High (9.2-11 .4) Internatnl Normalized Ratio 2.0 High (0.9-1. 1) 55 Hemoglobin A1c 07/30/2022 Inhouse Hemoglobin A1c 6.1 Glucose Fingerstick 07/30/2022 Inhouse Glucose Fingerstick 147 Protime Profile 07/26/2022 [facility] Protime 26.3 SEC High (9.2-11 .4) Internatnl Normalized Ratio 2.7 High (0.9-1. 1) 56 Protime Profile 07/05/2022 [facility] Protime 18.0 SEC High (9.2-11 .4) Internatnl Normalized Ratio 1.8 High (0.9-1. 1) 57 Protime Profile 06/24/2022 [facility] Protime 20.9 SEC High [...] High (0.9-1. 1) 61 Protime Profile 05/11/2022 [facility] [id number] Duplicate order <SEE NOTE> 62 Protime Profile 05/11/2022 [facility] Protime 19.0 SEC High (9.2-11 .4) Internatnl Normalized Ratio 1.9 High (0.9-1. 1) 63 Protime Profile 05/04/2022 [facility] Protime 19.4 SEC High (9.2-11 .4) Internatnl Normalized Ratio 1.9 High (0.9-1. 1) 64 Protime Profile 04/30/2022 [facility] Protime 15.2 SEC High (9.2-11 .4) Internatnl Normalized Ratio 1.5 High (0.9-1. 1) 65 Protime Profile 04/26/2022 [facility] Protime 12.2 SEC High (9.2-11 [...] VALVES. Procedures Date Code Description Status 01/23/2025 71956 Collection Of Venous Blood B y Venipuncture Completed 01/06/2024 67823 Remove Impacted Cerumen Comp leted 01/06/2024 41419 Collection Of Venous Blood B y Venipuncture [...] Code Description Provider 01/23/2025 Z00.00 Encounter for [facility] adult medical examination without abnormal findings Evy [...] Reason for Referral Status Appt Aniket e [facility] H[facility]ology [facility] Oncology unprovo ked pulmonary emboli 2020, on warfarin b/o morbid obesity question medication management Closed 08/09/2024 [address] [place] [address] [phone] [facility] LEFT SHOULDER PAIN X 2 MONTHS Closed 05/10/2023 [address] [place] [address] [phone] [facility] 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
--- OUTSIDE RECORDS SUMMARY | 2025-01-25 10:54 | XMS_ITS | Clinical Summary ---
Author Organization [facility] Address [address] [place] [address] Phone Care Team Providers Care Business Records Manager Name Role Phone Evy Manrique MD Primary Care Provid er Encounters Date Type Department Care Team Description 12/04/2024 2:00 PM EST - 12/04/2024 11:59 PM EST Hospital Encounter [facility] Ultrasound [address] [place] [phone] [place]ANTON (nonalcoholic steatohepatitis) Discharge Disposition: Home or Self Care 11/27/2024 Telephone Gastroenterology - [address] [phone] Peter Nelson MD from Last 3 Months [...] score F1 (normal to mild). Telerad JENNIFER ([id number]) -------- FINAL REPORT -------- Dictated By: Milagros Wade Dictated Date: 12/10/2024 16:01 ET Assigned Physician: Milagros Wade Reviewed and Electronically Signed By: Milagros Wade Signed Date: 12/10/2024 16:02 ET Workstation ID: [id number] Transcribed By: Self Edit Transcribed Date: 12/10/2024 [...] score F1 (normal to mild). Telerad JENNIFER ([id number]) -------- FINAL REPORT -------- Dictated By: Milagros Wade Dictated Date: 12/10/2024 16:01 ET Assigned Physician: Milagros Wade Reviewed and Electronically Signed By: Milagros Wade Signed Date: 12/10/2024 16:02 ET Workstation ID: [id number] Transcribed By: Self Edit Transcribed Date: 12/10/2024 16:01 ET Peter Nelson MD [facility] Final Result from Last 3 Months Insurance [address] [place] [phone] Care Teams Business Records Manager Relationship Specialty Start Date End Date Evy Manrique MD [address] [place] [address] [address] [place] [address] PCP - General Endocrinology 12/04/24
== END 2025-01-25 08:57 | disposition home or self-care (01) ==
LOC: HO.LAB 08:56
PROVIDERS: Visit Provider Surgery
DX: Z13.89 Encounter for screening for other disorder (principal); K80.20 Calculus of gallbladder without cholecystitis without obstruction

== ENCOUNTER 2025-01-25 08:56 | Outpatient (AMB) | payer OTHER, SELFPAY ==
--- NOTE | 2025-01-25 09:09 | A.OFFVIS_ITS ---
VS Expanded 01/25/25 09:33 BP 159/87 H Blood Pressure Location Rt brachial Blood Pressure Position Sitting Pulse 60 Pulse Source Pulse Oximeter Temp 98.0 F Temperature Source Temporal Artery Scan Pulse Oximetry 98 Oxygen Delivery Method Room Air Height 5 ft 4 in Weight 245 lb 3.2 oz BMI 42.1 Body Fat % 47.2 Body Fat Mass 115.8 Fat Free Mass 129.4 Visceral Fat Rating 15.0 Body Water % 37.6 Body Water Mass 92.2 Muscle Mass/Score 122.8 Basal Metabolic Rate/Score 1,830 Intake Visit Reasons: OV Pre Op Lap Alla 02/01/25 Allergies Penicillins Allergy (Intermediate, Verified 01/25/25 09:51) rash, all over body Medication List - Last Reconciled 01/25/25 by Tai Mitchell MD albuterol sulfate 90 mcg/actuation 2 puffs inhalation QID PRN apixaban (Eliquis) 5 mg PO BID clotrimazole 1% 1 appl topical BID inulin (Fiber Gummies) 2 grams PO DAILY levothyroxine 100 mcg PO DAILY@0600 jbmvtqoqyjrq-dsm-[id number]-FA-vit K 45 mg iron- 800 mcg-120 mcg (Bariatric Multivitamins) caps PO triamcinolone acetonide 0.1% 1 appl topical BID HPI Comments Details: The patient began recently complaining of RUQ abdominal pain. Ultrasound showed cholelithiasis. The patient had very elevated LFTs and an MRCP was performed that was negative for choledocholithiasis. She presents today for preop appointment for laparoscopic cholecystectomy on 02/01/25. [facility] Medical History Adjustment disorder Fatty liver Bilateral knee pain HTN (hypertension) History of asthma GISSELLE on CPAP Hx pulmonary embolism Hypothyroidism Diabetes PONV (postoperative nausea and vomiting) Sleep apnea Surgical History S/P laparoscopic sleeve gastrectomy History of removal of skin mole Hx of colonoscopy Hx of dilation and curettage History of facial surgery Hx of section Family History Mother Diabetes Hypertension Graves disease Hypothyroid Father Heart problem Hypertension Brother No problems noted. Daughter No problems noted. Social History (Reviewed 01/25/25 @ 09:34 by MARTHA Chacon Household Members: Family Housing: House Are you a primary care technician to a significant other at home: No Do you presently have visiting nurse or other home services: No 75 years or older and lives alone: No Alcohol intake: never Patient Tobacco Use Status: Never used Tobacco service: No Physical Exam Vital Signs: Last Vital Signs Temp 98.0 F 01/25/25 09:33 Pulse 60 01/25/25 09:33 BP 159/87 H 01/25/25 09:33 Pulse Ox 98 01/25/25 09:33 Oxygen Delivery Method Room Air 01/25/25 09:33 BMI result Body Mass Index 42.1 GI Inspection: Yes normal to inspection (Gynecoid body habitus), Yes incision (well healed) and Yes obesity Palpation (GI): Soft to palpation Extrem Right lower extremity: normal to inspection Left lower extremity: normal to inspection Assessment & Plan Assessment & Plan (1) Cholelithiasis: Code(s): K80.20 - Calculus of gallbladder without cholecystitis without obstruction Category: Medical Qualifiers: Cholelithiasis location: gallbladder Cholecystitis presence: without cholecystitis Biliary obstruction: with biliary obstruction Qualified Code(s): K80.21 - Calculus of gallbladder without cholecystitis with obstruction Plan: 1. The patient was not aware of having a cholelithiasis. Now it appears symptomatic as she has right upper quadrant pain and elevated LFTs. We discussed in detail the importance of this finding. We also discussed that bariatric s urgery may accelerate the onset of symptoms of cholelithiasis and that is why elective cholecystectomy in indicated and recommended. We discussed in detail the potential complications and their management including bleeding, bile leak, pancreatitis and major bile duct injury. We also disucssed the need of postoperative use of injectable anticoagulation to prevent VTE. 2. Avoid aspirin, motrin, Advil, Aleve, Meloxicam, Excedrin, Ibuprofen, Naproxyn. Tylenol is OK. 3. A prescription for Zofran for nausea as needed was sent to the pharmacy 4. Stop the Eliquis as of Tuesday01/27/25 (last dose on Tuesday). Orders: Orders Comprehensive Met. Panel Today K80.20 - Calculus of gallbladder without cholecystitis without obstruction Prothrombin Time INR Today K80.20 - Calculus of gallbladder without cholecystitis without obstruction Type and Screen Today K80.20 - Calculus of gallbladder without cholecystitis without obstruction Amylase Today K80.20 - Calculus of gallbladder without cholecystitis without ob struction Complete Blood Count Auto Diff Today K80.20 - Calculus of gallbladder without cholecystitis without obstruction Partial Thromboplastin Time Today K80.20 - Calculus of gallbladder without cholecystitis without obstruction Bilirubin Direct Today K80.20 - Calculus of gallbladder without cholecystitis without obstruction
--- OUTSIDE RECORDS SUMMARY | 2025-01-25 09:20 | XMS_ITS | Continuity of Care Document ---
Author Organization [facility] [address] [place] [address] Phone [phone] Care Team Providers Care Concrete Paving Supervisor Name Role Phone Evy Manrique M.D. Care Team Informati on Ticket Agent [phone] Problems Active Problems Provider Date Morbid obesity [...] SIG Qnty Indications Order ing Provider Date [id number] Tablets 1 by mouth twice a day 180tabs Evy Manrique M.D. 09/28/2024 Meclizine VUW64lz Tablets 1 q 8 hours as needed 45tabs Evy Manrique M.D. 04/05/2024 Freestyle Lite TestStrips Use as directed for testing blood sugar once daily (DX:E11.9) 100units E11.9 Evy Manrique M.D. 10/31/2023 Levothyroxine [id number] Tablets take 1 tablet by mouth every day 90tabs Evy Manrique M.D. Flovent VHX075rwn/Act Aerosol 2 puff daily as needed 1gm Evy Manrique M.D. Proair MSP957(90Base) mcg/Act Aerosol 2 puffs every 4 hours [...] Date Facility Test Result H/L Range Note Hepatic Function Panel (7) 01/23/2025 [facility] Protein, Total 7.0 g/dL 6.0-8.5 Albumin 4.2 g/dL 3.9-4.9 Bilirubin, Total 0.2 mg/dL 0.0-1.2 Bilirubin, Direct 0.14 mg/dL 0.00-0. 40 Alkaline Phosphatase 99 IU/L 44-121 Ast (Sgot) 28 IU/L 0-40 Alt (SGPT) 61 IU/L High 0-32 TSH Rfx on Abnormal to Free T4 01/23/2025 [facility] TSH Rfx on Abnormal to Free T4 0.945 uIU/mL 0.450-4 .500 Hemoglobin A1c 01/23/2025 Inhouse Hemoglobin A1c 4.9% [...] sec High 9.1-12. 0 Protime Profile 12/15/2023 [facility] Protime 21.1 SEC High (9.2-11 .4) Internatnl Normalized Ratio 2.1 High (0.9-1. 1) 16 Protime Profile 12/09/2023 [facility] Protime 23.5 SEC High (9.2-11 .4) Internatnl Normalized Ratio 2.4 High (0.9-1. 1) 17 Protime Profile 12/05/2023 [facility] Protime 26.2 SEC High (9.2-11 .4) Internatnl Normalized Ratio 2.7 High (0.9-1. 1) 18 Protime Profile 12/01/2023 [facility] Protime 17.2 SEC High (9.2-11 .4) Internatnl Normalized Ratio 1.7 High (0.9-1. 1) 19 Protime Profile 11/29/2023 [facility] Protime 18.2 SEC High (9.2-11 .4) Internatnl Normalized Ratio 1.8 High (0.9-1. 1) 20 Protime Profile 11/27/2023 [facility] [id number] Duplicate Order Protime 35.0 SEC High (9.2-11 .4) Internatnl Normalized Ratio 3.7 High (0.9-1. 1) 21 Protime Profile 11/25/2023 [facility] Protime 47.1 SEC High (9.2-11 .4) Internatnl Normalized Ratio 5.1 Critical high (0.9-1. 1) 22 Protime Profile 11/15/2023 [facility] Protime 19.8 SEC High (9.2-11 .4) Internatnl Normalized Ratio 2.0 High (0.9-1. 1) 23 Glucose Fingerstick 11/07/2023 Inhouse Glucose Fingerstick 87 Protime Profile 09/21/2023 [facility] Protime 27.6 SEC High (9.2-11 .4) Internatnl Normalized Ratio 2.8 High (0.9-1. 1) 24 Hemoglobin A1c 08/24/2023 Inhouse Hemoglobin A1c 5.2% Glucose Fingerstick 08/24/2023 Inhouse Glucose Fingerstick 96 Protime Profile 08/17/2023 [facility] Protime 29.3 SEC High (9.2-11 .4) Internatnl Normalized Ratio 3.0 High (0.9-1. 1) 25 Protime Profile 07/25/2023 [facility] Protime 27.2 SEC High (9.2-11 .4) Internatnl Normalized Ratio 2.8 High (0.9-1. 1) 26 Protime Profile 06/16/2023 [facility] Protime 24.0 SEC High (9.2-11 .4) Internatnl Normalized Ratio 2.4 High (0.9-1. 1) 27 Protime Profile 05/30/2023 [facility] Protime 25.3 SEC High (9.2-11 .4) Internatnl Normalized Ratio 2.6 High (0.9-1. 1) 28 Protime Profile 05/11/2023 [facility] Protime 25.9 SEC High (9.2-11 .4) Internatnl Normalized Ratio 2.6 High (0.9-1. 1) 29 Protime Profile 04/27/2023 [facility] Protime 21.6 SEC High (9.2-11 .4) Internatnl Normalized Ratio 2.2 High (0.9-1. 1) 30 Protime Profile 04/19/2023 [facility] Protime 19.4 SEC High (9.2-11 .4) Internatnl Normalized Ratio 1.9 High (0.9-1. 1) 31 Protime Profile 04/11/2023 [facility] Protime 20.0 SEC High (9.2-11 .4) Internatnl Normalized Ratio 2.0 High (0.9-1. 1) 32 Protime Profile 04/07/2023 [facility] Protime 17.6 SEC High (9.2-11 .4) Internatnl Normalized Ratio 1.7 High (0.9-1. 1) 33 Protime Profile 04/01/2023 [facility] Protime 14.7 SEC High (9.2-11 .4) Internatnl Normalized Ratio 1.4 High (0.9-1. 1) 34 Hemoglobin A1c 03/25/2023 Inhouse Hemoglobin A1c 5.5% Glucose Fingerstick 03/25/2023 Inhouse Glucose Fingerstick 101 Protime Profile 03/03/2023 [facility] Protime 20.6 SEC High (9.2-11 .4) Internatnl Normalized Ratio 2.1 High (0.9-1. 1) 35 Comprehensive Metabolic Panl 02/02/2023 [facility] Glucose 115 mg/dL High [...] 101 ML/MIN/1.73 M2 36 Lipid Panel 02/02/2023 [facility] Cholesterol, Total 172 mg/dL (<200) Triglyceride 122 mg/dL (<150) HDL Chol 48 mg/dL (>39) LDL Cholesterol, Calculated 100 mg/dL (0-130) Non HDL Cholesterol (Calc) 124 mg/dL (<160) Complete Abc With Diff 02/02/2023 [facility] WBC 8.0 K/MM3 (4.0-11 [...] 0) Lymph # 2.2 K/MM3 (0.8-3. 1) [place]# 0.6 K/MM3 (0.4-0. 9) Eo # 0.3 K/MM3 (0.0-0. 4) Baso # 0.0 K/MM3 (0.0-0. 1) Abs. Imm Gran 0.0 K/MM3 Neut 61.3 % (44-76) Lymph 27.5 % (15-43) Monocyte 6.9 % (4.5-10 .5) Eo 3.5 % (0-6) Baso 0.5 % (0-2) Imm Gran 0.3 % TSH With Reflex To FT4 02/02/2023 [facility] TSH With Reflex To FT4 2.44 uIU/mL (0.4-4. 2) Protime Profile 02/02/2023 [facility] Protime 21.0 SEC High (9.2-11 .4) Internatnl Normalized Ratio 2.1 High (0.9-1. 1) 37 Protime Profile 01/25/2023 [facility] Protime 19.1 SEC High (9.2-11 .4) Internatnl Normalized Ratio 1.9 High (0.9-1. 1) 38 Protime Profile 12/23/2022 [facility] Protime 25.3 SEC High (9.2-11 .4) Internatnl Normalized Ratio 2.6 High (0.9-1. 1) 39 Protime Profile 12/09/2022 [facility] Protime 21.4 SEC High (9.2-11 .4) Internatnl Normalized Ratio 2.1 High (0.9-1. 1) 40 Glucose Fingerstick 11/25/2022 Inhouse Glucose Fingerstick 111 Hemoglobin A1c 11/25/2022 Inhouse Hemoglobin A1c 5.6% Protime Profile 11/18/2022 [facility] Protime 22.9 SEC High (9.2-11 .4) Internatnl Normalized Ratio 2.3 High (0.9-1. 1) 41 Protime Profile 11/11/2022 [facility] Protime 21.8 SEC High (9.2-11 .4) Internatnl Normalized Ratio 2.2 High (0.9-1. 1) 42 Protime Profile 11/05/2022 [facility] Protime 18.0 SEC High (9.2-11 .4) Internatnl Normalized Ratio 1.8 High (0.9-1. 1) 43 Protime Profile 10/22/2022 [facility] Protime 25.1 SEC High (9.2-11 .4) Internatnl Normalized Ratio 2.5 High (0.9-1. 1) 44 Protime Profile 10/14/2022 [facility] Protime 22.1 SEC High (9.2-11 .4) Internatnl Normalized Ratio 2.2 High (0.9-1. 1) 45 Protime Profile 10/07/2022 [facility] Protime 19.2 SEC High (9.2-11 .4) Internatnl Normalized Ratio 1.9 High (0.9-1. 1) 46 Protime Profile 09/30/2022 [facility] Protime 19.7 SEC High (9.2-11 .4) Internatnl Normalized Ratio 2.0 High (0.9-1. 1) 47 Protime Profile 09/23/2022 [facility] Protime 21.5 SEC High (9.2-11 .4) Internatnl Normalized Ratio 2.2 High (0.9-1. 1) 48 Protime Profile 09/18/2022 [facility] Protime 37.1 SEC High (9.2-11 .4) Internatnl Normalized Ratio 3.9 High (0.9-1. 1) 49 Protime Profile 09/09/2022 [facility] Protime 30.8 SEC High (9.2-11 .4) Internatnl Normalized Ratio 3.1 High (0.9-1. 1) 50 Protime Profile 08/31/2022 [facility] Protime 26.1 SEC High (9.2-11 .4) Internatnl Normalized Ratio 2.6 High (0.9-1. 1) 51 Protime Profile 08/26/2022 [facility] Protime 25.9 SEC High (9.2-11 .4) Internatnl Normalized Ratio 2.6 High (0.9-1. 1) 52 Protime Profile 08/18/2022 [facility] Protime 18.1 SEC High (9.2-11 .4) Internatnl Normalized Ratio 1.8 High (0.9-1. 1) 53 Protime Profile 08/12/2022 [facility] Protime 15.0 SEC High (9.2-11 .4) Internatnl Normalized Ratio 1.5 High (0.9-1. 1) 54 Protime Profile 08/06/2022 [facility] Protime 20.0 SEC High (9.2-11 .4) Internatnl Normalized Ratio 2.0 High (0.9-1. 1) 55 Hemoglobin A1c 07/30/2022 Inhouse Hemoglobin A1c 6.1 Glucose Fingerstick 07/30/2022 Inhouse Glucose Fingerstick 147 Protime Profile 07/26/2022 [facility] Protime 26.3 SEC High (9.2-11 .4) Internatnl Normalized Ratio 2.7 High (0.9-1. 1) 56 Protime Profile 07/05/2022 [facility] Protime 18.0 SEC High (9.2-11 .4) Internatnl Normalized Ratio 1.8 High (0.9-1. 1) 57 Protime Profile 06/24/2022 [facility] Protime 20.9 SEC High (9.2-11 .4) Internatnl Normalized Ratio 2.1 High (0.9-1. 1) 58 Protime Profile 06/18/2022 [facility] Protime 19.1 SEC High (9.2-11 .4) Internatnl Normalized Ratio 1.9 High (0.9-1. 1) 59 Protime Profile 06/03/2022 [facility] Protime 28.7 SEC High (9.2-11 .4) Internatnl Normalized Ratio 2.9 High (0.9-1. 1) 60 Protime Profile 05/18/2022 [facility] Protime 24.2 SEC High (9.2-11 .4) Internatnl Normalized Ratio 2.5 High (0.9-1. 1) 61 Protime Profile 05/11/2022 [facility] [id number] Duplicate order <SEE NOTE> 62 Protime Profile 05/11/2022 [facility] Protime 19.0 SEC High (9.2-11 .4) Internatnl Normalized Ratio 1.9 High (0.9-1. 1) 63 Protime Profile 05/04/2022 [facility] Protime 19.4 SEC High (9.2-11 .4) Internatnl Normalized Ratio 1.9 High (0.9-1. 1) 64 Protime Profile 04/30/2022 [facility] Protime 15.2 SEC High (9.2-11 .4) Internatnl Normalized Ratio 1.5 High (0.9-1. 1) 65 Protime Profile 04/26/2022 [facility] Protime 12.2 SEC High (9.2-11 [...] VALVES. Procedures Date Code Description Status 01/23/2025 58620 Collection Of Venous Blood B y Venipuncture Completed 01/06/2024 29756 Remove Impacted Cerumen Comp leted 01/06/2024 85188 Collection Of Venous Blood B y Venipuncture [...] Code Description Provider 01/23/2025 Z00.00 Encounter for [facility] adult medical examination without abnormal findings Evy [...] Reason for Referral Status Appt Aniket e [facility] On[facility] unprovo ked pulmonary emboli 2020, on warfarin b/o morbid obesity question medication management Closed 08/09/2024 [address] [place] [address] [phone] [facility] LEFT SHOULDER PAIN X 2 MONTHS Closed 05/10/2023 [address] [place] [address] [phone] [facility] 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
--- OUTSIDE RECORDS SUMMARY | 2025-01-25 09:21 | XMS_ITS | Clinical Summary ---
Author Organization [facility] Address [address] [place] [address] Phone Care Team Providers Care Lodging Facilities Attendant Name Role Phone Evy Manrique MD Primary Care Provid er Encounters Date Type Department Care Team Description 12/04/2024 2:00 PM EST - 12/04/2024 11:59 PM EST Hospital Encounter [facility] Ultrasound [address] [place] [phone] STANTON (nonalcoholic steatohepatitis) Discharge Disposition: Home or Self Care 11/27/2024 Telephone Gastroenterology - [address] [phone] Peter Nelson MD from Last 3 Months [...] score F1 (normal to mild). Telerad JENNIFER ([id number]) -------- FINAL REPORT -------- Dictated By: Milagros Wade Dictated Date: 12/10/2024 16:01 ET Assigned Physician: Milagros Wade Reviewed and Electronically Signed By: Milagros Wade Signed Date: 12/10/2024 16:02 ET Workstation ID: [id number] Transcribed By: Self Edit Transcribed Date: 12/10/2024 16:01 ET Narrative 12/10/2024 4:02 PM EST History: STANTON. Findings: Hepatic shear wave elastography (mean value) is 1.36 m/s, corresponding to a Metavir score of F1 (normal - mild) 1.35-1.66. Procedure Note Milagrso Wade MD - 12/10/2024 History: STANTON. Findings: Hepatic shear wave elastography (mean value) is 1.36 m/s, corresponding toa Metavir score of F1 (normal - mild) 1.35-1.66. IMPRESSION: Impression: Metavir score F1 (normal to mild). Telerad JENNIFER ([id number]) -------- FINAL REPORT -------- Dictated By: Milagros Wade Dictated Date: 12/10/2024 16:01 ET Assigned Physician: Milagros Wade Reviewed and Electronically Signed By: Milagros Wade Signed Date: 12/10/2024 16:02 ET Workstation ID: [id number] Transcribed By: Self Edit Transcribed Date: 12/10/2024 16:01 ET Peter Nelson MD [facility] PROCEDURES Final Result from Last 3 Months Insurance [address] [place] [address] Care Teams Lodging Facilities Attendant Relationship Specialty Start Date End Date Evy Manrique MD [address] [place] [address] [address] [place] [address] PCP - General Endocrinology 12/04/24
[2025-01-25 09:33] VITALS: BP 159/87; PULSE 60; TEMP 36.7; O2SAT 98; BMI 42.1
== END 2025-01-25 09:57 | disposition home or self-care (01) ==
LOC: HO.HBS 08:56
PROVIDERS: Visit Provider Surgery
DX: K80.21 Calculus of gallbladder without cholecystitis with obstruction (principal)
CPT/HCPCS: 99214

== ENCOUNTER 2025-02-01 06:45 | Day surgery (SDC) | payer OTHER, SELFPAY ==
--- OUTSIDE RECORDS SUMMARY | 2025-01-24 15:02 | XMS_ITS | Clinical Summary ---
Author Organization [facility] Address [address] [place] [address] Phone Care Team Providers Care Plywood Layup Line Core Layer Name Role Phone Evy Manrique MD Primary Care Provid er Encounters Date Type Department Care Team Description 12/04/2024 2:00 PM EST - 12/04/2024 11:59 PM EST Hospital Encounter [facility] Ultrasound [address] [place] [phone] STANTON (nonalcoholic steatohepatitis) Discharge Disposition: Home or Self Care 11/27/2024 Telephone Gastroenterology - [address] [phone] Peter Nelson MD from Last 3 Months [...] score F1 (normal to mild). Telerad JENNIFER ([id number]) -------- FINAL REPORT -------- Dictated By: Milagros Wade Dictated Date: 12/10/2024 16:01 ET Assigned Physician: Milagros Wade Reviewed and Electronically Signed By: Milagros Wade Signed Date: 12/10/2024 16:02 ET Workstation ID: [id number] Transcribed By: Self Edit Transcribed Date: 12/10/2024 [...] Metavir score F1 (normal to mild). Telerad JNENIFER ([id number]) -------- FINAL REPORT -------- Dictated By: Milagros Wade Dictated Date: 12/10/2024 16:01 ET Assigned Physician: Milagros Wade Reviewed and Electronically Signed By: Milagros Wade Signed Date: 12/10/2024 16:02 ET Workstation ID: [id number] Transcribed By: Self Edit Transcribed Date: 12/10/2024 16:01 ET Peter Nelson MD [facility] PROCEDURES Final Result from Last 3 Months Insurance [address] [place] [address] Care Teams Plywood Layup Line Core Layer Relationship Specialty Start Date End Date Evy Manrique MD [address] [place] [address] [address] [place] [address] PCP - General Endocrinology 12/04/24
--- OUTSIDE RECORDS SUMMARY | 2025-01-24 15:02 | XMS_ITS | Continuity of Care Document ---
Author Organization [facility] [address] [place] [address] Phone [phone] Care Team Providers Care Ripper Operator Name Role Phone Evy Manrique M.D. Care Team Informati on Puppy Sitter [phone] Problems Active Problems Provider Date Morbid obesity [...] SIG Qnty Indications Order ing Provider Date Nuvhbhe9ie Tablets 1 by mouth twice a day 180tabs Evy Manrique M.D. 09/28/2024 Meclizine NWL26tt Tablets 1 q 8 hours as needed 45tabs Evy Manrique M.D. 04/05/2024 Freestyle Lite TestStrips Use as directed for testing blood sugar once daily (DX:E11.9) 100units E11.9 Evy Manrique M.D. 10/31/2023 Levothyroxine [id number] Tablets take 1 tablet by mouth every day 90tabs Evy Manrique M.D. Flovent ZII589ncc/Act Aerosol 2 puff daily as needed 1gm Evy Manrique M.D. Proair WCG721(90Base) mcg/Act Aerosol 2 puffs every 4 hours as needed 1gm Evy Manrique M.D. Metamucil0.36gm Capsules 4 by mouth every day Evy Manrique M.D. Multivitamin Adult (Minerals)Tablets 1 by mouth every day Unknown Vital Signs Date Vital Result Comment 01/23/2025 1:55pm BP Systolic 120 mmHg BP Diastolic 74 mmHg Heart Rate 96 /min Height 64 inches 5'4 Weight 247.50 lb BMI (Body Mass Index) 42.5 kg/m2 Results Test Acquired Date Facility Test Result H/L Range Note TSH RFX On Abnormal To Free T4 01/23/2025 [facility] TSH RFX On Abnormal To Free T4 <pending> Hemoglobin A1c 01/23/2025 Inhouse Hemoglobin A1c 4.9% Glucose Fingerstick 01/23/2025 Inhouse Glucose Fingerstick 112 Hepatitis A Antibody, Igm 01/23/2025 [facility] Hepatitis A Antibody, Igm <pending> Hepatitis B Surface Antigen 01/23/2025 [facility] Hepatitis B Surface Antigen <pending> Hepatitis C Virus (HCV) Antibody 01/23/2025 [facility] Hepatitis C Virus (HCV) Antibody <pending> Hep B Surface AB, Qual 01/23/2025 [facility] Hep B Surface AB, Qual <pending> Prothrombin Time (PT) 12/08/2024 [facility] Inr 2.0 [...] Prothrombin Time 19.9 SEC High 9.2-11. 4 Comp. Metabolic Panel (14) 09/28/2024 [facility] Glucose [...] to Free T4 1.770 uIU/mL 0.450-4 .500 Glucose Fingerstick 09/28/2024 Inhouse Glucose Fingerstick 91 Hemoglobin A1c 09/28/2024 Inhouse Hemoglobin A1c 4.9% Prothrombin Time (PT) 09/19/2024 [facility] Inr 1.7 [...] Prothrombin Time 20.2 SEC High 9.2-11. 4 Hemoglobin A1c 05/09/2024 Inhouse Hemoglobin A1c 4.9% Glucose Fingerstick 05/09/2024 Inhouse Glucose Fingerstick 85 Prothrombin Time (PT) 05/08/2024 [facility] Inr 2.1 [...] Prothrombin Time 23.1 sec High 9.1-12. 0 Glucose Fingerstick 01/06/2024 Inhouse Glucose Fingerstick 88 Hemoglobin A1c 01/06/2024 Inhouse Hemoglobin A1c 4.7% TSH Rfx on Abnormal to Free T4 01/06/2024 [facility] TSH Rfx on Abnormal to Free T4 1.320 uIU/mL 0.450-4 .500 CBC With Differential/Fernando telet 01/06/2024 [facility] WBC [...] Hematology Comments: TNP Comp. Metabolic Panel (14) 01/06/2024 [facility] Glucose [...] 0-40 Alt (SGPT) 80 IU/L High 0-32 Prothrombin Time (PT) 01/05/2024 [facility] Inr 2.3 High 0.9-1.1 Prothrombin Time 23.3 SEC High 9.2-11. 4 Prothrombin Time (PT) 12/29/2023 [facility] Inr 2.1 High 0.9-1.2 14 Prothrombin Time 21.2 sec High 9.1-12. 0 Prothrombin Time (PT) 12/22/2023 [facility] Inr 1.9 High 0.9-1.2 15 Prothrombin Time 19.8 sec High 9.1-12. 0 Protime Profile 12/15/2023 [facility] Protime 21.1 SEC High (9.2-11 .4) Internatnl Normalized Ratio 2.1 High (0.9-1. 1) 16 Protime Profile 12/09/2023 [facility] Protime 23.5 SEC High (9.2-11 .4) Internatnl Normalized Ratio 2.4 High (0.9-1. 1) 17 Protime Profile 12/05/2023 [facility] Protime 26.2 SEC High (9.2-11 .4) Internatnl Normalized Ratio 2.7 High (0.9-1. 1) 18 Protime Profile 12/01/2023 [facility] Protime 17.2 SEC High (9.2-11 .4) Internatnl Normalized Ratio 1.7 High (0.9-1. 1) 19 Protime Profile 11/29/2023 [facility] Protime 18.2 SEC High (9.2-11 .4) Internatnl Normalized Ratio 1.8 High (0.9-1. 1) 20 Protime Profile 11/27/2023 [facility] [id number] Duplicate Order Protime 35.0 SEC High (9.2-11 .4) Internatnl Normalized Ratio 3.7 High (0.9-1. 1) 21 Protime Profile 11/25/2023 [facility] Protime 47.1 SEC High (9.2-11 .4) Internatnl Normalized Ratio 5.1 Critical high (0.9-1. 1) 22 Protime Profile 11/15/2023 [facility] Protime 19.8 SEC High (9.2-11 .4) Internatnl Normalized Ratio 2.0 High (0.9-1. 1) 23 Glucose Fingerstick 11/07/2023 Inhouse Glucose Fingerstick 87 Protime Profile 09/21/2023 [facility] Protime 27.6 SEC High (9.2-11 .4) Internatnl Normalized Ratio 2.8 High (0.9-1. 1) 24 Hemoglobin A1c 08/24/2023 Inhouse Hemoglobin A1c 5.2% Glucose Fingerstick 08/24/2023 Inhouse Glucose Fingerstick 96 Protime Profile 08/17/2023 [facility] Protime 29.3 SEC High (9.2-11 .4) Internatnl Normalized Ratio 3.0 High (0.9-1. 1) 25 Protime Profile 07/25/2023 [facility] Protime 27.2 SEC High (9.2-11 .4) Internatnl Normalized Ratio 2.8 High (0.9-1. 1) 26 Protime Profile 06/16/2023 [facility] Protime 24.0 SEC High (9.2-11 .4) Internatnl Normalized Ratio 2.4 High (0.9-1. 1) 27 Protime Profile 05/30/2023 [facility] Protime 25.3 SEC High (9.2-11 .4) Internatnl Normalized Ratio 2.6 High (0.9-1. 1) 28 Protime Profile 05/11/2023 [facility] Protime 25.9 SEC High (9.2-11 .4) Internatnl Normalized Ratio 2.6 High (0.9-1. 1) 29 Protime Profile 04/27/2023 [facility] Protime 21.6 SEC High (9.2-11 .4) Internatnl Normalized Ratio 2.2 High (0.9-1. 1) 30 Protime Profile 04/19/2023 [facility] Protime 19.4 SEC High (9.2-11 .4) Internatnl Normalized Ratio 1.9 High (0.9-1. 1) 31 Protime Profile 04/11/2023 [facility] Protime 20.0 SEC High (9.2-11 .4) Internatnl Normalized Ratio 2.0 High (0.9-1. 1) 32 Protime Profile 04/07/2023 [facility] Protime 17.6 SEC High (9.2-11 .4) Internatnl Normalized Ratio 1.7 High (0.9-1. 1) 33 Protime Profile 04/01/2023 [facility] Protime 14.7 SEC High (9.2-11 .4) Internatnl Normalized Ratio 1.4 High (0.9-1. 1) 34 Hemoglobin A1c 03/25/2023 Inhouse Hemoglobin A1c 5.5% Glucose Fingerstick 03/25/2023 Inhouse Glucose Fingerstick 101 Protime Profile 03/03/2023 [facility] Protime 20.6 SEC High (9.2-11 .4) Internatnl Normalized Ratio 2.1 High (0.9-1. 1) 35 Comprehensive Metabolic Panl 02/02/2023 [facility] Glucose 115 mg/dL High [...] (0-33) Estimated GFR Creatinine 101 ML/MIN/1.73 M2 36 Lipid Panel 02/02/2023 [facility] Cholesterol, Total 172 mg/dL (<200) Triglyceride 122 mg/dL (<150) HDL Chol 48 mg/dL (>39) LDL Cholesterol, Calculated 100 mg/dL (0-130) Non HDL Cholesterol (Calc) 124 mg/dL (<160) Complete Abc With Diff 02/02/2023 [facility] WBC 8.0 K/MM3 (4.0-11 [...] 0) Lymph # 2.2 K/MM3 (0.8-3. 1) Erath# 0.6 K/MM3 (0.4-0. 9) Eo # 0.3 K/MM3 (0.0-0. 4) Baso # 0.0 K/MM3 (0.0-0. 1) Abs. Imm Gran 0.0 K/MM3 Neut 61.3 % (44-76) Lymph 27.5 % (15-43) Monocyte 6.9 % (4.5-10 .5) Eo 3.5 % (0-6) Baso 0.5 % (0-2) Imm Gran 0.3 % TSH With Reflex To FT4 02/02/2023 [facility] TSH With Reflex To FT4 2.44 uIU/mL (0.4-4. 2) Protime Profile 02/02/2023 [facility] Protime 21.0 SEC High (9.2-11 .4) Internatnl Normalized Ratio 2.1 High (0.9-1. 1) 37 Protime Profile 01/25/2023 [facility] Protime 19.1 SEC High (9.2-11 .4) Internatnl Normalized Ratio 1.9 High (0.9-1. 1) 38 Protime Profile 12/23/2022 [facility] Protime 25.3 SEC High (9.2-11 .4) Internatnl Normalized Ratio 2.6 High (0.9-1. 1) 39 Protime Profile 12/09/2022 [facility] Protime 21.4 SEC High (9.2-11 .4) Internatnl Normalized Ratio 2.1 High (0.9-1. 1) 40 Glucose Fingerstick 11/25/2022 Inhouse Glucose Fingerstick 111 Hemoglobin A1c 11/25/2022 Inhouse Hemoglobin A1c 5.6% Protime Profile 11/18/2022 [facility] Protime 22.9 SEC High (9.2-11 .4) Internatnl Normalized Ratio 2.3 High (0.9-1. 1) 41 Protime Profile 11/11/2022 [facility] Protime 21.8 SEC High (9.2-11 .4) Internatnl Normalized Ratio 2.2 High (0.9-1. 1) 42 Protime Profile 11/05/2022 [facility] Protime 18.0 SEC High (9.2-11 .4) Internatnl Normalized Ratio 1.8 High (0.9-1. 1) 43 Protime Profile 10/22/2022 [facility] Protime 25.1 SEC High (9.2-11 .4) Internatnl Normalized Ratio 2.5 High (0.9-1. 1) 44 Protime Profile 10/14/2022 [facility] Protime 22.1 SEC High (9.2-11 .4) Internatnl Normalized Ratio 2.2 High (0.9-1. 1) 45 Protime Profile 10/07/2022 [facility] Protime 19.2 SEC High (9.2-11 .4) Internatnl Normalized Ratio 1.9 High (0.9-1. 1) 46 Protime Profile 09/30/2022 [facility] Protime 19.7 SEC High (9.2-11 .4) Internatnl Normalized Ratio 2.0 High (0.9-1. 1) 47 Protime Profile 09/23/2022 [facility] Protime 21.5 SEC High (9.2-11 .4) Internatnl Normalized Ratio 2.2 High (0.9-1. 1) 48 Protime Profile 09/18/2022 [facility] Protime 37.1 SEC High (9.2-11 .4) Internatnl Normalized Ratio 3.9 High (0.9-1. 1) 49 Protime Profile 09/09/2022 [facility] Protime 30.8 SEC High (9.2-11 .4) Internatnl Normalized Ratio 3.1 High (0.9-1. 1) 50 Protime Profile 08/31/2022 [facility] Protime 26.1 SEC High (9.2-11 .4) Internatnl Normalized Ratio 2.6 High (0.9-1. 1) 51 Protime Profile 08/26/2022 [facility] Protime 25.9 SEC High (9.2-11 .4) Internatnl Normalized Ratio 2.6 High (0.9-1. 1) 52 Protime Profile 08/18/2022 [facility] Protime 18.1 SEC High (9.2-11 .4) Internatnl Normalized Ratio 1.8 High (0.9-1. 1) 53 Protime Profile 08/12/2022 [facility] Protime 15.0 SEC High (9.2-11 .4) Internatnl Normalized Ratio 1.5 High (0.9-1. 1) 54 Protime Profile 08/06/2022 [facility] Protime 20.0 SEC High (9.2-11 .4) Internatnl Normalized Ratio 2.0 High (0.9-1. 1) 55 Hemoglobin A1c 07/30/2022 Inhouse Hemoglobin A1c 6.1 Glucose Fingerstick 07/30/2022 Inhouse Glucose Fingerstick 147 Protime Profile 07/26/2022 [facility] Protime 26.3 SEC High (9.2-11 .4) Internatnl Normalized Ratio 2.7 High (0.9-1. 1) 56 Protime Profile 07/05/2022 [facility] Protime 18.0 SEC High (9.2-11 .4) Internatnl Normalized Ratio 1.8 High (0.9-1. 1) 57 Protime Profile 06/24/2022 [facility] Protime 20.9 SEC High (9.2-11 .4) Internatnl Normalized Ratio 2.1 High (0.9-1. 1) 58 Protime Profile 06/18/2022 [facility] Protime 19.1 SEC High (9.2-11 .4) Internatnl Normalized Ratio 1.9 High (0.9-1. 1) 59 Protime Profile 06/03/2022 [facility] Protime 28.7 SEC High (9.2-11 .4) Internatnl Normalized Ratio 2.9 High (0.9-1. 1) 60 Protime Profile 05/18/2022 [facility] Protime 24.2 SEC High (9.2-11 .4) Internatnl Normalized Ratio 2.5 High (0.9-1. 1) 61 Protime Profile 05/11/2022 [facility] [id number] Duplicate order <SEE NOTE> 62 Protime Profile 05/11/2022 [facility] Protime 19.0 SEC High (9.2-11 .4) Internatnl Normalized Ratio 1.9 High (0.9-1. 1) 63 Protime Profile 05/04/2022 [facility] Protime 19.4 SEC High (9.2-11 .4) Internatnl Normalized Ratio 1.9 High (0.9-1. 1) 64 Protime Profile 04/30/2022 [facility] Protime 15.2 SEC High (9.2-11 .4) Internatnl Normalized Ratio 1.5 High (0.9-1. 1) 65 Protime Profile 04/26/2022 [facility] Protime 12.2 SEC High (9.2-11 [...] PATIENTS WITH MECHANICAL PROSTHETIC HEART VALVES. 36 Creatinine based est imated glomerular filtration (eGFR) in adults is calculated using the [employer] recommended 2020 CKD-EPI equation. Estimates GFR from serum creatinine, age and sex. 37 SUGGESTED VALUE OF 2 .0-3.0 FOR [...] HEART VALVES. Procedures Date Code Description Status 01/23/2025 14089 Collection Of Venous Blood B y Venipuncture Completed 01/06/2024 93573 Remove Impacted Cerumen Comp leted 01/06/2024 74510 Collection Of Venous Blood B y Venipuncture Completed Medical Devices Description No Information Available Encounters Type Date Location Provider Dx Diagnosis Office Visit 01/23/2025 1:30p Main Office Evy Manrique M.D. Z00.00 Encntr for general adult medical exam w/o abnormal findings E03.9 Hypothyroidism, unsp ecified R74.01 Elevation of levels of liver transaminase levels Z86.718 Personal history of other venous thrombosis and embolism E66.01 Morbid (severe) obes ity due to excess calories K75.81 Nonalcoholic steatoh epatitis (Dietz) D68.69 Other thrombophilia E11.9 Type 2 diabetes igor itus without complications Z68.41 Body mass index [BMI ] 40.0-44.9, adult Assessments Date Code Description Provider 01/23/2025 Z00.00 Encounter for [facility] adult medical examination without abnormal findings Evy Manrique M.D. 01/23/2025 E03.9 Hypothyroidism, unspecified Evy Manrique M.D. 01/23/2025 R74.01 Elevation of lev els of liver transaminase levels Evy Manrique M.D. 01/23/2025 Z86.718 Personal history of other venous thrombosis and embolism Evy Manrique M.D. 01/23/2025 E66.01 Morbid (severe) obesity due to excess calories Evy Manrique M.D. 01/23/2025 K75.81 Nonalcoholic steatohepatitis (Dietz) Evy Manrique M.D. 01/23/[address] ate NOS Evy Manrique M.D. 01/23/2025 E11.9 Type 2 diabetes mellitus without complications Evy Manrique M.D. 01/23/2025 Z68.41 Body mass index [BMI] 40.0-44.9, adult Evy Manrique M.D. Plan of Treatment Future Appointment(s):* 06/12/2025 1:15 pm - Evy Manrique M.D. at Main Office 01/23/2025 - Evy Manrique M.D.* Z00.00 Encounter for general adult medical examination without abnormal findings * E03.9 Hypothyroidism, unspecified * R74.01 Elevation of levels of liver transaminase levels * Z86.718 Personal history of other venous thrombosis and embolism * E66.01 Morbid (severe) obesity due to excess calories * K75.81 Nonalcoholic steatohepatitis (Dietz) * D68.69 Secondary hypercoagulable state NOS * E11.9 Type 2 diabetes mellitus without complications * Z68.41 Body mass index [BMI] 40.0-44.9, adult Functional Status Description No Information Available Mental Status Description No Information Available Referrals Refer to Dr Reason for Referral Status Appt Aniket e [facility] unprovo ked pulmonary emboli 2020, on warfarin b/o morbid obesity question medication management Closed 08/09/2024 [address] [place], [place] [id number] [phone] [facility] LEFT SHOULDER PAIN X 2 MONTHS Closed 05/10/2023 [address] [facility] [place] [address] [phone] [facility] Central [employer] 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
[2025-01-25 10:21] LABS: MANUAL DIFF FLAG NO
[2025-01-25 10:55] LABS: Basophils Percent Auto 0.4 % (0-2); Eosinophils Absolute Auto 0.1 X10*3/uL (0.0-0.4); Eosinophils Percent Auto 2.3 % (0-4); Hematocrit 44.6 % (37.0-47.0); Hemoglobin 14.8 g/dl (12.0-16.0); Imm Gran Abs Auto 0.01 X10*3/uL (0.00-0.03); Imm Gran Pct Auto 0.2 % (0.0-0.4); Lymphocytes Absolute Auto 1.8 X10*3/uL (1.2-4.9); Lymphocytes Percent Auto 34.9 % (20-40); Mean Corpuscular HGB Conc 33.2 g/dl (31.0-35.0); Mean Corpuscular Hemoglobin 31.6 pg (27.0-33.0); Mean Corpuscular Volume 95.1 fL (80.0-98.0); Mean Platelet Volume 10.6 fL (9.4-12.3); Monocytes Absolute Auto 0.5 X10*3/uL (0.1-1.2); Monocytes Percent Auto 9.2 % (2-11); Neutrophils Absolute Auto 2.8 x10*3/uL (2.0-8.3); Platelet Count 319 X10*3/uL (160-400); Red Blood Count 4.69 X10*6/uL (4.20-5.50); Red Cell Distribution Width 13.2 % (11.0-16.0); White Blood Count 5.2 X10*3/uL (4.8-10.8)
[2025-01-25 10:59] LABS: INTERNATIONAL NORM RATIO 1.3 (0.9-1.1); Prothrombin Time 15.3 SEC (10.9-12.4)
[2025-01-25 11:02] LABS: Partial Thromboplastin Time 39.4 SEC (26.0-36.8)
[2025-01-25 11:33] LABS: Alanine Aminotransferase 58 U/L (0-31); Albumin Level 3.9 g/dL (3.5-5.0); Anion Gap 11 (12-20); Aspartate Amino Transferase 28 U/L (5-31); Bilirubin Direct 0.2 mg/dL (0.0-0.5); Bilirubin Total 0.5 mg/dL (0.0-1.0); Blood Urea Nitrogen 16 mg/dL (9-16); Calcium 10.6 mg/dL (8.4-10.2); Carbon Dioxide 28 mmol/L (22-29); Chloride 107 mmol/L (96-108); Estimated Glomerular Filt Rate > 60; Glucose Random 89 mg/dL (60-115); Potassium 4.4 mmol/L (3.3-5.1); Sodium 142 mmol/L (135-145); Total Protein 7.1 g/dL (6.5-8.0)
[2025-01-25 19:43] LABS: Alkaline Phosphatase 82 U/L (39-117); Amylase 49 U/L (28-100)
--- NOTE | 2025-01-31 08:44 | HO.ANESPROP2 ---
Documented by User: Chantell Kelly NP 01/31/25 08:45 HPI - Anesthesia Eval Consult details Narrative: 49yo F for Cholecystectomy Laparoscopic BMI 42 Eliquis for hx PE PMFSH Active Problems Active Problems: All Active Problems Elevated liver enzymes (Acute) Cholelithiasis (Acute) Right upper quadrant abdominal pain (Acute) Excess skin (Acute) Panniculitis (Acute) Constipation (Acute) S/P laparoscopic sleeve gastrectomy (Acute) Hepatomegaly (Acute) Liver fibrosis (Acute) Chronic anticoagulation (Acute) Steatosis, liver (Acute) GISSELLE on CPAP (Acute) Pulmonary embolus (Acute) Hypothyroid (Acute) HTN (hypertension), benign (Acute) Morbid obesity (Acute) Past Medical History Medical History Adjustment disorder Fatty liver Bilateral knee pain HTN (hypertension) History of asthma GISSELLE on CPAP Hx pulmonary embolism Hypothyroidism Diabetes PONV (postoperative nausea and vomiting) Sleep apnea Family History Family History Mother Diabetes Hypertension Graves disease Hypothyroid Father Heart problem Hypertension Brother No problems noted. Daughter No problems noted. Family history of problems with anesthesia: No Surgical History Surgical History S/P laparoscopic sleeve gastrectomy History of removal of skin mole Hx of colonoscopy Hx of dilation and curettage History of facial surgery Hx of section History of Problems with Anesthesia: No Social History Social History Household Members: Family Housing: House Are you a primary managed care specialist to a significant other at home: No Do you presently have visiting nurse or other home services: No Alcohol intake: never Patient Tobacco Use Status: Never used Tobacco Advance Directives: No Advance Directives Information Provided: Yes service: No Meds Allergies Allergy/AdvReac Type Severity Reaction Status Date / Time Penicillins Allergy Intermediate rash, all Verified 01/25/25 09:51 over body Home Medications ?Medication ?Instructions ?Recorded ?Confirmed ?Last Taken ?Type levothyroxine 100 mcg capsule 100 mcg PO DAILY@0600 03/25/22 01/25/25 02/01/25 History 0615 albuterol sulfate 90 mcg/actuation 2 puff inhalation QID PRN 10/13/23 01/25/25 Unknown History aerosol inhaler Shortness Of Breath Or Wheezing apixaban 5 mg tablet (Eliquis) 5 mg PO BID 01/14/25 01/25/25 01/27/25 History hqvbewql-ewjfmlkg-ponx 45 mg-folic cap PO 01/25/25 01/25/25 01/31/25 History acid 800 mcg-vit K 120 mcg capsule (Bariatric Multivitamins) Exam Pertinent Lab Results Pertinent Lab Results: Laboratory Tests 01/25/25 01/25/25 10:16 10:19 WBC 5.2 RBC 4.69 Hgb 14.8 Hct 44.6 MCV 95.1 MCH 31.6 MCHC 33.2 RDW 13.2 Plt Count 319 MPV 10.6 Immature Gran % (Auto) 0.2 Neut % (Auto) 53.0 Lymph % (Auto) 34.9 [place] % (Auto) 9.2 Eos % (Auto) 2.3 Baso % (Auto) 0.4 Lymph # (Auto) 1.8 [place] # (Auto) 0.5 Eos # (Auto) 0.1 Baso # (Auto) 0.0 Abs Immat Gran (auto) 0.01 Absolute Neuts (auto) 2.8 Absolute Nucleated RBC 0.000 Nucleated RBC % (auto) 0.0 PT 15.3 H INR 1.3 H APTT 39.4 H Sodium 142 Potassium 4.4 Chloride 107 Carbon Dioxide 28 Anion Gap 11 L BUN 16 Creatinine 0.61 Estim Creat Clear Calc TNP Estimated GFR > 60 Random Glucose 89 Calcium 10.6 H D Total Bilirubin 0.5 Direct Bilirubin 0.2 AST 28 ALT 58 H Alkaline Phosphatase 82 Total Protein 7.1 Albumin 3.9 Amylase 49 Blood Type A Positive Antibody Screen NEGATIVE Narrative Narrative: EKG 2023 Vent. Rate : 059 BPM Atrial Rate : 059 BPM P-R Int : 152 ms QRS Dur : 094 ms QT Int : 424 ms P-R-T Axes : 045 048 005 degrees QTc Int : 419 ms Sinus bradycardia Otherwise normal ECG When compared with ECG of 18-MAY-2022 09:16, No significant change was found Assessment and Plan Assessment Anesthesia Assessment: Chart Reviewed Final Anesthetic Review Family History of Problems with Anesthesia: No History of Problems with Anesthesia: No Documented by User: Zina Farrell MD 02/01/25 08:41 PMFSH Past Medical History Medical History Adjustment disorder Fatty liver Bilateral knee pain HTN (hypertension) History of asthma GISSELLE on CPAP Hx pulmonary embolism Hypothyroidism Diabetes PONV (postoperative nausea and vomiting) Sleep apnea Family History Family History Mother Diabetes Hypertension Graves disease Hypothyroid Father Heart problem Hypertension Brother No problems noted. Daughter No problems noted. Surgical History Surgical History S/P laparoscopic sleeve gastrectomy History of removal of skin mole Hx of colonoscopy Hx of dilation and curettage History of facial surgery Hx of section Social History Social History Household Members: Family Housing: House Are you a primary managed care specialist to a significant other at home: No Do you presently have visiting nurse or other home services: No Alcohol intake: never Patient Tobacco Use Status: Never used Tobacco Advance Directives: No Advance Directives Information Provided: Yes service: No Meds Allergies Allergy/AdvReac Type Severity Reaction Status Date / Time Penicillins Allergy Intermediate rash, all Verified 01/25/25 09:51 over body Home Medications ?Medication ?Instructions ?Recorded ?Confirmed ?Last Taken ?Type levothyroxine 100 mcg capsule 100 mcg PO DAILY@0600 03/25/22 01/25/25 02/01/25 History 0615 albuterol sulfate 90 mcg/actuation 2 puff inhalation QID PRN 10/13/23 01/25/25 Unknown History aerosol inhaler Shortness Of Breath Or Wheezing apixaban 5 mg tablet (Eliquis) 5 mg PO BID 01/14/25 01/25/25 01/27/25 History qsqhyavg-ljjifiae-fiac 45 mg-folic cap PO 01/25/25 01/25/25 01/31/25 History acid 800 mcg-vit K 120 mcg capsule (Bariatric Multivitamins) Exam Airway Mallampati Class: II TM Dist: >3cm Neck ROM: Full Heart: rrr Lungs: cta Assessment and Plan Assessment Anesthesia Assessment: Anesthesia Plan Discussed Final Anesthetic Review NPO: Yes ASA Class: III Final Preanesthetic Review: No Changes in Pt Med Stat, Meds/Allgs Chart Reviewed, Consent Obtained/Reviewed and Anes Risks/Benef Reviewed Patient Risk: Intermediate Procedure Risk: Intermediate Anesthetic Plan Anesthetic Plan: GA and Agree w/ Assess. and Plan Disposition: Standard PACU
[2025-02-01] VITALS (15 sets, daily range): BP systolic 105–140; BP diastolic 44–78; PULSE 44–86; RESP 12–18; TEMP 36.3–36.8; O2SAT 97–100; BMI 42.6
[2025-02-01 07:11] LABS: UPreg QC Valid YES; Urine Pregnancy NEGATIVE (NEGATIVE)
[2025-02-01 07:24] LABS: Glucose, Whole Blood 78 mg/dL (60-115)
[2025-02-01] MEDS: Lactated Ringers 1,000 ML 100 ML IVCONT (07:42)
--- NOTE | 2025-02-01 08:21 | MHC.SHP ---
Pre-Procedural Eval Section A - 24 Hr Update-Section A only Date of Service: 02/01/25 The patient is an INPATIENT: No The patient has been examined within 24 hours of the surgical procedure. The History & Physical has been completed within 30 days and I have reviewed it.: Yes Section B - Complete if H&P > 30 days Chief Complaint: Calculus of gallbladder without cholecystitis Relevant Family History (Specify if Yes): No Relevant Social History: None Present Medications: None Medical History: No relevant PMH History of Previous Operations: No relevant previous surgery Allergies: Allergies Allergy/AdvReac Type Severity Reaction Status Date / Time Penicillins Allergy Intermediate rash, all Verified 01/25/25 09:51 over body Review of Systems Sugical H&P ROS: Negative: Constitution, Cardiovascular, Respiratory, Neurological, Psychiatric, Hem-Onc, Allergic/Immunologic, Gastrointestinal, Genitourinary, Musculoskeletal, Integumentary, Endocrine and Eyes/Ears/Nose/Throat Exam Surgical H&P Exam: Normal: HEENT, Normal: Heart, Normal: Lungs, Normal: Extremities, Normal: Abdomen, Normal: Skin and Normal: Neurological Plan Diagnosis/Plan: Unchanged I have reviewed the history and physical and performed a pertinent physical examination on my patient. No changes have occurred unless specified. Time Spent With Patient Time: Total time managing care of this patient today ____ minutes.
--- NOTE | 2025-02-01 08:24 | PM.OP ---
Brief Operative Note Date of Service: 02/01/25 Pre-op diagnosis: Symptomatic cholelithiasis Post-op diagnosis: same Procedure: PROCEDURE DATE: 02/01/25 PREOPERATIVE DIAGNOSIS: Symptomatic cholelithiasis, mid epigastric and right upper quadrant abdominal pain POSTOPERATIVE DIAGNOSIS: Same as above. PROCEDURE: Laparoscopic cholecystectomy Surgeon: Bacilio Mitchell M.D.. Ph.D. Modular Home Crew Member: Noé Kulkarni PA-C Anesthesia: General endotracheal anesthesia Estimated blood loss: Minimal FINDINGS AND PROCEDURE: OPERATIVE INDICATIONS: The patient is a 49 year old female known to me who underwent a laparoscopic sleeve gastrectomy. The patient had remarkable weight loss so far of 272lbs, or 52.4% TBWL and had a completely uneventful recovery. The patient was doing very well but has recently been complaining of persistent mid epigastric and right upper quadrant abdominal pain which is mostly postprandial. Ultrasound of the abdomen and pelvis was consistent with cholelithiasis. Based on this information we recommended laparoscopic cholecystectomy, upper endoscopy to evaluate the patient's symptoms. In addition to that the plan was also to examine the gastric bypass at the same time. Risks and complications of the surgery were discussed with the patient in advance particularly the possibility of conversion to an open surgery, bleeding, infection, obstruction, deep vein thrombosis or pulmonary embolism, bile leak or major bile duct injury that may require surgical intervention. The patient understood the risks and was in agreement with the plan. PROCEDURE: After informed consent was obtained by the patient, the patient was transferred to the Operating Room and was placed in the supine position. The patient was given preoperative antibiotics and after successful induction of general anesthesia a Pacheco catheter and pneumatic compression devices were placed. The patient was then prepped and draped in the usual sterile manner and abdominal access was established with the Stas port. The abdomen was insufflated with C02 to a pressure of 15 mmHg. A 5 mm Versi-step port was placed, slightly to the right and superior from the umbilicus. The 5 mm camera was introduced. We inspected the area where the port had been placed and there was no injury. The patient was then placed initially in a steep reverse Trendelenburg position and three additional ports were placed, specifically a 12 mm Versi-step port just to the right of the midline below the xiphoid process and two 5 mm Versi-step ports at the right upper quadrant and right flank. At that point the patient was placed in a steep reverse Trendelenburg position tilted to the left side. The gallbladder was retracted cephalad and laterally. The peritoneal attachments of the gallbladder at the triangle of Calot posteriorly and anteriorly were taken down. The cystic duct and artery were both seen. They were completely dissected free, skeletonized all the way to the infundibulum of the gallbladder . In a similar fashion we also cleaned the liver bed just behind the cystic artery to make sure there was no additional structures in this area. Once we confirmed that both structures were entering into the gallbladder and there were no other structures in the area, they were both clipped with two clips proximally, one distally and were cut in-between. We then using the electrocautery we slowly took down the gallbladder from the liver bed. Small areas of bleeding from the liver parenchyma were controlled with the cautery. After the gallbladder was completely detached from the liver bed, it was placed in an EndoCatch bag and was removed without difficulty from the xiphoid port. We then inspected the clips at the cystic duct and artery and were both in place. There was no active bleeding from the liver bed. At that point the patient was placed in supine position, we deflated the abdomen and we removed all ports under direct vision and no bleeding was noted from any of the port sites. The fascia of the 12 mm port was closed using a #1 Polysorb suture. 30cc Ropivacaine plain were used to infiltrate the fascial closure as well as all skin incisions. The wounds were irrigated with saline mixed with antibiotic solution and then the skin was closed with 4-0 Monocryl subcuticular sutures antibiotic-coated. Steri-strips and OpSites were used to cover all incisions. The patient extubated and was transferred in stable condition to the Recovery Room for further care. I was present and performed all steps of the procedure. Mr. Morocho was the medical library assistant. There were no residents to assist with this case. Bacilio Mitchell M.D., Ph.D., F.A.C.S. Surgeon: Tai Mitchell MD Anesthesia: GETA, local and other (TAP block) Was an Modular Home Crew Member used for this Procedure?: No Modular Home Crew Member: Noé Kulkarni Estimated blood loss (mL): 10 IV fluids (mL): 1,000 Urine output (mL): 0 (No Pacheco to record output) Pathology: other (Gallbladder) Condition: stable Disposition: PACU
[2025-02-01] MEDS: Haloperidol Lactate 5 MG/ML VIAL 1 MG IVPUSH (10:39)
== END 2025-02-01 14:12 | disposition home or self-care (01) ==
PROVIDERS: Nurse Practitioner; Visit Provider Surgery
PROC: 0FT44ZZ Resection of Gallbladder, Percutaneous Endoscopic Approach (ICD-10-PCS; CPT 47562; principal; 2025-02-01 08:30)
DX: K80.10 Calculus of gallbladder with chronic cholecystitis without obstruction (principal); R59.0 Localized enlarged lymph nodes; K76.0 Fatty (change of) liver, not elsewhere classified; I10 Essential (primary) hypertension; E11.9 Type 2 diabetes mellitus without complications; E03.9 Hypothyroidism, unspecified; G47.33 Obstructive sleep apnea (adult) (pediatric); Z86.711 Personal history of pulmonary embolism; Z79.01 Long term (current) use of anticoagulants; Z79.899 Other long term (current) drug therapy; Z99.89 Dependence on other enabling machines and devices; Z88.0 Allergy status to penicillin; Z98.84 Bariatric surgery status; Z98.890 Other specified postprocedural states
CPT/HCPCS: 47562; 36415; 80053; 81025; 82150; 82248; 82947; 85025; 85610; 85730; 86850; 86900; 86901; 88304; J0131; J1100; J1630; J1956; J2003; J2250; J2405; J2550; J2704; J2795; J3010

== ENCOUNTER → 2025-02-01 06:45 | Outpatient (BNV) | payer OTHER, SELFPAY | PROVIDERS: Visit Provider Surgery | DX: K80.20 Calculus of gallbladder without cholecystitis without obstruction (principal) | CPT/HCPCS: 47562 ==

== ENCOUNTER 2025-02-08 10:24 | Outpatient (AMB) | payer OTHER, SELFPAY ==
--- NOTE | 2025-02-08 10:31 | A.OFFVIS_ITS ---
VS Expanded 02/08/25 10:49 BP 134/61 Blood Pressure Location Rt brachial Blood Pressure Position Sitting Pulse 72 Pulse Source Pulse Oximeter Temp 97.0 F Temperature Source Temporal Artery Scan Pulse Oximetry 100 Oxygen Delivery Method Room Air Height 5 ft 4 in Weight 242 lb 6.4 oz BMI 41.6 Body Fat % 48.3 Body Fat Mass 117.0 Fat Free Mass 125.2 Visceral Fat Rating 15.0 Body Water % 36.9 Body Water Mass 89.2 Muscle Mass/Score 118.8 Basal Metabolic Rate/Score 1,779 Intake Visit Reasons: OV Lap Alla 02/01/25 Allergies Penicillins Allergy (Intermediate, Verified 02/08/25 10:35) rash, all over body HPI Comments Details: Patient is a pleasant 49-year-old female who returns to the office today in follow-up. She underwent laparoscopic cholecystectomy on 02/01/2025. Pathology was reviewed and reviewed with the patient. She reports overall doing well except for positional vertigo that she has had since surgery. She has taken meclizine with improvement. She has been referred to vestibular rehab. She has returned to her meal plan as directed by Dr. Mitchell. [facility] Medical History (Updated 02/08/25 @ 11:01 by JENNIFER Balderas) Adjustment disorder Fatty liver Bilateral knee pain HTN (hypertension) History of asthma GISSELLE on CPAP Hx pulmonary embolism Hypothyroidism Diabetes PONV (postoperative nausea and vomiting) Sleep apnea Surgical History (Updated 02/08/25 @ 11:00 by JENNIFER Balderas) Hx laparoscopic cholecystectomy S/P laparoscopic sleeve gastrectomy History of removal of skin mole Hx of colonoscopy Hx of dilation and curettage History of facial surgery Hx of section Family History Mother Diabetes Hypertension Graves disease Hypothyroid Father Heart problem Hypertension Brother No problems noted. Daughter No problems noted. Social History Household Members: Family Housing: House Are you a primary resident care supervisor to a significant other at home: No Do you presently have visiting nurse or other home services: No 75 years or older and lives alone: No Alcohol intake: never Patient Tobacco Use Status: Never used Tobacco service: No Physical Exam Vital Signs: Last Vital Signs Temp 97.0 F 02/08/25 10:49 Pulse 72 02/08/25 10:49 BP 134/61 02/08/25 10:49 Pulse Ox 100 02/08/25 10:49 Oxygen Delivery Method Room Air 02/08/25 10:49 BMI result Body Mass Index 41.6 GI Inspection: Yes incision (Clean, dry, intact.) Assessment & Plan Assessment & Plan (1) Hx laparoscopic cholecystectomy: Code(s): Z90.49 - Acquired absence of other specified parts of digestive tract Category: Surgical Plan: Status post laparoscopic cholecystectomy on 02/01/2025. Pathology of the gallbladder was reviewed with the patient. Gallbladder physiology was reviewed with the patient. She will resume her meal plan as directed by Dr. Mitchell. She may resume walking on the treadmill. We will have her return to the office in approximately 1 month. (2) Vertigo: Code(s): R42 - Dizziness and giddiness Category: Medical Plan: Patient has had vertigo since surgery, this appears to be right-sided positional. She has p.r.n. meclizine. She has been referred to vestibular rehab from her primary care physician.
[2025-02-08 10:49] VITALS: BP 134/61; PULSE 72; TEMP 36.1; O2SAT 100; BMI 41.6
--- OUTSIDE RECORDS SUMMARY | 2025-02-08 11:28 | XMS_ITS | Continuity of Care Document ---
Author Organization [facility] [address] [place] [address] Phone [phone] Care Team Providers Care Landscape Nurseryman Name Role Phone Evy Manrique M.D. Care Team Informati on Government Auditor [phone] Problems Active Problems Provider Date Morbid obesity [...] SIG Qnty Indications Order ing Provider Date Nvzyill9qx Tablets 1 by mouth twice a day 180tabs Evy Manrique M.D. 09/28/2024 Meclizine WOW65ly Tablets 1 q 8 hours as needed 45tabs Evy Manrique M.D. 04/05/2024 Freestyle Lite TestStrips Use as directed for testing blood sugar once daily (DX:E11.9) 100units E11.9 Evy Manrique M.D. 10/31/2023 Levothyroxine [id number] Tablets take 1 tablet by mouth every day 90tabs Evy Manrique M.D. Flovent [id number]/Act Aerosol 2 puff daily as needed 1gm Evy Manrique M.D. Proair INV026(90Base) mcg/Act Aerosol 2 puffs every 4 hours [...] 0.2 mg/dL 0.0-1.2 Bilirubin, Direct 0.14 mg/dL 0.00-0.40 Alkaline Phosphatase 99 IU/L 44-121 Ast (Sgot) 28 IU/L 0-40 Alt (SGPT) 61 IU/L High 0-32 TSH Rfx on Abnormal to Free T4 01/23/2025 [facility] TSH Rfx on Abnormal to Free T4 0.945 uIU/mL 0.450-4.5 00 Hemoglobin A1c 01/23/2025 Inhouse Hemoglobin A1c 4.9% Glucose Fingerstick 01/23/2025 Inhouse Glucose Fingerstick 112 Hep A Ab, IgM 01/23/2025 [facility] Hep A Ab, IgM Negative Negative 1 HBsAg Screen 01/23/2025 [facility] HBsAg Screen Negative Negative HCV Antibody 01/23/2025 [facility] HCV Antibody Non Reactive Non Reactive 2 Hep B Surface Ab, Qual 01/23/2025 [facility] Hep B Surface Ab, Qual Non Reactive 3 Prothrombin Time (PT) 12/08/2024 [facility] Inr 2.0 High 0.9-1.2 4 Prothrombin Time 21.0 sec High 9.1-12.0 Prothrombin Time (PT) 10/26/2024 [facility] Inr 1.9 High 0.9-1.2 5 Prothrombin Time 20.0 sec High 9.1-12.0 Prothrombin Time (PT) 10/05/2024 [facility] Inr 2.1 High 0.9-1.1 Prothrombin Time 21.4 SEC High 9.2-11.4 Prothrombin Time (PT) 09/28/2024 [facility] Inr 2.0 High 0.9-1.1 Prothrombin Time 19.9 SEC High 9.2-11.4 Comp. Metabolic Panel (14) 09/28/2024 [facility] Glucose 70 mg/dL 70-99 BUN 14 mg/dL 6-24 Creatinine 0.62 mg/dL 0.57-1.00 eGFR 108 mL/min/1.73 >59 BUN/Creatinine Ratio 23 9-23 Sodium 140 mmol/L 134-144 Potassium 4.2 mmol/L 3.5-5.2 Chloride 105 mmol/L 96-106 Carbon Dioxide, Total 23 mmol/L 20-29 Calcium 9.2 mg/dL 8.7-10.2 Protein, Total 6.3 g/dL 6.0-8.5 Albumin 3.6 g/dL Low 3.9-4.9 Globulin, Total 2.7 g/dL 1.5-4.5 Bilirubin, Total 0.5 mg/dL 0.0-1.2 Alkaline Phosphatase 65 IU/L 44-121 Ast (Sgot) 23 IU/L 0-40 Alt (SGPT) 16 IU/L 0-32 CBC With Differential/Pl atelet 09/28/2024 [facility] WBC 6.2 x10E3/uL 3.4-10.8 RBC 4.67 x10E6/uL 3.77-5.28 Hemoglobin 14.2 g/dL 11.1-15.9 Hematocrit 43.5 % 34.0-46.6 MCV 93 fL 79-97 MCH 30.4 pg 26.6-33.0 MCHC 32.6 g/dL 31.5-35.7 RDW 13.0 % 11.7-15.4 Platelets 285 x10E3/uL 150-450 Neutrophils 61 % [...] on Abnormal to Free T4 1.770 uIU/mL 0.450-4.5 00 Glucose Fingerstick 09/28/2024 Inhouse Glucose Fingerstick 91 Hemoglobin A1c 09/28/2024 Inhouse Hemoglobin A1c 4.9% Prothrombin Time (PT) 09/19/2024 [facility] Inr 1.7 High 0.9-1.1 6 Prothrombin Time 17.5 SEC High 9.2-11.4 Prothrombin Time (PT) 09/12/2024 [facility] Inr 2.0 High 0.9-1.1 Prothrombin Time 20.4 SEC High 9.2-11.4 Prothrombin Time (PT) 09/03/2024 [facility] Inr 1.7 High 0.9-1.2 7 Prothrombin Time 18.2 sec High 9.1-12.0 Prothrombin Time (PT) 08/27/2024 [facility] Inr 1.9 High 0.9-1.2 8 Prothrombin Time 19.6 sec High 9.1-12.0 Prothrombin Time (PT) 08/20/2024 [facility] Inr 1.6 High 0.9-1.1 Prothrombin Time 16.6 SEC High 9.2-11.4 Prothrombin Time (PT) 08/16/2024 [facility] Inr 4.0 High 0.9-1.1 Prothrombin Time 38.2 SEC High 9.2-11.4 Prothrombin Time (PT) 08/02/2024 [facility] Inr 2.3 High 0.9-1.2 9 Prothrombin Time 23.6 sec High 9.1-12.0 Prothrombin Time (PT) 07/26/2024 [facility] Inr 1.6 High 0.9-1.1 Prothrombin Time 16.8 SEC High 9.2-11.4 Prothrombin Time (PT) 07/13/2024 [facility] Inr 2.7 High 0.9-1.2 10 Prothrombin Time 27.4 sec High 9.1-12.0 Prothrombin Time (PT) 07/06/2024 [facility] Inr 2.4 High 0.9-1.1 Prothrombin Time 23.7 SEC High 9.2-11.4 Prothrombin Time (PT) 06/27/2024 [facility] Inr 2.1 High 0.9-1.2 11 Prothrombin Time 21.9 sec High 9.1-12.0 Prothrombin Time (PT) 06/20/2024 [facility] Inr 2.1 High 0.9-1.1 Prothrombin Time 21.3 SEC High 9.2-11.4 Prothrombin Time (PT) 06/14/2024 [facility] Inr 1.8 High 0.9-1.1 Prothrombin Time 18.3 SEC High 9.2-11.4 Prothrombin Time (PT) 06/06/2024 [facility] Inr 1.7 High 0.9-1.2 12 Prothrombin Time 18.1 sec High 9.1-12.0 Prothrombin Time (PT) 05/16/2024 [facility] Inr 2.0 High 0.9-1.1 Prothrombin Time 20.2 SEC High 9.2-11.4 Hemoglobin A1c 05/09/2024 Inhouse Hemoglobin A1c 4.9% Glucose Fingerstick 05/09/2024 Inhouse Glucose Fingerstick 85 Prothrombin Time (PT) 05/08/2024 [facility] Inr 2.1 High 0.9-1.1 Prothrombin Time 21.0 SEC High 9.2-11.4 Prothrombin Time (PT) 04/25/2024 [facility] Inr 1.8 High 0.9-1.2 13 Prothrombin Time 18.7 sec High 9.1-12.0 Prothrombin Time (PT) 04/19/2024 [facility] Inr 2.1 High 0.9-1.1 Prothrombin Time 20.9 SEC High 9.2-11.4 Prothrombin Time (PT) 04/11/2024 [facility] Inr 1.7 High 0.9-1.2 14 Prothrombin Time 17.2 sec High 9.1-12.0 Prothrombin Time (PT) 03/30/2024 [facility] Inr 2.1 High 0.9-1.1 Prothrombin Time 20.7 SEC High 9.2-11.4 Prothrombin Time (PT) 03/12/2024 [facility] Inr 1.8 High 0.9-1.1 Prothrombin Time 18.4 SEC High 9.2-11.4 Prothrombin Time (PT) 02/09/2024 [facility] Inr 2.0 High 0.9-1.2 15 Prothrombin Time 20.1 sec High 9.1-12.0 Prothrombin Time (PT) 01/13/2024 [facility] Inr 2.3 High 0.9-1.2 16 Prothrombin Time 23.1 sec High 9.1-12.0 Glucose Fingerstick 01/06/2024 Inhouse Glucose Fingerstick 88 Hemoglobin A1c 01/06/2024 Inhouse Hemoglobin A1c 4.7% TSH Rfx on Abnormal to Free T4 01/06/2024 [facility] TSH Rfx on Abnormal to Free T4 1.320 uIU/mL 0.450-4.5 00 CBC With Differential/Pl atelet 01/06/2024 [facility] WBC 7.2 x10E3/uL 3.4-10.8 RBC 5.12 x10E6/uL 3.77-5.28 Hemoglobin 15.2 g/dL 11.1-15.9 Hematocrit 45.7 % 34.0-46.6 MCV 89 fL 79-97 MCH 29.7 pg 26.6-33.0 MCHC 33.3 g/dL 31.5-35.7 RDW 14.9 % 11.7-15.4 Platelets 284 x10E3/uL 150-450 Neutrophils 61 % [...] BUN 14 mg/dL 6-24 Creatinine 0.68 mg/dL 0.57-1.00 eGFR 107 mL/min/1.73 >59 BUN/Creatinine Ratio 21 9-23 Sodium 142 mmol/L 134-144 Potassium 4.3 mmol/L 3.5-5.2 Chloride 101 mmol/L 96-106 Carbon Dioxide, Total 22 mmol/L 20-29 Calcium 10.0 mg/dL 8.7-10.2 Protein, Total 7.3 g/dL 6.0-8.5 Albumin 4.4 g/dL 3.9-4.9 Globulin, Total 2.9 g/dL 1.5-4.5 A/G Ratio 1.5 1.2-2.2 Bilirubin, Total 0.7 mg/dL 0.0-1.2 Alkaline Phosphatase 108 IU/L 44-121 Ast (Sgot) 55 IU/L High 0-40 Alt (SGPT) 80 IU/L High 0-32 Prothrombin Time (PT) 01/05/2024 [facility] Inr 2.3 High 0.9-1.1 Prothrombin Time 23.3 SEC High 9.2-11.4 Prothrombin Time (PT) 12/29/2023 [facility] Inr 2.1 High 0.9-1.2 17 Prothrombin Time 21.2 sec High 9.1-12.0 Prothrombin Time (PT) 12/22/2023 [facility] Inr 1.9 High 0.9-1.2 18 Prothrombin Time 19.8 sec High 9.1-12.0 Protime Profile 12/15/2023 [facility] Protime 21.1 SEC High (9.2-11.4 ) Internatnl Normalized Ratio 2.1 High (0.9-1.1) 19 Protime Profile 12/09/2023 [facility] Protime 23.5 SEC High (9.2-11.4 ) Internatnl Normalized Ratio 2.4 High (0.9-1.1) 20 Protime Profile 12/05/2023 [facility] Protime 26.2 SEC High (9.2-11.4 ) Internatnl Normalized Ratio 2.7 High (0.9-1.1) 21 Protime Profile 12/01/2023 [facility] Protime 17.2 SEC High (9.2-11.4 ) Internatnl Normalized Ratio 1.7 High (0.9-1.1) 22 Protime Profile 11/29/2023 [facility] Protime 18.2 SEC High (9.2-11.4 ) Internatnl Normalized Ratio 1.8 High (0.9-1.1) 23 Protime Profile 11/27/2023 [facility] [id number] Duplicate Order Protime 35.0 SEC High (9.2-11.4 ) Internatnl Normalized Ratio 3.7 High (0.9-1.1) 24 Protime Profile 11/25/2023 [facility] Protime 47.1 SEC High (9.2-11.4 ) Internatnl Normalized Ratio 5.1 Critical high (0.9-1.1) 25 Protime Profile 11/15/2023 [facility] Protime 19.8 SEC High (9.2-11.4 ) Internatnl Normalized Ratio 2.0 High (0.9-1.1) 26 Glucose Fingerstick 11/07/2023 Inhouse Glucose Fingerstick 87 Protime Profile 09/21/2023 [facility] Protime 27.6 SEC High (9.2-11.4 ) Internatnl Normalized Ratio 2.8 High (0.9-1.1) 27 Hemoglobin A1c 08/24/2023 Inhouse Hemoglobin A1c 5.2% Glucose Fingerstick 08/24/2023 Inhouse Glucose Fingerstick 96 Protime Profile 08/17/2023 [facility] Protime 29.3 SEC High (9.2-11.4 ) Internatnl Normalized Ratio 3.0 High (0.9-1.1) 28 Protime Profile 07/25/2023 [facility] Protime 27.2 SEC High (9.2-11.4 ) Internatnl Normalized Ratio 2.8 High (0.9-1.1) 29 Protime Profile 06/16/2023 [facility] Protime 24.0 SEC High (9.2-11.4 ) Internatnl Normalized Ratio 2.4 High (0.9-1.1) 30 Protime Profile 05/30/2023 [facility] Protime 25.3 SEC High (9.2-11.4 ) Internatnl Normalized Ratio 2.6 High (0.9-1.1) 31 Protime Profile 05/11/2023 [facility] Protime 25.9 SEC High (9.2-11.4 ) Internatnl Normalized Ratio 2.6 High (0.9-1.1) 32 Protime Profile 04/27/2023 [facility] Protime 21.6 SEC High (9.2-11.4 ) Internatnl Normalized Ratio 2.2 High (0.9-1.1) 33 Protime Profile 04/19/2023 [facility] Protime 19.4 SEC High (9.2-11.4 ) Internatnl Normalized Ratio 1.9 High (0.9-1.1) 34 Protime Profile 04/11/2023 [facility] Protime 20.0 SEC High (9.2-11.4 ) Internatnl Normalized Ratio 2.0 High (0.9-1.1) 35 Protime Profile 04/07/2023 [facility] Protime 17.6 SEC High (9.2-11.4 ) Internatnl Normalized Ratio 1.7 High (0.9-1.1) 36 Protime Profile 04/01/2023 [facility] Protime 14.7 SEC High (9.2-11.4 ) Internatnl Normalized Ratio 1.4 High (0.9-1.1) 37 Hemoglobin A1c 03/25/2023 Inhouse Hemoglobin A1c 5.5% Glucose Fingerstick 03/25/2023 Inhouse Glucose Fingerstick 101 Protime Profile 03/03/2023 [facility] Protime 20.6 SEC High (9.2-11.4 ) Internatnl Normalized Ratio 2.1 High (0.9-1.1) 38 Comprehensive Metabolic Panl 02/02/2023 [facility] Glucose 115 mg/dL High (70-99) BUN 11 mg/dL (6-20) Creatinine 0.7 mg/dL (0.5-1.0) Sodium 143 mmol/L (133-145) Potassium 4.8 mmol/L (3.6-5.2) Chloride 104 mmol/L (98-107) Bicarbonate 29 mmol/L (22-29) Anion Gap 10 (4-17) Albumin 4.2 GM/DL (3.4-4.8) Calcium 9.8 mg/dL (8.6-10.5 ) Bilirubin,Tota l 0.2 mg/dL (0-1.2) Total Protein 6.8 GM/DL (6.2-8.2 ) Ag Ratio 1.6 Ast 17 U/L (0-32) Alk Phos 84 U/L (35-104) Alt 16 U/L (0-33) Estimated GFR Creatinine 101 ML/MIN/1.73 M2 39 Lipid Panel 02/02/2023 [facility] Cholesterol, Total 172 mg/dL (<200) Triglyceride 122 mg/dL (<150) HDL Chol 48 mg/dL (>39) LDL Cholesterol, Calculated 100 mg/dL (0-130) Non HDL Cholesterol (Calc) 124 mg/dL (<160) Complete Abc With Diff 02/02/2023 [facility] WBC 8.0 K/MM3 (4.0-11.0 ) RBC 4.83 M/MM3 (4.20-5.4 0) HGB 13.3 GM/DL (11.7-15. 5) HCT 44.3 % (35.7-45. 8) MCV 91.7 FL (80.0-100 .0) MCH 27.5 pg (27.0-34. 0) MCHC 30.0 g/dL Low (33.0-37. 0) PLT 368 K/MM3 (150-460) RDW-SD 51.3 FL High (<47.0) MPV 10.9 FL (9.4-12.4 ) Automated NRBC 0.0 #/100WBC'S Abs. NRBC 0.0 K/MM3 Neut # 4.9 K/MM3 (1.3-7.0) Lymph # 2.2 K/MM3 (0.8-3.1) Mineral# 0.6 K/MM3 (0.4-0.9) Eo # 0.3 K/MM3 (0.0-0.4) Baso # 0.0 K/MM3 (0.0-0.1) Abs. Imm Gran 0.0 K/MM3 Neut 61.3 % (44-76) Lymph 27.5 % (15-43) Monocyte 6.9 % (4.5-10.5 ) Eo 3.5 % (0-6) Baso 0.5 % (0-2) Imm Gran 0.3 % TSH With Reflex To FT4 02/02/2023 [facility] TSH With Reflex To FT4 2.44 uIU/mL (0.4-4.2) Protime Profile 02/02/2023 [facility] Protime 21.0 SEC High (9.2-11.4 ) Internatnl Normalized Ratio 2.1 High (0.9-1.1) 40 Protime Profile 01/25/2023 [facility] Protime 19.1 SEC High (9.2-11.4 ) Internatnl Normalized Ratio 1.9 High (0.9-1.1) 41 Protime Profile 12/23/2022 [facility] Protime 25.3 SEC High (9.2-11.4 ) Internatnl Normalized Ratio 2.6 High (0.9-1.1) 42 Protime Profile 12/09/2022 [facility] Protime 21.4 SEC High (9.2-11.4 ) Internatnl Normalized Ratio 2.1 High (0.9-1.1) 43 Glucose Fingerstick 11/25/2022 Inhouse Glucose Fingerstick 111 Hemoglobin A1c 11/25/2022 Inhouse Hemoglobin A1c 5.6% Protime Profile 11/18/2022 [facility] Protime 22.9 SEC High (9.2-11.4 ) Internatnl Normalized Ratio 2.3 High (0.9-1.1) 44 Protime Profile 11/11/2022 [facility] Protime 21.8 SEC High (9.2-11.4 ) Internatnl Normalized Ratio 2.2 High (0.9-1.1) 45 Protime Profile 11/05/2022 [facility] Protime 18.0 SEC High (9.2-11.4 ) Internatnl Normalized Ratio 1.8 High (0.9-1.1) 46 Protime Profile 10/22/2022 [facility] Protime 25.1 SEC High (9.2-11.4 ) Internatnl Normalized Ratio 2.5 High (0.9-1.1) 47 Protime Profile 10/14/2022 [facility] Protime 22.1 SEC High (9.2-11.4 ) Internatnl Normalized Ratio 2.2 High (0.9-1.1) 48 Protime Profile 10/07/2022 [facility] Protime 19.2 SEC High (9.2-11.4 ) Internatnl Normalized Ratio 1.9 High (0.9-1.1) 49 Protime Profile 09/30/2022 [facility] Protime 19.7 SEC High (9.2-11.4 ) Internatnl Normalized Ratio 2.0 High (0.9-1.1) 50 Protime Profile 09/23/2022 [facility] Protime 21.5 SEC High (9.2-11.4 ) Internatnl Normalized Ratio 2.2 High (0.9-1.1) 51 Protime Profile 09/18/2022 [facility] Protime 37.1 SEC High (9.2-11.4 ) Internatnl Normalized Ratio 3.9 High (0.9-1.1) 52 Protime Profile 09/09/2022 [facility] Protime 30.8 SEC High (9.2-11.4 ) Internatnl Normalized Ratio 3.1 High (0.9-1.1) 53 Protime Profile 08/31/2022 [facility] Protime 26.1 SEC High (9.2-11.4 ) Internatnl Normalized Ratio 2.6 High (0.9-1.1) 54 Protime Profile 08/26/2022 [facility] Protime 25.9 SEC High (9.2-11.4 ) Internatnl Normalized Ratio 2.6 High (0.9-1.1) 55 Protime Profile 08/18/2022 [facility] Protime 18.1 SEC High (9.2-11.4 ) Internatnl Normalized Ratio 1.8 High (0.9-1.1) 56 Protime Profile 08/12/2022 [facility] Protime 15.0 SEC High (9.2-11.4 ) Internatnl Normalized Ratio 1.5 High (0.9-1.1) 57 Protime Profile 08/06/2022 [facility] Protime 20.0 SEC High (9.2-11.4 ) Internatnl Normalized Ratio 2.0 High (0.9-1.1) 58 Hemoglobin A1c 07/30/2022 Inhouse Hemoglobin A1c 6.1 Glucose Fingerstick 07/30/2022 Inhouse Glucose Fingerstick 147 Protime Profile 07/26/2022 [facility] Protime 26.3 SEC High (9.2-11.4 ) Internatnl Normalized Ratio 2.7 High (0.9-1.1) 59 Protime Profile 07/05/2022 [facility] Protime 18.0 SEC High (9.2-11.4 ) Internatnl Normalized Ratio 1.8 High (0.9-1.1) 60 Protime Profile 06/24/2022 [facility] Protime 20.9 SEC High (9.2-11.4 ) Internatnl Normalized Ratio 2.1 High (0.9-1.1) 61 Protime Profile 06/18/2022 [facility] Protime 19.1 SEC High (9.2-11.4 ) Internatnl Normalized Ratio 1.9 High (0.9-1.1) 62 Protime Profile 06/03/2022 [facility] Protime 28.7 SEC High (9.2-11.4 ) Internatnl Normalized Ratio 2.9 High (0.9-1.1) 63 Protime Profile 05/18/2022 [facility] Protime 24.2 SEC High (9.2-11.4 ) Internatnl Normalized Ratio 2.5 High (0.9-1.1) 64 Protime Profile 05/11/2022 [facility] [id number] Duplicate order <SEE NOTE> 65 Protime Profile 05/11/2022 [facility] Protime 19.0 SEC High (9.2-11.4 ) Internatnl Normalized Ratio 1.9 High (0.9-1.1) 66 Protime Profile 05/04/2022 [facility] Protime 19.4 SEC High (9.2-11.4 ) Internatnl Normalized Ratio 1.9 High (0.9-1.1) 67 Protime Profile 04/30/2022 [facility] Protime 15.2 SEC High (9.2-11.4 ) Internatnl Normalized Ratio 1.5 High (0.9-1.1) 68 Protime Profile 04/26/2022 [facility] Protime 12.2 SEC High (9.2-11.4 ) Internatnl Normalized Ratio 1.2 High (0.9-1.1) 69 1 A negative anti-HAV IgM result suggests no recent or current HAV infection. 2 HCV antibody alone d oes not differentiate between previously resolved infection and active infection. Equivocal and Reactive HCV antibody results should be followed up with an HCV RNA test to support the diagnosis of active HCV infection. 3 Non Reactive: Not im mune to HBV infection. Equivocal: Unable to determine if anti-HBs is present at levels consistent with immunity. Reactive: Anti-HBs concentration detected at greater than 10 mIU/mL. Individual is considered to be immune to infection with HBV. 4 Reference interval i s for non-anticoagulated [...] intensity therapeutic range 2.5 - 3.5 6 STANDING ORDER WEEKL Y OR DIRECTED 7 Reference interval i s for non-anticoagulated [...] intensity therapeutic range 2.5 - 3.5 16 Reference interval i s for non-anticoagulated patients. Suggested INR therapeutic range for Vitamin K antagonist therapy: Standard Dose (moderate intensity therapeutic range): 2.0 - 3.0 Higher intensity therapeutic range 2.5 - 3.5 17 Reference interval i s for non-anticoagulated patients. Suggested INR therapeutic range for Vitamin K antagonist therapy: Standard Dose (moderate intensity therapeutic range): 2.0 - 3.0 Higher intensity therapeutic range 2.5 - 3.5 18 Reference interval i s for non-anticoagulated patients. Suggested INR therapeutic range for Vitamin K antagonist therapy: Standard Dose (moderate intensity therapeutic range): 2.0 - 3.0 Higher intensity therapeutic range 2.5 - 3.5 19 SUGGESTED VALUE OF 2 .0-3.0 FOR [...] WITH MECHANICAL PROSTHETIC HEART VALVES. RESULTS CHECKED 26 SUGGESTED VALUE OF 2 .0-3.0 FOR [...] PATIENTS WITH MECHANICAL PROSTHETIC HEART VALVES. 39 Creatinine based est imated glomerular filtration (eGFR) in adults is calculated using the [employer] recommended 2020 CKD-EPI equation. Estimates GFR from serum creatinine, age and sex. 40 SUGGESTED VALUE OF 2 .0-3.0 FOR [...] PATIENTS WITH MECHANICAL PROSTHETIC HEART VALVES. 65 Duplicate order canc elled via interface 66 SUGGESTED VALUE OF 2 .0-3.0 FOR PROPHYLAXIS OF VENOUS THROMBOSIS IN HIGH RISK OR SURGICAL PATIENTS, TREATMENT OF VENOUS THROMBOSIS, AND PREVENTION OF EMBOLISM. SUGGESTED VALUES OF 2.5-3.5 FOR PREVENTION OF RECURRENT EMBOLISM OR PATIENTS WITH MECHANICAL PROSTHETIC HEART VALVES. 67 SUGGESTED VALUE OF 2 .0-3.0 FOR PROPHYLAXIS OF VENOUS THROMBOSIS IN HIGH RISK OR SURGICAL PATIENTS, TREATMENT OF VENOUS THROMBOSIS, AND PREVENTION OF EMBOLISM. SUGGESTED VALUES OF 2.5-3.5 FOR PREVENTION OF RECURRENT EMBOLISM OR PATIENTS WITH MECHANICAL PROSTHETIC HEART VALVES. 68 SUGGESTED VALUE OF 2 .0-3.0 FOR PROPHYLAXIS OF VENOUS THROMBOSIS IN HIGH RISK OR SURGICAL PATIENTS, TREATMENT OF VENOUS THROMBOSIS, AND PREVENTION OF EMBOLISM. SUGGESTED VALUES OF 2.5-3.5 FOR PREVENTION OF RECURRENT EMBOLISM OR PATIENTS WITH MECHANICAL PROSTHETIC HEART VALVES. 69 SUGGESTED VALUE OF 2 .0-3.0 FOR PROPHYLAXIS OF VENOUS THROMBOSIS IN HIGH RISK OR SURGICAL PATIENTS, TREATMENT OF VENOUS THROMBOSIS, AND PREVENTION OF EMBOLISM. SUGGESTED VALUES OF 2.5-3.5 FOR PREVENTION OF RECURRENT EMBOLISM OR PATIENTS WITH MECHANICAL PROSTHETIC HEART VALVES. Procedures Date Code Description Status 01/23/2025 02041 Collection Of Venous Blood B y Venipuncture Completed 01/06/2024 06976 Remove Impacted Cerumen Comp leted 01/06/2024 60024 Collection Of Venous Blood B y Venipuncture [...] Code Description Provider 01/23/2025 Z00.00 Encounter for ge neral adult medical examination without abnormal findings Evy [...] Z68.41 Body mass index [BMI] 40.0-44.9, adult Eyv Manrique M.D. Plan of Treatment Future Appointment(s):* [...] Reason for Referral Status Appt [facility] unprovo ked pulmonary emboli 2020, on warfarin b/o morbid obesity question medication management Closed 08/09/2024 [address] [place] [address] [phone] [facility] LEFT SHOULDER PAIN X 2 MONTHS Closed 05/10/2023 [address] [place] [address] [phone] [facility] re: celeste reening colonoscopy family history of polyps father before age 60 Closed 02/03/2023 [address] [facility] [address] [place] [address] [phone]
--- OUTSIDE RECORDS SUMMARY | 2025-02-08 11:28 | XMS_ITS | Clinical Summary ---
Author Organization [facility] Address [address] [place] [address] Phone Care Team Providers Care Gas Dispenser Name Role Phone Evy Manrique MD Primary Care Provid er Encounters Date Type Department Care Team Description 12/04/2024 2:00 PM EST - 12/04/2024 11:59 PM EST Hospital Encounter [facility] Ultrasound [address] [place] [phone] [place] (nonalcoholic steatohepatitis) Discharge Disposition: Home or Self Care 11/27/2024 Telephone Gastroenterology - [address] [phone] Peter Nelson MD from Last 3 Months [...] score F1 (normal to mild). Telerad JENNIFER ([id number]) -------- FINAL REPORT -------- Dictated By: Milagros Wade Dictated Date: 12/10/2024 16:01 ET Assigned Physician: Milagros Wade Reviewed and Electronically Signed By: Milagros Wade Signed Date: 12/10/2024 16:02 ET Workstation ID: [id number] Transcribed By: Self Edit Transcribed Date: 12/10/2024 [...] score F1 (normal to mild). Telerad JENNIFER ([id number]) -------- FINAL REPORT -------- Dictated By: Milagros Wade Dictated Date: 12/10/2024 16:01 ET Assigned Physician: Milagros Wade Reviewed and Electronically Signed By: Milagros Wade Signed Date: 12/10/2024 16:02 ET Workstation ID: [id number] Transcribed By: Self Edit Transcribed Date: 12/10/2024 16:01 ET Peter Nelson MD [facility] PROCEDURES Final Result from Last 3 Months Insurance [address] [place] [address] Care Teams Gas Dispenser Relationship Specialty Start Date End Date Evy Manrique MD [address] [place] [address] [address] [place] [address] PCP - General Endocrinology 12/04/24
== END 2025-02-08 11:01 | disposition home or self-care (01) ==
LOC: HO.HBS 10:25
PROVIDERS: Visit Provider Physician Assistant Surgical
DX: Z90.49 Acquired absence of other specified parts of digestive tract (principal); R42 Dizziness and giddiness
CPT/HCPCS: 99024

== ENCOUNTER → 2025-02-08 10:24 | Outpatient (BNVA) | payer OTHER, SELFPAY | PROVIDERS: Visit Provider Physician Assistant Surgical ==

== ENCOUNTER 2025-03-21 08:56 | Outpatient (AMB) | payer OTHER, SELFPAY ==
--- NOTE | 2025-03-21 08:58 | MHC.OFFVISWM ---
VS Expanded 03/21/25 09:11 BP 165/89 H Blood Pressure Location Rt brachial Blood Pressure Position Sitting Pulse 49 L Pulse Source Pulse Oximeter Temp 98 F Temperature Source Temporal Artery Scan Pulse Oximetry 97 Oxygen Delivery Method Room Air Height 5 ft 4 in Weight 241 lb 6.4 oz BMI 41.4 Body Fat % 47.1 Body Fat Mass 113.6 Fat Free Mass 127.6 Visceral Fat Rating 14.0 Body Water % 37.8 Body Water Mass 91.0 Muscle Mass/Score 121.2 Basal Metabolic Rate/Score 1,804 Intake Visit Reasons: OV Lap Alla 02/01/25 Allergies Penicillins Allergy (Intermediate, Verified 03/21/25 09:10) rash, all over body HPI Comments Details: This?a?49?yo female who is s/p LSG without hiatal hernia repair on?10/20/2023. Presents for 1 year 5 month post op visit. Weight today is 241.4 pounds, with a BMI of 41.4. There has been a 276.8 pound weight loss,(initial weight 518.2 pounds) since starting the program on 03/31/2022 reflecting a 53.4 % total body weight loss and a weight loss of 163.4 pounds since surgery (operative weight 404.8 pounds) reflecting a 401.3 % TBWL since surgery. No complaints of nausea, emesis, abdominal pain or reflux. Reports infrequent but normal bowel movements every 2-3 days and uses stool softeners regularly. started celebrate mvi She additionally was found to have biliary colic and underwent laparoscopic cholecystectomy on 02/01/2025. She states she has a rash under her pannus and sent a picture, using antifungal with improvement in the rash but worsens after treatment. She also reports pain in her arms with activity due to the excess skin. Has used steroid cream in the past with efficacy. She is no longer taking her norvasc 5 mg qd, she is also not taking coumadin for hx PE as she has been approved for a NOAC. She has been seen by Ortho BROADCAST SUPERVISOR and is now qualified for the R TKR. She had a cortisone shot last week and will see ortho in 3 months. She has resumed her walking routine. Present meal plan includes: 1 Celebrate 4 in 1, 2 scoops in 12 oz almond milk, 8-10, or rebuild 2 scoops or Orgain rtd 30 gm Celebrate protein water 11-1 Celebrate protein bar or built bar 2-4 pm meal 6 forks protein and 6 forks veg celebrate bar occitan yogurt 7-10 Drinking 48-64 oz water ? Exercise routine includes: walking outside 1.5-2.25 mi daily with calorie burn of 350-450 joshua daily Mon-Sat burn 30 fitness class, 30 min, 6 x per day avg burn 210-300 joshua PFS Medical History Adjustment disorder Fatty liver Bilateral knee pain HTN (hypertension) History of asthma GISSELLE on CPAP Hx pulmonary embolism Hypothyroidism Diabetes PONV (postoperative nausea and vomiting) Sleep apnea Surgical History Hx laparoscopic cholecystectomy S/P laparoscopic sleeve gastrectomy History of removal of skin mole Hx of colonoscopy Hx of dilation and curettage History of facial surgery Hx of section Family History Mother Diabetes Hypertension Graves disease Hypothyroid Father Heart problem Hypertension Brother No problems noted. Daughter No problems noted. Social History Household Members: Family Housing: House Are you a primary direct care specialist to a significant other at home: No Do you presently have visiting nurse or other home services: No 75 years or older and lives alone: No Alcohol intake: never Patient Tobacco Use Status: Never used Tobacco service: No Physical Exam Const General: healthy appearing and no acute distress Resp Effort & Inspection: normal respiratory effort Auscultation: clear to auscultation bilaterally Cardio Rate: regular rate Rhythm: regular rhythm GI Auscultation: normal bowel sounds Extrem General: Yes normal to inspection Assessment & Plan Assessment & Plan (1) S/P laparoscopic sleeve gastrectomy: Comment: 10/20/23 Code(s): Z98.84 - Bariatric surgery status Category: Surgical Plan: Patient is doing well and has recovered from her laparoscopic cholecystectomy. She has resumed her walking routine. Discussed increasing her speed on the treadmill up to 2.8 or 2.9. She will continue to strive to increase her distance as well. She will continue her current meal plan. She did have weight gain after her laparoscopic cholecystectomy which she has since lost. Return to the office in 1 month.
[2025-03-21 09:11] VITALS: BP 165/89; PULSE 49; TEMP 36.6; O2SAT 97; BMI 41.4
--- OUTSIDE RECORDS SUMMARY | 2025-03-21 09:32 | XMS_ITS | Continuity of Care Document ---
Author Organization [facility] [address] [place] [address] Phone [phone] Care Team Providers Care Watch Parts Grinder Name Role Phone Evy Manrique M.D. 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 09/28/2024 Meclizine [id number] Tablets 1 q 8 hours as needed 45tabs Evy Manrique M.D. 04/05/2024 Freestyle Lite TestStrips Use as directed for testing blood sugar once daily (DX:E11.9) 100units E11.9 Evy Manrique M.D. 10/31/2023 Levothyroxine [id number] Tablets Take 1 Tablet By Mouth Every Day 90tabs Evy Manrique M.D. Flovent [id number]/Act Aerosol 2 puff daily as needed 1gm Evy Manrique M.D. Proair [id number](90Base) mcg/Act Aerosol 2 puffs every 4 hours as needed 1gm Eyv Manrique M.D. Metamucil0.36gm Capsules 4 by mouth [...] 19.8 sec High 9.1-12.0 Protime Profile 12/15/2023 [facility] Protime 21.1 SEC High (9.2-11.4 ) Internatnl Normalized Ratio 2.1 High (0.9-1.1) 19 Protime Profile 12/09/2023 [facility] Protime 23.5 SEC High (9.2-11.4 ) Internatnl Normalized Ratio 2.4 High (0.9-1.1) 20 Protime Profile 12/05/2023 [facility] Protime 26.2 SEC High (9.2-11.4 ) Internatnl Normalized Ratio 2.7 High (0.9-1.1) 21 Protime Profile 12/01/2023 [facility] Protime 17.2 SEC High (9.2-11.4 ) Internatnl Normalized Ratio 1.7 High (0.9-1.1) 22 Protime Profile 11/29/2023 [facility] Protime 18.2 SEC High (9.2-11.4 ) Internatnl Normalized Ratio 1.8 High (0.9-1.1) 23 Protime Profile 11/27/2023 [facility] [id number] Duplicate Order Protime 35.0 SEC High (9.2-11.4 ) Internatnl Normalized Ratio 3.7 High (0.9-1.1) 24 Protime Profile 11/25/2023 [facility] Protime 47.1 SEC High (9.2-11.4 [...] Inhouse Glucose Fingerstick 96 Protime Profile 08/17/2023 [facility] Protime 29.3 SEC High (9.2-11.4 ) Internatnl Normalized Ratio 3.0 High (0.9-1.1) 28 Protime Profile 07/25/2023 [facility] Protime 27.2 SEC High (9.2-11.4 ) Internatnl Normalized Ratio 2.8 High (0.9-1.1) 29 Protime Profile 06/16/2023 [facility] Protime 24.0 SEC High (9.2-11.4 ) Internatnl Normalized Ratio 2.4 High (0.9-1.1) 30 Protime Profile 05/30/2023 [facility] Protime 25.3 SEC High (9.2-11.4 ) Internatnl Normalized Ratio 2.6 High (0.9-1.1) 31 Protime Profile 05/11/2023 [facility] Protime 25.9 SEC High (9.2-11.4 ) Internatnl Normalized Ratio 2.6 High (0.9-1.1) 32 Protime Profile 04/27/2023 [facility] Protime 21.6 SEC High (9.2-11.4 ) Internatnl Normalized Ratio 2.2 High (0.9-1.1) 33 Protime Profile 04/19/2023 [facility] Protime 19.4 SEC High (9.2-11.4 ) Internatnl Normalized Ratio 1.9 High (0.9-1.1) 34 Protime Profile 04/11/2023 [facility] Protime 20.0 SEC High (9.2-11.4 ) Internatnl Normalized Ratio 2.0 High (0.9-1.1) 35 Protime Profile 04/07/2023 [facility] Protime 17.6 SEC High (9.2-11.4 ) Internatnl Normalized Ratio 1.7 High (0.9-1.1) 36 Protime Profile 04/01/2023 [facility] Protime 14.7 SEC High (9.2-11.4 ) Internatnl Normalized Ratio 1.4 High (0.9-1.1) 37 Hemoglobin A1c 03/25/2023 Inhouse Hemoglobin A1c 5.5% Glucose Fingerstick 03/25/2023 Inhouse Glucose Fingerstick 101 Protime Profile 03/03/2023 [facility] Protime 20.6 SEC High (9.2-11.4 ) Internatnl Normalized Ratio 2.1 High (0.9-1.1) 38 Comprehensive Metabolic Panl 02/02/2023 [facility] Glucose 115 mg/dL High [...] 101 ML/MIN/1.73 M2 39 Lipid Panel 02/02/2023 [facility] Cholesterol, Total 172 mg/dL (<200) Triglyceride 122 mg/dL (<150) HDL Chol 48 mg/dL (>39) LDL Cholesterol, Calculated 100 mg/dL (0-130) Non HDL Cholesterol (Calc) 124 mg/dL (<160) Complete Abc With Diff 02/02/2023 [facility] WBC 8.0 K/MM3 (4.0-11.0 ) [...] K/MM3 (1.3-7.0) Lymph # 2.2 K/MM3 (0.8-3.1) [place]# 0.6 K/MM3 (0.4-0.9) Eo # 0.3 K/MM3 (0.0-0.4) Baso # 0.0 K/MM3 (0.0-0.1) Abs. Imm Gran 0.0 K/MM3 Neut 61.3 % (44-76) Lymph 27.5 % (15-43) Monocyte 6.9 % (4.5-10.5 ) Eo 3.5 % (0-6) Baso 0.5 % (0-2) Imm Gran 0.3 % TSH With Reflex To FT4 02/02/2023 [facility] TSH With Reflex To FT4 2.44 uIU/mL (0.4-4.2) Protime Profile 02/02/2023 [facility] Protime 21.0 SEC High (9.2-11.4 ) Internatnl Normalized Ratio 2.1 High (0.9-1.1) 40 Protime Profile 01/25/2023 [facility] Protime 19.1 SEC High (9.2-11.4 ) Internatnl Normalized Ratio 1.9 High (0.9-1.1) 41 Protime Profile 12/23/2022 [facility] Protime 25.3 SEC High (9.2-11.4 ) Internatnl Normalized Ratio 2.6 High (0.9-1.1) 42 Protime Profile 12/09/2022 [facility] Protime 21.4 SEC High (9.2-11.4 ) Internatnl Normalized Ratio 2.1 High (0.9-1.1) 43 Glucose Fingerstick 11/25/2022 Inhouse Glucose Fingerstick 111 Hemoglobin A1c 11/25/2022 Inhouse Hemoglobin A1c 5.6% Protime Profile 11/18/2022 [facility] Protime 22.9 SEC High (9.2-11.4 ) Internatnl Normalized Ratio 2.3 High (0.9-1.1) 44 Protime Profile 11/11/2022 [facility] Protime 21.8 SEC High (9.2-11.4 ) Internatnl Normalized Ratio 2.2 High (0.9-1.1) 45 Protime Profile 11/05/2022 [facility] Protime 18.0 SEC High (9.2-11.4 ) Internatnl Normalized Ratio 1.8 High (0.9-1.1) 46 Protime Profile 10/22/2022 [facility] Protime 25.1 SEC High (9.2-11.4 ) Internatnl Normalized Ratio 2.5 High (0.9-1.1) 47 Protime Profile 10/14/2022 [facility] Protime 22.1 SEC High (9.2-11.4 ) Internatnl Normalized Ratio 2.2 High (0.9-1.1) 48 Protime Profile 10/07/2022 [facility] Protime 19.2 SEC High (9.2-11.4 ) Internatnl Normalized Ratio 1.9 High (0.9-1.1) 49 Protime Profile 09/30/2022 [facility] Protime 19.7 SEC High (9.2-11.4 ) Internatnl Normalized Ratio 2.0 High (0.9-1.1) 50 Protime Profile 09/23/2022 [facility] Protime 21.5 SEC High (9.2-11.4 ) Internatnl Normalized Ratio 2.2 High (0.9-1.1) 51 Protime Profile 09/18/2022 [facility] Protime 37.1 SEC High (9.2-11.4 ) Internatnl Normalized Ratio 3.9 High (0.9-1.1) 52 Protime Profile 09/09/2022 [facility] Protime 30.8 SEC High (9.2-11.4 ) Internatnl Normalized Ratio 3.1 High (0.9-1.1) 53 Protime Profile 08/31/2022 [facility] Protime 26.1 SEC High (9.2-11.4 ) Internatnl Normalized Ratio 2.6 High (0.9-1.1) 54 Protime Profile 08/26/2022 [facility] Protime 25.9 SEC High (9.2-11.4 ) Internatnl Normalized Ratio 2.6 High (0.9-1.1) 55 Protime Profile 08/18/2022 [facility] Protime 18.1 SEC High (9.2-11.4 ) Internatnl Normalized Ratio 1.8 High (0.9-1.1) 56 Protime Profile 08/12/2022 [facility] Protime 15.0 SEC High (9.2-11.4 ) Internatnl Normalized Ratio 1.5 High (0.9-1.1) 57 Protime Profile 08/06/2022 [facility] Protime 20.0 SEC High (9.2-11.4 ) Internatnl Normalized Ratio 2.0 High (0.9-1.1) 58 Hemoglobin A1c 07/30/2022 Inhouse Hemoglobin A1c 6.1 Glucose Fingerstick 07/30/2022 Inhouse Glucose Fingerstick 147 Protime Profile 07/26/2022 [facility] Protime 26.3 SEC High (9.2-11.4 ) Internatnl Normalized Ratio 2.7 High (0.9-1.1) 59 Protime Profile 07/05/2022 [facility] Protime 18.0 SEC High (9.2-11.4 ) Internatnl Normalized Ratio 1.8 High (0.9-1.1) 60 Protime Profile 06/24/2022 [facility] Protime 20.9 SEC High (9.2-11.4 ) Internatnl Normalized Ratio 2.1 High (0.9-1.1) 61 Protime Profile 06/18/2022 [facility] Protime 19.1 SEC High (9.2-11.4 ) Internatnl Normalized Ratio 1.9 High (0.9-1.1) 62 Protime Profile 06/03/2022 [facility] Protime 28.7 SEC High (9.2-11.4 ) Internatnl Normalized Ratio 2.9 High (0.9-1.1) 63 Protime Profile 05/18/2022 [facility] Protime 24.2 SEC High (9.2-11.4 ) Internatnl Normalized Ratio 2.5 High (0.9-1.1) 64 Protime Profile 05/11/2022 [facility] [id number] Duplicate order <SEE NOTE> 65 Protime Profile 05/11/2022 [facility] Protime 19.0 SEC High (9.2-11.4 ) Internatnl Normalized Ratio 1.9 High (0.9-1.1) 66 Protime Profile 05/04/2022 [facility] Protime 19.4 SEC High (9.2-11.4 ) Internatnl Normalized Ratio 1.9 High (0.9-1.1) 67 Protime Profile 04/30/2022 [facility] Protime 15.2 SEC High (9.2-11.4 ) Internatnl Normalized Ratio 1.5 High (0.9-1.1) 68 Protime Profile 04/26/2022 [facility] Protime 12.2 SEC High (9.2-11.4 [...] VALVES. Procedures Date Code Description Status 01/23/2025 01380 Collection Of Venous Blood B y Venipuncture Completed 01/06/2024 68631 Remove Impacted Cerumen Comp leted 01/06/2024 43436 Collection Of Venous Blood B y Venipuncture [...] Reason for Referral Status Appt Aniket e [facility] unprovo ked pulmonary emboli 2020, on warfarin b/o morbid obesity question medication management Closed 08/09/2024 [address] [place] [address] [phone] [facility] LEFT SHOULDER PAIN X 2 MONTHS Closed 05/10/2023 [address] [place] [address] [phone] [facility] Technologist re: celeste reening colonoscopy family history of polyps father before age 60 Closed 02/03/[address] [place] [address] [phone]
== END 2025-03-21 09:27 | disposition home or self-care (01) ==
LOC: HO.HBS 08:57
PROVIDERS: Visit Provider Physician Assistant Surgical
DX: E66.01 Morbid (severe) obesity due to excess calories (principal); Z68.41 Body mass index [BMI] 40.0-44.9, adult; Z98.84 Bariatric surgery status
CPT/HCPCS: 99024

== ENCOUNTER 2025-05-01 09:01 | Outpatient (AMB) | payer OTHER, SELFPAY ==
--- NOTE | 2025-05-01 09:03 | MHC.OFFVISWM ---
VS Expanded 05/01/25 09:19 BP 160/84 H Blood Pressure Location Rt brachial Blood Pressure Position Sitting Pulse 44 L Pulse Source Pulse Oximeter Temp 96.6 F L Temperature Source Temporal Artery Scan Pulse Oximetry 99 Oxygen Delivery Method Room Air Height 5 ft 4 in Weight 236 lb 9.6 oz BMI 40.6 Body Fat % 46.1 Body Fat Mass 109.2 Fat Free Mass 127.4 Visceral Fat Rating 14.0 Body Water % 38.4 Body Water Mass 90.8 Muscle Mass/Score 121.0 Basal Metabolic Rate/Score 1,793 Intake Visit Reasons: OV Lap Alla 02/01/25 Allergies Penicillins Allergy (Intermediate, Verified 05/01/25 09:12) rash, all over body HPI Comments Details: This?a?50?yo female who is s/p LSG without hiatal hernia repair on?10/20/2023. Presents for 1 year 6 month post op visit. Weight today is 236.6 pounds, with a BMI of 40.6. There has been a 281.6 pound weight loss,(initial weight 518.2 pounds) since starting the program on 03/31/2022 reflecting a 54.3 % total body weight loss and a weight loss of 168.2 pounds since surgery (operative weight 404.8 pounds) reflecting a 41.5 % TBWL since surgery. No complaints of nausea, emesis, abdominal pain or reflux. Reports infrequent but normal bowel movements every 2-3 days and uses stool softeners regularly. started celebrate mvi She additionally was found to have biliary colic and underwent laparoscopic cholecystectomy on 02/01/2025. She states she has a rash under her pannus and sent a picture, using antifungal with improvement in the rash but worsens after treatment. She also reports pain in her arms with activity due to the excess skin. Has used steroid cream in the past with efficacy. She is no longer taking her norvasc 5 mg qd, she is also not taking coumadin for hx PE as she has been approved for a NOAC. She has been seen by Ortho REGISTERED DIETETIC TECHNICIAN and is now qualified for the R TKR. She had a cortisone shot in March and will see ortho in 3 months. She has resumed her walking routine. Present meal plan includes: 1 Celebrate 4 in 1, 2 scoops in 12 oz almond milk, 8-10, or rebuild 2 scoops or Orgain rtd 30 gm Celebrate protein water 11-1 Celebrate protein bar or built bar 2-4 pm meal 6 forks protein and 6 forks veg, 6 pm celebrate bar 730 pm sometimes 1/2 greenlandic yogurt 10 om Drinking 64 oz water ? Exercise routine includes: treadmill 1.5-2.25 mi daily with calorie burn of 400 joshua daily Mon-Sat burn 30 fitness class, 30 min, 6 x per day avg burn 210-300 joshua Any post op complications: none GISSELLE: improved - not using DM: resolved HTN: resolved Hyperlipidemia: never GERD:?0-5 scale ??0 = no symptoms ??1 = symptoms noticeable but not bothersome 2 =symptoms bothersome but not daily ? 3 = symptoms bothersome and daily 4 = symptoms affect daily activities 5 = symptoms are incapacitating, unable to do daily activities ? How bad is the heartburn: 0 ? Heartburn while lying down: 0 ? Heartburn when standing up: 0 ? Heartburn after meals: 0 ? Does heartburn change your diet: 0 ? Does heartburn wake you up from sleep: 0 ? Do you have difficulty swallowin ? Do you have pain with swallowin ? If you take medicine for your reflux, does this affect your daily life: 0 Satisfaction with present condition - satisfied or not satisfied: jm [facility] Medical History Adjustment disorder Fatty liver Bilateral knee pain HTN (hypertension) History of asthma GISSELLE on CPAP Hx pulmonary embolism Hypothyroidism Diabetes PONV (postoperative nausea and vomiting) Sleep apnea Surgical History Hx laparoscopic cholecystectomy S/P laparoscopic sleeve gastrectomy History of removal of skin mole Hx of colonoscopy Hx of dilation and curettage History of facial surgery Hx of section Family History Mother Diabetes Hypertension Graves disease Hypothyroid Father Heart problem Hypertension Brother No problems noted. Daughter No problems noted. Social History Household Members: Family Housing: House Are you a primary lawn caretaker to a significant other at home: No Do you presently have visiting nurse or other home services: No 75 years or older and lives alone: No Alcohol intake: never Patient Tobacco Use Status: Never used Tobacco service: No Physical Exam Vital Signs: Last Vital Signs Temp 96.6 F L 05/01/25 09:19 Pulse 44 L 05/01/25 09:19 BP 160/84 H 05/01/25 09:19 Pulse Ox 99 05/01/25 09:19 Oxygen Delivery Method Room Air 05/01/25 09:19 BMI result Body Mass Index 40.6 Const General: cooperative and no acute distress Orientation/consciousness: patient oriented x3 Resp Effort & Inspection: normal respiratory effort Auscultation: clear to auscultation bilaterally Cardio Rate: regular rate Rhythm: regular rhythm GI Inspection: Yes normal to inspection and Yes incision (well healed) Palpation (GI): Soft to palpation and no masses Skin Other: Abdominal pannus grade 3 with evidence of dermatitis to bilateral lateral skin folds Neuro General: patient oriented x3 Assessment & Plan Assessment & Plan (1) S/P laparoscopic sleeve gastrectomy: Comment: 10/20/23 Code(s): Z98.84 - Bariatric surgery status Category: Surgical Plan: We will change her meal plan slightly to account for her continued weight loss: 1 Celebrate 4 in 1, 2 scoops in 12 oz almond milk, 8-10, or rebuild 2 scoops or 8 oz of Orgain rtd 30 gm 1/2 Celebrate protein water 11-1 Celebrate protein bar or built bar 2-4 pm meal 6 forks protein and 6 forks veg, 6 pm celebrate bar or greenlandic yogurt at 8 pm Her exercise regimen is appropriate and she is encouraged to continue. We will have her return to the office in approximately 6 weeks. Recently she had labs done in January. We will check vitamin levels in accordance with 18 month postop protocols. (2) Panniculitis: Code(s): M79.3 - Panniculitis, unspecified Category: Medical Plan: Given patient's extensive weight loss, she continues to have recurrent intermittent rash under the pannus. She is using clotrimazole cream. She is going to need medically appropriate and indicated skin removal surgery. Orders: Orders Zinc Today M79.3 - Panniculitis, unspecified, Z98.84 - Bariatric surgery status Vitamin A Today M79.3 - Panniculitis, unspecified, Z98.84 - Bariatric surgery status Vitamin D 25-OH Total Today M79.3 - Panniculitis, unspecified, Z98.84 - Bariatric surgery status Ferritin Today M79.3 - Panniculitis, unspecified, Z98.84 - Bariatric surgery status Vitamin B12 and Folate Today M79.3 - Panniculitis, unspecified, Z98.84 - Bariatric surgery status IRON PROFILE Today M79.3 - Panniculitis, unspecified, Z98.84 - Bariatric surgery status Vitamin B1 Today M79.3 - Panniculitis, unspecified, Z98.84 - Bariatric surgery status
[2025-05-01 09:19] VITALS: BP 160/84; PULSE 44; TEMP 35.9; O2SAT 99; BMI 40.6
--- OUTSIDE RECORDS SUMMARY | 2025-05-01 09:30 | XMS_ITS | Continuity of Care Document ---
Author Organization [facility] [address] [place] [address] Phone [phone] Care Team Providers Care Batter Mixer Helper Name Role Phone Evy Manrique M.D. Care Team Informati on Battalion Chief [phone] Problems Active Problems Provider Date Morbid obesity [...] SIG Qnty Indications Order ing Provider Date [id number] Tablets 1 by mouth twice a day 180tabs Evy Manrique M.D. 09/28/2024 Meclizine [id number] Tablets 1 q 8 hours as needed 45tabs Evy Manrique M.D. 04/05/2024 Freestyle Lite TestStrips Use as directed for testing blood sugar once daily (DX:E11.9) 100units E11.9 Evy Manrique M.D. 10/31/2023 Levothyroxine [id number] Tablets Take 1 Tablet By Mouth Every Day 90tabs Evy Manrique M.D. Flovent [id number]/Act Aerosol 2 puff daily as needed 1gm Evy Manrique M.D. Proair QER504(90Base) mcg/Act Aerosol 2 puffs every 4 hours [...] 19.8 sec High 9.1-12.0 Protime Profile 12/15/2023 [facility] Protime 21.1 SEC High (9.2-11.4 ) Internatnl Normalized Ratio 2.1 High (0.9-1.1) 19 Protime Profile 12/09/2023 [facility] Protime 23.5 SEC High (9.2-11.4 ) Internatnl Normalized Ratio 2.4 High (0.9-1.1) 20 Protime Profile 12/05/2023 [facility] Protime 26.2 SEC High (9.2-11.4 ) Internatnl Normalized Ratio 2.7 High (0.9-1.1) 21 Protime Profile 12/01/2023 [facility] Protime 17.2 SEC High (9.2-11.4 ) Internatnl Normalized Ratio 1.7 High (0.9-1.1) 22 Protime Profile 11/29/2023 [facility] Protime 18.2 SEC High (9.2-11.4 ) Internatnl Normalized Ratio 1.8 High (0.9-1.1) 23 Protime Profile 11/27/2023 [facility] [id number] Duplicate Order Protime 35.0 SEC High (9.2-11.4 ) Internatnl Normalized Ratio 3.7 High (0.9-1.1) 24 Protime Profile 11/25/2023 [facility] Protime 47.1 SEC High (9.2-11.4 [...] Inhouse Glucose Fingerstick 96 Protime Profile 08/17/2023 [facility] Protime 29.3 SEC High (9.2-11.4 ) Internatnl Normalized Ratio 3.0 High (0.9-1.1) 28 Protime Profile 07/25/2023 [facility] Protime 27.2 SEC High (9.2-11.4 ) Internatnl Normalized Ratio 2.8 High (0.9-1.1) 29 Protime Profile 06/16/2023 [facility] Protime 24.0 SEC High (9.2-11.4 ) Internatnl Normalized Ratio 2.4 High (0.9-1.1) 30 Protime Profile 05/30/2023 [facility] Protime 25.3 SEC High (9.2-11.4 ) Internatnl Normalized Ratio 2.6 High (0.9-1.1) 31 Protime Profile 05/11/2023 [facility] Protime 25.9 SEC High (9.2-11.4 ) Internatnl Normalized Ratio 2.6 High (0.9-1.1) 32 Protime Profile 04/27/2023 [facility] Protime 21.6 SEC High (9.2-11.4 ) Internatnl Normalized Ratio 2.2 High (0.9-1.1) 33 Protime Profile 04/19/2023 [facility] Protime 19.4 SEC High (9.2-11.4 ) Internatnl Normalized Ratio 1.9 High (0.9-1.1) 34 Protime Profile 04/11/2023 [facility] Protime 20.0 SEC High (9.2-11.4 ) Internatnl Normalized Ratio 2.0 High (0.9-1.1) 35 Protime Profile 04/07/2023 [facility] Protime 17.6 SEC High (9.2-11.4 ) Internatnl Normalized Ratio 1.7 High (0.9-1.1) 36 Protime Profile 04/01/2023 [facility] Protime 14.7 SEC High (9.2-11.4 ) Internatnl Normalized Ratio 1.4 High (0.9-1.1) 37 Hemoglobin A1c 03/25/2023 Inhouse Hemoglobin A1c 5.5% Glucose Fingerstick 03/25/2023 Inhouse Glucose Fingerstick 101 Protime Profile 03/03/2023 [facility] Protime 20.6 SEC High (9.2-11.4 ) Internatnl Normalized Ratio 2.1 High (0.9-1.1) 38 Comprehensive Metabolic Panl 02/02/2023 [facility] Glucose 115 mg/dL High (70-99) [...] 101 ML/MIN/1.73 M2 39 Lipid Panel 02/02/2023 [facility] Cholesterol, Total 172 mg/dL (<200) Triglyceride 122 mg/dL (<150) HDL Chol 48 mg/dL (>39) LDL Cholesterol, Calculated 100 mg/dL (0-130) Non HDL Cholesterol (Calc) 124 mg/dL (<160) Complete Abc With Diff 02/02/2023 [facility] WBC 8.0 K/MM3 (4.0-11.0 ) [...] K/MM3 (1.3-7.0) Lymph # 2.2 K/MM3 (0.8-3.1) [place]# 0.6 K/MM3 (0.4-0.9) Eo # 0.3 K/MM3 (0.0-0.4) Baso # 0.0 K/MM3 (0.0-0.1) Abs. Imm Gran 0.0 K/MM3 Neut 61.3 % (44-76) Lymph 27.5 % (15-43) Monocyte 6.9 % (4.5-10.5 ) Eo 3.5 % (0-6) Baso 0.5 % (0-2) Imm Gran 0.3 % TSH With Reflex To FT4 02/02/2023 [facility] TSH With Reflex To FT4 2.44 uIU/mL (0.4-4.2) Protime Profile 02/02/2023 [facility] Protime 21.0 SEC High (9.2-11.4 ) Internatnl Normalized Ratio 2.1 High (0.9-1.1) 40 Protime Profile 01/25/2023 [facility] Protime 19.1 SEC High (9.2-11.4 ) Internatnl Normalized Ratio 1.9 High (0.9-1.1) 41 Protime Profile 12/23/2022 [facility] Protime 25.3 SEC High (9.2-11.4 ) Internatnl Normalized Ratio 2.6 High (0.9-1.1) 42 Protime Profile 12/09/2022 [facility] Protime 21.4 SEC High (9.2-11.4 ) Internatnl Normalized Ratio 2.1 High (0.9-1.1) 43 Glucose Fingerstick 11/25/2022 Inhouse Glucose Fingerstick 111 Hemoglobin A1c 11/25/2022 Inhouse Hemoglobin A1c 5.6% Protime Profile 11/18/2022 [facility] Protime 22.9 SEC High (9.2-11.4 ) Internatnl Normalized Ratio 2.3 High (0.9-1.1) 44 Protime Profile 11/11/2022 [facility] Protime 21.8 SEC High (9.2-11.4 ) Internatnl Normalized Ratio 2.2 High (0.9-1.1) 45 Protime Profile 11/05/2022 [facility] Protime 18.0 SEC High (9.2-11.4 ) Internatnl Normalized Ratio 1.8 High (0.9-1.1) 46 Protime Profile 10/22/2022 [facility] Protime 25.1 SEC High (9.2-11.4 ) Internatnl Normalized Ratio 2.5 High (0.9-1.1) 47 Protime Profile 10/14/2022 [facility] Protime 22.1 SEC High (9.2-11.4 ) Internatnl Normalized Ratio 2.2 High (0.9-1.1) 48 Protime Profile 10/07/2022 [facility] Protime 19.2 SEC High (9.2-11.4 ) Internatnl Normalized Ratio 1.9 High (0.9-1.1) 49 Protime Profile 09/30/2022 [facility] Protime 19.7 SEC High (9.2-11.4 ) Internatnl Normalized Ratio 2.0 High (0.9-1.1) 50 Protime Profile 09/23/2022 [facility] Protime 21.5 SEC High (9.2-11.4 ) Internatnl Normalized Ratio 2.2 High (0.9-1.1) 51 Protime Profile 09/18/2022 [facility] Protime 37.1 SEC High (9.2-11.4 ) Internatnl Normalized Ratio 3.9 High (0.9-1.1) 52 Protime Profile 09/09/2022 [facility] Protime 30.8 SEC High (9.2-11.4 ) Internatnl Normalized Ratio 3.1 High (0.9-1.1) 53 Protime Profile 08/31/2022 [facility] Protime 26.1 SEC High (9.2-11.4 ) Internatnl Normalized Ratio 2.6 High (0.9-1.1) 54 Protime Profile 08/26/2022 [facility] Protime 25.9 SEC High (9.2-11.4 ) Internatnl Normalized Ratio 2.6 High (0.9-1.1) 55 Protime Profile 08/18/2022 [facility] Protime 18.1 SEC High (9.2-11.4 ) Internatnl Normalized Ratio 1.8 High (0.9-1.1) 56 Protime Profile 08/12/2022 [facility] Protime 15.0 SEC High (9.2-11.4 ) Internatnl Normalized Ratio 1.5 High (0.9-1.1) 57 Protime Profile 08/06/2022 [facility] Protime 20.0 SEC High (9.2-11.4 ) Internatnl Normalized Ratio 2.0 High (0.9-1.1) 58 Hemoglobin A1c 07/30/2022 Inhouse Hemoglobin A1c 6.1 Glucose Fingerstick 07/30/2022 Inhouse Glucose Fingerstick 147 Protime Profile 07/26/2022 [facility] Protime 26.3 SEC High (9.2-11.4 ) Internatnl Normalized Ratio 2.7 High (0.9-1.1) 59 Protime Profile 07/05/2022 [facility] Protime 18.0 SEC High (9.2-11.4 ) Internatnl Normalized Ratio 1.8 High (0.9-1.1) 60 Protime Profile 06/24/2022 [facility] Protime 20.9 SEC High (9.2-11.4 ) Internatnl Normalized Ratio 2.1 High (0.9-1.1) 61 Protime Profile 06/18/2022 [facility] Protime 19.1 SEC High (9.2-11.4 ) Internatnl Normalized Ratio 1.9 High (0.9-1.1) 62 Protime Profile 06/03/2022 [facility] Protime 28.7 SEC High (9.2-11.4 ) Internatnl Normalized Ratio 2.9 High (0.9-1.1) 63 Protime Profile 05/18/2022 [facility] Protime 24.2 SEC High (9.2-11.4 ) Internatnl Normalized Ratio 2.5 High (0.9-1.1) 64 Protime Profile 05/11/2022 [facility] [id number] Duplicate order <SEE NOTE> 65 Protime Profile 05/11/2022 [facility] Protime 19.0 SEC High (9.2-11.4 ) Internatnl Normalized Ratio 1.9 High (0.9-1.1) 66 Protime Profile 05/04/2022 [facility] Protime 19.4 SEC High (9.2-11.4 ) Internatnl Normalized Ratio 1.9 High (0.9-1.1) 67 Protime Profile 04/30/2022 [facility] Protime 15.2 SEC High (9.2-11.4 ) Internatnl Normalized Ratio 1.5 High (0.9-1.1) 68 Protime Profile 04/26/2022 [facility] Protime 12.2 SEC High (9.2-11.4 [...] VALVES. Procedures Date Code Description Status 01/23/2025 18263 Collection Of Venous Blood B y Venipuncture Completed 01/06/2024 14485 Remove Impacted Cerumen Comp leted 01/06/2024 39211 Collection Of Venous Blood B y Venipuncture [...] of other venous thrombosis and embolism Evy Manriqeu M.D. 01/23/2025 E66.01 Morbid (severe) obesity due to excess calories Evy Manrique M.D. 01/23/2025 K75.81 Nonalcoholic steatohepatitis ([place]ietz) Evy Manrique M.D. 01/23/2025 [address]68[address] ate NOS Evy Mnarique M.D. 01/23/2025 E11.9 Type 2 diabetes mellitus [...] Reason for Referral Status Appt [facility] unprovo ked pulmonary emboli 2020, on warfarin b/o morbid obesity question medication management Closed 08/09/2024 [address] [place] [address] [phone] [facility] LEFT SHOULDER PAIN X 2 MONTHS Closed 05/10/2023 [address] [place] [address] [phone] [facility] Instructor Industrial Design re: celeste reening colonoscopy family history of polyps father before age 60 Closed 02/03/[address] [place] [address] [phone]
--- OUTSIDE RECORDS SUMMARY | 2025-05-01 09:31 | XMS_ITS | Clinical Summary ---
Author Organization [facility] Address [address] [place] [phone] Phone Care Team Providers Care Maintenance Mechanic 2Nd Shift Name Role Phone Evy Manrique MD Primary Care Provid er Social History Tobacco Use Types Packs/Day Years [...] Years (1 of 2 - PCV) 1993 Cervical Cancer Screening: Pap Smear 1995 Cholesterol Screening (Lipid Panel) 11/08/2023 Colorectal Cancer Screening: Colonoscopy 11/08/2023 HIV Screening 11/08/2023 Hepatitis C Screening 11/08/2023 Social Influencers of Health Screening 11/08/2023 Zoster Vaccines (1 of 2) 2024 COVID-19 Vaccine ( season) 2024 08/09/2023, 08/29/2021, 01/04/2021, Additional history exists Depression Screening 10/10/2024 Diabetes: Annual Urine Albumin-Creatinine Ratio (uACR) 12/04/2024 Diabetes: Blood Sugar Control Test (HGBA1C) 12/04/2024 Hypertension/CHF/CAD Annual BMP Blood Test 12/04/2024 Influenza Vaccine (#1) 2025 , 06/24/2020, 08/21/2018, Additional history exists HIB Vaccines [...] on patient's age to complete this topic Insurance [facility] [address] [place] [address] Care Teams Maintenance Mechanic 2Nd Shift Relationship Specialty Start Date End Date Evy Manrique MD [address] [place] [address] [address] [place] [address] PCP - General Endocrinology 12/04/24
== END 2025-05-01 09:45 | disposition home or self-care (01) ==
LOC: HO.HBS 09:01
PROVIDERS: Visit Provider Physician Assistant Surgical
DX: M79.3 Panniculitis, unspecified (principal); Z98.84 Bariatric surgery status; E66.01 Morbid (severe) obesity due to excess calories; Z68.41 Body mass index [BMI] 40.0-44.9, adult
CPT/HCPCS: 99024

== ENCOUNTER 2025-06-19 09:01 | Outpatient (AMB) | payer OTHER, SELFPAY ==
--- NOTE | 2025-06-19 09:03 | A.OFFVIS_ITS ---
VS Expanded 06/19/25 09:17 BP 151/77 H Blood Pressure Location Rt brachial Blood Pressure Position Sitting Pulse 59 Pulse Source Pulse Oximeter Temp 97.7 F Temperature Source Temporal Artery Scan Pulse Oximetry 97 Oxygen Delivery Method Room Air Height 5 ft 4 in Weight 232 lb 9.6 oz BMI 39.9 Body Fat % 45.5 Body Fat Mass 105.8 Fat Free Mass 126.8 Visceral Fat Rating 13.0 Body Water % 38.8 Body Water Mass 90.2 Muscle Mass/Score 120.4 Basal Metabolic Rate/Score 1,779 Intake Visit Reasons: OV Lap Alla 02/01/25 Allergies Penicillins Allergy (Intermediate, Verified 06/19/25 09:19) rash, all over body Medication List - Last Reconciled 06/19/25 by JENNIFER Aragon albuterol sulfate 90 mcg/actuation 2 puffs inhalation QID PRN apixaban (Eliquis) 5 mg PO BID clotrimazole 1% 1 appl topical BID levothyroxine 100 mcg PO DAILY@0600 vdwguxzpxpfm-zpk-vfdf-FA-vit K 45 mg iron- 800 mcg-120 mcg (Bariatric Multivitamins) caps PO nystatin 1 appl topical QID ondansetron 4 mg PO Q6H PRN triamcinolone acetonide 0.1% 1 appl topical BID HPI Comments Details: This a 50 yo female who is s/p LSG without hiatal hernia repair on 10/20/2023. Weight today is 232.6 pounds, with a BMI of 40. Weight loss of 4lb since last OV 6w ago. There has been a 285.6 pound weight loss (initial weight 518.2 pounds) since starting the program on 03/31/2022. No complaints of nausea, emesis, abdominal pain or reflux. Reports infrequent but normal bowel movements every 2-3 days and uses stool softeners regularly. She additionally was found to have biliary colic and underwent laparoscopic cholecystectomy on 02/01/2025. She states she has a rash under her pannus and sent a picture, using antifungal with improvement in the rash but worsens after treatment. She also reports pain in her arms with activity due to the excess skin. Has used steroid cream in the past with efficacy. She is no longer taking her norvasc 5 mg qd, she is also not taking coumadin for hx PE as she has been approved for a NOAC. She has been seen by Ortho DRYING MACHINE BACK TENDER and is now qualified for the R TKR. Managing with cortisone shots in the meantime, due next week. She has resumed her walking routine. Present meal plan includes: 1 Celebrate 4 in 1, 2 scoops in 12 oz almond milk, 8-10, or rebuild 2 scoops or Orgain rtd 30 gm Celebrate protein water 11-1 Celebrate protein bar or built bar 2-4 pm meal 6 forks protein and 6 forks veg, 6 pm celebrate bar 730 pm sometimes 1/2 thai yogurt 10 om Celebrate MVI Drinking 64 oz water Exercise routine includes: treadmill 1.5-2.25 mi daily with calorie burn of 400 joshua daily Mon-Sat burn 30 fitness class, 30 min, 6 x per day avg burn 210-300 joshua PFSH Medical History Adjustment disorder Fatty liver Bilateral knee pain HTN (hypertension) History of asthma GISSELLE on CPAP Hx pulmonary embolism Hypothyroidism Diabetes PONV (postoperative nausea and vomiting) Sleep apnea Surgical History Hx laparoscopic cholecystectomy S/P laparoscopic sleeve gastrectomy History of removal of skin mole Hx of colonoscopy Hx of dilation and curettage History of facial surgery Hx of section Family History Mother Diabetes Hypertension Graves disease Hypothyroid Father Heart problem Hypertension Brother No problems noted. Daughter No problems noted. Social History Household Members: Family Housing: House Are you a primary critical care registered nurse to a significant other at home: No Do you presently have visiting nurse or other home services: No 75 years or older and lives alone: No Alcohol intake: never Patient Tobacco Use Status: Never used Tobacco service: No Assessment & Plan Assessment & Plan (1) S/P laparoscopic sleeve gastrectomy: Comment: 10/20/23 Code(s): Z98.84 - Bariatric surgery status Category: Medical (2) Excess skin: Code(s): L98.7 - Excessive and redundant skin and subcutaneous tissue Category: Medical (3) Obesity: Code(s): E66.9 - Obesity, unspecified Category: Medical Plan Pt will continue same meal plan as above per Dr. Lawler. She is no longer morbidly obese. She can text me weekly with weights for accountability and will come in monthly for weight checks. Will have vitamin labs done today. Requests alternative treatment for rashes, nystatin powder rx provided. RTC 3mo for phone appt. Medications: New nystatin 1 appl topical QID 60 grams 0RF
[2025-06-19 09:17] VITALS: BP 151/77; PULSE 59; TEMP 36.5; O2SAT 97; BMI 39.9
--- OUTSIDE RECORDS SUMMARY | 2025-06-19 10:39 | XMS_ITS | Clinical Summary ---
Author Organization [facility] Address [address] [place] [phone] Phone Care Team Providers Care Hospitalist Medical Director Name Role Phone Evy Manrique MD Primary [...] 11/08/2023 Zoster Vaccines (1 of 2) 2024 Depression Screening 10/10/2024 Diabetes: Annual Urine Albumin-Creatinine Ratio (uACR) 12/04/2024 Diabetes: Blood Sugar Control Test (HGBA1C) 12/04/2024 Hypertension/CHF/CAD Annual BMP Blood Test 12/04/2024 COVID-19 Vaccine ( season) 2025 08/09/2023, 08/29/2021, 01/04/2021, Additional history exists Influenza Vaccine (#1) 2025 , 06/24/2020, 08/21/2018, [...] patient's age to complete this topic Insurance [facility] Care Teams Hospitalist Medical Director Relationship Specialty Start Date End Date Evy Manrique MD PCP - General Endocrinology 12/04/24
== END 2025-06-19 09:41 | disposition home or self-care (01) ==
LOC: HO.HBS 09:02
PROVIDERS: Visit Provider Physician Assistant Surgical
DX: E66.9 Obesity, unspecified (principal); Z68.39 Body mass index [BMI] 39.0-39.9, adult; L98.7 Excessive and redundant skin and subcutaneous tissue; Z98.84 Bariatric surgery status
CPT/HCPCS: 99213; G2211

== ENCOUNTER 2025-06-19 09:01 | Outpatient (REF) | payer OTHER, SELFPAY ==
[2025-06-19 11:15] LABS: Iron 117 mcg/dL (30-160); Percent Iron Saturation 46 % (15-50); Total Iron Binding Capacity 257 mcg/dL (228-428); Unsaturated Iron Binding 140 ug/dL
[2025-06-19 11:39] LABS: Ferritin 114 ng/mL (10-250)
[2025-06-19 11:41] LABS: Folate > 20.0 ng/mL (> or = 4.0); Vitamin B12 803 pg/mL (200-900)
== END 2025-06-19 09:02 | disposition home or self-care (01) ==
LOC: HO.LAB 09:01
PROVIDERS: Absent Provider Physician Assistant Surgical; Visit Provider Physician Assistant Surgical
DX: E66.9 Obesity, unspecified (principal); M79.3 Panniculitis, unspecified; L98.7 Excessive and redundant skin and subcutaneous tissue; Z68.39 Body mass index [BMI] 39.0-39.9, adult; Z79.01 Long term (current) use of anticoagulants; Z98.84 Bariatric surgery status
CPT/HCPCS: 36415; 82306; 82607; 82728; 82746; 83540; 84425; 84590; 84630

== ENCOUNTER 2025-09-09 11:27 | Outpatient (AMB) | payer OTHER, SELFPAY ==
--- NOTE | 2025-09-09 11:33 | A.OFFVIS_ITS ---
VS Expanded 09/09/25 11:45 BP 128/66 Blood Pressure Location Rt brachial Blood Pressure Position Sitting Pulse 56 Pulse Source Pulse Oximeter Temp 97.7 F Temperature Source Temporal Artery Scan Pulse Oximetry 97 Oxygen Delivery Method Room Air Height 5 ft 4 in Weight 221 lb 6.4 oz BMI 38.0 Body Fat % 45.2 Body Fat Mass 100.0 Fat Free Mass 121.2 Visceral Fat Rating 13.0 Body Water % 39.0 Body Water Mass 86.4 Muscle Mass/Score 115.0 Basal Metabolic Rate/Score 1,700 Intake Visit Reasons: OV Lap Alla 02/01/25 & PO LSG 10/20/23 Allergies Penicillins Allergy (Intermediate, Verified 09/09/25 11:46) rash, all over body Medication List - Last Reconciled 09/09/25 by JENNIFER Aragon albuterol sulfate 90 mcg/actuation 2 puffs inhalation QID PRN apixaban (Eliquis) 5 mg PO BID clotrimazole 1% 1 appl topical BID levothyroxine 100 mcg PO DAILY@0600 viodllwnwamf-jdy-fscw-FA-vit K 45 mg iron- 800 mcg-120 mcg (Bariatric Multivitamins) caps PO nystatin 1 appl topical QID ondansetron 4 mg PO Q6H PRN triamcinolone acetonide 0.1% 1 appl topical BID HPI Comments Details: This a 50 yo female who is s/p LSG without hiatal hernia repair on 10/20/2023. Weight gain of 1.4lb since last OV. Initial weight 518.2 pounds starting the program on 03/31/2022. No complaints of nausea, emesis, abdominal pain or reflux. Reports infrequent but normal bowel movements every 2-3 days and uses stool softeners regularly. She additionally was found to have biliary colic and underwent laparoscopic cholecystectomy on 02/01/2025. She states she has a rash under her pannus and sent a picture, using antifungal with improvement in the rash but worsens after treatment. She also reports pain in her arms with activity due to the excess skin. Has used steroid cream in the past with efficacy. She is no longer taking her norvasc 5 mg qd, she is also not taking coumadin for hx PE as she has been approved for a NOAC. She has been seen by Ortho DIESEL ROLLER OPERATOR and is now qualified for the R TKR. Managing with cortisone shots in the meantime. She has resumed her walking routine. She had an abnormal mammogram, scheduled for biopsy. She is concerned about some areas of abdominal wall that have hardened after injections for blood thinners around her previous surgery. Many areas improved but three areas have persisted. Present meal plan includes: 1 Celebrate 4 in 1, 2 scoops in 12 oz almond milk, 8-10, or rebuild 2 scoops or Orgain rtd 30 gm Celebrate protein water 11-1 Celebrate protein bar or built bar 2-4 pm meal 6 forks protein and 6 forks veg, 6 pm celebrate bar 730 pm sometimes 1/2 luxembourgish yogurt 10 om Celebrate MVI Drinking 64 oz water Exercise routine includes: treadmill 1.5-2.25 mi daily with calorie burn of 400 joshua daily Mon-Sat burn 30 fitness class, 30 min, 6 x per day avg burn 210-300 joshua PFSH Medical History Adjustment disorder Fatty liver Bilateral knee pain HTN (hypertension) History of asthma GISSELLE on CPAP Hx pulmonary embolism Hypothyroidism Diabetes PONV (postoperative nausea and vomiting) Sleep apnea Surgical History Hx laparoscopic cholecystectomy S/P laparoscopic sleeve gastrectomy History of removal of skin mole Hx of colonoscopy Hx of dilation and curettage History of facial surgery Hx of section Family History Mother Diabetes Hypertension Graves disease Hypothyroid Father Heart problem Hypertension Brother No problems noted. Daughter No problems noted. Social History Household Members: Family Housing: House Are you a primary career and transition teacher to a significant other at home: No Do you presently have visiting nurse or other home services: No 75 years or older and lives alone: No Alcohol intake: never Patient Tobacco Use Status: Never used Tobacco service: No Physical Exam Const General: cooperative, comfortable and no acute distress Orientation/consciousness: patient oriented x3 GI Other: soft, nontender, nondistended, incisions well healed, no hernia, no masses 3 firm, mobile, nontender areas of L, R and infraumbilical abdomen; no overlying skin changes, largest on L about 2cm in diameter Neuro General: patient oriented x3 Assessment & Plan Assessment & Plan (1) S/P laparoscopic sleeve gastrectomy: Comment: 10/20/23 Code(s): Z98.84 - Bariatric surgery status Category: Surgical (2) Obesity: Code(s): E66.9 - Obesity, unspecified Category: Medical Plan Reviewed Tanita measurements; pt has lost fat, gained muscle, water weight is up. She is encouraged by this. Will continue current meal plan and exercise regimen. We reviewed protein goals. She had vitamin labs done recently. US for areas of abdomen that are concerning to pt; likely scar tissue from injection sites. RTC 3mo TV. Orders: Orders US abdomen limited Today E65 - Localized adiposity
[2025-09-09 11:45] VITALS: BP 128/66; PULSE 56; TEMP 36.5; O2SAT 97; BMI 38.0
--- OUTSIDE RECORDS SUMMARY | 2025-09-09 15:08 | XMS_ITS | Clinical Summary ---
Author Organization [facility] Address [address] [place] [phone] Phone Care Team Providers Care Candy Cutter Hand Name Role Phone Evy Manrique MD Primary [...] Last Done Comments Breast Cancer Screening 1974 Colorectal Cancer Screening: Colonoscopy 1974 Diabetes: Annual GFR (Glomerular Filtration Rate) [...] Smear 1995 Cholesterol Screening (Lipid Panel) 11/08/2023 HIV Screening 11/08/2023 Hepatitis C Screening 11/08/2023 Social Influencers of Health Screening 11/08/2023 RSV Immunization Adult Patients (1 - Risk 50-74 years 1-dose series) 2024 Zoster Vaccines (1 of 2) 2024 Depression [...] patient's age to complete this topic Insurance [facility] Care Teams Candy Cutter Hand Relationship Specialty Start Date End Date Evy Manrique MD PCP - General Endocrinology 12/04/24
== END 2025-09-09 12:30 | disposition home or self-care (01) ==
PROVIDERS: Visit Provider Physician Assistant Surgical
DX: E66.9 Obesity, unspecified (principal); Z68.38 Body mass index [BMI] 38.0-38.9, adult; Z90.3 Acquired absence of stomach [part of]; Z98.84 Bariatric surgery status
CPT/HCPCS: 99213; G2211